=== PATIENT | female | born 1995 | race Caucasian/White ===

== ENCOUNTER 2024-02-28 18:16 | Inpatient (IN) | payer MEDICARE, MEDICAID, SELFPAY ==
--- NOTE | ~2024-02-28 | XR_ITS ---
EXAMINATION: XR SHOULDER, RIGHT CLINICAL INFORMATION: Shoulder pain fall COMPARISON: None available. TECHNIQUE: AP external rotation, Grashey, scapular Y, and axillary views of the right shoulder. FINDINGS: The bones and soft tissues are normal. No fracture. Glenohumeral and acromioclavicular alignment is anatomic with normal joint space. No abnormal soft tissue calcifications. XR/XR shoulder RT min 2V IMPRESSION: Normal right shoulder.
--- NOTE | ~2024-02-28 | XR_ITS ---
EXAMINATION: XR ELBOW, RIGHT CLINICAL INFORMATION: Right elbow humeral pain after fall. COMPARISON: Right shoulder radiographs of 02/29/2024. TECHNIQUE: Two views of the right elbow. Per technologist, only 2 views were obtained due to recently dislocated right shoulder. FINDINGS: Bone mineralization is normal. Alignment maintained. No gross displaced fracture appreciated on the two views provided. XR/XR elbow RT min 3V IMPRESSION: No gross displaced fracture appreciated on this limited 2 view study. Additional imaging should be considered for further evaluation if there is clinical concern for fracture. This study was presented today March 04, 2024 for interpretation. Stat results provided at this time as requested by referring provider.
--- OUTSIDE RECORDS SUMMARY | 2024-02-28 18:20 | XMS_ITS | Continuity of Care Document ---
Author Organization [facility] Address [address] [place] [id number]- Care Team Providers Care Brazing Machine Tender Name Role Phone EILEEN RODRIGUEZ CNP Primary Care Physician Encounter [facility] Date(s): 05/06/23 - 05/06/[address] [address]- Encounter Diagnosis Near syncope(Discharge Diagnosis) - 05/06/23 Discharge Disposition: Home/Self Care Attending Physician: YOUNG EL Admitting Physician: YOUNG EL Referring Physician: YOUNG EL Allergies, Adverse Reactions, Alerts Substance Reaction Severity Status lithium unknown Active Haldol unknowhn Active [place] C unknown Active Problem List Condition Confirmation Course Effective Dates Status Health St atus Informant Development delay Confirmed Active Vital Signs Most recent to oldest [Reference Range]: 1 2 Blood Pressure [90-140/60-90 mmHg] 92/59 mmHg (05/06/23 1:22 PM) 117/67mmHg (05/06/23 11:18 AM) Dosing BMI 28 (05/06/23 2:09 PM) 28 (05/06/23 11:18 AM) Dosing BSA-Mosteller 1.64 m2 (05/06/23 2:09 PM) 1.64 m2 (05/06/23 11:18 AM) Dosing Weight 64.5 kg (05/06/23 2:09 PM) 64.5 kg (05/06/23 11:18 AM) Heart Rate [60-100 bpm] 98 bpm (05/06/23 1:22 PM) 93 bpm (05/06/23 11:18 AM) Heart Rate 83 bpm (05/06/23 11:27 AM) Height 151 cm (05/06/23 2:09 PM) 151 cm (05/06/23 11:18 AM) Mean Arterial Pressure 84 mmHg (05/06/23 11:18 AM) Respiratory Rate [14-20 breaths/min] 16 breaths/min (05/06/23 1:22 PM) 18 breaths/min (05/06/23 11:18 AM) SpO2/Pulse Oximetry [85-100 %] 95 % (05/06/23 1:22 PM) 96 % (05/06/23 11:18 AM) Temperature Oral [35.8-37.3 degC] 36.9 d egC (05/06/23 11:18 AM) Social History Social History Type Response Smoking/Tobacco Use Smoking tobacco use: Current status unknown. Sex Hospital Discharge Instructions Follow Up Care 05/06/2023 11:02:07 With:EILEEN RODRIGUEZ Address: [address] [place] [address]- [phone] Business (1) When:1-2 days Comments:Be sure to drink lots of fluids and get lots of rest. Your EKG here was normal, your vital signs are stable. Your blood sugar was 160. Your symptoms are likely associated with a vagal syncope after your injection. Follow-up with your primary care doctor for repeat evaluation and further management as needed. Return to the emergency department with any worsening new symptoms or concerns. Patient Care team information Care Team Personnel Name: EILEEN RODRIGUEZ CNP Position: RO Provider External Member Role: Primary Care Physician Address: Address: [address] [place] [id number]- Name: RAMONE MARTIN MD Position: ED Physician R3 Member Role: ED Physician Address: Address: [address] [place] [id number]- Name: Fabiana Umaña Position: ED RN SPC R3 Member Role: ED Nurse Name: Taiwo Godoy Position: ED Registration/Bed Control CPOE Member Role: ED Registration/Bed Control Name: DAVI VASQUEZ Position: ED MLP PA R3 Member Role: Physician Financial Reporting Advisor Address: Address: [address] [place] [address]-
[2024-02-28 19:06] VITALS: BP 134/86; PULSE 106; RESP 20; TEMP 36.6; O2SAT 95
[2024-02-28 19:11] VITALS: BP 148/84; PULSE 120; RESP 18; O2SAT 97
[2024-02-28 19:16] VITALS: BP 129/86; PULSE 101; RESP 16; O2SAT 95
[2024-02-28 19:18] LABS: Glucose, Whole Blood 107 mg/dL (60-115)
[2024-02-28] MEDS: LORazepam 1 MG TABLET PO (19:25)
[2024-02-28] MEDS: lamoTRIgine 100 MG TABLET 200 MG PO (19:25)
--- NOTE | 2024-02-28 19:29 | PM.EVENT ---
Event Note Date of Service: 02/29/24 Event Note: 7:04 PM - SALES AND MARKETING ASSISTANT activated after patient was noted to have seizures activity. She also had one event of vomiting. VS stable. Upon entering room, patient was laying on her left side and c/o feeling weak and dizzy. Alert and able to answer question and able to say her name. No urinary or fecal incontinence. Patient takes Lamictal for seizures as well as Ativan. Tx: Zofran 4 mg SL Lamictal 200 mg PO now Ativan 1 mg PO Will obtain basicl labs stat Time Spent With Patient Time: Total time managing care of this patient today ____ minutes.
[2024-02-28] MEDS: Ondansetron ODT 4 MG TAB.RAPDIS TRANSLINGU (19:34)
[2024-02-28 19:56] LABS: Hematocrit 41.9 % (37.0-47.0); Hemoglobin 13.7 g/dl (12.0-16.0); Mean Corpuscular HGB Conc 32.7 g/dl (31.0-35.0); Mean Corpuscular Hemoglobin 27.5 pg (27.0-33.0); Mean Corpuscular Volume 84.1 fL (80.0-98.0); Mean Platelet Volume 10.1 fL (9.4-12.3); Platelet Count 416 X10*3/uL (160-400); Red Blood Count 4.98 X10*6/uL (4.20-5.50); Red Cell Distribution Width 13.2 % (11.0-16.0); White Blood Count 12.3 X10*3/uL (4.8-10.8)
[2024-02-28 20:00] VITALS: BP 128/86; PULSE 102; RESP 18; TEMP 36.8; O2SAT 96
[2024-02-28 20:16] LABS: Alanine Aminotransferase 13 U/L (0-31); Albumin Level 4.7 g/dL (3.5-5.0); Alkaline Phosphatase 145 U/L (39-117); Anion Gap 17 (12-20); Aspartate Amino Transferase 16 U/L (5-31); Bilirubin Total 0.3 mg/dL (0.0-1.0); Blood Urea Nitrogen 9 mg/dL (9-16); Calcium 9.6 mg/dL (8.4-10.2); Carbon Dioxide 26 mmol/L (22-29); Chloride 102 mmol/L (96-108); Estimated Glomerular Filt Rate > 60; Glucose Random 100 mg/dL (60-115); Magnesium 2.2 mg/dL (1.6-2.6); Potassium 4.2 mmol/L (3.3-5.1); Sodium 141 mmol/L (135-145); Total Protein 7.6 g/dL (6.5-8.0)
[2024-02-28 20:52] VITALS: BMI 32.5
--- NOTE | 2024-02-29 00:54 | PC.ADMIT ---
DALTON IS A 29 YEAR OLD, CAMBODIAN SPEAKING, FEMALE ADMITTED TO [facility] FROM [facility]. PT RESIDES IN A DDS INTERMEDIATE. SHE WAS ADMITTED FOR SUICIDAL IDEATIONS AND SELF HARMING BEHAVIORS. PT WAS SWALLOWING EVERYDAY OBJECTS SUCH KAUR RINGS IN AN ATTEMPT TO KILL HERSELF, RESULTING IN SURGICAL INTERVENTION ON 02/25/24. PT HAS A HISTORY OF SELF HARM SUCH BANGING HER HEAD TO THE POINT OF CONCUSSIONS. PT HAS ALCOHOL SYNDROME AND A SEIZURE DISORDER. SHE HAS HAD RECENT STRESSORS, FINDING OUT HER ADOPTED MOTHER HAS CANCER. PT HAS GOOD EXTERNAL SUPPORTS SUCH PROVIDERS, INTERMEDIATE STAFF, AND HER LEGAL GUARDIAN TISH. PT HAS BEEN MAKING FREQUENT SUICIDAL STATEMENTS AT THE INTERMEDIATE AND THEY ARE CONCERNED THAT THIS APPEARS MORE THAN HER USUAL HOSPITAL SEEKING BEHAVIOR . PT IS A 12B ON 5 MINUTE SAFETY CHECKS. SKIN ASSESSMENT WAS COMPLETED BY RNS, JK AND AF. PT REPORTS POOR SLEEP AND APPETITE. INDEPENDENT AMBULATION. NO ACUTE MEDICAL CONCERNS AT THIS TIME. VITAL SIGNS STABLE.
[2024-02-29 07:49] VITALS: BP 124/79; PULSE 91; RESP 18; TEMP 36.6; O2SAT 93
[2024-02-29] MEDS: Magnesium Hydrox/Alum Hydrox 30 ML ORAL.SUSP PO (08:41)
[2024-02-29] MEDS: Fluticasone Propionate 100 MCG BLST.W.DEV 1 PUFF INHALE ×2 (08:54→21:27)
[2024-02-29] MEDS: Acetaminophen 325 MG TABLET 650 MG PO ×2 (08:55→17:51)
--- NOTE | 2024-02-29 09:37 | P.HPPS_ITS ---
HPI Date of Service: 02/29/24 Chief Complaint: Unspecified Mood Disorder PTSD Sources of Information: patient interviewed, chart reviewed and crisis/core team assessment reviewed HPI Subjective Notes: Section 12B Narrative: 29 yo female, under guardianship, resident of a [facility] halfway ([facility]), in residential treatment most of her life, with diagnosis of mild intellectual disability, PTSD, unspecified mood disorder and history of non- suicidal self injury. Patient was transferred from [facility]. She presented there from her group eryn for ingesting safety pin, coin, a piece of a zipper, a jenkins ring and having SI. She had recently been discharged from [facility] inpatient psychiatric unit. Patient underwent an EGD where the objects were retrieved. The patient was evaluated by GOLF CLUB ASSEMBLER and recommendations were made for her to be admitted. She was also telling staff at the halfway that she had plans to fall backwards from the porch in the program by throwing herself backwards. Patient was seen today. She reports she is feeling safe while in the hospital and doesn't want to kill herself. She reported I didn't feel ready to go back to the halfway from [facility] inpatient unit but they still discharged me. She says she doesn't like it at the halfway. She reports she is sad and thinking about her father that triggers feelings of depression. She had a seizure-like event yesterday after admission to [facility]. She was seen by NATURAL GAS TREATING UNIT OPERATOR. It wasn't confirmed to be a seizure. She didn't appear to be post-ictal. Possibility of non-epileptic event. Patient also reports she has right shoulder pain. She says she felt her shoulder dislocate and then popped back in this morning when she was stretching getting out of bed. Says she has a hard time moving her shoulder. Denies AVH. Denies urges for self harm. Patient became angry and frustrated during the day due to her shoulder pain and was screaming and yelling and banging her head strongly against the wall. Patient had shoulder Xray and hospitalist consultation. Sling was ordered. Ibuprofen was given. Xray was negative for fracture or dislocation. Past Psychiatric History: Multiple psychiatric hospitalizations. Resides in halfway. Has been in residential care most of her life Mood disorder PTSD GOLF CLUB ASSEMBLER record notes alcohol syndrome. Medical Evaluation Reviewed: Yes [facility] Medical History (Updated 02/29/24 @ 20:04 by Kuldip Aldana MD) [place] Schizoaffective disorder Mild intellectual disability PTSD (post-traumatic stress disorder) GERD (gastroesophageal reflux disease) Seizure disorder Family History: Unknown Social History: Has a guardian. Has been at her current residential home since 2020. Substance History: none known Trauma History: Reported. Specifics not discussed. Diagnostics Vital Signs (24Hr): Vital Signs - 24 hr 02/28/24 19:06 02/28/24 19:11 02/28/24 19:16 Temperature 97.8 F Pulse Rate 106 H 120 H 101 H Respiratory Rate 20 18 16 Blood Pressure 134/86 148/84 H 129/86 Pulse Oximetry 95 97 95 Oxygen Delivery Method Room Air Room Air Room Air 02/28/24 20:00 02/29/24 07:49 Temperature 98.3 F 97.8 F Pulse Rate 102 H 91 Respiratory Rate 18 18 Blood Pressure 128/86 124/79 Pulse Oximetry 96 93 Oxygen Delivery Method Room Air Room Air BMI result Body Mass Index 32.5 Labs 02/28/24 19:47 02/29/24 08:39 Labs: Laboratory Results - last 48 hr 02/28/24 02/28/24 02/28/24 19:13 19:47 19:47 WBC 12.3 H RBC 4.98 Hgb 13.7 Hct 41.9 MCV 84.1 MCH 27.5 MCHC 32.7 RDW 13.2 Plt Count 416 H MPV 10.1 Absolute Nucleated RBC 0.000 Nucleated RBC % (auto) 0.0 Sodium 141 Potassium 4.2 Chloride 102 Carbon Dioxide 26 Anion Gap 17 BUN 9 Creatinine 0.75 Estim Creat Clear Calc TNP Estimated GFR > 60 POC Glucose 107 Random Glucose 100 Calcium 9.6 Magnesium 2.2 Total Bilirubin 0.3 AST 16 ALT 13 Alkaline Phosphatase 145 H Total Creatine Kinase 46 Cancelled Total Protein 7.6 Albumin 4.7 Meds/Allergies Meds Home Medications ?Medication ?Instructions ?Recorded ?Confirmed ?Type acetaminophen 325 mg tablet 650 mg PO Q6H PRN Pain 02/28/24 02/28/24 History acetaminophen-caffeine 500 mg-65 2 tab PO Q8H PRN Headache 02/28/24 02/28/24 History mg tablet albuterol sulfate 90 mcg/actuation 2 puff inhalation 6XD PRN Wheezing 02/28/24 02/28/24 History aerosol inhaler azelastine 137 mcg (0.1 %) nasal 1 spray intranasal BID 02/28/24 02/28/24 History spray bisacodyl 5 mg tablet,delayed 5 mg PO DAILY 02/28/24 02/28/24 History release cvvikavpqd-wtjpbsuntvhgf-iafulald 2 tab PO Q6H PRN Headache 02/28/24 02/28/24 History 50 mg-325 mg-40 mg tablet cariprazine 4.5 mg capsule 4.5 mg PO BEDTIME 02/28/24 02/28/24 History dextromethorphan-guaifenesin 30 2 tab PO Q12H PRN Cough 02/28/24 02/28/24 History mg-600 mg tablet extended [id number] hr fluticasone furoate 100 1 inh inhalation BEDTIME 02/28/24 02/28/24 History mcg/actuation blister powder for inhalation food supplemt, lactose-reduced 1 ea BID 02/28/24 02/28/24 History magnesium hydroxide 1,200 mg tablet 1,200 mg PO DAILY 02/28/24 02/28/24 History metoclopramide HCl 5 mg tablet 5 mg PO BID 02/28/24 02/28/24 History nystatin 100,000 unit/gram topical 1 appl topical BID PRN Rash 02/28/24 02/28/24 History powder ondansetron 4 mg disintegrating 4 mg PO Q8H PRN Vomiting 02/28/24 02/28/24 History tablet riboflavin (vitamin B2) 100 mg 200 mg PO BID 02/28/24 02/28/24 History capsule,extended release sucralfate 100 mg/mL oral PO QID 02/29/24 History suspension Allergies Allergies Allergy/AdvReac Type Severity Reaction Status Date / Time haloperidol [From Haldol] Allergy Unknown Verified 02/28/24 20:52 lithium Allergy Unknown Verified 02/28/24 20:52 morphine Allergy Unknown Verified 02/28/24 20:52 strawberry Allergy Unknown Verified 02/28/24 20:52 Assessment & Plan Assessment & Plan (1) Mood disorder: Status: Acute Code(s): F39 - Unspecified mood [affective] disorder (2) Post-traumatic stress disorder, unspecified: Status: Acute Code(s): F43.10 - Post-traumatic stress disorder, unspecified (3) Non-suicidal self-harm: Status: Acute Code(s): R45.88 - Nonsuicidal self-harm (4) Intellectual disability: Status: Acute Code(s): F79 - Unspecified intellectual disabilities Assessment and Plan: 29 yo female with history of intellectual disability, PTSD, NSSI, mood disorder, presents from an OSH after ingesting metal objects that were extracted via upper endoscopy. Plan: - Admit to inpatient psychiatry - CV - Collateral information from halfway, guardian and providers. - Milieu treatment and group therapy. - Medications: Continue home medications. - Social work evaluation. - Disposition planning. Patient educated on: medication risk/benefits, therapeutic strategies and medical condition Informed Consent: understands Reason for continued inpatient stay Substantial Risk for: harm to self, inability to function and rapid decompensation Statement Statement: I have reviewed the history and physical and performed a pertinent examination on my patient. No changes have occurred unless specified. If the History and Physical was not performed prior to admission, the Hospitalist's service will be consulted for completing the admission physical. Time Spent With Patient Time: Total time managing care of this patient today ____ minutes.
[2024-02-29] MEDS: lamoTRIgine 100 MG TABLET 200 MG PO ×2 (09:51→20:24)
[2024-02-29 10:30] LABS: Alanine Aminotransferase 15 U/L (0-31); Albumin Level 4.5 g/dL (3.5-5.0); Alkaline Phosphatase 151 U/L (39-117); Anion Gap 19 (12-20); Aspartate Amino Transferase 29 U/L (5-31); Bilirubin Total 0.3 mg/dL (0.0-1.0); Blood Urea Nitrogen 9 mg/dL (9-16); Calcium 9.2 mg/dL (8.4-10.2); Carbon Dioxide 18 mmol/L (22-29); Chloride 105 mmol/L (96-108); Cholesterol 248 mg/dL (<200); Creatinine Clr Calc Pharmacy 81.5; Estimated Glomerular Filt Rate > 60; Glucose Fasting 85 mg/dL (60-99); HDL Cholesterol 41 mg/dL (>40); LDL Cholesterol Calculated 173 mg/dL (<100); Potassium 4.7 mmol/L (3.3-5.1); Sodium 137 mmol/L (135-145); Total Protein 7.7 g/dL (6.5-8.0); Triglycerides 173 mg/dL (<150)
[2024-02-29] MEDS: Ibuprofen 400 MG TABLET PO ×2 (13:35→18:43)
[2024-02-29] MEDS: LORazepam 1 MG TABLET PO ×2 (13:44→20:24)
[2024-02-29] MEDS: OLANZapine ODT 10 MG TAB.RAPDIS TRANSLINGU ×2 (13:51→23:35)
--- NOTE | 2024-02-29 14:03 | PC.NURSE ---
At approximately 13:20 Jessica starting yelling profanities and head banging, stating that her shoulder hurts still, since tylenol earlier. Ibuprofen ordered and admin. Pt was also given scheduled ativan and PRN zyprexa. Pt states that zyprexa helps her better. Pt worked herself up to the point of vomiting & laying down on the floor. Jessica calmed down and accepted assistance to lay down in her bed. Will continue safety monitoring & re-assess pain. Jessica's right pupil is slightly larger than the left. Jessica states that she was seen at eye doctor before and this was noticed, she was subsequently sent for work-up. We are currently awaiting hospitalist consult, as well.
--- NOTE | 2024-02-29 14:58 | HO.PM.IMCN ---
History of Present Illness Data of Consult Service Date: 02/29/24 Primary Care Provider: Unknown Physician HPI Reason for consult: Admission H&P Pt is a 29-year-old female with a PMH significant for?unspecified seizure disorder, mild intellectual disability, GERD, PTSD, schizoaffective disorder, and hx of pica who is admitted to [facility] psychiatry unit for increasingly disorganized behavior with SI after intentional ingestion of keychain ring, coin, and piece of zipper. Patient comes from [facility]-staffed alf through [facility] and has been in residential care for most of her life. Has a hx of hospital-seeking behavior, banging her head to point of concussion, and superficial cutting. At [facility] pt underwent EGD and had all ingested materials removed with a Banerjee net. Medical consult for admission H&P. Patient initially seen last night as rapid response was called for seizure like behavior. Patient then was noted to have vomited, but was awake, alert, and oriented to self without a clear postictal state. Today patient denied any memory of last night's incident. Complains of right shoulder pain that she says occurred when she dislocated her shoulder during stretches this morning when she raised her hands and arms above her head. Reports she is unable to move her arm due to pain. Is requesting a sling for support. Otherwise patient denies any acute medical complaints. Labs reviewed, significant for mild leukocytosis of 12.3 (Likely reactionary), elevated triglycerides and cholesterol. Prolactin pending. Lamotrigine levels pending. Review of Systems Review of Systems: Right shoulder pain Patient otherwise denies any acute medical concerns at this time [facility] Medical History (Updated 02/29/24 @ 18:24 by WILLIAMS Kwan) Pica Schizoaffective disorder Mild intellectual disability PTSD (post-traumatic stress disorder) GERD (gastroesophageal reflux disease) Seizure disorder Social History Household Members: Caregiver and Other Housing: Other Housing Other:: [facility] Do you presently have visiting nurse or other home services: No Patient Tobacco Use Status: Never used Tobacco Use of substances other than those prescribed or required for medical reasons: No Currently Displaying Signs/Symptoms of Drug Intoxication Withdrawal: No Any prior treatment program specific to substance use: No Have you been hit, kicked, punched, or otherwise hurt by someone within the past year? If so, by whom?: No Do you feel safe in your current relationship?: No Current Relationship Is there a partner from a previous relationship who is making you feel unsafe now?: No Are you made to feel afraid or neglected: No Advance Directives: No Advance Directives Information Provided: No Advance Directives on File: No Do you have thoughts of harming others: None Do you have a plan to hurt others: No Plan Recently lost weight without trying: No Eating poorly because of decreased appetite: No Nutrition Risks: No Nutritional Risk Patient : No : No Poor oral hygiene: No Meds Allergies Allergy/AdvReac Type Severity Reaction Status Date / Time haloperidol [From Haldol] Allergy Unknown Verified 02/28/24 20:52 lithium Allergy Unknown Verified 02/28/24 20:52 morphine Allergy Unknown Verified 02/28/24 20:52 strawberry Allergy Unknown Verified 02/28/24 20:52 Active Medications: Current Medications Acetaminophen (Acetaminophen 325 Mg Tablet) 650 mg PO Q6H PRN PRN Reason: Headache/Pain Mild Scale (1-3) Last Admin: 02/29/24 08:55 Dose: 650 mg Acetaminophen/Butalbital/Caffeine (Butalb/Acetamin/Caff 50/325/40 Tablet) 2 tab PO Q6H PRN PRN Reason: Headache Al Hydroxide/Mg Hydroxide (Magnesium Hydrox/Alum Hydrox 30 Ml Oral.Susp) 30 ml PO Q6H PRN PRN Reason: Heartburn/Nausea Last Admin: 02/29/24 08:41 Dose: 30 ml Albuterol Sulfate (Albuterol Sulfate 90 Mcg 8 Gm Inhaler) 2 puff INHALE 6XD PRN PRN Reason: Wheezing Cariprazine (Cariprazine Hcl 1.5 Mg Capsule) 4.5 mg PO BEDTIME JUAN Last Admin: 02/29/24 00:32 Dose: Not Given Clonidine HCl (Clonidine Hcl 0.1 Mg Tablet) 0.1 mg PO DAILY JUAN; Protocol Clonidine HCl (Clonidine Hcl 0.2 Mg Tablet) 0.2 mg PO BEDTIME JUAN; Protocol Fluticasone Propionate (Fluticasone Propionate 100 Mcg Blst.W.Dev) 1 puff INHALE RBID JUAN Last Admin: 02/29/24 08:54 Dose: 1 puff Hydroxyzine HCl (Hydroxyzine Hcl 25 Mg Tablet) 25 mg PO Q6H PRN PRN Reason: Anxiety Ibuprofen (Ibuprofen 400 Mg Tablet) 400 mg PO Q6H PRN PRN Reason: moderate and severe pain Last Admin: 02/29/24 13:35 Dose: 400 mg Lamotrigine (Lamotrigine 100 Mg Tablet) 200 mg PO BID [facility] Last Admin: 02/29/24 09:51 Dose: 200 mg Lorazepam (Lorazepam 1 Mg Tablet) 1 mg PO TID [facility] Last Admin: 02/29/24 13:44 Dose: 1 mg Magnesium Hydroxide (Milk Of Magnesia 30 Ml Oral.Susp) 30 ml PO DAILY PRN PRN Reason: Constipation Melatonin (Melatonin 3 Mg Tablet) 6 mg PO BEDTIME [facility] Nystatin (Nystatin Powder 15 Gm Bottle) 1 appl TOPICAL BID PRN; Protocol PRN Reason: Rash Olanzapine (Olanzapine 10 Mg Tablet) 10 mg PO BEDTIME [facility] Olanzapine (Olanzapine Odt 10 Mg Tab.Rapdis) 10 mg TRANSLINGU BID PRN PRN Reason: severe agitation Last Admin: 02/29/24 13:51 Dose: 10 mg Ondansetron HCl (Ondansetron Odt 4 Mg Tab.Rapdis) 4 mg TRANSLINGU Q8H PRN PRN Reason: Vomiting Polyethylene Glycol (Polyethylene Glycol 3350 17 Gm Powd.Pack) 34 gm PO DAILY [facility] Sertraline HCl (Sertraline Hcl 100 Mg Tablet) 100 mg PO DAILY [facility] Sucralfate (Sucralfate 1 Gm Tablet) 1 gm PO QIDACHS [facility] Trazodone HCl (Trazodone Hcl 100 Mg Tablet) 100 mg PO BEDTIME [facility] Home Medications ?Medication ?Instructions ?Recorded ?Confirmed ?Last Taken ?Type acetaminophen 325 mg tablet 650 mg PO Q6H PRN Pain 02/28/24 02/28/24 Unknown History acetaminophen-caffeine 500 mg-65 2 tab PO Q8H PRN Headache 02/28/24 02/28/24 Unknown History mg tablet albuterol sulfate 90 mcg/actuation 2 puff inhalation 6XD PRN Wheezing 02/28/24 02/28/24 Unknown History aerosol inhaler azelastine 137 mcg (0.1 %) nasal 1 spray intranasal BID 02/28/24 02/28/24 Unknown History spray bisacodyl 5 mg tablet,delayed 5 mg PO DAILY 02/28/24 02/28/24 01/15/24 History release [id number] 2 tab PO Q6H PRN Headache 02/28/24 02/28/24 Unknown History 50 mg-325 mg-40 mg tablet cariprazine 4.5 mg capsule 4.5 mg PO BEDTIME 02/28/24 02/28/24 Unknown History dextromethorphan-guaifenesin 30 2 tab PO Q12H PRN Cough 02/28/24 02/28/24 Unknown History mg-600 mg tablet extended [id number] hr fluticasone furoate 100 1 inh inhalation BEDTIME 02/28/24 02/28/24 Unknown History mcg/actuation blister powder for inhalation food supplemt, lactose-reduced 1 ea BID 02/28/24 02/28/24 Unknown History magnesium hydroxide 1,200 mg tablet 1,200 mg PO DAILY 02/28/24 02/28/24 Unknown History metoclopramide HCl 5 mg tablet 5 mg PO BID 02/28/24 02/28/24 Unknown History nystatin 100,000 unit/gram topical 1 appl topical BID PRN Rash 02/28/24 02/28/24 Unknown History powder ondansetron 4 mg disintegrating 4 mg PO Q8H PRN Vomiting 02/28/24 02/28/24 Unknown History tablet riboflavin (vitamin B2) 100 mg 200 mg PO BID 02/28/24 02/28/24 Unknown History capsule,extended release sucralfate 100 mg/mL oral PO QID 02/29/24 Unknown History suspension Physical Exam Vital Signs and Narrative: Vital Signs: Last Vital Signs Temp 97.8 F 02/29/24 07:49 Pulse 91 02/29/24 07:49 Resp 18 02/29/24 07:49 BP 124/79 02/29/24 07:49 Pulse Ox 93 02/29/24 07:49 O2 Del Method Room Air 02/29/24 07:49 BMI result Body Mass Index 32.5 General: AOx3, no acute distress Resp: CTA bilaterally CVS: S1, S2, RRR GI: +BS, NT, no distention Skin: Warm, dry Neuro: Cranial nerves II-XII grossly intact bilaterally. Motor grossly intact bilaterally Extremities: No edema. Healed superficial cuts to left wrist and forearm. Right shoulder diffusely tender to palpation. Reduced ROM secondary to pain. Right shoulder joint in alignment visual inspection and with palpation. Psych: Calm, cooperative Results Labs 02/28/24 19:47 02/29/24 08:39 Labs: Laboratory Results - last 24 hr 02/28/24 02/28/24 02/28/24 19:13 19:47 19:47 MCV 84.1 MCH 27.5 MCHC 32.7 RDW 13.2 Plt Count 416 H MPV 10.1 Absolute Nucleated RBC 0.000 Nucleated RBC % (auto) 0.0 Anion Gap 17 Estim Creat Clear Calc TNP Estimated GFR > 60 POC Glucose 107 Random Glucose 100 Fasting Glucose Calcium 9.6 Magnesium 2.2 Total Bilirubin 0.3 AST 16 ALT 13 Alkaline Phosphatase 145 H Total Creatine Kinase 46 Cancelled Total Protein 7.6 Albumin 4.7 Triglycerides Cholesterol LDL Cholesterol, Calc HDL Cholesterol 02/29/24 08:39 MCV MCH MCHC RDW Plt Count MPV Absolute Nucleated RBC Nucleated RBC % (auto) Anion Gap 19 Estim Creat Clear Calc 81.5 Estimated GFR > 60 POC Glucose Random Glucose Fasting Glucose 85 Calcium 9.2 Magnesium Total Bilirubin 0.3 AST 29 ALT 15 Alkaline Phosphatase 151 H Total Creatine Kinase Total Protein 7.7 Albumin 4.5 Triglycerides 173 H Cholesterol 248 H LDL Cholesterol, Calc 173 H HDL Cholesterol 41 Assessment and Plan (1) Medical clearance for psychiatric admission: Status: Acute Plan Pt is a 29-year-old female with a PMH significant for?unspecified seizure disorder, mild intellectual disability, GERD, PTSD, schizoaffective disorder, and hx of pica who is admitted to [facility] psychiatry unit for increasingly disorganized behavior with SI after intentional ingestion of keychain ring, coin, and piece of zipper. Patient comes from [facility]-staffed alf through [facility] and has been in residential care for most of her life. Has a hx of hospital-seeking behavior, banging her head to point of concussion, and superficial cutting. At [facility] pt underwent EGD and had all ingested materials removed with a Banerjee net. Medical consult for admission H&P. Mood disorder Plan as per psychiatry Unspecified seizure disorder Rapid response was called last night for seizure-like activity Continue Lamictal, Ativan Question of right shoulder dislocation X-ray of shoulder negative, shoulder grossly in alignment upon visual and physical inspection No indication for additional workup at this time Symptomatic treatment GERD Continue medical provide Thank you for allowing us to participate in the care of this patient. Signing off at this time. Please re-consult if any acute complaints or issues arise.
[2024-02-29] MEDS: Sucralfate 1 GM TABLET PO ×2 (16:54→20:24)
[2024-02-29 20:00] VITALS: BP 133/79; PULSE 92; RESP 18; TEMP 36.5; O2SAT 96
[2024-02-29] MEDS: Melatonin 3 MG TABLET 6 MG PO (20:24)
[2024-02-29] MEDS: cloNIDine HCL 0.2 MG TABLET PO (20:24)
[2024-02-29] MEDS: Cariprazine HCl 1.5 MG CAPSULE 4.5 MG PO (20:24)
[2024-02-29] MEDS: traZODone HCL 100 MG TABLET PO (20:24)
[2024-02-29] MEDS: OLANZapine 10 MG TABLET PO (20:24)
[2024-02-29] MEDS: Milk of Magnesia 30 ML ORAL.SUSP PO (21:11)
[2024-03-01] MEDS: Ibuprofen 400 MG TABLET PO ×2 (07:49→20:14)
[2024-03-01] MEDS: Sucralfate 1 GM TABLET PO ×4 (07:55→20:16)
[2024-03-01] MEDS: lamoTRIgine 100 MG TABLET 200 MG PO ×2 (08:24→20:15)
[2024-03-01] MEDS: polyethylene glycoL 3350 17 GM POWD.PACK 34 GM PO (08:24)
[2024-03-01] MEDS: LORazepam 1 MG TABLET PO ×2 (08:25→20:16)
[2024-03-01] MEDS: Fluticasone Propionate 100 MCG BLST.W.DEV 1 PUFF INHALE ×2 (08:26→20:13)
[2024-03-01 08:54] VITALS: BP 117/56; PULSE 86; RESP 18; TEMP 36.5; O2SAT 96
[2024-03-01 08:54] LABS: Prolactin 17.1 ng/mL
[2024-03-01] MEDS: cloNIDine HCL 0.1 MG TABLET PO (08:58)
[2024-03-01] MEDS: Sertraline HCL 100 MG TABLET PO (08:59)
--- NOTE | 2024-03-01 09:05 | P.PNPSI_ITS ---
Subjective Subjective Date of Service: 03/01/24 Reason For Visit: Unspecified Mood Disorder PTSD Interim History: Patient seen and discussed. She feels better now that she has a sling and feels her shoulder is getting better. Has a 1:1 for safety. Says she still has SI if she were to return to the long term. No behavioral outbursts today. No self harm on the unit. Review of Systems Review of Systems Right shoulder pain Patient otherwise denies any acute medical concerns at this time Diagnostics Vital Signs (24Hr): Vital Signs - 24 hr 02/29/24 20:00 03/01/24 08:54 Temperature 97.7 F 97.7 F Pulse Rate 92 86 Respiratory Rate 18 18 Blood Pressure 133/79 117/56 L Pulse Oximetry 96 96 Oxygen Delivery Method Room Air Room Air BMI result Body Mass Index 32.5 Labs 02/28/24 19:47 02/29/24 08:39 Labs: Laboratory Results - last 48 hr 02/28/24 02/28/24 02/28/24 19:13 19:47 19:47 WBC 12.3 H RBC 4.98 Hgb 13.7 Hct 41.9 MCV 84.1 MCH 27.5 MCHC 32.7 RDW 13.2 Plt Count 416 H MPV 10.1 Absolute Nucleated RBC 0.000 Nucleated RBC % (auto) 0.0 Sodium 141 Potassium 4.2 Chloride 102 Carbon Dioxide 26 Anion Gap 17 BUN 9 Creatinine 0.75 Estim Creat Clear Calc TNP Estimated GFR > 60 POC Glucose 107 Random Glucose 100 Fasting Glucose Calcium 9.6 Magnesium 2.2 Total Bilirubin 0.3 AST 16 ALT 13 Alkaline Phosphatase 145 H Total Creatine Kinase 46 Cancelled Total Protein 7.6 Albumin 4.7 Triglycerides Cholesterol LDL Cholesterol, Calc HDL Cholesterol Prolactin 17.1 02/29/24 08:39 WBC RBC Hgb Hct MCV MCH MCHC RDW Plt Count MPV Absolute Nucleated RBC Nucleated RBC % (auto) Sodium 137 Potassium 4.7 Chloride 105 Carbon Dioxide 18 L Anion Gap 19 BUN 9 Creatinine 0.87 Estim Creat Clear Calc 81.5 Estimated GFR > 60 POC Glucose Random Glucose Fasting Glucose 85 Calcium 9.2 Magnesium Total Bilirubin 0.3 AST 29 ALT 15 Alkaline Phosphatase 151 H Total Creatine Kinase Total Protein 7.7 Albumin 4.5 Triglycerides 173 H Cholesterol 248 H LDL Cholesterol, Calc 173 H HDL Cholesterol 41 Prolactin Imaging Radiology Impressions: ITS Impressions Shoulder X-Ray 02/29/24 14:32 IMPRESSION: Normal right shoulder. Medications Medications Current Medications Acetaminophen (Acetaminophen 325 Mg Tablet) 650 mg PO Q6H PRN PRN Reason: Headache/Pain Mild Scale (1-3) Last Admin: 02/29/24 17:51 Dose: 650 mg Acetaminophen/Butalbital/Caffeine (Butalb/Acetamin/Caff 50/325/40 Tablet) 2 tab PO Q6H PRN PRN Reason: Headache Al Hydroxide/Mg Hydroxide (Magnesium Hydrox/Alum Hydrox 30 Ml Oral.Susp) 30 ml PO Q6H PRN PRN Reason: Heartburn/Nausea Last Admin: 02/29/24 08:41 Dose: 30 ml Albuterol Sulfate (Albuterol Sulfate 90 Mcg 8 Gm Inhaler) 2 puff INHALE 6XD PRN PRN Reason: Wheezing Cariprazine (Cariprazine Hcl 1.5 Mg Capsule) 4.5 mg PO BEDTIME JUAN Last Admin: 02/29/24 20:24 Dose: 4.5 mg Clonidine HCl (Clonidine Hcl 0.1 Mg Tablet) 0.1 mg PO DAILY JUAN; Protocol Last Admin: 03/01/24 08:58 Dose: 0.1 mg Clonidine HCl (Clonidine Hcl 0.2 Mg Tablet) 0.2 mg PO BEDTIME JUAN; Protocol Last Admin: 02/29/24 20:24 Dose: 0.2 mg Fluticasone Propionate (Fluticasone Propionate 100 Mcg Blst.W.Dev) 1 puff INHALE RBID [facility] Last Admin: 03/01/24 08:26 Dose: 1 puff Hydroxyzine HCl (Hydroxyzine Hcl 25 Mg Tablet) 25 mg PO Q6H PRN PRN Reason: Anxiety Ibuprofen (Ibuprofen 400 Mg Tablet) 400 mg PO Q6H PRN PRN Reason: moderate and severe pain Last Admin: 03/01/24 07:49 Dose: 400 mg Lamotrigine (Lamotrigine 100 Mg Tablet) 200 mg PO BID [facility] Last Admin: 03/01/24 08:24 Dose: 200 mg Lorazepam (Lorazepam 1 Mg Tablet) 1 mg PO TID [facility] Last Admin: 03/01/24 08:25 Dose: 1 mg Magnesium Hydroxide (Milk Of Magnesia 30 Ml Oral.Susp) 30 ml PO DAILY PRN PRN Reason: Constipation Last Admin: 02/29/24 21:11 Dose: 30 ml Melatonin (Melatonin 3 Mg Tablet) 6 mg PO BEDTIME [facility] Last Admin: 02/29/24 20:24 Dose: 6 mg Nystatin (Nystatin Powder 15 Gm Bottle) 1 appl TOPICAL BID PRN; Protocol PRN Reason: Rash Olanzapine (Olanzapine 10 Mg Tablet) 10 mg PO BEDTIME [facility] Last Admin: 02/29/24 20:24 Dose: 10 mg Olanzapine (Olanzapine Odt 10 Mg Tab.Rapdis) 10 mg TRANSLINGU BID PRN PRN Reason: severe agitation Last Admin: 02/29/24 23:35 Dose: 10 mg Ondansetron HCl (Ondansetron Odt 4 Mg Tab.Rapdis) 4 mg TRANSLINGU Q8H PRN PRN Reason: Vomiting Polyethylene Glycol (Polyethylene Glycol 3350 17 Gm Powd.Pack) 34 gm PO DAILY [facility] Last Admin: 03/01/24 08:24 Dose: 34 gm Sertraline HCl (Sertraline Hcl 100 Mg Tablet) 100 mg PO DAILY [facility] Last Admin: 03/01/24 08:59 Dose: 100 mg Sucralfate (Sucralfate 1 Gm Tablet) 1 gm PO QIDACHS [facility] Last Admin: 03/01/24 07:55 Dose: 1 gm Trazodone HCl (Trazodone Hcl 100 Mg Tablet) 100 mg PO BEDTIME [facility] Last Admin: 02/29/24 20:24 Dose: 100 mg Allergies Allergies Allergy/AdvReac Type Severity Reaction Status Date / Time haloperidol [From Haldol] Allergy Unknown Verified 02/28/24 20:52 lithium Allergy Unknown Verified 02/28/24 20:52 morphine Allergy Unknown Verified 02/28/24 20:52 strawberry Allergy Unknown Verified 02/28/24 20:52 Assessment & Plan Assessment & Plan (1) Mood disorder: Status: Acute Code(s): F39 - Unspecified mood [affective] disorder (2) Post-traumatic stress disorder, unspecified: Status: Acute Code(s): F43.10 - Post-traumatic stress disorder, unspecified (3) Non-suicidal self-harm: Status: Acute Code(s): R45.88 - Nonsuicidal self-harm (4) Intellectual disability: Status: Acute Code(s): F79 - Unspecified intellectual disabilities Assessment and Plan: 29 yo female with history of intellectual disability, PTSD, NSSI, mood disorder, presents from an OSH after ingesting metal objects that were extracted via upper endoscopy. Plan: - Admit to inpatient psychiatry - CV - Collateral information from long term, guardian and providers. - Milieu treatment and group therapy. - Medications: Continue home medications. - Social work evaluation. - Disposition planning. 03/01: continue current management and treatment plan. Reason for continued inpatient stay Substantial Risk for: harm to self, inability to function and rapid decompensation Time Spent With Patient Time: Total time managing care of this patient today ____ minutes.
--- NOTE | 2024-03-01 14:33 | PC.NURSE ---
Pt continues to refuse EKG
[2024-03-01 20:00] VITALS: BP 111/6; PULSE 87; RESP 18; TEMP 36.7; O2SAT 96
[2024-03-01] MEDS: Melatonin 3 MG TABLET 6 MG PO (20:15)
[2024-03-01] MEDS: OLANZapine 10 MG TABLET PO (20:15)
[2024-03-01] MEDS: Cariprazine HCl 1.5 MG CAPSULE 4.5 MG PO (20:15)
[2024-03-01 20:16] VITALS: BP 111/64
[2024-03-01] MEDS: traZODone HCL 100 MG TABLET PO (20:16)
[2024-03-01] MEDS: cloNIDine HCL 0.2 MG TABLET PO (20:16)
[2024-03-02 08:00] VITALS: BP 97/58; PULSE 75; RESP 16; TEMP 36.4; O2SAT 95
[2024-03-02] MEDS: Sucralfate 1 GM TABLET PO ×4 (08:43→20:44)
[2024-03-02] MEDS: LORazepam 1 MG TABLET PO ×3 (08:44→20:43)
[2024-03-02] MEDS: lamoTRIgine 100 MG TABLET 200 MG PO ×2 (08:44→20:43)
[2024-03-02] MEDS: Sertraline HCL 100 MG TABLET PO (08:44)
[2024-03-02] MEDS: Fluticasone Propionate 100 MCG BLST.W.DEV 1 PUFF INHALE ×2 (08:47→21:01)
--- NOTE | 2024-03-02 09:42 | HO.PSYCHPN ---
Subjective Subjective Date of Service: 03/02/24 Reason For Visit: Unspecified Mood Disorder PTSD Interim History: Met with patient; discussed with team; reviewed chart Patient resting quietly in her room, mostly spending time alone. She reports that she has been more depressed recently but can not point to any trigger. She said she has been depressed before but this current depression is more than usual and it has been going on for about 2 weeks. She can tell she is more depressed because [facility] much more than usual. Patient says she has been missing her dad. He 13 years ago and she has been thinking about him a lot. She says that Zoloft was started over a month ago and agrees to have it titrated. Solar Sales Manager discussed behavioral activation to help address depression to which she agreed Mental Status Exam Mental Status Exam Narrative: Pt is alert and oriented; behavior is cooperative, calm, quiet; patient is not in distress; right arm in sling; dressed in casual attire with dyed hair streak, a little unkempt but adequate hygiene; mood is described as depressed and affect congruent, downcast; eye contact avoidant; Speech is a little soft and a little slow; normal prosody and not pressured; psychomotor retardation present; thought process is organized and goal directed; Thought content is on her depression, missing her father; otherwise pertinent to relevant topics and without any delusional content, paranoid ideations or grandiosity; denies any SI/HI. There is no evidence of perceptual disturbance. Patients insight and judgment impaired Diagnostics Vital Signs (24Hr): Vital Signs - 24 hr 03/01/24 20:00 03/01/24 20:16 Temperature 98.0 F Pulse Rate 87 Respiratory Rate 18 Blood Pressure 111/6 L 111/64 Pulse Oximetry 96 Oxygen Delivery Method Room Air BMI result Body Mass Index 32.5 Labs 02/28/24 19:47 02/29/24 08:39 Labs: Laboratory Results - last 48 hr 02/28/24 02/29/24 19:47 08:39 Sodium 137 Potassium 4.7 Chloride 105 Carbon Dioxide 18 L Anion Gap 19 BUN 9 Creatinine 0.87 Estim Creat Clear Calc 81.5 Estimated GFR > 60 Fasting Glucose 85 Calcium 9.2 Total Bilirubin 0.3 AST 29 ALT 15 Alkaline Phosphatase 151 H Total Protein 7.7 Albumin 4.5 Triglycerides 173 H Cholesterol 248 H LDL Cholesterol, Calc 173 H HDL Cholesterol 41 Prolactin 17.1 Imaging Radiology Impressions: ITS Impressions Shoulder X-Ray 02/29/24 14:32 IMPRESSION: Normal right shoulder. Medications Medications Current Medications Acetaminophen (Acetaminophen 325 Mg Tablet) 650 mg PO Q6H PRN PRN Reason: Headache/Pain Mild Scale (1-3) Last Admin: 02/29/24 17:51 Dose: 650 mg Acetaminophen/Butalbital/Caffeine (Butalb/Acetamin/Caff 50/325/40 Tablet) 2 tab PO Q6H PRN PRN Reason: Headache Al Hydroxide/Mg Hydroxide (Magnesium Hydrox/Alum Hydrox 30 Ml Oral.Susp) 30 ml PO Q6H PRN PRN Reason: Heartburn/Nausea Last Admin: 02/29/24 08:41 Dose: 30 ml Albuterol Sulfate (Albuterol Sulfate 90 Mcg 8 Gm Inhaler) 2 puff INHALE 6XD PRN PRN Reason: Wheezing Cariprazine (Cariprazine Hcl 1.5 Mg Capsule) 4.5 mg PO BEDTIME [facility] Last Admin: 03/01/24 20:15 Dose: 4.5 mg Clonidine HCl (Clonidine Hcl 0.1 Mg Tablet) 0.1 mg PO DAILY [facility]; Protocol Last Admin: 03/02/24 08:45 Dose: Not Given Clonidine HCl (Clonidine Hcl 0.2 Mg Tablet) 0.2 mg PO BEDTIME [facility]; Protocol Last Admin: 03/01/24 20:16 Dose: 0.2 mg Fluticasone Propionate (Fluticasone Propionate 100 Mcg Blst.W.Dev) 1 puff INHALE RBID [facility] Last Admin: 03/02/24 08:47 Dose: 1 puff Hydroxyzine HCl (Hydroxyzine Hcl 25 Mg Tablet) 25 mg PO Q6H PRN PRN Reason: Anxiety Ibuprofen (Ibuprofen 400 Mg Tablet) 400 mg PO Q6H PRN PRN Reason: moderate and severe pain Last Admin: 03/01/24 20:14 Dose: 400 mg Lamotrigine (Lamotrigine 100 Mg Tablet) 200 mg PO BID [facility] Last Admin: 03/02/24 08:44 Dose: 200 mg Lorazepam (Lorazepam 1 Mg Tablet) 1 mg PO TID [facility] Last Admin: 03/02/24 08:44 Dose: 1 mg Magnesium Hydroxide (Milk Of Magnesia 30 Ml Oral.Susp) 30 ml PO DAILY PRN PRN Reason: Constipation Last Admin: 02/29/24 21:11 Dose: 30 ml Melatonin (Melatonin 3 Mg Tablet) 6 mg PO BEDTIME JUAN Last Admin: 03/01/24 20:15 Dose: 6 mg Nystatin (Nystatin Powder 15 Gm Bottle) 1 appl TOPICAL BID PRN; Protocol PRN Reason: Rash Olanzapine (Olanzapine 10 Mg Tablet) 10 mg PO BEDTIME JUAN Last Admin: 03/01/24 20:15 Dose: 10 mg Olanzapine (Olanzapine Odt 10 Mg Tab.Rapdis) 10 mg TRANSLINGU BID PRN PRN Reason: severe agitation Last Admin: 02/29/24 23:35 Dose: 10 mg Ondansetron HCl (Ondansetron Odt 4 Mg Tab.Rapdis) 4 mg TRANSLINGU Q8H PRN PRN Reason: Vomiting Polyethylene Glycol (Polyethylene Glycol 3350 17 Gm Powd.Pack) 34 gm PO DAILY [facility] Last Admin: 03/01/24 08:24 Dose: 34 gm Sertraline HCl (Sertraline Hcl 100 Mg Tablet) 100 mg PO DAILY [facility] Last Admin: 03/02/24 08:44 Dose: 100 mg Sucralfate (Sucralfate 1 Gm Tablet) 1 gm PO QIDACHS [facility] Last Admin: 03/02/24 08:43 Dose: 1 gm Trazodone HCl (Trazodone Hcl 100 Mg Tablet) 100 mg PO BEDTIME [facility] Last Admin: 03/01/24 20:16 Dose: 100 mg Allergies Allergies Allergy/AdvReac Type Severity Reaction Status Date / Time haloperidol [From Haldol] Allergy Unknown Verified 02/28/24 20:52 lithium Allergy Unknown Verified 02/28/24 20:52 morphine Allergy Unknown Verified 02/28/24 20:52 strawberry Allergy Unknown Verified 02/28/24 20:52 Assessment & Plan Assessment & Plan (1) Mood disorder: Status: Acute Code(s): F39 - Unspecified mood [affective] disorder (2) Post-traumatic stress disorder, unspecified: Status: Acute Code(s): F43.10 - Post-traumatic stress disorder, unspecified (3) Non-suicidal self-harm: Status: Acute Code(s): R45.88 - Nonsuicidal self-harm (4) Intellectual disability: Status: Acute Code(s): F79 - Unspecified intellectual disabilities Assessment and Plan: 29 yo female with history of intellectual disability, PTSD, NSSI, mood disorder, presents from an OSH after ingesting metal objects that were extracted via upper endoscopy. Hospital Course: On admission patient got dysregulated, yelling, banging her head 7/15 Patient resting quietly in her room, mostly spending time alone. She reports that she has been more depressed recently but can not point to any trigger. She said she has been depressed before but this current depression is more than usual and it has been going on for about 2 weeks. She can tell she is more depressed because she staying [facility] much more than usual. Patient says she has been missing her dad. He 13 years ago and she has been thinking about him a lot. She says that Zoloft was started over a month ago and agrees to have it titrated. Solar Sales Manager discussed behavioral activation to help address depression to which she agreed -right arm currently in a sling due to dislocated shoulder which is apparently intermittently chronic Plan: - Admit to inpatient psychiatry - Section 12b Increase Zoloft to 125mg Otherwise continue home medications - Collateral information from penitentiary, guardian and providers. - Milieu treatment and group therapy. - Medications: Continue home medications. - Social work evaluation. - Disposition planning. Patient educated on: diagnosis, medication risk/benefits and therapeutic strategies Informed Consent: understands Reason for continued inpatient stay Substantial Risk for: rapid decompensation Time Spent With Patient Time: Total time managing care of this patient today ____ minutes.
[2024-03-02] MEDS: Acetaminophen 325 MG TABLET 650 MG PO (11:58)
[2024-03-02] MEDS: polyethylene glycoL 3350 17 GM POWD.PACK 34 GM PO (13:00)
[2024-03-02] MEDS: Sertraline HCL 25 MG TABLET PO (15:33)
[2024-03-02] MEDS: Ibuprofen 400 MG TABLET PO (15:34)
[2024-03-02] MEDS: Ondansetron ODT 4 MG TAB.RAPDIS TRANSLINGU (16:10)
[2024-03-02 20:00] VITALS: BP 123/77; PULSE 77; RESP 14; TEMP 36.5; O2SAT 97
[2024-03-02 20:08] VITALS: BP 110/76; PULSE 76; RESP 16
[2024-03-02] MEDS: Cariprazine HCl 1.5 MG CAPSULE 4.5 MG PO (20:43)
[2024-03-02] MEDS: Ibuprofen 600 MG TABLET PO (20:43)
[2024-03-02] MEDS: traZODone HCL 100 MG TABLET PO (20:43)
[2024-03-02] MEDS: OLANZapine 10 MG TABLET PO (20:44)
[2024-03-02] MEDS: cloNIDine HCL 0.2 MG TABLET PO (20:44)
[2024-03-02] MEDS: Melatonin 3 MG TABLET 6 MG PO (20:44)
[2024-03-03 08:00] VITALS: BP 89/52; PULSE 63; RESP 20; TEMP 36.6; O2SAT 97
[2024-03-03] MEDS: Ibuprofen 600 MG TABLET PO ×3 (08:51→22:23)
[2024-03-03] MEDS: Sucralfate 1 GM TABLET PO ×4 (08:52→21:10)
[2024-03-03] MEDS: polyethylene glycoL 3350 17 GM POWD.PACK 34 GM PO (08:53)
[2024-03-03] MEDS: LORazepam 1 MG TABLET PO ×3 (08:53→21:12)
[2024-03-03] MEDS: lamoTRIgine 100 MG TABLET 200 MG PO ×2 (08:53→21:10)
[2024-03-03] MEDS: Sertraline HCL 25 MG TABLET 125 MG PO (08:53)
[2024-03-03] MEDS: Fluticasone Propionate 100 MCG BLST.W.DEV 1 PUFF INHALE ×2 (08:58→21:09)
[2024-03-03] MEDS: Acetaminophen 325 MG TABLET 650 MG PO ×2 (11:17→21:09)
[2024-03-03] MEDS: hydrOXYzine HCL 25 MG TABLET PO (17:55)
--- NOTE | 2024-03-03 19:16 | P.PNPSI_ITS ---
Subjective Subjective Date of Service: 03/03/24 Reason For Visit: Unspecified Mood Disorder PTSD Interim History: Met with patient; discussed with team Patient reports he is feeling little better but still depressed and agrees to continue titration of Zoloft. Asked if she can be restarted on Adderall. She says she took it all through school, in grade school and high school and that it helped. She said they stopped it when she left high school, saying she was not starting anymore. Patient however felt that it really helped her with focus, paying attention to conversations and other things. She called her guardian and reported or guarding said it was okay as well. Supervising Librarian agreed to start on low dose as this can significantly help with impulse control issues. Patient fell while sitting on her bed and hit her right elbow; examined and patient reports tenderness to palpation on olecranon/ distal humerus; will send for x-ray Mental Status Exam Mental Status Exam Narrative: Pt is alert and oriented; behavior is cooperative, calm, friendly; patient is not in distress; right arm in sling; dressed in casual attire with dyed hair streak, a little unkempt but adequate hygiene; mood is described as okay and affect congruent, a little brighter; eye contact appropriate; Speech is normal rate, volume, prosody; not pressured; some psychomotor retardation present, but less; thought process is organized and goal directed; Thought content is on her treatment, depression, missing her father; otherwise pertinent to relevant topics and without any delusional content, paranoid ideations or grandiosity; denies any SI/HI. There is no evidence of perceptual disturbance. Patients insight and judgment impaired but improving Diagnostics Vital Signs (24Hr): Vital Signs - 24 hr 03/02/24 20:00 03/02/24 20:08 03/03/24 08:00 Temperature 97.7 F 98 F Pulse Rate 77 76 63 Respiratory Rate 14 16 20 Blood Pressure 123/77 110/76 89/52 L Pulse Oximetry 97 97 Oxygen Delivery Method Room Air Room Air BMI result Body Mass Index 32.5 Labs 02/28/24 19:47 02/29/24 08:39 Imaging Radiology Impressions: ITS Impressions Shoulder X-Ray 02/29/24 14:32 IMPRESSION: Normal right shoulder. Medications Medications Current Medications Acetaminophen (Acetaminophen 325 Mg Tablet) 650 mg PO Q6H PRN PRN Reason: Headache/Pain Mild Scale (1-3) Last Admin: 03/03/24 11:17 Dose: 650 mg Acetaminophen/Butalbital/Caffeine (Butalb/Acetamin/Caff 50/325/40 Tablet) 2 tab PO Q6H PRN PRN Reason: Headache Al Hydroxide/Mg Hydroxide (Magnesium Hydrox/Alum Hydrox 30 Ml Oral.Susp) 30 ml PO Q6H PRN PRN Reason: Heartburn/Nausea Last Admin: 02/29/24 08:41 Dose: 30 ml Albuterol Sulfate (Albuterol Sulfate 90 Mcg 8 Gm Inhaler) 2 puff INHALE 6XD PRN PRN Reason: Wheezing Amphetamine/Dextroamphetamine (Dextroamphetamine/Amphetamine Xr 5 Mg Cap.Er.24h) 5 mg PO DAILY JUAN Cariprazine (Cariprazine Hcl 1.5 Mg Capsule) 4.5 mg PO BEDTIME JUAN Last Admin: 03/02/24 20:43 Dose: 4.5 mg Clonidine HCl (Clonidine Hcl 0.1 Mg Tablet) 0.1 mg PO DAILY [facility]; Protocol Last Admin: 03/03/24 08:56 Dose: Not Given Clonidine HCl (Clonidine Hcl 0.2 Mg Tablet) 0.2 mg PO BEDTIME [facility]; Protocol Last Admin: 03/02/24 20:44 Dose: 0.2 mg Fluticasone Propionate (Fluticasone Propionate 100 Mcg Blst.W.Dev) 1 puff INHALE RBID [facility] Last Admin: 03/03/24 08:58 Dose: 1 puff Hydroxyzine HCl (Hydroxyzine Hcl 25 Mg Tablet) 25 mg PO Q6H PRN PRN Reason: Anxiety Last Admin: 03/03/24 17:55 Dose: 25 mg Ibuprofen (Ibuprofen 600 Mg Tablet) 600 mg PO Q8H PRN PRN Reason: Pain, Mild (Pain Scale 1-3) Last Admin: 03/03/24 16:01 Dose: 600 mg Lamotrigine (Lamotrigine 100 Mg Tablet) 200 mg PO BID JUAN Last Admin: 03/03/24 08:53 Dose: 200 mg Lorazepam (Lorazepam 1 Mg Tablet) 1 mg PO TID JUAN Last Admin: 03/03/24 16:01 Dose: 1 mg Magnesium Hydroxide (Milk Of Magnesia 30 Ml Oral.Susp) 30 ml PO DAILY PRN PRN Reason: Constipation Last Admin: 02/29/24 21:11 Dose: 30 ml Melatonin (Melatonin 3 Mg Tablet) 6 mg PO BEDTIME JUAN Last Admin: 03/02/24 20:44 Dose: 6 mg Nystatin (Nystatin Powder 15 Gm Bottle) 1 appl TOPICAL BID PRN; Protocol PRN Reason: Rash Olanzapine (Olanzapine 10 Mg Tablet) 10 mg PO BEDTIME JUAN Last Admin: 03/02/24 20:44 Dose: 10 mg Olanzapine (Olanzapine Odt 10 Mg Tab.Rapdis) 10 mg TRANSLINGU BID PRN PRN Reason: severe agitation Last Admin: 02/29/24 23:35 Dose: 10 mg Ondansetron HCl (Ondansetron Odt 4 Mg Tab.Rapdis) 4 mg TRANSLINGU Q8H PRN PRN Reason: Vomiting Last Admin: 03/02/24 16:10 Dose: 4 mg Polyethylene Glycol (Polyethylene Glycol 3350 17 Gm Powd.Pack) 34 gm PO DAILY [facility] Last Admin: 03/03/24 08:53 Dose: 34 gm Sertraline HCl (Sertraline Hcl 25 Mg Tablet) 125 mg PO DAILY JUAN Stop: 03/04/24 09:00 Last Admin: 03/03/24 08:53 Dose: 125 mg Sertraline HCl (Sertraline Hcl 50 Mg Tablet) 150 mg PO DAILY [facility] Sucralfate (Sucralfate 1 Gm Tablet) 1 gm PO QIDACHS [facility] Last Admin: 03/03/24 17:02 Dose: 1 gm Trazodone HCl (Trazodone Hcl 100 Mg Tablet) 100 mg PO BEDTIME [facility] Last Admin: 03/02/24 20:43 Dose: 100 mg Allergies Allergies Allergy/AdvReac Type Severity Reaction Status Date / Time haloperidol [From Haldol] Allergy Unknown Verified 02/28/24 20:52 lithium Allergy Unknown Verified 02/28/24 20:52 morphine Allergy Unknown Verified 02/28/24 20:52 strawberry Allergy Unknown Verified 02/28/24 20:52 Assessment & Plan Assessment & Plan (1) Mood disorder: Status: Acute Code(s): F39 - Unspecified mood [affective] disorder (2) Post-traumatic stress disorder, unspecified: Status: Acute Code(s): F43.10 - Post-traumatic stress disorder, unspecified (3) Non-suicidal self-harm: Status: Acute Code(s): R45.88 - Nonsuicidal self-harm (4) Intellectual disability: Status: Acute Code(s): F79 - Unspecified intellectual disabilities Plan HPI: 29 yo female, under guardianship, resident of a [facility] custodial (running [facility]), in residential treatment most of her life, with diagnosis of mild intellectual disability, PTSD, unspecified mood disorder and history of non- suicidal self injury. Patient was transferred from [facility]. She presented there from her group eryn for ingesting safety pin, coin, a piece of a zipper, a jenkins ring and having SI. She had recently been discharged from [facility] inpatient psychiatric unit. Patient underwent an EGD where the objects were retrieved. The patient was evaluated by PASSPORT SUPPORT ASSOCIATE and recommendations were made for her to be admitted. She was also telling staff at the custodial that she had plans to fall backwards from the porch in the program by throwing herself backwards. Patient was seen today. She reports she is feeling safe while in the hospital and doesn't want to kill herself. She reported I didn't feel ready to go back to the custodial from [facility] inpatient unit but they still discharged me. She says she doesn't like it at the custodial. She reports she is sad and thinking about her father that triggers feelings of depression. She had a seizure-like event yesterday after admission to [facility]. She was seen by SENIOR MARKETING DATA ANALYST. It wasn't confirmed to be a seizure. She didn't appear to be post-ictal. Possibility of non-epileptic event. Patient also reports she has right shoulder pain. She says she felt her shoulder dislocate and then popped back in this morning when she was stretching getting out of bed. Says she has a hard time moving her shoulder. Denies AVH. Denies urges for self harm. Patient became angry and frustrated during the day due to her shoulder pain and was screaming and yelling and banging her head strongly against the wall. Patient had shoulder Xray and hospitalist consultation. Sling was ordered. Ibuprofen was given. Xray was negative for fracture or dislocation. Past Psychiatric History: Multiple psychiatric hospitalizations. Resides in custodial. Has been in residential care most of her life Mood disorder PTSD PASSPORT SUPPORT ASSOCIATE record notes alcohol syndrome. Hospital Course: On admission patient got dysregulated, yelling, banging her head 03/02 Patient resting quietly in her room, mostly spending time alone. She reports that she has been more depressed recently but can not point to any trigger. She said she has been depressed before but this current depression is more than usual and it has been going on for about 2 weeks. She can tell she is more depressed because she staying in her room at the custodial much more than usual. Patient says she has been missing her dad. He 13 years ago and she has been thinking about him a lot. She says that Zoloft was started over a month ago and agrees to have it titrated. Supervising Librarian discussed behavioral activation to help address depression to which she agreed -right arm currently in a sling due to dislocated shoulder which is apparently intermittently chronic 03/03 Patient reports he is feeling little better but still depressed and agrees to continue titration of Zoloft. Asked if she can be restarted on Adderall. She says she took it all through school, in grade school and high school and that it helped. She said they stopped it when she left high school, saying she was not starting anymore. Patient however felt that it really helped her with focus, paying attention to conversations and other things. She called her guardian and reported or guarding said it was okay as well; abstract writer will follow up. Supervising Librarian agreed to start on low dose as this can significantly help with impulse control issues. Patient fell while sitting on her bed and hit her right elbow; examined and patient reports tenderness to palpation on olecranon/ distal humerus; will send for x-ray -patient out and about more in the milieu -said wanted to sign in sinus CV Plan: - Admit to inpatient psychiatry - CV Adderall XL 5mg daily ordered elbow x-ray ordered Continue Zoloft to 125mg ; will titrate Otherwise continue home medications - Collateral information from custodial, guardian and providers. - Milieu treatment and group therapy. - Medications: Continue home medications. - Social work evaluation. - Disposition planning. Patient educated on: diagnosis, medication risk/benefits, therapeutic strategies and medical condition Informed Consent: understands Reason for continued inpatient stay Substantial Risk for: rapid decompensation Time Spent With Patient Time: Total time managing care of this patient today ____ minutes.
[2024-03-03] MEDS: Ondansetron ODT 4 MG TAB.RAPDIS TRANSLINGU (19:21)
[2024-03-03 20:00] VITALS: BP 106/57; PULSE 69; RESP 18; TEMP 36.9; O2SAT 95
[2024-03-03] MEDS: Magnesium Hydrox/Alum Hydrox 30 ML ORAL.SUSP PO (20:33)
[2024-03-03] MEDS: Melatonin 3 MG TABLET 6 MG PO (21:10)
[2024-03-03] MEDS: Cariprazine HCl 1.5 MG CAPSULE 4.5 MG PO (21:10)
[2024-03-03] MEDS: traZODone HCL 100 MG TABLET PO (21:10)
[2024-03-03 21:11] VITALS: BP 106/57
[2024-03-03] MEDS: cloNIDine HCL 0.2 MG TABLET PO (21:11)
[2024-03-03] MEDS: OLANZapine 10 MG TABLET PO (21:12)
[2024-03-04 08:00] VITALS: BP 89/54; PULSE 58; RESP 16; TEMP 36.9; O2SAT 93
[2024-03-04] MEDS: Fluticasone Propionate 100 MCG BLST.W.DEV 1 PUFF INHALE ×2 (08:35→20:25)
[2024-03-04] MEDS: polyethylene glycoL 3350 17 GM POWD.PACK 34 GM PO (08:35)
[2024-03-04] MEDS: lamoTRIgine 100 MG TABLET 200 MG PO ×2 (08:36→20:20)
[2024-03-04] MEDS: Sucralfate 1 GM TABLET PO ×4 (08:36→20:20)
[2024-03-04] MEDS: LORazepam 1 MG TABLET PO ×3 (08:36→20:19)
[2024-03-04] MEDS: Dextroamphetamine/Amphetamine XR 5 MG CAP.ER.24H PO (08:36)
[2024-03-04] MEDS: Sertraline HCL 25 MG TABLET 125 MG PO (08:39)
[2024-03-04] MEDS: Ibuprofen 600 MG TABLET PO (13:28)
--- NOTE | 2024-03-04 14:45 | P.PNPSI_ITS ---
Subjective Subjective Date of Service: 03/04/24 Reason For Visit: Unspecified Mood Disorder PTSD Interim History: Met with patient; discussed with team Patient reports that mood is little better but she still feeling quite depressed. Did not feel any help from Adderall automobile service writer agrees to increase. sleeping well enough. Reviewed medications and she is not sure why she is on both Vraylar and Zyprexa but says she has been for a while. Reviewed x-ray and no fracture; patient says elbow does not hurt that much but shoulder does. Mental Status Exam Mental Status Exam Narrative: Pt is alert and oriented; behavior is cooperative, calm, friendly; patient is not in distress; right arm in sling; dressed in casual attire with dyed hair streak, a little unkempt but adequate hygiene; mood is described as okay and affect congruent, a little brighter; eye contact appropriate; Speech is normal rate, volume, prosody; not pressured; some psychomotor retardation present, but less; thought process is organized and goal directed; Thought content is on her treatment, depression, missing her father; otherwise pertinent to relevant topics and without any delusional content, paranoid ideations or grandiosity; denies any SI/HI. There is no evidence of perceptual disturbance. Patients insight and judgment impaired but improving Diagnostics Vital Signs (24Hr): Vital Signs - 24 hr 03/03/24 20:00 03/03/24 21:11 03/04/24 08:00 Temperature 98.5 F 98.5 F Pulse Rate 69 58 Respiratory Rate 18 16 Blood Pressure 106/57 L 106/57 L 89/54 L Pulse Oximetry 95 93 Oxygen Delivery Method Room Air BMI result Body Mass Index 32.5 Labs 02/28/24 19:47 02/29/24 08:39 Imaging Radiology Impressions: ITS Impressions Shoulder X-Ray 02/29/24 14:32 IMPRESSION: Normal right shoulder. Elbow X-Ray 03/03/24 22:20 IMPRESSION: No gross displaced fracture appreciated on this limited 2 view study. Additional imaging should be considered for further evaluation if there is clinical concern for fracture. This study was presented today March 04, 2024 for interpretation. Stat results provided at this time as requested by referring provider. Medications Medications Current Medications Acetaminophen (Acetaminophen 325 Mg Tablet) 650 mg PO Q6H PRN PRN Reason: Headache/Pain Mild Scale (1-3) Last Admin: 03/03/24 21:09 Dose: 650 mg Acetaminophen/Butalbital/Caffeine (Butalb/Acetamin/Caff 50/325/40 Tablet) 2 tab PO Q6H PRN PRN Reason: Headache Al Hydroxide/Mg Hydroxide (Magnesium Hydrox/Alum Hydrox 30 Ml Oral.Susp) 30 ml PO Q6H PRN PRN Reason: Heartburn/Nausea Last Admin: 03/03/24 20:33 Dose: 30 ml Albuterol Sulfate (Albuterol Sulfate 90 Mcg 8 Gm Inhaler) 2 puff INHALE 6XD PRN PRN Reason: Wheezing Amphetamine/Dextroamphetamine (Dextroamphetamine/Amphetamine Xr 5 Mg Cap.Er.24h) 5 mg PO DAILY [facility] Last Admin: 03/04/24 08:36 Dose: 5 mg Cariprazine (Cariprazine Hcl 1.5 Mg Capsule) 4.5 mg PO BEDTIME [facility] Last Admin: 03/03/24 21:10 Dose: 4.5 mg Clonidine HCl (Clonidine Hcl 0.1 Mg Tablet) 0.1 mg PO DAILY [facility]; Protocol Last Admin: 03/04/24 08:48 Dose: Not Given Clonidine HCl (Clonidine Hcl 0.2 Mg Tablet) 0.2 mg PO BEDTIME [facility]; Protocol Last Admin: 03/03/24 21:11 Dose: 0.2 mg Fluticasone Propionate (Fluticasone Propionate 100 Mcg Blst.W.Dev) 1 puff INHALE RBID [facility] Last Admin: 03/04/24 08:35 Dose: 1 puff Hydroxyzine HCl (Hydroxyzine Hcl 25 Mg Tablet) 25 mg PO Q6H PRN PRN Reason: Anxiety Last Admin: 03/03/24 17:55 Dose: 25 mg Ibuprofen (Ibuprofen 600 Mg Tablet) 600 mg PO Q8H PRN PRN Reason: Pain, Mild (Pain Scale 1-3) Last Admin: 03/04/24 13:28 Dose: 600 mg Lamotrigine (Lamotrigine 100 Mg Tablet) 200 mg PO BID [facility] Last Admin: 03/04/24 08:36 Dose: 200 mg Lorazepam (Lorazepam 1 Mg Tablet) 1 mg PO TID [facility] Last Admin: 03/04/24 08:36 Dose: 1 mg Magnesium Hydroxide (Milk Of Magnesia 30 Ml Oral.Susp) 30 ml PO DAILY PRN PRN Reason: Constipation Last Admin: 02/29/24 21:11 Dose: 30 ml Melatonin (Melatonin 3 Mg Tablet) 6 mg PO BEDTIME JUAN Last Admin: 03/03/24 21:10 Dose: 6 mg Nystatin (Nystatin Powder 15 Gm Bottle) 1 appl TOPICAL BID PRN; Protocol PRN Reason: Rash Olanzapine (Olanzapine 10 Mg Tablet) 10 mg PO BEDTIME [facility] Last Admin: 03/03/24 21:12 Dose: 10 mg Olanzapine (Olanzapine Odt 10 Mg Tab.Rapdis) 10 mg TRANSLINGU BID PRN PRN Reason: severe agitation Last Admin: 02/29/24 23:35 Dose: 10 mg Ondansetron HCl (Ondansetron Odt 4 Mg Tab.Rapdis) 4 mg TRANSLINGU Q8H PRN PRN Reason: Vomiting Last Admin: 03/03/24 19:21 Dose: 4 mg Polyethylene Glycol (Polyethylene Glycol 3350 17 Gm Powd.Pack) 34 gm PO DAILY [facility] Last Admin: 03/04/24 08:35 Dose: 34 gm Sertraline HCl (Sertraline Hcl 50 Mg Tablet) 150 mg PO DAILY [facility] Sucralfate (Sucralfate 1 Gm Tablet) 1 gm PO QIDACHS [facility] Last Admin: 03/04/24 11:34 Dose: 1 gm Trazodone HCl (Trazodone Hcl 100 Mg Tablet) 100 mg PO BEDTIME [facility] Last Admin: 03/03/24 21:10 Dose: 100 mg Allergies Allergies Allergy/AdvReac Type Severity Reaction Status Date / Time haloperidol [From Haldol] Allergy Unknown Verified 02/28/24 20:52 lithium Allergy Unknown Verified 02/28/24 20:52 morphine Allergy Unknown Verified 02/28/24 20:52 strawberry Allergy Unknown Verified 02/28/24 20:52 Assessment & Plan Assessment & Plan (1) Mood disorder: Status: Acute Code(s): F39 - Unspecified mood [affective] disorder (2) Post-traumatic stress disorder, unspecified: Status: Acute Code(s): F43.10 - Post-traumatic stress disorder, unspecified (3) Non-suicidal self-harm: Status: Acute Code(s): R45.88 - Nonsuicidal self-harm (4) Intellectual disability: Status: Acute Code(s): F79 - Unspecified intellectual disabilities Plan HPI: 29 yo female, under guardianship, resident of a [facility] fdc (running agency [facility]), in residential treatment most of her life, with diagnosis of mild intellectual disability, PTSD, unspecified mood disorder and history of non- suicidal self injury. Patient was transferred from [facility]. She presented there from her group eryn for ingesting safety pin, coin, a piece of a zipper, a jenkins ring and having SI. She had recently been discharged from [facility] inpatient psychiatric unit. Patient underwent an EGD where the objects were retrieved. The patient was evaluated by FINANCIAL SERVICES COUNSELOR and recommendations were made for her to be admitted. She was also telling staff at the fdc that she had plans to fall backwards from the porch in the program by throwing herself backwards. Patient was seen today. She reports she is feeling safe while in the hospital and doesn't want to kill herself. She reported I didn't feel ready to go back to the fdc from [facility] unit but they still discharged me. She says she doesn't like it at the fdc. She reports she is sad and thinking about her father that triggers feelings of depression. She had a seizure-like event yesterday after [place] [facility] She was seen by TRADING ASSISTANT. It wasn't confirmed to be a seizure. She didn't appear to be post-ictal. Possibility of non-epileptic event. Patient also reports she has right shoulder pain. She says she felt her shoulder dislocate and then popped back in this morning when she was stretching getting out of bed. Says she has a hard time moving her shoulder. Denies AVH. Denies urges for self harm. Patient became angry and frustrated during the day due to her shoulder pain and was screaming and yelling and banging her head strongly against the wall. Patient had shoulder Xray and hospitalist consultation. Sling was ordered. Ibuprofen was given. Xray was negative for fracture or dislocation. Past Psychiatric History: Multiple psychiatric hospitalizations. Resides in fdc. Has been in residential care most of her life Mood disorder PTSD FINANCIAL SERVICES COUNSELOR record notes alcohol syndrome. Hospital Course: On admission patient got dysregulated, yelling, banging her head 03/02 Patient resting quietly in her room, mostly spending time alone. She reports that she has been more depressed recently but can not point to any trigger. She said she has been depressed before but this current depression is more than usual and it has been going on for about 2 weeks. She can tell she is more depressed because she staying in her room at the fdc much more than usual. Patient says she has been missing her dad. He 13 years ago and she has been thinking about him a lot. She says that Zoloft was started over a month ago and agrees to have it titrated. Supervisor Nurse discussed behavioral activation to help address depression to which she agreed -right arm currently in a sling due to dislocated shoulder which is apparently intermittently chronic 03/03 Patient reports he is feeling little better but still depressed and agrees to continue titration of Zoloft. Asked if she can be restarted on Adderall. She says she took it all through school, in grade school and high school and that it helped. She said they stopped it when she left high school, saying she was not starting anymore. Patient however felt that it really helped her with focus, paying attention to conversations and other things. She called her guardian and reported or guarding said it was okay as well; automobile service writer will follow up. Supervisor Nurse agreed to start on low dose as this can significantly help with impulse control issues. Patient fell while sitting on her bed and hit her right elbow; examined and patient reports tenderness to palpation on olecranon/ distal humerus; will send for x-ray -patient out and about more in the milieu -said wanted to sign in sinus CV 03/04 Patient reports that mood is little better but she still feeling quite depressed. Did not feel any help from Adderall automobile service writer agrees to increase. sleeping well enough. Reviewed medications and she is not sure why she is on both Vraylar and Zyprexa but says she has been for a while. Reviewed x-ray and no fracture; patient says elbow does not hurt that much but shoulder does. -collateral/got him reported no history of epilepsy and nonepileptic seizures only Plan: - Admit to inpatient psychiatry - CV Adderall XL 10mg daily Increase to Zoloft to 150mg ; will titrate Otherwise continue home medications - Collateral information from fdc, guardian and providers. - Milieu treatment and group therapy. - Medications: Continue home medications. - Social work evaluation. - Disposition planning. XR/XR elbow RT min 3V IMPRESSION: No gross displaced fracture appreciated on this limited 2 view study. Additional imaging should be considered for further evaluation if there is clinical concern for fracture. Patient educated on: diagnosis and medication risk/benefits Informed Consent: understands Reason for continued inpatient stay Substantial Risk for: rapid decompensation Time Spent With Patient Time: Total time managing care of this patient today ____ minutes.
[2024-03-04] MEDS: Butalb/Acetamin/Caff 50/325/40 TABLET 2 TAB PO (15:00)
[2024-03-04] MEDS: NaPROXEN 250 MG TABLET PO (17:03)
[2024-03-04] MEDS: Ondansetron ODT 4 MG TAB.RAPDIS TRANSLINGU (19:22)
[2024-03-04 20:00] VITALS: BP 103/55; PULSE 107; RESP 18; TEMP 36.8; O2SAT 96
[2024-03-04] MEDS: Melatonin 3 MG TABLET 6 MG PO (20:18)
[2024-03-04] MEDS: Acetaminophen 325 MG TABLET 650 MG PO (20:19)
[2024-03-04] MEDS: cloNIDine HCL 0.2 MG TABLET PO (20:19)
[2024-03-04] MEDS: traZODone HCL 100 MG TABLET PO (20:20)
[2024-03-04] MEDS: OLANZapine 10 MG TABLET PO (20:20)
[2024-03-04] MEDS: Cariprazine HCl 1.5 MG CAPSULE 4.5 MG PO (20:20)
[2024-03-05] MEDS: Sucralfate 1 GM TABLET PO ×4 (08:05→20:49)
[2024-03-05] MEDS: polyethylene glycoL 3350 17 GM POWD.PACK 34 GM PO (08:07)
[2024-03-05] MEDS: LORazepam 1 MG TABLET PO ×3 (08:09→20:48)
[2024-03-05] MEDS: Sertraline HCL 50 MG TABLET 150 MG PO (08:09)
[2024-03-05] MEDS: Dextroamphetamine/Amphetamine XR 5 MG CAP.ER.24H 10 MG PO (08:09)
[2024-03-05] MEDS: lamoTRIgine 100 MG TABLET 200 MG PO ×2 (08:09→20:49)
[2024-03-05] MEDS: NaPROXEN 250 MG TABLET PO ×2 (08:10→20:49)
[2024-03-05] MEDS: Fluticasone Propionate 100 MCG BLST.W.DEV 1 PUFF INHALE ×2 (08:11→20:48)
[2024-03-05 08:17] VITALS: BP 90/44; PULSE 61; RESP 20; TEMP 36.5; O2SAT 93
[2024-03-05] MEDS: Acetaminophen 325 MG TABLET 650 MG PO ×2 (11:32→18:12)
--- NOTE | 2024-03-05 13:25 | P.PNPSI_ITS ---
Subjective Subjective Date of Service: 03/05/24 Reason For Visit: Unspecified Mood Disorder PTSD Interim History: Met with patient; discussed with team Patient reports she is still feeling down and depressed though a little better. Still feels like Adderall not that helpful and like to go higher to which engineering technical writer agrees. Mental Status Exam Mental Status Exam Narrative: Pt is alert and oriented; behavior is cooperative, calm, friendly; patient is not in distress; right arm in sling; dressed in casual attire with dyed hair streak, a little unkempt but adequate hygiene; mood is described as okay and affect congruent, a little brighter; eye contact appropriate; Speech is normal rate, volume, prosody; not pressured; some psychomotor retardation present, but less; thought process is organized and goal directed; Thought content is on her treatment, depression, missing her father; otherwise pertinent to relevant topics and without any delusional content, paranoid ideations or grandiosity; denies any SI/HI. There is no evidence of perceptual disturbance. Patients insight and judgment impaired but improving Diagnostics Vital Signs (24Hr): Vital Signs - 24 hr 03/04/24 20:00 03/05/24 08:17 Temperature 98.2 F 97.7 F Pulse Rate 107 H 61 Respiratory Rate 18 20 Blood Pressure 103/55 L 90/44 L Pulse Oximetry 96 93 Oxygen Delivery Method Room Air Room Air BMI result Body Mass Index 32.5 Labs 02/28/24 19:47 02/29/24 08:39 Labs: Laboratory Results - last 48 hr 02/29/24 08:39 Lamotrigine 7.0 Imaging Radiology Impressions: ITS Impressions Shoulder X-Ray 02/29/24 14:32 IMPRESSION: Normal right shoulder. Elbow X-Ray 03/03/24 22:20 IMPRESSION: No gross displaced fracture appreciated on this limited 2 view study. Additional imaging should be considered for further evaluation if there is clinical concern for fracture. This study was presented today March 04, 2024 for interpretation. Stat results provided at this time as requested by referring provider. Medications Medications Current Medications Acetaminophen (Acetaminophen 325 Mg Tablet) 650 mg PO Q6H PRN PRN Reason: Headache/Pain Mild Scale (1-3) Last Admin: 03/05/24 11:32 Dose: 650 mg Acetaminophen/Butalbital/Caffeine (Butalb/Acetamin/Caff 50/325/40 Tablet) 2 tab PO Q6H PRN PRN Reason: Headache Last Admin: 03/04/24 15:00 Dose: 2 tab Al Hydroxide/Mg Hydroxide (Magnesium Hydrox/Alum Hydrox 30 Ml Oral.Susp) 30 ml PO Q6H PRN PRN Reason: Heartburn/Nausea Last Admin: 03/03/24 20:33 Dose: 30 ml Albuterol Sulfate (Albuterol Sulfate 90 Mcg 8 Gm Inhaler) 2 puff INHALE 6XD PRN PRN Reason: Wheezing Amphetamine/Dextroamphetamine (Dextroamphetamine/Amphetamine Xr 5 Mg Cap.Er.24h) 10 mg PO DAILY [facility] Last Admin: 03/05/24 08:09 Dose: 10 mg Cariprazine (Cariprazine Hcl 1.5 Mg Capsule) 4.5 mg PO BEDTIME [facility] Last Admin: 03/04/24 20:20 Dose: 4.5 mg Clonidine HCl (Clonidine Hcl 0.1 Mg Tablet) 0.1 mg PO DAILY [facility]; Protocol Last Admin: 03/05/24 08:13 Dose: Not Given Clonidine HCl (Clonidine Hcl 0.2 Mg Tablet) 0.2 mg PO BEDTIME [facility]; Protocol Last Admin: 03/04/24 20:19 Dose: 0.2 mg Fluticasone Propionate (Fluticasone Propionate 100 Mcg Blst.W.Dev) 1 puff INHALE RBID [facility] Last Admin: 03/05/24 08:11 Dose: 1 puff Hydroxyzine HCl (Hydroxyzine Hcl 25 Mg Tablet) 25 mg PO Q6H PRN PRN Reason: Anxiety Last Admin: 03/03/24 17:55 Dose: 25 mg Lamotrigine (Lamotrigine 100 Mg Tablet) 200 mg PO BID [facility] Last Admin: 03/05/24 08:09 Dose: 200 mg Lorazepam (Lorazepam 1 Mg Tablet) 1 mg PO TID [facility] Last Admin: 03/05/24 08:09 Dose: 1 mg Magnesium Hydroxide (Milk Of Magnesia 30 Ml Oral.Susp) 30 ml PO DAILY PRN PRN Reason: Constipation Last Admin: 02/29/24 21:11 Dose: 30 ml Melatonin (Melatonin 3 Mg Tablet) 6 mg PO BEDTIME [facility] Last Admin: 03/04/24 20:18 Dose: 6 mg Naproxen (Naproxen 250 Mg Tablet) 250 mg PO BIDWM [facility] Last Admin: 03/05/24 08:10 Dose: 250 mg Nystatin (Nystatin Powder 15 Gm Bottle) 1 appl TOPICAL BID PRN; Protocol PRN Reason: Rash Olanzapine (Olanzapine 10 Mg Tablet) 10 mg PO BEDTIME [facility] Last Admin: 03/04/24 20:20 Dose: 10 mg Olanzapine (Olanzapine Odt 10 Mg Tab.Rapdis) 10 mg TRANSLINGU BID PRN PRN Reason: severe agitation Last Admin: 02/29/24 23:35 Dose: 10 mg Ondansetron HCl (Ondansetron Odt 4 Mg Tab.Rapdis) 4 mg TRANSLINGU Q8H PRN PRN Reason: Vomiting Last Admin: 03/04/24 19:22 Dose: 4 mg Polyethylene Glycol (Polyethylene Glycol 3350 17 Gm Powd.Pack) 34 gm PO DAILY [facility] Last Admin: 03/05/24 08:07 Dose: 34 gm Sertraline HCl (Sertraline Hcl 50 Mg Tablet) 150 mg PO DAILY [facility] Last Admin: 03/05/24 08:09 Dose: 150 mg Sucralfate (Sucralfate 1 Gm Tablet) 1 gm PO QIDACHS [facility] Last Admin: 03/05/24 11:32 Dose: 1 gm Trazodone HCl (Trazodone Hcl 100 Mg Tablet) 100 mg PO BEDTIME [facility] Last Admin: 03/04/24 20:20 Dose: 100 mg Allergies Allergies Allergy/AdvReac Type Severity Reaction Status Date / Time haloperidol [From Haldol] Allergy Unknown Verified 02/28/24 20:52 lithium Allergy Unknown Verified 02/28/24 20:52 morphine Allergy Unknown Verified 02/28/24 20:52 strawberry Allergy Unknown Verified 02/28/24 20:52 Assessment & Plan Assessment & Plan (1) Mood disorder: Status: Acute Code(s): F39 - Unspecified mood [affective] disorder (2) Post-traumatic stress disorder, unspecified: Status: Acute Code(s): F43.10 - Post-traumatic stress disorder, unspecified (3) Non-suicidal self-harm: Status: Acute Code(s): R45.88 - Nonsuicidal self-harm (4) Intellectual disability: Status: Acute Code(s): F79 - Unspecified intellectual disabilities Plan HPI: 29 yo female, under guardianship, resident of a [facility] shelter ([facility]), in residential treatment most of her life, with diagnosis of mild intellectual disability, PTSD, unspecified mood disorder and history of non- suicidal self injury. Patient was transferred from [facility]. She presented there from her group eryn for ingesting safety pin, coin, a piece of a zipper, a jenkins ring and having SI. She had recently been discharged from [facility] inpatient psychiatric unit. Patient underwent an EGD where the objects were retrieved. The patient was evaluated by PARISH VISITOR and recommendations were made for her to be admitted. She was also telling staff at the shelter that she had plans to fall backwards from the porch in the program by throwing herself backwards. Patient was seen today. She reports she is feeling safe while in the hospital and doesn't want to kill herself. She reported I didn't feel ready to go back to the shelter from [facility] inpatient unit but they still discharged me. She says she doesn't like it at the shelter. She reports she is sad and thinking about her father that triggers feelings of depression. She had a seizure-like event yesterday after admission to [facility]. She was seen by COAL CAGER. It wasn't confirmed to be a seizure. She didn't appear to be post-ictal. Possibility of non-epileptic event. Patient also reports she has right shoulder pain. She says she felt her shoulder dislocate and then popped back in this morning when she was stretching getting out of bed. Says she has a hard time moving her shoulder. Denies AVH. Denies urges for self harm. Patient became angry and frustrated during the day due to her shoulder pain and was screaming and yelling and banging her head strongly against the wall. Patient had shoulder Xray and hospitalist consultation. Sling was ordered. Ibuprofen was given. Xray was negative for fracture or dislocation. Past Psychiatric History: Multiple psychiatric hospitalizations. Resides in shelter. Has been in residential care most of her life Mood disorder PTSD PARISH VISITOR record notes alcohol syndrome. Hospital Course: On admission patient got dysregulated, yelling, banging her head 03/02 Patient resting quietly in her room, mostly spending time alone. She reports that she has been more depressed recently but can not point to any trigger. She said she has been depressed before but this current depression is more than usual and it has been going on for about 2 weeks. She can tell she is more depressed because she staying in her room at the shelter much more than usual. Patient says she has been missing her dad. He 13 years ago and she has been thinking about him a lot. She says that Zoloft was started over a month ago and agrees to have it titrated. Bar Welder discussed behavioral activation to help address depression to which she agreed -right arm currently in a sling due to dislocated shoulder which is apparently intermittently chronic 03/03 Patient reports he is feeling little better but still depressed and agrees to continue titration of Zoloft. Asked if she can be restarted on Adderall. She says she took it all through school, in grade school and high school and that it helped. She said they stopped it when she left high school, saying she was not starting anymore. Patient however felt that it really helped her with focus, paying attention to conversations and other things. She called her guardian and reported or guarding said it was okay as well; engineering technical writer will follow up. Bar Welder agreed to start on low dose as this can significantly help with impulse control issues. Patient fell while sitting on her bed and hit her right elbow; examined and patient reports tenderness to palpation on olecranon/ distal humerus; will send for x-ray -patient out and about more in the milieu -said wanted to sign in sinus CV 03/04 Patient reports that mood is little better but she still feeling quite depressed. Did not feel any help from Adderall engineering technical writer agrees to increase. sleeping well enough. Reviewed medications and she is not sure why she is on both Vraylar and Zyprexa but says she has been for a while. Reviewed x-ray and no fracture; patient says elbow does not hurt that much but shoulder does. -collateral/got him reported no history of epilepsy and nonepileptic seizures only 03/05 increasing Adderall -collateral/guardian reports reported no history of epilepsy and nonepileptic seizures only Plan: - Admit to inpatient psychiatry - CV Adderall XL 20mg daily Increased to Zoloft to 150mg ; Otherwise continue home medications - Collateral information from shelter, guardian and providers. - Milieu treatment and group therapy. - Medications: Continue home medications. - Social work evaluation. - Disposition planning. XR/XR elbow RT min 3V IMPRESSION: No gross displaced fracture appreciated on this limited 2 view study. Additional imaging should be considered for further evaluation if there is clinical concern for fracture. Patient educated on: diagnosis and medication risk/benefits Informed Consent: understands Reason for continued inpatient stay Substantial Risk for: rapid decompensation Time Spent With Patient Time: Total time managing care of this patient today ____ minutes.
[2024-03-05 20:00] VITALS: BP 105/61; PULSE 86; RESP 18; TEMP 36.8; O2SAT 97
[2024-03-05] MEDS: traZODone HCL 100 MG TABLET PO (20:48)
[2024-03-05] MEDS: OLANZapine 10 MG TABLET PO (20:48)
[2024-03-05] MEDS: Cariprazine HCl 1.5 MG CAPSULE 4.5 MG PO (20:49)
[2024-03-05] MEDS: Melatonin 3 MG TABLET 6 MG PO (20:49)
[2024-03-05] MEDS: Famotidine 20 MG TABLET PO (20:49)
[2024-03-05 20:50] VITALS: BP 105/61
[2024-03-05] MEDS: cloNIDine HCL 0.2 MG TABLET PO (20:50)
[2024-03-06 08:00] VITALS: BP 107/58; PULSE 59; TEMP 36.6; O2SAT 96
[2024-03-06] MEDS: Sertraline HCL 50 MG TABLET 150 MG PO (08:49)
[2024-03-06] MEDS: NaPROXEN 250 MG TABLET PO ×2 (08:50→20:57)
[2024-03-06] MEDS: Sucralfate 1 GM TABLET PO ×4 (08:50→20:57)
[2024-03-06] MEDS: Dextroamphetamine/Amphetamine XR 5 MG CAP.ER.24H 30 MG PO (08:50)
[2024-03-06] MEDS: lamoTRIgine 100 MG TABLET 200 MG PO ×2 (08:51→20:58)
[2024-03-06] MEDS: cloNIDine HCL 0.1 MG TABLET PO (08:51)
[2024-03-06] MEDS: LORazepam 1 MG TABLET PO ×3 (08:51→20:57)
[2024-03-06] MEDS: Famotidine 20 MG TABLET PO ×2 (08:51→20:58)
[2024-03-06] MEDS: polyethylene glycoL 3350 17 GM POWD.PACK 34 GM PO (09:13)
[2024-03-06] MEDS: OLANZapine ODT 10 MG TAB.RAPDIS TRANSLINGU (09:50)
[2024-03-06] MEDS: Ondansetron ODT 4 MG TAB.RAPDIS TRANSLINGU (09:50)
--- NOTE | 2024-03-06 09:53 | P.PNPSI_ITS ---
Subjective Subjective Date of Service: 03/06/24 Reason For Visit: Unspecified Mood Disorder PTSD Interim History: Met with patient; discussed with team Patient reports that she had a tough day got into an argument with her roommate. Ulmer that her roommate was very rude to her which was triggering she felt angry enough to lash out; however patient instead took herself to staff and got help dealing with the situation. Patient asked for p.r.n. and hydroxyzine increased to 50 which she said was helpful. Mental Status Exam Mental Status Exam Narrative: Pt is alert and oriented; behavior is cooperative, calm, friendly; patient is not in distress; right arm in sling; dressed in casual attire with dyed hair streak, a little unkempt but adequate hygiene; mood is described as okay and affect congruent, a little brighter; eye contact appropriate; Speech is normal rate, volume, prosody; not pressured; some psychomotor retardation present, but less; thought process is organized and goal directed; Thought content is on her treatment, depression, missing her father; otherwise pertinent to relevant topics and without any delusional content, paranoid ideations or grandiosity; denies any SI/HI. There is no evidence of perceptual disturbance. Patients insight and judgment impaired but improving Diagnostics Vital Signs (24Hr): Vital Signs - 24 hr 03/05/24 20:00 03/05/24 20:50 03/06/24 08:00 Temperature 98.2 F 97.8 F Pulse Rate 86 59 Respiratory Rate 18 Blood Pressure 105/61 105/61 107/58 L Pulse Oximetry 97 96 Oxygen Delivery Method Room Air Room Air BMI result Body Mass Index 32.5 Labs 02/28/24 19:47 02/29/24 08:39 Labs: Laboratory Results - last 48 hr 02/29/24 08:39 Lamotrigine 7.0 Imaging Radiology Impressions: ITS Impressions Shoulder X-Ray 02/29/24 14:32 IMPRESSION: Normal right shoulder. Elbow X-Ray 03/03/24 22:20 IMPRESSION: No gross displaced fracture appreciated on this limited 2 view study. Additional imaging should be considered for further evaluation if there is clinical concern for fracture. This study was presented today March 04, 2024 for interpretation. Stat results provided at this time as requested by referring provider. Medications Medications Current Medications Acetaminophen (Acetaminophen 325 Mg Tablet) 650 mg PO Q6H PRN PRN Reason: Headache/Pain Mild Scale (1-3) Last Admin: 03/05/24 18:12 Dose: 650 mg Acetaminophen/Butalbital/Caffeine (Butalb/Acetamin/Caff 50/325/40 Tablet) 2 tab PO Q6H PRN PRN Reason: Headache Last Admin: 03/04/24 15:00 Dose: 2 tab Al Hydroxide/Mg Hydroxide (Magnesium Hydrox/Alum Hydrox 30 Ml Oral.Susp) 30 ml PO Q6H PRN PRN Reason: Heartburn/Nausea Last Admin: 03/03/24 20:33 Dose: 30 ml Albuterol Sulfate (Albuterol Sulfate 90 Mcg 8 Gm Inhaler) 2 puff INHALE 6XD PRN PRN Reason: Wheezing Amphetamine/Dextroamphetamine (Dextroamphetamine/Amphetamine Xr 5 Mg Cap.Er.24h) 30 mg PO DAILY [facility] Last Admin: 03/06/24 08:50 Dose: 30 mg Cariprazine (Cariprazine Hcl 1.5 Mg Capsule) 4.5 mg PO BEDTIME [facility] Last Admin: 03/05/24 20:49 Dose: 4.5 mg Clonidine HCl (Clonidine Hcl 0.1 Mg Tablet) 0.1 mg PO DAILY [facility]; Protocol Last Admin: 03/06/24 08:51 Dose: 0.1 mg Clonidine HCl (Clonidine Hcl 0.2 Mg Tablet) 0.2 mg PO BEDTIME [facility]; Protocol Last Admin: 03/05/24 20:50 Dose: 0.2 mg Famotidine (Famotidine 20 Mg Tablet) 20 mg PO BID [facility] Last Admin: 03/06/24 08:51 Dose: 20 mg Fluticasone Propionate (Fluticasone Propionate 100 Mcg Blst.W.Dev) 1 puff INHALE RBID [facility] Last Admin: 03/05/24 20:48 Dose: 1 puff Hydroxyzine HCl (Hydroxyzine Hcl 25 Mg Tablet) 25 mg PO Q6H PRN PRN Reason: Anxiety Last Admin: 03/03/24 17:55 Dose: 25 mg Lamotrigine (Lamotrigine 100 Mg Tablet) 200 mg PO BID [facility] Last Admin: 03/06/24 08:51 Dose: 200 mg Lorazepam (Lorazepam 1 Mg Tablet) 1 mg PO TID [facility] Last Admin: 03/06/24 08:51 Dose: 1 mg Magnesium Hydroxide (Milk Of Magnesia 30 Ml Oral.Susp) 30 ml PO DAILY PRN PRN Reason: Constipation Last Admin: 02/29/24 21:11 Dose: 30 ml Melatonin (Melatonin 3 Mg Tablet) 6 mg PO BEDTIME [facility] Last Admin: 03/05/24 20:49 Dose: 6 mg Naproxen (Naproxen 250 Mg Tablet) 250 mg PO BID [facility] Last Admin: 03/06/24 08:50 Dose: 250 mg Nystatin (Nystatin Powder 15 Gm Bottle) 1 appl TOPICAL BID PRN; Protocol PRN Reason: Rash Olanzapine (Olanzapine 10 Mg Tablet) 10 mg PO BEDTIME [facility] Last Admin: 03/05/24 20:48 Dose: 10 mg Olanzapine (Olanzapine Odt 10 Mg Tab.Rapdis) 10 mg TRANSLINGU BID PRN PRN Reason: severe agitation Last Admin: 03/06/24 09:50 Dose: 10 mg Ondansetron HCl (Ondansetron Odt 4 Mg Tab.Rapdis) 4 mg TRANSLINGU Q8H PRN PRN Reason: Vomiting Last Admin: 03/06/24 09:50 Dose: 4 mg Polyethylene Glycol (Polyethylene Glycol 3350 17 Gm Powd.Pack) 34 gm PO DAILY [facility] Last Admin: 03/06/24 09:13 Dose: 34 gm Sertraline HCl (Sertraline Hcl 50 Mg Tablet) 150 mg PO DAILY [facility] Last Admin: 03/06/24 08:49 Dose: 150 mg Sucralfate (Sucralfate 1 Gm Tablet) 1 gm PO QIDACHS [facility] Last Admin: 03/06/24 08:50 Dose: 1 gm Trazodone HCl (Trazodone Hcl 100 Mg Tablet) 100 mg PO BEDTIME [facility] Last Admin: 03/05/24 20:48 Dose: 100 mg Allergies Allergies Allergy/AdvReac Type Severity Reaction Status Date / Time haloperidol [From Haldol] Allergy Unknown Verified 02/28/24 20:52 lithium Allergy Unknown Verified 02/28/24 20:52 morphine Allergy Unknown Verified 02/28/24 20:52 strawberry Allergy Unknown Verified 02/28/24 20:52 Assessment & Plan Assessment & Plan (1) Mood disorder: Status: Acute Code(s): F39 - Unspecified mood [affective] disorder (2) Post-traumatic stress disorder, unspecified: Status: Acute Code(s): F43.10 - Post-traumatic stress disorder, unspecified (3) Non-suicidal self-harm: Status: Acute Code(s): R45.88 - Nonsuicidal self-harm (4) Intellectual disability: Status: Acute Code(s): F79 - Unspecified intellectual disabilities Plan HPI: 29 yo female, under guardianship, resident of a [facility]DS custodial ([facility]), in residential treatment most of her life, with diagnosis of mild intellectual disability, PTSD, unspecified mood disorder and history of non- suicidal self injury. Patient was transferred from [facility]. She presented there from her group eryn for ingesting safety pin, coin, a piece of a zipper, a jenkins ring and having SI. She had recently been discharged from [facility] inpatient psychiatric unit. Patient underwent an EGD where the objects were retrieved. The patient was evaluated by HARPOONER and recommendations were made for her to be admitted. She was also telling staff at the custodial that she had plans to fall backwards from the porch in the program by throwing herself backwards. Patient was seen today. She reports she is feeling safe while in the hospital and doesn't want to kill herself. She reported I didn't feel ready to go back to the custodial from [facility] but they still discharged me. She says she doesn't like it at the custodial. She reports she is sad and thinking about her father that triggers feelings of depression. She had a seizure-like event yesterday after admission to [facility]. She was seen by JAVA FRONT END WEB DEVELOPER. It wasn't confirmed to be a seizure. She didn't appear to be post-ictal. Possibility of non-epileptic event. Patient also reports she has right shoulder pain. She says she felt her shoulder dislocate and then popped back in this morning when she was stretching getting out of bed. Says she has a hard time moving her shoulder. Denies AVH. Denies urges for self harm. Patient became angry and frustrated during the day due to her shoulder pain and was screaming and yelling and banging her head strongly against the wall. Patient had shoulder Xray and hospitalist consultation. Sling was ordered. Ibuprofen was given. Xray was negative for fracture or dislocation. Past Psychiatric History: Multiple psychiatric hospitalizations. Resides in custodial. Has been in residential care most of her life Mood disorder PTSD HARPOONER record notes alcohol syndrome. Hospital Course: On admission patient got dysregulated, yelling, banging her head 03/02 Patient resting quietly in her room, mostly spending time alone. She reports that she has been more depressed recently but can not point to any trigger. She said she has been depressed before but this current depression is more than usual and it has been going on for about 2 weeks. She can tell she is more depressed because she staying in her room at the custodial much more than usual. Patient says she has been missing her dad. He 13 years ago and she has been thinking about him a lot. She says that Zoloft was started over a month ago and agrees to have it titrated. Video Coordinator discussed behavioral activation to help address depression to which she agreed -right arm currently in a sling due to dislocated shoulder which is apparently intermittently chronic 03/03 Patient reports he is feeling little better but still depressed and agrees to continue titration of Zoloft. Asked if she can be restarted on Adderall. She says she took it all through school, in grade school and high school and that it helped. She said they stopped it when she left high school, saying she was not starting anymore. Patient however felt that it really helped her with focus, paying attention to conversations and other things. She called her guardian and reported or guarding said it was okay as well; casualty underwriter will follow up. Video Coordinator agreed to start on low dose as this can significantly help with impulse control issues. Patient fell while sitting on her bed and hit her right elbow; examined and patient reports tenderness to palpation on olecranon/ distal humerus; will send for x-ray -patient out and about more in the milieu -said wanted to sign in sinus CV 03/04 Patient reports that mood is little better but she still feeling quite depressed. Did not feel any help from Adderall casualty underwriter agrees to increase. sleeping well enough. Reviewed medications and she is not sure why she is on both Vraylar and Zyprexa but says she has been for a while. Reviewed x-ray and no fracture; patient says elbow does not hurt that much but shoulder does. -collateral/got him reported no history of epilepsy and nonepileptic seizures only 03/05 increasing Adderall -collateral/guardian reports reported no history of epilepsy and nonepileptic seizures only Plan: - Admit to inpatient psychiatry - CV Adderall XL 20mg daily Increase to Zoloft to 150mg ; Otherwise continue home medications - Collateral information from custodial, guardian and providers. - Milieu treatment and group therapy. - Medications: Continue home medications. - Social work evaluation. - Disposition planning. XR/XR elbow RT min 3V IMPRESSION: No gross displaced fracture appreciated on this limited 2 view study. Additional imaging should be considered for further evaluation if there is clinical concern for fracture. Patient educated on: diagnosis, medication risk/benefits and therapeutic strategies Informed Consent: understands Reason for continued inpatient stay Substantial Risk for: rapid decompensation Time Spent With Patient Time: Total time managing care of this patient today ____ minutes.
[2024-03-06] MEDS: Fluticasone Propionate 100 MCG BLST.W.DEV 1 PUFF INHALE ×2 (09:58→20:56)
[2024-03-06] MEDS: Acetaminophen 325 MG TABLET 650 MG PO ×2 (12:57→21:01)
[2024-03-06] MEDS: hydrOXYzine HCL 25 MG TABLET PO (14:47)
[2024-03-06] MEDS: hydrOXYzine HCL 50 MG TABLET PO ×2 (15:38→19:15)
[2024-03-06 20:00] VITALS: BP 115/68; PULSE 85; RESP 16; TEMP 36.4; O2SAT 97
[2024-03-06] MEDS: cloNIDine HCL 0.2 MG TABLET PO (20:57)
[2024-03-06] MEDS: Melatonin 3 MG TABLET 6 MG PO (20:57)
[2024-03-06] MEDS: Cariprazine HCl 1.5 MG CAPSULE 4.5 MG PO (20:57)
[2024-03-06] MEDS: traZODone HCL 100 MG TABLET PO (20:58)
[2024-03-06] MEDS: OLANZapine 10 MG TABLET PO (20:58)
[2024-03-07 08:26] VITALS: BP 123/92; PULSE 84; RESP 18; TEMP 36.3; O2SAT 94
[2024-03-07] MEDS: lamoTRIgine 100 MG TABLET 200 MG PO ×2 (08:26→21:09)
[2024-03-07] MEDS: NaPROXEN 250 MG TABLET PO ×2 (08:26→21:09)
[2024-03-07] MEDS: cloNIDine HCL 0.1 MG TABLET PO (08:26)
[2024-03-07] MEDS: Sucralfate 1 GM TABLET PO ×4 (08:26→21:10)
[2024-03-07] MEDS: Sertraline HCL 50 MG TABLET 150 MG PO (08:26)
[2024-03-07] MEDS: LORazepam 1 MG TABLET PO ×3 (08:26→21:09)
[2024-03-07] MEDS: Famotidine 20 MG TABLET PO ×2 (08:26→21:10)
[2024-03-07] MEDS: Fluticasone Propionate 100 MCG BLST.W.DEV 1 PUFF INHALE ×2 (08:27→21:10)
[2024-03-07] MEDS: polyethylene glycoL 3350 17 GM POWD.PACK 34 GM PO (08:27)
[2024-03-07] MEDS: Dextroamphetamine/Amphetamine XR 5 MG CAP.ER.24H 30 MG PO (08:28)
--- NOTE | 2024-03-07 08:53 | HO.PSYCHPN ---
Subjective Subjective Date of Service: 03/07/24 Reason For Visit: Unspecified Mood Disorder PTSD Interim History: Irritable, anxious, agitated. Demanding of prn for anxiety, refusing several alternatives. Gabapentin 300 mg bid prn trial. ?SE of Adderall start Medication Compliance: Yes Side effects from medications: Yes (??) Attending Groups: Intermittent Review of Systems Acute medical concerns: No Medical Review of Systems: unchanged Review of Systems Review of Systems anxiety Mental Status Exam Mental Status Exam Patient Appearance: Appropriate Patient Orientation: Person, Place, Time and Situation Level of Consciousness: Alert Patient Behavior: Talkative, Anxious, Resistive to Care and Good Eye Contact Mood Description: Anxious Affect Description: Anxious Patient Cognition Impaired: No Ability to Follow Directions: Good Speech Pattern: Spontaneous Speech Memory Description: Intact Hallucinations: None Delusions: Not Present Thought Process: Rumination Thought Content: positive for Perseveration Depressive Symptoms: Increased Anxiety Judgement: Fair Diagnostics Vital Signs (24Hr): Vital Signs - 24 hr 03/06/24 20:00 03/07/24 08:26 03/07/24 08:26 Temperature 97.5 F 97.4 F Pulse Rate 85 84 Respiratory Rate 16 18 Blood Pressure 115/68 123/92 H 123/92 H Pulse Oximetry 97 94 Oxygen Delivery Method Room Air Room Air BMI result Body Mass Index 32.5 Labs 02/28/24 19:47 02/29/24 08:39 Imaging Radiology Impressions: ITS Impressions Shoulder X-Ray 02/29/24 14:32 IMPRESSION: Normal right shoulder. Elbow X-Ray 03/03/24 22:20 IMPRESSION: No gross displaced fracture appreciated on this limited 2 view study. Additional imaging should be considered for further evaluation if there is clinical concern for fracture. This study was presented today March 04, 2024 for interpretation. Stat results provided at this time as requested by referring provider. Medications Medications Current Medications Acetaminophen (Acetaminophen 325 Mg Tablet) 650 mg PO Q6H PRN PRN Reason: Headache/Pain Mild Scale (1-3) Last Admin: 03/06/24 21:01 Dose: 650 mg Acetaminophen/Butalbital/Caffeine (Butalb/Acetamin/Caff 50/325/40 Tablet) 2 tab PO Q6H PRN PRN Reason: Headache Last Admin: 03/04/24 15:00 Dose: 2 tab Al Hydroxide/Mg Hydroxide (Magnesium Hydrox/Alum Hydrox 30 Ml Oral.Susp) 30 ml PO Q6H PRN PRN Reason: Heartburn/Nausea Last Admin: 03/03/24 20:33 Dose: 30 ml Albuterol Sulfate (Albuterol Sulfate 90 Mcg 8 Gm Inhaler) 2 puff INHALE 6XD PRN PRN Reason: Wheezing Amphetamine/Dextroamphetamine (Dextroamphetamine/Amphetamine Xr 5 Mg Cap.Er.24h) 30 mg PO DAILY [facility] Last Admin: 03/07/24 08:28 Dose: 30 mg Cariprazine (Cariprazine Hcl 1.5 Mg Capsule) 4.5 mg PO BEDTIME [facility] Last Admin: 03/06/24 20:57 Dose: 4.5 mg Clonidine HCl (Clonidine Hcl 0.1 Mg Tablet) 0.1 mg PO DAILY [facility]; Protocol Last Admin: 03/07/24 08:26 Dose: 0.1 mg Clonidine HCl (Clonidine Hcl 0.2 Mg Tablet) 0.2 mg PO BEDTIME [facility]; Protocol Last Admin: 03/06/24 20:57 Dose: 0.2 mg Famotidine (Famotidine 20 Mg Tablet) 20 mg PO BID [facility] Last Admin: 03/07/24 08:26 Dose: 20 mg Fluticasone Propionate (Fluticasone Propionate 100 Mcg Blst.W.Dev) 1 puff INHALE RBID [facility] Last Admin: 03/07/24 08:27 Dose: 1 puff Hydroxyzine HCl (Hydroxyzine Hcl 50 Mg Tablet) 50 mg PO Q6H PRN PRN Reason: Anxiety Last Admin: 03/06/24 19:15 Dose: 50 mg Lamotrigine (Lamotrigine 100 Mg Tablet) 200 mg PO BID [facility] Last Admin: 03/07/24 08:26 Dose: 200 mg Lorazepam (Lorazepam 1 Mg Tablet) 1 mg PO TID [facility] Last Admin: 03/07/24 08:26 Dose: 1 mg Magnesium Hydroxide (Milk Of Magnesia 30 Ml Oral.Susp) 30 ml PO DAILY PRN PRN Reason: Constipation Last Admin: 02/29/24 21:11 Dose: 30 ml Melatonin (Melatonin 3 Mg Tablet) 6 mg PO BEDTIME [facility] Last Admin: 03/06/24 20:57 Dose: 6 mg Naproxen (Naproxen 250 Mg Tablet) 250 mg PO BID [facility] Last Admin: 03/07/24 08:26 Dose: 250 mg Nystatin (Nystatin Powder 15 Gm Bottle) 1 appl TOPICAL BID PRN; Protocol PRN Reason: Rash Olanzapine (Olanzapine 10 Mg Tablet) 10 mg PO BEDTIME [facility] Last Admin: 03/06/24 20:58 Dose: 10 mg Olanzapine (Olanzapine Odt 10 Mg Tab.Rapdis) 10 mg TRANSLINGU BID PRN PRN Reason: severe agitation Last Admin: 03/06/24 09:50 Dose: 10 mg Ondansetron HCl (Ondansetron Odt 4 Mg Tab.Rapdis) 4 mg TRANSLINGU Q8H PRN PRN Reason: Vomiting Last Admin: 03/06/24 09:50 Dose: 4 mg Polyethylene Glycol (Polyethylene Glycol 3350 17 Gm Powd.Pack) 34 gm PO DAILY [facility] Last Admin: 03/07/24 08:27 Dose: 34 gm Sertraline HCl (Sertraline Hcl 50 Mg Tablet) 150 mg PO DAILY [facility] Last Admin: 03/07/24 08:26 Dose: 150 mg Sucralfate (Sucralfate 1 Gm Tablet) 1 gm PO QIDACHS [facility] Last Admin: 03/07/24 08:26 Dose: 1 gm Trazodone HCl (Trazodone Hcl 100 Mg Tablet) 100 mg PO BEDTIME [facility] Last Admin: 03/06/24 20:58 Dose: 100 mg Allergies Allergies Allergy/AdvReac Type Severity Reaction Status Date / Time haloperidol [From Haldol] Allergy Unknown Verified 02/28/24 20:52 lithium Allergy Unknown Verified 02/28/24 20:52 morphine Allergy Unknown Verified 02/28/24 20:52 strawberry Allergy Unknown Verified 02/28/24 20:52 Assessment & Plan Assessment & Plan (1) Mood disorder: Status: Acute Code(s): F39 - Unspecified mood [affective] disorder (2) Post-traumatic stress disorder, unspecified: Status: Acute Code(s): F43.10 - Post-traumatic stress disorder, unspecified (3) Non-suicidal self-harm: Status: Acute Code(s): R45.88 - Nonsuicidal self-harm (4) Intellectual disability: Status: Acute Code(s): F79 - Unspecified intellectual disabilities Plan HPI: 29 yo female, under guardianship, resident of a DDS detention ([facility]), in residential treatment most of her life, with diagnosis of mild intellectual disability, PTSD, unspecified mood disorder and history of non-suicidal self injury. Patient was transferred from [facility]. She presented there from her group eryn for ingesting safety pin, coin, a piece of a zipper, a jenkins ring and having SI. She had recently been discharged from [facility] inpatient psychiatric unit. Patient underwent an EGD where the objects were retrieved. The patient was evaluated by FUR FARMER and recommendations were made for her to be admitted. She was also telling staff at the detention that she had plans to fall backwards from the porch in the program by throwing herself backwards. Patient was seen today. She reports she is feeling safe while in the hospital and doesn't want to kill herself. She reported I didn't feel ready to go back to the detention from [facility] inpatient unit but they still discharged me. She says she doesn't like it at the detention. She reports she is sad and thinking about her father that triggers feelings of depression. She had a seizure-like event yesterday after admission to [facility]. She was seen by COLD WORKING INSPECTOR. It wasn't confirmed to be a seizure. She didn't appear to be post-ictal. Possibility of non-epileptic event. Patient also reports she has right shoulder pain. She says she felt her shoulder dislocate and then popped back in this morning when she was stretching getting out of bed. Says she has a hard time moving her shoulder. Denies AVH. Denies urges for self harm. Patient became angry and frustrated during the day due to her shoulder pain and was screaming and yelling and banging her head strongly against the wall. Patient had shoulder Xray and hospitalist consultation. Sling was ordered. Ibuprofen was given. Xray was negative for fracture or dislocation. Past Psychiatric History: Multiple psychiatric hospitalizations. Resides in detention. Has been in residential care most of her life Mood disorder PTSD FUR FARMER record notes alcohol syndrome. Hospital Course: On admission patient got dysregulated, yelling, banging her head 7/15 Patient resting quietly in her room, mostly spending time alone. She reports that she has been more depressed recently but can not point to any trigger. She said she has been depressed before but this current depression is more than usual and it has been going on for about 2 weeks. She can tell she is more depressed because she staying in her room at the detention much more than usual. Patient says she has been missing her dad. He 13 years ago and she has been thinking about him a lot. She says that Zoloft was started over a month ago and agrees to have it titrated. Proof Technician Helper discussed behavioral activation to help address depression to which she agreed -right arm currently in a sling due to dislocated shoulder which is apparently intermittently chronic 03/03 Patient reports he is feeling little better but still depressed and agrees to continue titration of Zoloft. Asked if she can be restarted on Adderall. She says she took it all through school, in grade school and high school and that it helped. She said they stopped it when she left high school, saying she was not starting anymore. Patient however felt that it really helped her with focus, paying attention to conversations and other things. She called her guardian and reported or guarding said it was okay as well; race and sports book writer will follow up. Proof Technician Helper agreed to start on low dose as this can significantly help with impulse control issues. Patient fell while sitting on her bed and hit her right elbow; examined and patient reports tenderness to palpation on olecranon/ distal humerus; will send for x-ray -patient out and about more in the milieu -said wanted to sign in sinus CV 03/04 Patient reports that mood is little better but she still feeling quite depressed. Did not feel any help from Adderall race and sports book writer agrees to increase. sleeping well enough. Reviewed medications and she is not sure why she is on both Vraylar and Zyprexa but says she has been for a while. Reviewed x-ray and no fracture; patient says elbow does not hurt that much but shoulder does. -collateral/got him reported no history of epilepsy and nonepileptic seizures only collateral/guardian reports reported no history of epilepsy and nonepileptic seizures ?only 03/08-Gabapentin 300 mg bid prn anxiety trial. Plan: - Admit to inpatient psychiatry - CV Adderall XL 10mg daily Increase to Zoloft to 150mg ; Otherwise continue home medications - Collateral information from detention, guardian and providers. - Milieu treatment and group therapy. - Medications: Continue home medications. - Social work evaluation. - Disposition planning. XR/XR elbow RT min 3V IMPRESSION: No gross displaced fracture appreciated on this limited 2 view study. Additional imaging should be considered for further evaluation if there is clinical concern for fracture. Reason for continued inpatient stay Substantial Risk for: rapid decompensation Time Spent With Patient Time: Total time managing care of this patient today ____ minutes.
[2024-03-07] MEDS: Butalb/Acetamin/Caff 50/325/40 TABLET 2 TAB PO (08:59)
[2024-03-07] MEDS: hydrOXYzine HCL 50 MG TABLET PO (10:18)
[2024-03-07] MEDS: Gabapentin 300 MG CAPSULE PO ×2 (12:08→17:09)
[2024-03-07] MEDS: Acetaminophen 325 MG TABLET 650 MG PO (17:27)
[2024-03-07 20:00] VITALS: BP 110/74; PULSE 82; RESP 16; TEMP 36; O2SAT 98
[2024-03-07] MEDS: traZODone HCL 100 MG TABLET PO (21:10)
[2024-03-07] MEDS: OLANZapine 10 MG TABLET PO (21:10)
[2024-03-07] MEDS: Melatonin 3 MG TABLET 6 MG PO (21:10)
[2024-03-07] MEDS: Cariprazine HCl 1.5 MG CAPSULE 4.5 MG PO (21:10)
[2024-03-07] MEDS: cloNIDine HCL 0.2 MG TABLET PO (21:10)
[2024-03-08] MEDS: Fluticasone Propionate 100 MCG BLST.W.DEV 1 PUFF INHALE (07:53)
[2024-03-08] MEDS: lamoTRIgine 100 MG TABLET 200 MG PO ×2 (07:54→21:09)
[2024-03-08] MEDS: Famotidine 20 MG TABLET PO ×2 (07:54→21:10)
[2024-03-08] MEDS: Sertraline HCL 50 MG TABLET 150 MG PO (07:54)
[2024-03-08] MEDS: Dextroamphetamine/Amphetamine XR 5 MG CAP.ER.24H 30 MG PO (07:54)
[2024-03-08] MEDS: Gabapentin 300 MG CAPSULE PO ×2 (07:54→16:00)
[2024-03-08] MEDS: LORazepam 1 MG TABLET PO ×3 (07:55→21:10)
[2024-03-08] MEDS: Sucralfate 1 GM TABLET PO ×4 (07:55→21:10)
[2024-03-08] MEDS: NaPROXEN 250 MG TABLET PO ×2 (07:55→21:09)
[2024-03-08 07:58] VITALS: BP 104/63
[2024-03-08] MEDS: cloNIDine HCL 0.1 MG TABLET PO (07:58)
[2024-03-08 08:00] VITALS: BP 104/63; PULSE 99; RESP 18; TEMP 36.9; O2SAT 96
[2024-03-08] MEDS: polyethylene glycoL 3350 17 GM POWD.PACK 34 GM PO (08:00)
[2024-03-08] MEDS: Acetaminophen 325 MG TABLET 650 MG PO ×2 (11:50→21:09)
[2024-03-08] MEDS: hydrOXYzine HCL 50 MG TABLET PO ×2 (12:29→18:48)
--- NOTE | 2024-03-08 12:36 | HO.PSYCHPN ---
Subjective Subjective Date of Service: 03/08/24 Reason For Visit: Unspecified Mood Disorder PTSD Interim History: Pt reports Gabapentin to be effective as a prn yet reporting some sedation. Discussed decreasing mg dosage to offer relief without sedation. She declines, reporting his relief is helpful and sh believes she can work through the sedative effect. Medication Compliance: Yes Side effects from medications: No Attending Groups: Intermittent Review of Systems Acute medical concerns: No Medical Review of Systems: unchanged Review of Systems Review of Systems Yes all other systems are reviewed and are negative Mental Status Exam Mental Status Exam Patient Appearance: Appropriate Patient Orientation: Person, Place, Time and Situation Level of Consciousness: Alert Patient Behavior: Talkative and Good Eye Contact Mood Description: Calm Affect Description: Flat Patient Cognition Impaired: No Ability to Follow Directions: Good Speech Pattern: Spontaneous Speech Memory Description: Intact Hallucinations: None Delusions: Not Present Thought Content: positive for Circumstantial Judgement: Fair Diagnostics Vital Signs (24Hr): Vital Signs - 24 hr 03/07/24 20:00 03/08/24 07:58 03/08/24 08:00 Temperature 96.8 F 98.4 F Pulse Rate 82 99 Respiratory Rate 16 18 Blood Pressure 110/74 104/63 104/63 Pulse Oximetry 98 96 Oxygen Delivery Method Room Air Room Air BMI result Body Mass Index 32.5 Labs 02/28/24 19:47 02/29/24 08:39 Imaging Radiology Impressions: ITS Impressions Shoulder X-Ray 02/29/24 14:32 IMPRESSION: Normal right shoulder. Elbow X-Ray 03/03/24 22:20 IMPRESSION: No gross displaced fracture appreciated on this limited 2 view study. Additional imaging should be considered for further evaluation if there is clinical concern for fracture. This study was presented today March 04, 2024 for interpretation. Stat results provided at this time as requested by referring provider. Medications Medications Current Medications Acetaminophen (Acetaminophen 325 Mg Tablet) 650 mg PO Q6H PRN PRN Reason: Headache/Pain Mild Scale (1-3) Last Admin: 03/08/24 11:50 Dose: 650 mg Acetaminophen/Butalbital/Caffeine (Butalb/Acetamin/Caff 50/325/40 Tablet) 2 tab PO Q6H PRN PRN Reason: Headache Last Admin: 03/07/24 08:59 Dose: 2 tab Al Hydroxide/Mg Hydroxide (Magnesium Hydrox/Alum Hydrox 30 Ml Oral.Susp) 30 ml PO Q6H PRN PRN Reason: Heartburn/Nausea Last Admin: 03/03/24 20:33 Dose: 30 ml Albuterol Sulfate (Albuterol Sulfate 90 Mcg 8 Gm Inhaler) 2 puff INHALE 6XD PRN PRN Reason: Wheezing Amphetamine/Dextroamphetamine (Dextroamphetamine/Amphetamine Xr 5 Mg Cap.Er.24h) 30 mg PO DAILY JUAN Last Admin: 03/08/24 07:54 Dose: 30 mg Cariprazine (Cariprazine Hcl 1.5 Mg Capsule) 4.5 mg PO BEDTIME JUAN Last Admin: 03/07/24 21:10 Dose: 4.5 mg Clonidine HCl (Clonidine Hcl 0.1 Mg Tablet) 0.1 mg PO DAILY JUAN; Protocol Last Admin: 03/08/24 07:58 Dose: 0.1 mg Clonidine HCl (Clonidine Hcl 0.2 Mg Tablet) 0.2 mg PO BEDTIME JUAN; Protocol Last Admin: 03/07/24 21:10 Dose: 0.2 mg Famotidine (Famotidine 20 Mg Tablet) 20 mg PO BID JUAN Last Admin: 03/08/24 07:54 Dose: 20 mg Fluticasone Propionate (Fluticasone Propionate 100 Mcg Blst.W.Dev) 1 puff INHALE RBID JUAN Last Admin: 03/08/24 07:53 Dose: 1 puff Gabapentin (Gabapentin 300 Mg Capsule) 300 mg PO BID PRN PRN Reason: anxiety Last Admin: 03/08/24 07:54 Dose: 300 mg Hydroxyzine HCl (Hydroxyzine Hcl 50 Mg Tablet) 50 mg PO Q6H PRN PRN Reason: Anxiety Last Admin: 03/08/24 12:29 Dose: 50 mg Lamotrigine (Lamotrigine 100 Mg Tablet) 200 mg PO BID JUAN Last Admin: 03/08/24 07:54 Dose: 200 mg Lorazepam (Lorazepam 1 Mg Tablet) 1 mg PO TID JUAN Last Admin: 03/08/24 07:55 Dose: 1 mg Magnesium Hydroxide (Milk Of Magnesia 30 Ml Oral.Susp) 30 ml PO DAILY PRN PRN Reason: Constipation Last Admin: 02/29/24 21:11 Dose: 30 ml Melatonin (Melatonin 3 Mg Tablet) 6 mg PO BEDTIME JUAN Last Admin: 03/07/24 21:10 Dose: 6 mg Naproxen (Naproxen 250 Mg Tablet) 250 mg PO BID [facility] Last Admin: 03/08/24 07:55 Dose: 250 mg Nystatin (Nystatin Powder 15 Gm Bottle) 1 appl TOPICAL BID PRN; Protocol PRN Reason: Rash Olanzapine (Olanzapine 10 Mg Tablet) 10 mg PO BEDTIME [facility] Last Admin: 03/07/24 21:10 Dose: 10 mg Olanzapine (Olanzapine Odt 10 Mg Tab.Rapdis) 10 mg TRANSLINGU BID PRN PRN Reason: severe agitation Last Admin: 03/06/24 09:50 Dose: 10 mg Ondansetron HCl (Ondansetron Odt 4 Mg Tab.Rapdis) 4 mg TRANSLINGU Q8H PRN PRN Reason: Vomiting Last Admin: 03/06/24 09:50 Dose: 4 mg Polyethylene Glycol (Polyethylene Glycol 3350 17 Gm Powd.Pack) 34 gm PO DAILY [facility] Last Admin: 03/08/24 08:00 Dose: 34 gm Sertraline HCl (Sertraline Hcl 50 Mg Tablet) 150 mg PO DAILY [facility] Last Admin: 03/08/24 07:54 Dose: 150 mg Sucralfate (Sucralfate 1 Gm Tablet) 1 gm PO QIDACHS [facility] Last Admin: 03/08/24 11:50 Dose: 1 gm Trazodone HCl (Trazodone Hcl 100 Mg Tablet) 100 mg PO BEDTIME [facility] Last Admin: 03/07/24 21:10 Dose: 100 mg Allergies Allergies Allergy/AdvReac Type Severity Reaction Status Date / Time haloperidol [From Haldol] Allergy Unknown Verified 02/28/24 20:52 lithium Allergy Unknown Verified 02/28/24 20:52 morphine Allergy Unknown Verified 02/28/24 20:52 strawberry Allergy Unknown Verified 02/28/24 20:52 Assessment & Plan Assessment & Plan (1) Mood disorder: Status: Acute Code(s): F39 - Unspecified mood [affective] disorder (2) Post-traumatic stress disorder, unspecified: Status: Acute Code(s): F43.10 - Post-traumatic stress disorder, unspecified (3) Non-suicidal self-harm: Status: Acute Code(s): R45.88 - Nonsuicidal self-harm (4) Intellectual disability: Status: Acute Code(s): F79 - Unspecified intellectual disabilities Plan HPI: 29 yo female, under guardianship, resident of a DDS long term (running agency [facility]), in residential treatment most of her life, with diagnosis of mild intellectual disability, PTSD, unspecified mood disorder and history of non-suicidal self injury. Patient was transferred from [facility]. She presented there from her group eryn for ingesting safety pin, coin, a piece of a zipper, a jenkins ring and having SI. She had recently been discharged from [facility] inpatient psychiatric unit. Patient underwent an EGD where the objects were retrieved. The patient was evaluated by SOLDERER ELECTRONIC and recommendations were made for her to be admitted. She was also telling staff at the long term that she had plans to fall backwards from the porch in the program by throwing herself backwards. Patient was seen today. She reports she is feeling safe while in the hospital and doesn't want to kill herself. She reported I didn't feel ready to go back to the long term from [facility] inpatient unit but they still discharged me. She says she doesn't like it at the long term. She reports she is sad and thinking about her father that triggers feelings of depression. She had a seizure-like event yesterday after admission to [facility]. She was seen by WATERWORKS EMPLOYEE. It wasn't confirmed to be a seizure. She didn't appear to be post-ictal. Possibility of non-epileptic event. Patient also reports she has right shoulder pain. She says she felt her shoulder dislocate and then popped back in this morning when she was stretching getting out of bed. Says she has a hard time moving her shoulder. Denies AVH. Denies urges for self harm. Patient became angry and frustrated during the day due to her shoulder pain and was screaming and yelling and banging her head strongly against the wall. Patient had shoulder Xray and hospitalist consultation. Sling was ordered. Ibuprofen was given. Xray was negative for fracture or dislocation. Past Psychiatric History: Multiple psychiatric hospitalizations. Resides in long term. Has been in residential care most of her life Mood disorder PTSD SOL[employer]ER E[employer]RON[employer] record notes alcohol syndrome. Hospital Course: On admission patient got dysregulated, yelling, banging her head 7 Patient resting quietly in her room, mostly spending time alone. She reports that she has been more depressed recently but can not point to any trigger. She said she has been depressed before but this current depression is more than usual and it has been going on for about 2 weeks. She can tell she is more depressed because she staying in her room at the long term much more than usual. Patient says she has been missing her dad. He 13 years ago and she has been thinking about him a lot. She says that Zoloft was started over a month ago and agrees to have it titrated. Fee Clerk discussed behavioral activation to help address depression to which she agreed -right arm currently in a sling due to dislocated shoulder which is apparently intermittently chronic 03/03 Patient reports he is feeling little better but still depressed and agrees to continue titration of Zoloft. Asked if she can be restarted on Adderall. She says she took it all through school, in grade school and high school and that it helped. She said they stopped it when she left high school, saying she was not starting anymore. Patient however felt that it really helped her with focus, paying attention to conversations and other things. She called her guardian and reported or guarding said it was okay as well; quality analyst/technical writer will follow up. Fee Clerk agreed to start on low dose as this can significantly help with impulse control issues. Patient fell while sitting on her bed and hit her right elbow; examined and patient reports tenderness to palpation on olecranon/ distal humerus; will send for x-ray -patient out and about more in the milieu -said wanted to sign in sinus CV 03/04 Patient reports that mood is little better but she still feeling quite depressed. Did not feel any help from Adderall quality analyst/technical writer agrees to increase. sleeping well enough. Reviewed medications and she is not sure why she is on both Vraylar and Zyprexa but says she has been for a while. Reviewed x-ray and no fracture; patient says elbow does not hurt that much but shoulder does. -collateral/got him reported no history of epilepsy and nonepileptic seizures only collateral/guardian reports reported no history of epilepsy and nonepileptic seizures ?only 03/08: Pt reports Gabapentin to be helpful. Continue trial. Plan: - Admit to inpatient psychiatry - CV Adderall XL 10mg daily Increase to Zoloft to 150mg ; Otherwise continue home medications - Collateral information from long term, guardian and providers. - Milieu treatment and group therapy. - Medications: Continue home medications. - Social work evaluation. - Disposition planning. XR/XR elbow RT min 3V IMPRESSION: No gross displaced fracture appreciated on this limited 2 view study. Additional imaging should be considered for further evaluation if there is clinical concern for fracture. Reason for continued inpatient stay Substantial Risk for: rapid decompensation Time Spent With Patient Time: Total time managing care of this patient today ____ minutes.
[2024-03-08] MEDS: OLANZapine ODT 10 MG TAB.RAPDIS TRANSLINGU (17:51)
[2024-03-08] MEDS: Butalb/Acetamin/Caff 50/325/40 TABLET 2 TAB PO (18:23)
[2024-03-08 20:00] VITALS: BP 124/73; PULSE 79; RESP 16; TEMP 36.3; O2SAT 96
[2024-03-08] MEDS: Cariprazine HCl 1.5 MG CAPSULE 4.5 MG PO (21:08)
[2024-03-08] MEDS: traZODone HCL 100 MG TABLET PO (21:09)
[2024-03-08] MEDS: Melatonin 3 MG TABLET 6 MG PO (21:09)
[2024-03-08] MEDS: cloNIDine HCL 0.2 MG TABLET PO (21:10)
[2024-03-08] MEDS: OLANZapine 10 MG TABLET PO (21:10)
[2024-03-09 09:00] VITALS: BP 125/66; PULSE 84; RESP 18; TEMP 36.4; O2SAT 98
[2024-03-09] MEDS: Fluticasone Propionate 100 MCG BLST.W.DEV 1 PUFF INHALE ×2 (09:05→20:30)
[2024-03-09 09:06] VITALS: BP 125/66
[2024-03-09] MEDS: lamoTRIgine 100 MG TABLET 200 MG PO ×2 (09:06→20:25)
[2024-03-09] MEDS: Sertraline HCL 50 MG TABLET 150 MG PO (09:06)
[2024-03-09] MEDS: Famotidine 20 MG TABLET PO ×2 (09:06→20:25)
[2024-03-09] MEDS: cloNIDine HCL 0.1 MG TABLET PO ×2 (09:06→13:25)
[2024-03-09] MEDS: Dextroamphetamine/Amphetamine XR 5 MG CAP.ER.24H 30 MG PO (09:10)
[2024-03-09] MEDS: LORazepam 1 MG TABLET PO ×3 (09:10→20:26)
[2024-03-09] MEDS: Sucralfate 1 GM TABLET PO ×4 (09:10→20:26)
[2024-03-09] MEDS: Gabapentin 300 MG CAPSULE PO ×2 (09:14→18:14)
[2024-03-09] MEDS: NaPROXEN 250 MG TABLET PO ×2 (09:17→20:26)
[2024-03-09] MEDS: polyethylene glycoL 3350 17 GM POWD.PACK 34 GM PO (09:43)
[2024-03-09] MEDS: Ondansetron ODT 4 MG TAB.RAPDIS TRANSLINGU (09:43)
--- NOTE | 2024-03-09 09:50 | HO.PSYCHPN ---
Subjective Subjective Date of Service: 03/09/24 Reason For Visit: Unspecified Mood Disorder PTSD Interim History: Met with patient; discussed with team Patient said still anxious and depressed but overall feeling better. Said she needed extra anxiety medication was started on gabapentin which she found helpful as a p.r.n.; agreed to add extra afternoon dose of clonidine. Says she has been thinking about her father and missing him. Still not feeling significant effects from Adderall and ghost writer agreed to increase. Discussed going home and patient said she thinks she will be ready this week Mental Status Exam Mental Status Exam Narrative: Pt is alert and oriented; behavior is cooperative, calm, friendly; patient is not in distress; right arm in sling; dressed in casual attire with dyed hair streak, a little unkempt but adequate hygiene; mood is described as okay and affect congruent, a little brighter; eye contact appropriate; Speech is normal rate, volume, prosody; not pressured; no psychomotor retardation present, but less; thought process is organized and goal directed; Thought content is on her treatment, depression, missing her father; otherwise pertinent to relevant topics and without any delusional content, paranoid ideations or grandiosity; denies any SI/HI. There is no evidence of perceptual disturbance. Patients insight and judgment improved, fair. Diagnostics Vital Signs (24Hr): Vital Signs - 24 hr 03/08/24 20:00 03/09/24 09:06 Temperature 97.3 F Pulse Rate 79 Respiratory Rate 16 Blood Pressure 124/73 125/66 Pulse Oximetry 96 Oxygen Delivery Method Room Air BMI result Body Mass Index 32.5 Labs 02/28/24 19:47 02/29/24 08:39 Imaging Radiology Impressions: ITS Impressions Shoulder X-Ray 02/29/24 14:32 IMPRESSION: Normal right shoulder. Elbow X-Ray 03/03/24 22:20 IMPRESSION: No gross displaced fracture appreciated on this limited 2 view study. Additional imaging should be considered for further evaluation if there is clinical concern for fracture. This study was presented today March 04, 2024 for interpretation. Stat results provided at this time as requested by referring provider. Medications Medications Current Medications Acetaminophen (Acetaminophen 325 Mg Tablet) 650 mg PO Q6H PRN PRN Reason: Headache/Pain Mild Scale (1-3) Last Admin: 03/08/24 21:09 Dose: 650 mg Acetaminophen/Butalbital/Caffeine (Butalb/Acetamin/Caff 50/325/40 Tablet) 2 tab PO Q6H PRN PRN Reason: Headache Last Admin: 03/08/24 18:23 Dose: 2 tab Al Hydroxide/Mg Hydroxide (Magnesium Hydrox/Alum Hydrox 30 Ml Oral.Susp) 30 ml PO Q6H PRN PRN Reason: Heartburn/Nausea Last Admin: 03/03/24 20:33 Dose: 30 ml Albuterol Sulfate (Albuterol Sulfate 90 Mcg 8 Gm Inhaler) 2 puff INHALE 6XD PRN PRN Reason: Wheezing Amphetamine/Dextroamphetamine (Dextroamphetamine/Amphetamine Xr 5 Mg Cap.Er.24h) 30 mg PO DAILY JUAN Last Admin: 03/09/24 09:10 Dose: 30 mg Cariprazine (Cariprazine Hcl 1.5 Mg Capsule) 4.5 mg PO BEDTIME JUAN Last Admin: 03/08/24 21:08 Dose: 4.5 mg Clonidine HCl (Clonidine Hcl 0.1 Mg Tablet) 0.1 mg PO DAILY [facility]; Protocol Last Admin: 03/09/24 09:06 Dose: 0.1 mg Clonidine HCl (Clonidine Hcl 0.2 Mg Tablet) 0.2 mg PO BEDTIME JUAN; Protocol Last Admin: 03/08/24 21:10 Dose: 0.2 mg Famotidine (Famotidine 20 Mg Tablet) 20 mg PO BID [facility] Last Admin: 03/09/24 09:06 Dose: 20 mg Fluticasone Propionate (Fluticasone Propionate 100 Mcg Blst.W.Dev) 1 puff INHALE RBID [facility] Last Admin: 03/09/24 09:05 Dose: 1 puff Gabapentin (Gabapentin 300 Mg Capsule) 300 mg PO BID PRN PRN Reason: anxiety Last Admin: 03/09/24 09:14 Dose: 300 mg Hydroxyzine HCl (Hydroxyzine Hcl 50 Mg Tablet) 50 mg PO Q6H PRN PRN Reason: Anxiety Last Admin: 03/08/24 18:48 Dose: 50 mg Lamotrigine (Lamotrigine 100 Mg Tablet) 200 mg PO BID JUAN Last Admin: 03/09/24 09:06 Dose: 200 mg Lorazepam (Lorazepam 1 Mg Tablet) 1 mg PO TID JUAN Last Admin: 03/09/24 09:10 Dose: 1 mg Magnesium Hydroxide (Milk Of Magnesia 30 Ml Oral.Susp) 30 ml PO DAILY PRN PRN Reason: Constipation Last Admin: 02/29/24 21:11 Dose: 30 ml Melatonin (Melatonin 3 Mg Tablet) 6 mg PO BEDTIME [facility] Last Admin: 03/08/24 21:09 Dose: 6 mg Naproxen (Naproxen 250 Mg Tablet) 250 mg PO BID [facility] Last Admin: 03/09/24 09:17 Dose: 250 mg Nystatin (Nystatin Powder 15 Gm Bottle) 1 appl TOPICAL BID PRN; Protocol PRN Reason: Rash Olanzapine (Olanzapine 10 Mg Tablet) 10 mg PO BEDTIME [facility] Last Admin: 03/08/24 21:10 Dose: 10 mg Olanzapine (Olanzapine Odt 10 Mg Tab.Rapdis) 10 mg TRANSLINGU BID PRN PRN Reason: severe agitation Last Admin: 03/08/24 17:51 Dose: 10 mg Ondansetron HCl (Ondansetron Odt 4 Mg Tab.Rapdis) 4 mg TRANSLINGU Q8H PRN PRN Reason: Vomiting Last Admin: 03/09/24 09:43 Dose: 4 mg Polyethylene Glycol (Polyethylene Glycol 3350 17 Gm Powd.Pack) 34 gm PO DAILY [facility] Last Admin: 03/09/24 09:43 Dose: 34 gm Sertraline HCl (Sertraline Hcl 50 Mg Tablet) 150 mg PO DAILY [facility] Last Admin: 03/09/24 09:06 Dose: 150 mg Sucralfate (Sucralfate 1 Gm Tablet) 1 gm PO QIDACHS [facility] Last Admin: 03/09/24 09:10 Dose: 1 gm Trazodone HCl (Trazodone Hcl 100 Mg Tablet) 100 mg PO BEDTIME [facility] Last Admin: 03/08/24 21:09 Dose: 100 mg Allergies Allergies Allergy/AdvReac Type Severity Reaction Status Date / Time haloperidol [From Haldol] Allergy Unknown Verified 02/28/24 20:52 lithium Allergy Unknown Verified 02/28/24 20:52 morphine Allergy Unknown Verified 02/28/24 20:52 strawberry Allergy Unknown Verified 02/28/24 20:52 Assessment & Plan Assessment & Plan (1) Mood disorder: Status: Acute Code(s): F39 - Unspecified mood [affective] disorder (2) Post-traumatic stress disorder, unspecified: Status: Acute Code(s): F43.10 - Post-traumatic stress disorder, unspecified (3) Non-suicidal self-harm: Status: Acute Code(s): R45.88 - Nonsuicidal self-harm (4) Intellectual disability: Status: Acute Code(s): F79 - Unspecified intellectual disabilities Plan HPI: 29 yo female, under guardianship, resident of a DDS long term (running [facility]), in residential treatment most of her life, with diagnosis of mild intellectual disability, PTSD, unspecified mood disorder and history of non-suicidal self injury. Patient was transferred from [facility]. She presented there from her group eryn for ingesting safety pin, coin, a piece of a zipper, a jenkins ring and having SI. She had recently been discharged from [facility] inpatient psychiatric unit. Patient underwent an EGD where the objects were retrieved. The patient was evaluated by SUPPLY CHAIN DIRECTOR and recommendations were made for her to be admitted. She was also telling staff at the long term that she had plans to fall backwards from the porch in the program by throwing herself backwards. Patient was seen today. She reports she is feeling safe while in the hospital and doesn't want to kill herself. She reported I didn't feel ready to go back to the long term from [facility] but they still discharged me. She says she doesn't like it at the long term. She reports she is sad and thinking about her father that triggers feelings of depression. She had a seizure-like event yesterday after [place] [facility] She was seen by RESIDENT PHYSICIAN IN RADIOLOGY. It wasn't confirmed to be a seizure. She didn't appear to be post-ictal. Possibility of non-epileptic event. Patient also reports she has right shoulder pain. She says she felt her shoulder dislocate and then popped back in this morning when she was stretching getting out of bed. Says she has a hard time moving her shoulder. Denies AVH. Denies urges for self harm. Patient became angry and frustrated during the day due to her shoulder pain and was screaming and yelling and banging her head strongly against the wall. Patient had shoulder Xray and hospitalist consultation. Sling was ordered. Ibuprofen was given. Xray was negative for fracture or dislocation. Past Psychiatric History: Multiple psychiatric hospitalizations. Resides in long term. Has been in residential care most of her life Mood disorder PTSD SUPPLY CHAIN DIRECTOR record notes alcohol syndrome. Hospital Course: On admission patient got dysregulated, yelling, banging her head 03/02 Patient resting quietly in her room, mostly spending time alone. She reports that she has been more depressed recently but can not point to any trigger. She said she has been depressed before but this current depression is more than usual and it has been going on for about 2 weeks. She can tell she is more depressed because she staying in her room at the long term much more than usual. Patient says she has been missing her dad. He 13 years ago and she has been thinking about him a lot. She says that Zoloft was started over a month ago and agrees to have it titrated. Linen Room Worker discussed behavioral activation to help address depression to which she agreed -right arm currently in a sling due to dislocated shoulder which is apparently intermittently chronic 03/03 Patient reports he is feeling little better but still depressed and agrees to continue titration of Zoloft. Asked if she can be restarted on Adderall. She says she took it all through school, in grade school and high school and that it helped. She said they stopped it when she left high school, saying she was not starting anymore. Patient however felt that it really helped her with focus, paying attention to conversations and other things. She called her guardian and reported or guarding said it was okay as well; ghost writer will follow up. Linen Room Worker agreed to start on low dose as this can significantly help with impulse control issues. Patient fell while sitting on her bed and hit her right elbow; examined and patient reports tenderness to palpation on olecranon/ distal humerus; will send for x-ray -patient out and about more in the milieu -said wanted to sign in sinus CV 03/04 Patient reports that mood is little better but she still feeling quite depressed. Did not feel any help from Adderall ghost writer agrees to increase. sleeping well enough. Reviewed medications and she is not sure why she is on both Vraylar and Zyprexa but says she has been for a while. Reviewed x-ray and no fracture; patient says elbow does not hurt that much but shoulder does. 03/05 increasing Adderall -collateral/guardian reports reported no history of epilepsy and nonepileptic seizures only 03/08: Pt reports Gabapentin to be helpful. Continue trial. 03/09 overall better though still with depression and anxiety however improvement is noted. Will increase Adderall Plan: - Admit to inpatient psychiatry - CV Adderall XL 40mg daily Increase to Zoloft to 150mg ; Otherwise continue home medications - Collateral information from long term, guardian and providers. - Milieu treatment and group therapy. - Medications: Continue home medications. - Social work evaluation. - Disposition planning. XR/XR elbow RT min 3V IMPRESSION: No gross displaced fracture appreciated on this limited 2 view study. Additional imaging should be considered for further evaluation if there is clinical concern for fracture. Patient educated on: diagnosis and medication risk/benefits Informed Consent: understands Reason for continued inpatient stay Substantial Risk for: stable for discharge Time Spent With Patient Time: Total time managing care of this patient today ____ minutes.
[2024-03-09] MEDS: Dextroamphetamine/Amphetamine XR 10 MG CAP.ER.24H PO (10:41)
[2024-03-09 13:25] VITALS: BP 114/61
[2024-03-09] MEDS: Acetaminophen 325 MG TABLET 650 MG PO (14:34)
[2024-03-09 20:00] VITALS: BP 109/67; PULSE 103; RESP 18; TEMP 36.5; O2SAT 97
[2024-03-09] MEDS: Melatonin 3 MG TABLET 6 MG PO (20:24)
[2024-03-09] MEDS: Cariprazine HCl 1.5 MG CAPSULE 4.5 MG PO (20:25)
[2024-03-09] MEDS: traZODone HCL 100 MG TABLET PO (20:25)
[2024-03-09] MEDS: cloNIDine HCL 0.2 MG TABLET PO (20:25)
[2024-03-09] MEDS: OLANZapine 10 MG TABLET PO (20:25)
[2024-03-10 08:00] VITALS: BP 95/51; PULSE 70; RESP 16; TEMP 36.4; O2SAT 99
[2024-03-10 08:55] VITALS: BP 110/55; PULSE 95
[2024-03-10] MEDS: polyethylene glycoL 3350 17 GM POWD.PACK 34 GM PO (09:07)
[2024-03-10] MEDS: Fluticasone Propionate 100 MCG BLST.W.DEV 1 PUFF INHALE ×2 (09:07→20:25)
[2024-03-10] MEDS: Dextroamphetamine/Amphetamine XR 10 MG CAP.ER.24H 40 MG PO (09:09)
[2024-03-10] MEDS: Famotidine 20 MG TABLET PO ×2 (09:09→20:22)
[2024-03-10] MEDS: Sertraline HCL 50 MG TABLET 150 MG PO (09:09)
[2024-03-10] MEDS: lamoTRIgine 100 MG TABLET 200 MG PO ×2 (09:09→20:22)
[2024-03-10] MEDS: Sucralfate 1 GM TABLET PO ×4 (09:09→20:22)
[2024-03-10] MEDS: NaPROXEN 250 MG TABLET PO ×2 (09:10→20:22)
[2024-03-10] MEDS: LORazepam 1 MG TABLET PO ×3 (09:10→20:22)
[2024-03-10] MEDS: Acetaminophen 325 MG TABLET 650 MG PO ×2 (10:14→17:56)
[2024-03-10] MEDS: Gabapentin 300 MG CAPSULE PO ×2 (11:00→20:22)
[2024-03-10 13:20] VITALS: BP 103/58; PULSE 72
[2024-03-10 14:57] VITALS: BP 113/66; PULSE 105; O2SAT 97
[2024-03-10 15:01] VITALS: BP 113/66
[2024-03-10] MEDS: cloNIDine HCL 0.1 MG TABLET PO (15:01)
[2024-03-10] MEDS: hydrOXYzine HCL 50 MG TABLET PO (15:47)
--- NOTE | 2024-03-10 17:23 | HO.PSYCHPN ---
Subjective Subjective Date of Service: 03/10/24 Reason For Visit: Unspecified Mood Disorder PTSD Interim History: Met with patient; discussed with team; discussed with outpatient team Patient initially said she was ready to discharge tomorrow and go home. Today she came to software writer, somewhat upset saying she had wanted to stay until Saturday; she reports she told this to software writer. Clutch Rebuilder tried to engage with patient and ask what was going on, will which she feeling and patient would only say she just not ready. Clutch Rebuilder said she could stay till Saturday and she brightened up. Clutch Rebuilder tried to engage again, later on to see what was going on and what she was feeling however she said she was fine and did not want to talk. Patient friendly and interactive in the milieu, appropriate with peers and enjoying their company. Mental Status Exam Mental Status Exam Narrative: Pt is alert and oriented; behavior is cooperative, calm, friendly; patient is not in distress; right arm in sling; dressed in casual attire with dyed hair streak, a little unkempt but adequate hygiene; mood is described as upset and affect congruent, though overall brighter, calm; eye contact appropriate; Speech is normal rate, volume, prosody; not pressured; no psychomotor retardation present, but less; thought process is organized and goal directed; Thought content is on her treatment, depression, missing her father; otherwise pertinent to relevant topics and without any delusional content, paranoid ideations or grandiosity; denies any SI/HI. There is no evidence of perceptual disturbance. Patients insight and judgment improved, fair. Diagnostics Vital Signs (24Hr): Vital Signs - 24 hr 03/09/24 20:00 03/10/24 08:00 03/10/24 08:55 Temperature 97.7 F 97.5 F Pulse Rate 103 H 70 95 Respiratory Rate 18 16 Blood Pressure 109/67 95/51 L 110/55 L Pulse Oximetry 97 99 Oxygen Delivery Method Room Air Room Air 03/10/24 13:20 03/10/24 14:57 03/10/24 15:01 Temperature Pulse Rate 72 105 H Respiratory Rate Blood Pressure 103/58 L 113/66 113/66 Pulse Oximetry 97 Oxygen Delivery Method Room Air BMI result Body Mass Index 32.5 Labs 02/28/24 19:47 02/29/24 08:39 Imaging Radiology Impressions: ITS Impressions Shoulder X-Ray 02/29/24 14:32 IMPRESSION: Normal right shoulder. Elbow X-Ray 03/03/24 22:20 IMPRESSION: No gross displaced fracture appreciated on this limited 2 view study. Additional imaging should be considered for further evaluation if there is clinical concern for fracture. This study was presented today March 04, 2024 for interpretation. Stat results provided at this time as requested by referring provider. Medications Medications Current Medications Acetaminophen (Acetaminophen 325 Mg Tablet) 650 mg PO Q6H PRN PRN Reason: Headache/Pain Mild Scale (1-3) Last Admin: 03/10/24 10:14 Dose: 650 mg Acetaminophen/Butalbital/Caffeine (Butalb/Acetamin/Caff 50/325/40 Tablet) 2 tab PO Q6H PRN PRN Reason: Headache Last Admin: 03/08/24 18:23 Dose: 2 tab Al Hydroxide/Mg Hydroxide (Magnesium Hydrox/Alum Hydrox 30 Ml Oral.Susp) 30 ml PO Q6H PRN PRN Reason: Heartburn/Nausea Last Admin: 03/03/24 20:33 Dose: 30 ml Albuterol Sulfate (Albuterol Sulfate 90 Mcg 8 Gm Inhaler) 2 puff INHALE 6XD PRN PRN Reason: Wheezing Amphetamine/Dextroamphetamine (Dextroamphetamine/Amphetamine Xr 10 Mg Cap.Er.24h) 40 mg PO DAILY [facility] Last Admin: 03/10/24 09:09 Dose: 40 mg Cariprazine (Cariprazine Hcl 1.5 Mg Capsule) 4.5 mg PO BEDTIME JUAN Last Admin: 03/09/24 20:25 Dose: 4.5 mg Clonidine HCl (Clonidine Hcl 0.2 Mg Tablet) 0.2 mg PO BEDTIME [facility]; Protocol Last Admin: 03/09/24 20:25 Dose: 0.2 mg Clonidine HCl (Clonidine Hcl 0.1 Mg Tablet) 0.1 mg PO BID@0900,1300 [facility]; Protocol Last Admin: 03/10/24 15:01 Dose: 0.1 mg Famotidine (Famotidine 20 Mg Tablet) 20 mg PO BID [facility] Last Admin: 03/10/24 09:09 Dose: 20 mg Fluticasone Propionate (Fluticasone Propionate 100 Mcg Blst.W.Dev) 1 puff INHALE RBID [facility] Last Admin: 03/10/24 09:07 Dose: 1 puff Gabapentin (Gabapentin 300 Mg Capsule) 300 mg PO BID PRN PRN Reason: anxiety Last Admin: 03/10/24 11:00 Dose: 300 mg Hydroxyzine HCl (Hydroxyzine Hcl 50 Mg Tablet) 50 mg PO Q6H PRN PRN Reason: Anxiety Last Admin: 03/10/24 15:47 Dose: 50 mg Lamotrigine (Lamotrigine 100 Mg Tablet) 200 mg PO BID JUAN Last Admin: 03/10/24 09:09 Dose: 200 mg Lorazepam (Lorazepam 1 Mg Tablet) 1 mg PO TID JUAN Last Admin: 03/10/24 15:02 Dose: 1 mg Magnesium Hydroxide (Milk Of Magnesia 30 Ml Oral.Susp) 30 ml PO DAILY PRN PRN Reason: Constipation Last Admin: 02/29/24 21:11 Dose: 30 ml Melatonin (Melatonin 3 Mg Tablet) 6 mg PO BEDTIME JUAN Last Admin: 03/09/24 20:24 Dose: 6 mg Naproxen (Naproxen 250 Mg Tablet) 250 mg PO BID [facility] Last Admin: 03/10/24 09:10 Dose: 250 mg Nystatin (Nystatin Powder 15 Gm Bottle) 1 appl TOPICAL BID PRN; Protocol PRN Reason: Rash Olanzapine (Olanzapine 10 Mg Tablet) 10 mg PO BEDTIME [facility] Last Admin: 03/09/24 20:25 Dose: 10 mg Olanzapine (Olanzapine Odt 10 Mg Tab.Rapdis) 10 mg TRANSLINGU BID PRN PRN Reason: severe agitation Last Admin: 03/08/24 17:51 Dose: 10 mg Ondansetron HCl (Ondansetron Odt 4 Mg Tab.Rapdis) 4 mg TRANSLINGU Q8H PRN PRN Reason: Vomiting Last Admin: 03/09/24 09:43 Dose: 4 mg Polyethylene Glycol (Polyethylene Glycol 3350 17 Gm Powd.Pack) 34 gm PO DAILY [facility] Last Admin: 03/10/24 09:07 Dose: 34 gm Sertraline HCl (Sertraline Hcl 50 Mg Tablet) 150 mg PO DAILY [facility] Last Admin: 03/10/24 09:09 Dose: 150 mg Sucralfate (Sucralfate 1 Gm Tablet) 1 gm PO QIDACHS [facility] Last Admin: 03/10/24 16:41 Dose: 1 gm Trazodone HCl (Trazodone Hcl 100 Mg Tablet) 100 mg PO BEDTIME [facility] Last Admin: 03/09/24 20:25 Dose: 100 mg Allergies Allergies Allergy/AdvReac Type Severity Reaction Status Date / Time haloperidol [From Haldol] Allergy Unknown Verified 02/28/24 20:52 lithium Allergy Unknown Verified 02/28/24 20:52 morphine Allergy Unknown Verified 02/28/24 20:52 strawberry Allergy Unknown Verified 02/28/24 20:52 Assessment & Plan Assessment & Plan (1) Mood disorder: Status: Acute Code(s): F39 - Unspecified mood [affective] disorder (2) Post-traumatic stress disorder, unspecified: Status: Acute Code(s): F43.10 - Post-traumatic stress disorder, unspecified (3) Non-suicidal self-harm: Status: Acute Code(s): R45.88 - Nonsuicidal self-harm (4) Intellectual disability: Status: Acute Code(s): F79 - Unspecified intellectual disabilities Plan HPI: 29 yo female, under guardianship, resident of a [facility] (running [facility]), in residential treatment most of her life, with diagnosis of mild intellectual disability, PTSD, unspecified mood disorder and history of non-suicidal self injury. Patient was transferred from [facility]. She presented there from her group eryn for ingesting safety pin, coin, a piece of a zipper, a jenkins ring and having SI. She had recently been discharged from [facility] inpatient psychiatric unit. Patient underwent an EGD where the objects were retrieved. The patient was evaluated by DATA PROCESSING AUDITOR and recommendations were made for her to be admitted. She was also telling staff at the fdc that she had plans to fall backwards from the porch in the program by throwing herself backwards. Patient was seen today. She reports she is feeling safe while in the hospital and doesn't want to kill herself. She reported I didn't feel ready to go back to the fdc from [facility] inpatient unit but they still discharged me. She says she doesn't like it at the fdc. She reports she is sad and thinking about her father that triggers feelings of depression. She had a seizure-like event yesterday after admission to [facility]. She was seen by CARD CLEANER. It wasn't confirmed to be a seizure. She didn't appear to be post-ictal. Possibility of non-epileptic event. Patient also reports she has right shoulder pain. She says she felt her shoulder dislocate and then popped back in this morning when she was stretching getting out of bed. Says she has a hard time moving her shoulder. Denies AVH. Denies urges for self harm. Patient became angry and frustrated during the day due to her shoulder pain and was screaming and yelling and banging her head strongly against the wall. Patient had shoulder Xray and hospitalist consultation. Sling was ordered. Ibuprofen was given. Xray was negative for fracture or dislocation. Past Psychiatric History: Multiple psychiatric hospitalizations. Resides in fdc. Has been in residential care most of her life Mood disorder PTSD DATA PROCESSING AUDITOR record notes alcohol syndrome. Hospital Course: On admission patient got dysregulated, yelling, banging her head 03/02 Patient resting quietly in her room, mostly spending time alone. She reports that she has been more depressed recently but can not point to any trigger. She said she has been depressed before but this current depression is more than usual and it has been going on for about 2 weeks. She can tell she is more depressed because she staying in her room at the fdc much more than usual. Patient says she has been missing her dad. He 13 years ago and she has been thinking about him a lot. She says that Zoloft was started over a month ago and agrees to have it titrated. Clutch Rebuilder discussed behavioral activation to help address depression to which she agreed -right arm currently in a sling due to dislocated shoulder which is apparently intermittently chronic 03/03 Patient reports he is feeling little better but still depressed and agrees to continue titration of Zoloft. Asked if she can be restarted on Adderall. She says she took it all through school, in grade school and high school and that it helped. She said they stopped it when she left high school, saying she was not starting anymore. Patient however felt that it really helped her with focus, paying attention to conversations and other things. She called her guardian and reported or guarding said it was okay as well; software writer will follow up. Clutch Rebuilder agreed to start on low dose as this can significantly help with impulse control issues. Patient fell while sitting on her bed and hit her right elbow; examined and patient reports tenderness to palpation on olecranon/ distal humerus; will send for x-ray -patient out and about more in the milieu -said wanted to sign in sinus CV 03/04 Patient reports that mood is little better but she still feeling quite depressed. Did not feel any help from Adderall software writer agrees to increase. sleeping well enough. Reviewed medications and she is not sure why she is on both Vraylar and Zyprexa but says she has been for a while. Reviewed x-ray and no fracture; patient says elbow does not hurt that much but shoulder does. 03/05 increasing Adderall -collateral/guardian reports reported no history of epilepsy and nonepileptic seizures only 03/08: Pt reports Gabapentin to be helpful. Continue trial. 03/09 overall better though still with depression and anxiety however improvement is noted. Will increase Adderall 03/10 Patient initially said she was ready to discharge tomorrow and go home. Today she came to software writer, somewhat upset saying she had wanted to stay until Saturday; she reports she told this to software writer. Clutch Rebuilder tried to engage with patient and ask what was going on, will which she feeling and patient would only say she just not ready. Clutch Rebuilder said she could stay till Saturday and she brightened up. Clutch Rebuilder tried to engage again, later on to see what was going on and what she was feeling however she said she was fine and did not want to talk. Patient friendly and interactive in the milieu, appropriate with peers and enjoying their company. -discussed case with outpatient team who agrees with plan, including letting her stay until Saturday. They agree patient sounds to be at baseline. Plan: - Admit to inpatient psychiatry - CV Adderall XL 40mg daily Increased to Zoloft to 150mg ; Otherwise continue home medications - Collateral information from fdc, guardian and providers. - Milieu treatment and group therapy. - Medications: Continue home medications. - Social work evaluation. - Disposition planning. XR/XR elbow RT min 3V IMPRESSION: No gross displaced fracture appreciated on this limited 2 view study. Additional imaging should be considered for further evaluation if there is clinical concern for fracture. Patient educated on: diagnosis, medication risk/benefits and therapeutic strategies Informed Consent: understands and further education needed Reason for continued inpatient stay Substantial Risk for: stable for discharge Time Spent With Patient Time: Total time managing care of this patient today ____ minutes.
[2024-03-10 19:44] VITALS: BP 131/65; PULSE 69; RESP 16; TEMP 36.6; O2SAT 96
[2024-03-10] MEDS: Cariprazine HCl 1.5 MG CAPSULE 4.5 MG PO (20:22)
[2024-03-10] MEDS: OLANZapine 10 MG TABLET PO (20:22)
[2024-03-10] MEDS: Melatonin 3 MG TABLET 6 MG PO (20:22)
[2024-03-10] MEDS: cloNIDine HCL 0.2 MG TABLET PO (20:22)
[2024-03-10] MEDS: traZODone HCL 100 MG TABLET PO (20:22)
[2024-03-11 08:00] VITALS: BP 104/68; PULSE 75; RESP 15; TEMP 37; O2SAT 97
[2024-03-11 08:51] VITALS: BP 104/68
[2024-03-11] MEDS: cloNIDine HCL 0.1 MG TABLET PO ×2 (08:51→12:16)
[2024-03-11] MEDS: LORazepam 1 MG TABLET PO ×3 (08:55→20:34)
[2024-03-11] MEDS: Sucralfate 1 GM TABLET PO ×4 (08:55→20:33)
[2024-03-11] MEDS: lamoTRIgine 100 MG TABLET 200 MG PO ×2 (08:55→20:34)
[2024-03-11] MEDS: polyethylene glycoL 3350 17 GM POWD.PACK 34 GM PO (08:55)
[2024-03-11] MEDS: NaPROXEN 250 MG TABLET PO ×2 (08:55→20:33)
[2024-03-11] MEDS: Famotidine 20 MG TABLET PO ×2 (08:55→20:34)
[2024-03-11] MEDS: Sertraline HCL 50 MG TABLET 150 MG PO (08:55)
[2024-03-11] MEDS: Fluticasone Propionate 100 MCG BLST.W.DEV 1 PUFF INHALE ×2 (08:58→20:37)
[2024-03-11] MEDS: Dextroamphetamine/Amphetamine XR 10 MG CAP.ER.24H 40 MG PO (10:39)
[2024-03-11 12:16] VITALS: BP 108/68
--- NOTE | 2024-03-11 19:07 | P.PNPSI_ITS ---
Subjective Subjective Date of Service: 03/11/24 Reason For Visit: Unspecified Mood Disorder PTSD Interim History: Jessica reports feeling improved. Reports pain is managed. Resting when seen this afternoon. No current medication questions, concerns, SE Denies SI/HI/AH/VH Medication Compliance: Yes Side effects from medications: No Attending Groups: Intermittent Review of Systems Acute medical concerns: No Medical Review of Systems: unchanged Review of Systems Review of Systems Yes all other systems are reviewed and are negative Mental Status Exam Mental Status Exam Patient Appearance: Fatigued Patient Orientation: Person, Place, Time and Situation Level of Consciousness: Alert Patient Behavior: Talkative and Good Eye Contact Mood Description: Flat Affect Description: Flat Patient Cognition Impaired: No Ability to Follow Directions: Good Speech Pattern: Spontaneous Speech Memory Description: Intact Hallucinations: None Delusions: Not Present Thought Process: Distracted Thought Content: positive for Circumstantial, positive for Suicidal Ideation (denies) and positive for Homicidal Ideation (denies) Judgement: Fair Diagnostics Vital Signs (24Hr): Vital Signs - 24 hr 03/10/24 19:44 03/11/24 08:00 03/11/24 08:51 Temperature 97.8 F 98.6 F Pulse Rate 69 75 Respiratory Rate 16 15 Blood Pressure 131/65 104/68 104/68 Pulse Oximetry 96 97 Oxygen Delivery Method Room Air Room Air 03/11/24 12:16 Temperature Pulse Rate Respiratory Rate Blood Pressure 108/68 Pulse Oximetry Oxygen Delivery Method BMI result Body Mass Index 32.5 Labs 02/28/24 19:47 02/29/24 08:39 Imaging Radiology Impressions: ITS Impressions Shoulder X-Ray 02/29/24 14:32 IMPRESSION: Normal right shoulder. Elbow X-Ray 03/03/24 22:20 IMPRESSION: No gross displaced fracture appreciated on this limited 2 view study. Additional imaging should be considered for further evaluation if there is clinical concern for fracture. This study was presented today March 04, 2024 for interpretation. Stat results provided at this time as requested by referring provider. Medications Medications Current Medications Acetaminophen (Acetaminophen 325 Mg Tablet) 650 mg PO Q6H PRN PRN Reason: Headache/Pain Mild Scale (1-3) Last Admin: 03/10/24 17:56 Dose: 650 mg Acetaminophen/Butalbital/Caffeine (Butalb/Acetamin/Caff 50/325/40 Tablet) 2 tab PO Q6H PRN PRN Reason: Headache Last Admin: 03/08/24 18:23 Dose: 2 tab Al Hydroxide/Mg Hydroxide (Magnesium Hydrox/Alum Hydrox 30 Ml Oral.Susp) 30 ml PO Q6H PRN PRN Reason: Heartburn/Nausea Last Admin: 03/03/24 20:33 Dose: 30 ml Albuterol Sulfate (Albuterol Sulfate 90 Mcg 8 Gm Inhaler) 2 puff INHALE 6XD PRN PRN Reason: Wheezing Amphetamine/Dextroamphetamine (Dextroamphetamine/Amphetamine Xr 10 Mg Cap.Er.24h) 40 mg PO DAILY [facility] Last Admin: 03/11/24 10:39 Dose: 40 mg Cariprazine (Cariprazine Hcl 1.5 Mg Capsule) 4.5 mg PO BEDTIME [facility] Last Admin: 03/10/24 20:22 Dose: 4.5 mg Clonidine HCl (Clonidine Hcl 0.2 Mg Tablet) 0.2 mg PO BEDTIME [facility]; Protocol Last Admin: 03/10/24 20:22 Dose: 0.2 mg Clonidine HCl (Clonidine Hcl 0.1 Mg Tablet) 0.1 mg PO BID@0900,1300 [facility]; Protocol Last Admin: 03/11/24 12:16 Dose: 0.1 mg Famotidine (Famotidine 20 Mg Tablet) 20 mg PO BID [facility] Last Admin: 03/11/24 08:55 Dose: 20 mg Fluticasone Propionate (Fluticasone Propionate 100 Mcg Blst.W.Dev) 1 puff INHALE RBID [facility] Last Admin: 03/11/24 08:58 Dose: 1 puff Gabapentin (Gabapentin 300 Mg Capsule) 300 mg PO BID PRN PRN Reason: anxiety Last Admin: 03/10/24 20:22 Dose: 300 mg Hydroxyzine HCl (Hydroxyzine Hcl 50 Mg Tablet) 50 mg PO Q6H PRN PRN Reason: Anxiety Last Admin: 03/10/24 15:47 Dose: 50 mg Lamotrigine (Lamotrigine 100 Mg Tablet) 200 mg PO BID [facility] Last Admin: 03/11/24 08:55 Dose: 200 mg Lorazepam (Lorazepam 1 Mg Tablet) 1 mg PO TID [facility] Last Admin: 03/11/24 15:40 Dose: 1 mg Magnesium Hydroxide (Milk Of Magnesia 30 Ml Oral.Susp) 30 ml PO DAILY PRN PRN Reason: Constipation Last Admin: 02/29/24 21:11 Dose: 30 ml Melatonin (Melatonin 3 Mg Tablet) 6 mg PO BEDTIME [facility] Last Admin: 03/10/24 20:22 Dose: 6 mg Naproxen (Naproxen 250 Mg Tablet) 250 mg PO BID [facility] Last Admin: 03/11/24 08:55 Dose: 250 mg Nystatin (Nystatin Powder 15 Gm Bottle) 1 appl TOPICAL BID PRN; Protocol PRN Reason: Rash Olanzapine (Olanzapine 10 Mg Tablet) 10 mg PO BEDTIME [facility] Last Admin: 03/10/24 20:22 Dose: 10 mg Olanzapine (Olanzapine Odt 10 Mg Tab.Rapdis) 10 mg TRANSLINGU BID PRN PRN Reason: severe agitation Last Admin: 03/08/24 17:51 Dose: 10 mg Ondansetron HCl (Ondansetron Odt 4 Mg Tab.Rapdis) 4 mg TRANSLINGU Q8H PRN PRN Reason: Vomiting Last Admin: 03/09/24 09:43 Dose: 4 mg Polyethylene Glycol (Polyethylene Glycol 3350 17 Gm Powd.Pack) 34 gm PO DAILY [facility] Last Admin: 03/11/24 08:55 Dose: 34 gm Sertraline HCl (Sertraline Hcl 50 Mg Tablet) 150 mg PO DAILY [facility] Last Admin: 03/11/24 08:55 Dose: 150 mg Sucralfate (Sucralfate 1 Gm Tablet) 1 gm PO QIDACHS [facility] Last Admin: 03/11/24 17:01 Dose: 1 gm Trazodone HCl (Trazodone Hcl 100 Mg Tablet) 100 mg PO BEDTIME [facility] Last Admin: 03/10/24 20:22 Dose: 100 mg Allergies Allergies Allergy/AdvReac Type Severity Reaction Status Date / Time haloperidol [From Haldol] Allergy Unknown Verified 02/28/24 20:52 lithium Allergy Unknown Verified 02/28/24 20:52 morphine Allergy Unknown Verified 02/28/24 20:52 strawberry Allergy Unknown Verified 02/28/24 20:52 Assessment & Plan Assessment & Plan (1) Mood disorder: Status: Acute Code(s): F39 - Unspecified mood [affective] disorder (2) Post-traumatic stress disorder, unspecified: Status: Acute Code(s): F43.10 - Post-traumatic stress disorder, unspecified (3) Non-suicidal self-harm: Status: Acute Code(s): R45.88 - Nonsuicidal self-harm (4) Intellectual disability: Status: Acute Code(s): F79 - Unspecified intellectual disabilities Plan HPI: 29 yo female, under guardianship, resident of a [facility] long-term ([facility]), in residential treatment most of her life, with diagnosis of mild intellectual disability, PTSD, unspecified mood disorder and history of non- suicidal self injury. Patient was transferred from [facility]. She presented there from her group eryn for ingesting safety pin, coin, a piece of a zipper, a jenkins ring and having SI. She had recently been discharged from [facility] inpatient psychiatric unit. Patient underwent an EGD where the objects were retrieved. The patient was evaluated by TOOLS DEVELOPER and recommendations were made for her to be admitted. She was also telling staff at the long-term that she had plans to fall backwards from the porch in the program by throwing herself backwards. Patient was seen today. She reports she is feeling safe while in the hospital and doesn't want to kill herself. She reported I didn't feel ready to go back to the long-term from [facility] inpatient [facility] but they still discharged me. She says she doesn't like it at the long-term. She reports she is sad and thinking about her father that triggers feelings of depression. She had a seizure-like event yesterday after admission to [facility]. She was seen by HOSPICE FELLOW. It wasn't confirmed to be a seizure. She didn't appear to be post-ictal. Possibility of non-epileptic event. Patient also reports she has right shoulder pain. She says she felt her shoulder dislocate and then popped back in this morning when she was stretching getting out of bed. Says she has a hard time moving her shoulder. Denies AVH. Denies urges for self harm. Patient became angry and frustrated during the day due to her shoulder pain and was screaming and yelling and banging her head strongly against the wall. Patient had shoulder Xray and hospitalist consultation. Sling was ordered. Ibuprofen was given. Xray was negative for fracture or dislocation. Past Psychiatric History: Multiple psychiatric hospitalizations. Resides in long-term. Has been in residential care most of her life Mood disorder PTSD TOOLS DEVELOPER record notes alcohol syndrome. Hospital Course: On admission patient got dysregulated, yelling, banging her head 03/02 Patient resting quietly in her room, mostly spending time alone. She reports that she has been more depressed recently but can not point to any trigger. She said she has been depressed before but this current depression is more than usual and it has been going on for about 2 weeks. She can tell she is more depressed because she staying in her room at the long-term much more than usual. Patient says she has been missing her dad. He 13 years ago and she has been thinking about him a lot. She says that Zoloft was started over a month ago and agrees to have it titrated. Mixer Operator [employer] discussed behavioral activation to help address depression to which she agreed -right arm currently in a sling due to dislocated shoulder which is apparently intermittently chronic 03/03 Patient reports he is feeling little better but still depressed and agrees to continue titration of Zoloft. Asked if she can be restarted on Adderall. She says she took it all through school, in grade school and high school and that it helped. She said they stopped it when she left high school, saying she was not starting anymore. Patient however felt that it really helped her with focus, paying attention to conversations and other things. She called her guardian and reported or guarding said it was okay as well; filing writer will follow up. Mixer Operator Vac[employer] Pan Salt agreed to start on low dose as this can significantly help with impulse control issues. Patient fell while sitting on her bed and hit her right elbow; examined and patient reports tenderness to palpation on olecranon/ distal humerus; will send for x-ray -patient out and about more in the milieu -said wanted to sign in sinus CV 03/04 Patient reports that mood is little better but she still feeling quite depressed. Did not feel any help from Adderall filing writer agrees to increase. sleeping well enough. Reviewed medications and she is not sure why she is on both Vraylar and Zyprexa but says she has been for a while. Reviewed x-ray and no fracture; patient says elbow does not hurt that much but shoulder does. 03/05 increasing Adderall -collateral/guardian reports reported no history of epilepsy and nonepileptic seizures only 03/08: Pt reports Gabapentin to be helpful. Continue trial. 03/09 overall better though still with depression and anxiety however improvement is noted. Will increase Adderall 03/10 Patient initially said she was ready to discharge tomorrow and go home. Today she came to filing writer, somewhat upset saying she had wanted to stay until Saturday; she reports she told this to filing writer. Mixer Operator Vacuum Pan Salt tried to engage with patient and ask what was going on, will which she feeling and patient would only say she just not ready. Mixer Operator Vacuum Pan Salt said she could stay till Saturday and she brightened up. Mixer Operator Vacuum Pan Salt tried to engage again, later on to see what was going on and what she was feeling however she said she was fine and did not want to talk. Patient friendly and interactive in the milieu, appropriate with peers and enjoying their company. -discussed case with outpatient team who agrees with plan, including letting her stay until Saturday. They agree patient sounds to be at baseline. 03/11 Continue tx Plan: - Admit to inpatient psychiatry - CV Adderall XL 40mg daily Increased to Zoloft to 150mg ; Otherwise continue home medications - Collateral information from long-term, guardian and providers. - Milieu treatment and group therapy. - Medications: Continue home medications. - Social work evaluation. - Disposition planning. XR/XR elbow RT min 3V IMPRESSION: No gross displaced fracture appreciated on this limited 2 view study. Additional imaging should be considered for further evaluation if there is clinical concern for fracture. Reason for continued inpatient stay Substantial Risk for: rapid decompensation Time Spent With Patient Time: Total time managing care of this patient today ____ minutes.
[2024-03-11 20:00] VITALS: BP 129/69; PULSE 83; RESP 16; TEMP 36.6; O2SAT 94
[2024-03-11] MEDS: traZODone HCL 100 MG TABLET PO (20:33)
[2024-03-11] MEDS: OLANZapine 10 MG TABLET PO (20:33)
[2024-03-11] MEDS: Melatonin 3 MG TABLET 6 MG PO (20:33)
[2024-03-11] MEDS: Gabapentin 300 MG CAPSULE PO (20:34)
[2024-03-11] MEDS: Cariprazine HCl 1.5 MG CAPSULE 4.5 MG PO (20:34)
[2024-03-11] MEDS: cloNIDine HCL 0.2 MG TABLET PO (20:34)
[2024-03-11] MEDS: Butalb/Acetamin/Caff 50/325/40 TABLET 2 TAB PO (20:44)
[2024-03-12 08:25] VITALS: BP 107/60; PULSE 90; RESP 18; TEMP 36.5; O2SAT 96
[2024-03-12] MEDS: Dextroamphetamine/Amphetamine XR 10 MG CAP.ER.24H 40 MG PO (08:43)
[2024-03-12] MEDS: Sertraline HCL 50 MG TABLET 150 MG PO (08:43)
[2024-03-12] MEDS: LORazepam 1 MG TABLET PO ×3 (08:43→20:14)
[2024-03-12] MEDS: Sucralfate 1 GM TABLET PO ×4 (08:45→20:15)
[2024-03-12] MEDS: lamoTRIgine 100 MG TABLET 200 MG PO ×2 (08:45→20:14)
[2024-03-12] MEDS: NaPROXEN 250 MG TABLET PO ×2 (08:45→20:15)
[2024-03-12] MEDS: Famotidine 20 MG TABLET PO ×2 (08:46→20:16)
[2024-03-12 08:50] VITALS: BP 107/60
[2024-03-12] MEDS: cloNIDine HCL 0.1 MG TABLET PO ×2 (08:50→13:30)
[2024-03-12] MEDS: Fluticasone Propionate 100 MCG BLST.W.DEV 1 PUFF INHALE ×2 (09:00→20:18)
[2024-03-12] MEDS: Gabapentin 300 MG CAPSULE PO ×2 (09:22→20:15)
--- NOTE | 2024-03-12 09:43 | P.PNPSI_ITS ---
Subjective Subjective Date of Service: 03/12/24 Reason For Visit: Unspecified Mood Disorder PTSD Interim History: met with pt; discussed with team pt reports feeling so-so' about going to [facility]; says missing unit manager [employer] stores there but worries if after going home, whether she'll again get distressed and have to come back to hospital. She says she's feeling good enough to try and see how she does at home, given helpful med changes. To that end she shares that she thinks the adderall is helping and wants to continue; also thinks added gabapentin as a prn is helpful. discussed coping with feelings and pt acknowledged she does not like when people pry about her feelings or thoughts and will talk about them when she's ready. Mental Status Exam Mental Status Exam Narrative: Pt is alert and oriented; behavior is cooperative, calm, friendly; patient is not in distress; right arm in sling; dressed in casual attire with partially dyed hair, good hygiene/grooming; mood is described as so-so and affect congruent, pensive, though overall brighter and more calm; eye contact appropriate; Speech is normal rate, volume, prosody; not pressured; no psychomotor retardation present, but less; thought process is organized and goal directed; Thought content is on her treatment, going home, handling anxiety; otherwise pertinent to relevant topics and without any delusional content, paranoid ideations or grandiosity; denies any SI/HI. There is no evidence of perceptual disturbance. Patients insight and judgment improved, fair. Diagnostics Vital Signs (24Hr): Vital Signs - 24 hr 03/11/24 12:16 03/11/24 20:00 03/12/24 08:25 Temperature 97.9 F 97.7 F Pulse Rate 83 90 Respiratory Rate 16 18 Blood Pressure 108/68 129/69 107/60 Pulse Oximetry 94 96 Oxygen Delivery Method Room Air 03/12/24 08:50 Temperature Pulse Rate Respiratory Rate Blood Pressure 107/60 Pulse Oximetry Oxygen Delivery Method BMI result Body Mass Index 32.5 Labs 02/28/24 19:47 02/29/24 08:39 Imaging Radiology Impressions: ITS Impressions Shoulder X-Ray 02/29/24 14:32 IMPRESSION: Normal right shoulder. Elbow X-Ray 03/03/24 22:20 IMPRESSION: No gross displaced fracture appreciated on this limited 2 view study. Additional imaging should be considered for further evaluation if there is clinical concern for fracture. This study was presented today March 04, 2024 for interpretation. Stat results provided at this time as requested by referring provider. Medications Medications Current Medications Acetaminophen (Acetaminophen 325 Mg Tablet) 650 mg PO Q6H PRN PRN Reason: Headache/Pain Mild Scale (1-3) Last Admin: 03/10/24 17:56 Dose: 650 mg Acetaminophen/Butalbital/Caffeine (Butalb/Acetamin/Caff 50/325/40 Tablet) 2 tab PO Q6H PRN PRN Reason: Headache Last Admin: 03/11/24 20:44 Dose: 2 tab Al Hydroxide/Mg Hydroxide (Magnesium Hydrox/Alum Hydrox 30 Ml Oral.Susp) 30 ml PO Q6H PRN PRN Reason: Heartburn/Nausea Last Admin: 03/03/24 20:33 Dose: 30 ml Albuterol Sulfate (Albuterol Sulfate 90 Mcg 8 Gm Inhaler) 2 puff INHALE 6XD PRN PRN Reason: Wheezing Amphetamine/Dextroamphetamine (Dextroamphetamine/Amphetamine Xr 10 Mg Cap.Er.24h) 40 mg PO DAILY JUAN Last Admin: 03/12/24 08:43 Dose: 40 mg Cariprazine (Cariprazine Hcl 1.5 Mg Capsule) 4.5 mg PO BEDTIME JUAN Last Admin: 03/11/24 20:34 Dose: 4.5 mg Clonidine HCl (Clonidine Hcl 0.2 Mg Tablet) 0.2 mg PO BEDTIME JUAN; Protocol Last Admin: 03/11/24 20:34 Dose: 0.2 mg Clonidine HCl (Clonidine Hcl 0.1 Mg Tablet) 0.1 mg PO BID@0900,1300 JUAN; Protocol Last Admin: 03/12/24 08:50 Dose: 0.1 mg Famotidine (Famotidine 20 Mg Tablet) 20 mg PO BID JUAN Last Admin: 03/12/24 08:46 Dose: 20 mg Fluticasone Propionate (Fluticasone Propionate 100 Mcg Blst.W.Dev) 1 puff INHALE RBID JUAN Last Admin: 03/12/24 09:00 Dose: 1 puff Gabapentin (Gabapentin 300 Mg Capsule) 300 mg PO BID PRN PRN Reason: anxiety Last Admin: 03/12/24 09:22 Dose: 300 mg Hydroxyzine HCl (Hydroxyzine Hcl 50 Mg Tablet) 50 mg PO Q6H PRN PRN Reason: Anxiety Last Admin: 03/10/24 15:47 Dose: 50 mg Lamotrigine (Lamotrigine 100 Mg Tablet) 200 mg PO BID [facility] Last Admin: 03/12/24 08:45 Dose: 200 mg Lorazepam (Lorazepam 1 Mg Tablet) 1 mg PO TID [facility] Last Admin: 03/12/24 08:43 Dose: 1 mg Magnesium Hydroxide (Milk Of Magnesia 30 Ml Oral.Susp) 30 ml PO DAILY PRN PRN Reason: Constipation Last Admin: 02/29/24 21:11 Dose: 30 ml Melatonin (Melatonin 3 Mg Tablet) 6 mg PO BEDTIME [facility] Last Admin: 03/11/24 20:33 Dose: 6 mg Naproxen (Naproxen 250 Mg Tablet) 250 mg PO BID [facility] Last Admin: 03/12/24 08:45 Dose: 250 mg Nystatin (Nystatin Powder 15 Gm Bottle) 1 appl TOPICAL BID PRN; Protocol PRN Reason: Rash Olanzapine (Olanzapine 10 Mg Tablet) 10 mg PO BEDTIME [facility] Last Admin: 03/11/24 20:33 Dose: 10 mg Olanzapine (Olanzapine Odt 10 Mg Tab.Rapdis) 10 mg TRANSLINGU BID PRN PRN Reason: severe agitation Last Admin: 03/08/24 17:51 Dose: 10 mg Ondansetron HCl (Ondansetron Odt 4 Mg Tab.Rapdis) 4 mg TRANSLINGU Q8H PRN PRN Reason: Vomiting Last Admin: 03/09/24 09:43 Dose: 4 mg Polyethylene Glycol (Polyethylene Glycol 3350 17 Gm Powd.Pack) 34 gm PO DAILY [facility] Last Admin: 03/11/24 08:55 Dose: 34 gm Sertraline HCl (Sertraline Hcl 50 Mg Tablet) 150 mg PO DAILY [facility] Last Admin: 03/12/24 08:43 Dose: 150 mg Sucralfate (Sucralfate 1 Gm Tablet) 1 gm PO QIDACHS [facility] Last Admin: 03/12/24 08:45 Dose: 1 gm Trazodone HCl (Trazodone Hcl 100 Mg Tablet) 100 mg PO BEDTIME [facility] Last Admin: 03/11/24 20:33 Dose: 100 mg Allergies Allergies Allergy/AdvReac Type Severity Reaction Status Date / Time haloperidol [From Haldol] Allergy Unknown Verified 02/28/24 20:52 lithium Allergy Unknown Verified 02/28/24 20:52 morphine Allergy Unknown Verified 02/28/24 20:52 strawberry Allergy Unknown Verified 02/28/24 20:52 Assessment & Plan Assessment & Plan (1) Mood disorder: Status: Acute Code(s): F39 - Unspecified mood [affective] disorder (2) Post-traumatic stress disorder, unspecified: Status: Acute Code(s): F43.10 - Post-traumatic stress disorder, unspecified (3) Non-suicidal self-harm: Status: Acute Code(s): R45.88 - Nonsuicidal self-harm (4) Intellectual disability: Status: Acute Code(s): F79 - Unspecified intellectual disabilities Plan HPI: 29 yo female, under guardianship, resident of a [facility] ([facility]), in residential treatment most of her life, with diagnosis of mild intellectual disability, PTSD, unspecified mood disorder and history of non- suicidal self injury. Patient was transferred from [facility]. She presented there from her group eryn for ingesting safety pin, coin, a piece of a zipper, a jenkins ring and having SI. She had recently been discharged from [facility] inpatient psychiatric unit. Patient underwent an EGD where the objects were retrieved. The patient was evaluated by TERRAZZO POLISHER and recommendations were made for her to be admitted. She was also telling staff at the [facility]p that she had plans to fall backwards from the porch in the program by throwing herself backwards. Patient was seen today. She reports she is feeling safe while in the hospital and doesn't want to kill herself. She reported I didn't feel ready to go back to the [facility]p from [facility] inpatient unit but they still discharged me. She says she doesn't like it at the usp. She reports she is sad and thinking about her father that triggers feelings of depression. She had a seizure-like event yesterday after admission to [facility]. She was seen by [employer]. It wasn't confirmed to be a seizure. She didn't appear to be post-ictal. Possibility of non-epileptic event. Patient also reports she has right shoulder pain. She says she felt her shoulder dislocate and then popped back in this morning when she was stretching getting out of bed. Says she has a hard time moving her shoulder. Denies AVH. Denies urges for self harm. Patient became angry and frustrated during the day due to her shoulder pain and was screaming and yelling and banging her head strongly against the wall. Patient had shoulder Xray and hospitalist consultation. Sling was ordered. Ibuprofen was given. Xray was negative for fracture or dislocation. Past Psychiatric History: Multiple psychiatric hospitalizations. Resides in [facility]. Has been in residential care most of her life Mood disorder PTSD TERRAZZO POLISHER record notes alcohol syndrome. Hospital Course: On admission patient got dysregulated, yelling, banging her head 03/02 Patient resting quietly in her room, mostly spending time alone. She reports that she has been more depressed recently but can not point to any trigger. She said she has been depressed before but this current depression is more than usual and it has been going on for about 2 weeks. She can tell she is more depressed because she staying in her room at the [facility]p much more than usual. Patient says she has been missing her dad. He 13 years ago and she has been thinking about him a lot. She says that Zoloft was started over a month ago and agrees to have it titrated. English And Reading Instructor discussed behavioral activation to help address depression to which she agreed -right arm currently in a sling due to dislocated shoulder which is apparently intermittently chronic 03/03 Patient reports he is feeling little better but still depressed and agrees to continue titration of Zoloft. Asked if she can be restarted on Adderall. She says she took it all through school, in grade school and high school and that it helped. She said they stopped it when she left high school, saying she was not starting anymore. Patient however felt that it really helped her with focus, paying attention to conversations and other things. She called her guardian and reported or guarding said it was okay as well; teletypewriter installer will follow up. English And Reading Instructor agreed to start on low dose as this can significantly help with impulse control issues. Patient fell while sitting on her bed and hit her right elbow; examined and patient reports tenderness to palpation on olecranon/ distal humerus; will send for x-ray -patient out and about more in the milieu -said wanted to sign in sinus CV 03/04 Patient reports that mood is little better but she still feeling quite depressed. Did not feel any help from Adderall teletypewriter installer agrees to increase. sleeping well enough. Reviewed medications and she is not sure why she is on both Vraylar and Zyprexa but says she has been for a while. Reviewed x-ray and no fracture; patient says elbow does not hurt that much but shoulder does. 03/05 increasing Adderall -collateral/guardian reports reported no history of epilepsy and nonepileptic seizures only 03/08: Pt reports Gabapentin to be helpful. Continue trial. 03/09 overall better though still with depression and anxiety however improvement is noted. Will increase Adderall 03/10 Patient initially said she was ready to discharge tomorrow and go home. Today she came to teletypewriter installer, somewhat upset saying she had wanted to stay until Saturday; she reports she told this to teletypewriter installer. English And Reading Instructor tried to engage with patient and ask what was going on, will which she feeling and patient would only say she just not ready. English And Reading Instructor said she could stay till Saturday and she brightened up. English And Reading Instructor tried to engage again, later on to see what was going on and what she was feeling however she said she was fine and did not want to talk. Patient friendly and interactive in the milieu, appropriate with peers and enjoying their company. -discussed case with outpatient team who agrees with plan, including letting her stay until Saturday. They agree patient sounds to be at baseline. 03/11 Continue tx 03/12 pt at baseline; some ambivalence about returning to [facility] but feels ready to try; no self-harm/SI. Feels medications are helpful. At baseline pt struggles emotional reactivity; she's done well throughout admission, however, this is a chronic issue which will very likely continue to get triggered at times and it is likely that pt will at some point decompensate again. This however will not resolve with longer stay on inpt unit. Her medications have been adjusted including starting her on Adderall which may significantly reduce impulsively and associated stress and hopefully help mitigate such symptoms. At this point, no further medication changes needed and patient is appropriate to return to the community and her [facility]. She is not in imminent risk for harm to self or others. Plan: - Admit to inpatient psychiatry - CV Adderall XL 40mg daily Increased to Zoloft to 150mg ; Otherwise continue home medications - Collateral information from usp, guardian and providers. - Milieu treatment and group therapy. - Medications: Continue home medications. - Social work evaluation. - Disposition planning. XR/XR elbow RT min 3V IMPRESSION: No gross displaced fracture appreciated on this limited 2 view study. Additional imaging should be considered for further evaluation if there is clinical concern for fracture. Patient educated on: diagnosis, medication risk/benefits, therapeutic strategies and medical condition Informed Consent: understands Reason for continued inpatient stay Substantial Risk for: stable for discharge Time Spent With Patient Time: Total time managing care of this patient today ____ minutes.
[2024-03-12] MEDS: polyethylene glycoL 3350 17 GM POWD.PACK 34 GM PO (11:39)
[2024-03-12] MEDS: Acetaminophen 325 MG TABLET 650 MG PO (13:29)
[2024-03-12 13:30] VITALS: BP 152/66
[2024-03-12 20:00] VITALS: BP 117/74; PULSE 86; RESP 18; TEMP 36.8; O2SAT 94
[2024-03-12] MEDS: Cariprazine HCl 1.5 MG CAPSULE 4.5 MG PO (20:14)
[2024-03-12] MEDS: Melatonin 3 MG TABLET 6 MG PO (20:14)
[2024-03-12 20:15] VITALS: BP 117/74
[2024-03-12] MEDS: cloNIDine HCL 0.2 MG TABLET PO (20:15)
[2024-03-12] MEDS: OLANZapine 10 MG TABLET PO (20:16)
[2024-03-12] MEDS: traZODone HCL 100 MG TABLET PO (20:16)
[2024-03-13 08:29] VITALS: BP 89/51; PULSE 80; RESP 18; TEMP 36.4; O2SAT 96
[2024-03-13] MEDS: LORazepam 1 MG TABLET PO (08:41)
[2024-03-13] MEDS: Sertraline HCL 50 MG TABLET 150 MG PO (08:41)
[2024-03-13] MEDS: lamoTRIgine 100 MG TABLET 200 MG PO (08:41)
[2024-03-13] MEDS: Famotidine 20 MG TABLET PO (08:42)
[2024-03-13] MEDS: Dextroamphetamine/Amphetamine XR 10 MG CAP.ER.24H 40 MG PO (08:42)
[2024-03-13] MEDS: NaPROXEN 250 MG TABLET PO (08:42)
[2024-03-13] MEDS: Sucralfate 1 GM TABLET PO (08:42)
[2024-03-13] MEDS: polyethylene glycoL 3350 17 GM POWD.PACK 34 GM PO (08:44)
[2024-03-13] MEDS: Fluticasone Propionate 100 MCG BLST.W.DEV 1 PUFF INHALE (08:46)
--- NOTE | 2024-03-13 09:06 | PM.PSYDC ---
DS: Providers Provider Date of Service: 03/13/24 Date of admission: 02/28/24 18:16 Date of discharge: 03/13/24 Primary care physician: Unknown Physician Consults: 02/29/24 12:31 Consult to Hospitalist Routine Comment: Consulting Provider: Hospitalist Reason For Exam: admission HP, reports dislocated shoulder DS: Diagnosis Discharge Diagnosis (1) Mood disorder: Status: Acute (2) Post-traumatic stress disorder, unspecified: Status: Acute (3) Non-suicidal self-harm: Status: Acute (4) Intellectual disability: Status: Acute DS: Medications Discharge Medications Home Medications: Home Medications ?Medication ?Instructions ?Recorded ?Confirmed acetaminophen 325 mg tablet 650 mg PO Q6H PRN Pain 02/28/24 02/28/24 acetaminophen-caffeine 500 mg-65 2 tab PO Q8H PRN Headache 02/28/24 02/28/24 mg tablet albuterol sulfate 90 mcg/actuation 2 puff inhalation 6XD PRN Wheezing 02/28/24 02/28/24 aerosol inhaler azelastine 137 mcg (0.1 %) nasal 1 spray intranasal BID 02/28/24 02/28/24 spray bisacodyl 5 mg tablet,delayed 5 mg PO DAILY 02/28/24 02/28/24 release bcaudzddeg-[id number]-ydqhljcz 2 tab PO Q6H PRN Headache 02/28/24 02/28/24 50 mg-325 mg-40 mg tablet dextromethorphan-guaifenesin 30 2 tab PO Q12H PRN Cough 02/28/24 02/28/24 mg-600 mg tablet extended [id number] hr fluticasone furoate 100 1 inh inhalation BEDTIME 02/28/24 02/28/24 mcg/actuation blister powder for inhalation food supplemt, lactose-reduced 1 ea BID 02/28/24 02/28/24 magnesium hydroxide 1,200 mg tablet 1,200 mg PO DAILY 02/28/24 02/28/24 metoclopramide HCl 5 mg tablet 5 mg PO BID 02/28/24 02/28/24 nystatin 100,000 unit/gram topical 1 appl topical BID PRN Rash 02/28/24 02/28/24 powder ondansetron 4 mg disintegrating 4 mg PO Q8H PRN Vomiting 02/28/24 02/28/24 tablet riboflavin (vitamin B2) 100 mg 200 mg PO BID 02/28/24 02/28/24 capsule,extended release sucralfate 100 mg/mL oral PO QID 02/29/24 suspension Previous Rx's ?Medication ?Instructions ?Recorded cariprazine 4.5 mg capsule 4.5 mg PO BEDTIME 30 days #30 caps 03/13/24 clonidine HCl 0.1 mg tablet 0.1 mg PO DAILY 30 days #30 tabs 03/13/24 clonidine HCl 0.2 mg tablet 0.2 mg PO BEDTIME 30 days #30 tabs 03/13/24 dextroamphetamine-amphetamine ER 40 mg (2 x 20 mg) PO DAILY 30 days 03/13/24 20 mg 24hr capsule,extend release #60 caps famotidine 20 mg tablet 20 mg PO BID 30 days #60 tabs 03/13/24 gabapentin 300 mg capsule 300 mg PO BID PRN anxiety 30 days 03/13/24 #60 caps hydroxyzine HCl 50 mg tablet 50 mg PO Q6H PRN Anxiety 30 days 03/13/24 #90 tabs lamotrigine 200 mg tablet 200 mg PO BID 30 days #60 tabs 03/13/24 melatonin 3 mg tablet 6 mg (2 x 3 mg) PO BEDTIME 30 days 03/13/24 #60 tabs naproxen 250 mg tablet 250 mg PO BID 7 days #14 tabs 03/13/24 olanzapine 10 mg tablet 10 mg PO BEDTIME 30 days #30 tabs 03/13/24 sertraline 100 mg tablet 150 mg (1.5 x 100 mg) PO DAILY 30 03/13/24 days #45 tabs trazodone 100 mg tablet 100 mg PO BEDTIME 30 days #30 tabs 03/13/24 Mental Status Exam Mental Status Exam Narrative: Pt is alert and oriented; behavior is cooperative, calm, friendly; patient is not in distress; right arm in sling; dressed in casual attire with partially dyed hair, good hygiene/grooming; mood is described as ok and affect congruent, overall brighter and more calm; eye contact appropriate; Speech is normal rate, volume, prosody; not pressured; no psychomotor retardation present, but less; thought process is organized and goal directed; Thought content is on her treatment, going home, handling anxiety; otherwise pertinent to relevant topics and without any delusional content, paranoid ideations or grandiosity; denies any SI/HI. There is no evidence of perceptual disturbance. Patients insight and judgment improved, fair. Data Imaging Diagnostic Imaging Impressions Shoulder X-Ray 02/29/24 14:32 IMPRESSION: Normal right shoulder. Elbow X-Ray 03/03/24 22:20 IMPRESSION: No gross displaced fracture appreciated on this limited 2 view study. Additional imaging should be considered for further evaluation if there is clinical concern for fracture. This study was presented today March 04, 2024 for interpretation. Stat results provided at this time as requested by referring provider. DS: Summary Hospital Course Hospital Course: HPI: 29 yo female, under guardianship, resident of a S correction (running [facility]), in residential treatment most of her life, with diagnosis of mild intellectual disability, PTSD, unspecified mood disorder and history of non-suicidal self injury. Patient was transferred from [facility]. She presented there from her group eryn for ingesting safety pin, coin, a piece of a zipper, a jenkins ring and having SI. She had recently been discharged from [facility] inpatient psychiatric unit. Patient underwent an EGD where the objects were retrieved. The patient was evaluated by [facility] and recommendations were made for her to be admitted. She was also telling staff at the correction that she had plans to fall backwards from the porch in the program by throwing herself backwards. Patient was seen today. She reports she is feeling safe while in the hospital and doesn't want to kill herself. She reported I didn't feel ready to go back to the correction from [facility] inpatient unit but they still discharged me. She says she doesn't like it at the correction. She reports she is sad and thinking about her father that triggers feelings of depression. She had a seizure-like event yesterday after admission to [facility]. She was seen by MANAGER PSYCHIATRY. It wasn't confirmed to be a seizure. She didn't appear to be post-ictal. Possibility of non-epileptic event. Patient also reports she has right shoulder pain. She says she felt her shoulder dislocate and then popped back in this morning when she was stretching getting out of bed. Says she has a hard time moving her shoulder. Denies AVH. Denies urges for self harm. Patient became angry and frustrated during the day due to her shoulder pain and was screaming and yelling and banging her head strongly against the wall. Patient had shoulder Xray and hospitalist consultation. Sling was ordered. Ibuprofen was given. Xray was negative for fracture or dislocation. Past Psychiatric History: Multiple psychiatric hospitalizations. Resides in correction. Has been in residential care most of her life Mood disorder PTSD [facility]OLOG[facility] record notes alcohol syndrome. Hospital Course: On admission patient got dysregulated, yelling, banging her head 03/02 Patient resting quietly in her room, mostly spending time alone. She reports that she has been more depressed recently but can not point to any trigger. She said she has been depressed before but this current depression is more than usual and it has been going on for about 2 weeks. She can tell she is more depressed because she staying in her room at the correction much more than usual. Patient says she has been missing her dad. He 13 years ago and she has been thinking about him a lot. She says that Zoloft was started over a month ago and agrees to have it titrated. Rn Pain Management discussed behavioral activation to help address depression to which she agreed -right arm currently in a sling due to dislocated shoulder which is apparently intermittently chronic 03/03 Patient reports he is feeling little better but still depressed and agrees to continue titration of Zoloft. Asked if she can be restarted on Adderall. She says she took it all through school, in grade school and high school and that it helped. She said they stopped it when she left high school, saying she was not starting anymore. Patient however felt that it really helped her with focus, paying attention to conversations and other things. She called her guardian and reported or guarding said it was okay as well; typewriter operator automatic will follow up. Rn Pain Management agreed to start on low dose as this can significantly help with impulse control issues. Patient fell while sitting on her bed and hit her right elbow; examined and patient reports tenderness to palpation on olecranon/ distal humerus; will send for x-ray 03/04 Patient reports that mood is little better but she still feeling quite depressed. Did not feel any help from Adderall typewriter operator automatic agrees to increase. sleeping well enough. Reviewed medications and she is not sure why she is on both Vraylar and Zyprexa but says she has been for a while. Reviewed x-ray and no fracture; patient says elbow does not hurt that much but shoulder does. 03/05 increasing Adderall -collateral/guardian reports reported no history of epilepsy and nonepileptic seizures only 03/08: Pt reports Gabapentin to be helpful. Continue trial. 03/09 overall better though still with depression and anxiety however improvement is noted. Will increase Adderall 03/10 Patient initially said she was ready to discharge tomorrow and go home. Today she came to typewriter operator automatic, somewhat upset saying she had wanted to stay until Saturday; she reports she told this to typewriter operator automatic. Rn Pain Management tried to engage with patient and ask what was going on, will which she feeling and patient would only say she just not ready. Rn Pain Management said she could stay till Saturday and she brightened up. Rn Pain Management tried to engage again, later on to see what was going on and what she was feeling however she said she was fine and did not want to talk. Patient friendly and interactive in the milieu, appropriate with peers and enjoying their company. -discussed case with outpatient team who agrees with plan, including letting her stay until Saturday. They agree patient sounds to be at baseline. 03/11 Continue tx 03/12 pt at baseline; some ambivalence about returning to correction but feels ready to try; no self-harm/SI. Feels medications are helpful. At baseline pt struggles emotional reactivity; she's done well throughout admission, however, this is a chronic issue which will very likely continue to get triggered at times and it is likely that pt will at some point decompensate again. This however will not resolve with longer stay on inpt unit. Her medications have been adjusted including starting her on Adderall which may significantly reduce impulsively and associated stress and hopefully help mitigate such symptoms. At this point, no further medication changes needed and patient is appropriate to return to the community and her correction. She is not in imminent risk for harm to self or others. Medications: Increased Zoloft to 150mg Started gabapentin 300mg BID prn for anxiety Started Hydroxyzine 50mg prn for anxiety Started Famotadine 20mg BID for GERD DC's pantoprazole Time spent discussing smoking cessation with patient: 3 to 10 minutes Status at Discharge Functional status at discharge: independent ambulation Overall status at discharge: patient is back to baseline Time Spent with Patient Time attestation: Total time managing care of this patient today ____ minutes. Time spent: Greater than 30 minutes Discharge Plan Discharge Anticipated Discharge Date/Time: 03/13/24 11:30 Patient Disposition: Home, Self-Care Discharge Diagnosis: MDD, recurrent, severe without psychosis, in partial remission Referrals: Deidre Jett: Psychiatric provider [Other] - 03/19/24 12:00 pm (Hospital Discharge appointment with psychiatric medication provider Appointment in person at correction ) NANDO RODRIGUEZ [Other] - 03/20/24 11:20 am (IN OFFICE) Discharge Medications: New dextroamphetamine-amphetamine 20 mg capsule,extended release 24hr 40 mg PO DAILY 30 Days Qty: 60 0RF Rx Instructions: Partial Fill upon patient request. gabapentin 300 mg Capsule 300 mg PO BID PRN (Reason: anxiety) 30 Days Qty: 60 0RF hydroxyzine HCl 50 mg Tablet 50 mg PO Q6H PRN (Reason: Anxiety) 30 Days Qty: 90 0RF famotidine 20 mg Tablet 20 mg PO BID 30 Days Qty: 60 0RF trazodone 100 mg Tablet 100 mg PO BEDTIME 30 Days Qty: 30 0RF sertraline 100 mg tablet 150 mg PO DAILY 30 Days Qty: 45 0RF olanzapine 10 mg Tablet 10 mg PO BEDTIME 30 Days Qty: 30 0RF naproxen 250 mg Tablet 250 mg PO BID 7 Days Qty: 14 0RF lamotrigine 200 mg tablet 200 mg PO BID 30 Days Qty: 60 0RF clonidine HCl 0.1 mg Tablet 0.1 mg PO DAILY 30 Days Qty: 30 0RF Protocol: Hold for SBP< HOLD for SBP < : 90 clonidine HCl 0.2 mg Tablet 0.2 mg PO BEDTIME 30 Days Qty: 30 0RF Protocol: Hold for SBP< HOLD for SBP < : 90 melatonin 3 mg Tablet 6 mg PO BEDTIME 30 Days Qty: 60 0RF metoclopramide HCl 5 mg/5 mL solution See Rx Instructions .ROUTE .COMPLEX Qty: 473 0RF Rx Instructions: take 10mg in morning and 10mg at bedtime; take 5mg at lunch and 5mg at dinner Continued acetaminophen 325 mg Tablet 650 mg PO Q6H PRN (Reason: Pain) acetaminophen-caffeine 500-65 mg Tablet 2 tab PO Q8H PRN (Reason: Headache) qedvoibnll-leewspbedqavv-retp 50-325-40 mg Tablet 2 tab PO Q6H PRN (Reason: Headache) Rx Instructions: do not exceed 6 tabs per 24 hrs bisacodyl 5 mg Tablet,Delayed Release (Dr/Ec) 5 mg PO DAILY nystatin 100,000 unit/gram Powder 1 appl TOPICAL BID PRN (Reason: Rash) azelastine 137 mcg (0.1 %) [place],Non-Aerosol 1 spray INTRANASAL BID Rx Instructions: administer into each nostril dextromethorphan-guaifenesin 30-600 mg Tablet Extended Release 12 Hr 2 tab PO Q12H PRN (Reason: Cough) albuterol sulfate 90 mcg/actuation Hfa Aerosol Inhaler 2 puff INHALATION 6XD PRN (Reason: Wheezing) ondansetron 4 mg Tablet,Disintegrating 4 mg PO Q8H PRN (Reason: Vomiting) riboflavin (vitamin B2) 100 mg Capsule, Extended Release 200 mg PO BID food supplemt, lactose-reduced Liquid 1 ea BID fluticasone furoate 100 mcg/actuation Blister With Device 1 inh INHALATION BEDTIME sucralfate 100 mg/mL suspension PO QID cariprazine 4.5 mg Capsule 4.5 mg PO BEDTIME 30 Days Qty: 30 0RF Discontinued metoclopramide HCl 5 mg Tablet 5 mg PO BID magnesium hydroxide 1,200 mg Tablet 1,200 mg PO DAILY Discharge Orders: Discharge Order (Routine); Ordered 03/13/24 Ordered By: Robe Schumacher Diet: Regular diet Activity on Discharge: As tolerated Stand Alone Forms: Patient Portal Discharge page, Community Support Print Language: Slovenian Care Plan Goals: Maintain mood and safe behaviors Take medications as prescribed Practice coping skills Continue with outpatient providers and reach out to them as needed Health Concerns: Mood stability and behaviors GERD Constipation Migraine headaches Right shoulder dislocation Plan of Treatment: Follow up with your PCP, psychiatric provider and other outpatient providers regarding above concerns Take medications as prescribed Assessment: Risk assessment at time of discharge:? Patient was interviewed prior to discharge and found to be fully oriented and without any SI or HI. Patient has improved insight and judgment and wants to continue treatment. Patient is not in imminent risk of harm to self or others and has a safety plan that includes presenting to the closest ER or calling 911 if feeling unsafe.? Patient has been observed closely by nursing and unit staff throughout admission; patient has not engaged in any behaviors that suggest dangerousness to self or others and has demonstrated appropriate behaviors and impulse control
[2024-03-13 09:08] VITALS: BP 112/68
[2024-03-13] MEDS: cloNIDine HCL 0.1 MG TABLET PO (09:08)
[2024-03-13 09:09] VITALS: BP 112/68; PULSE 106
== END 2024-03-13 11:27 | disposition home or self-care (01) | DRG 885 ==
PROVIDERS: Psychiatry & Neurology Psychiatry; Student in an Organized Health Care Education/Training Program; Admitting Provider Psychiatry & Neurology Psychiatry; Visit Provider Psychiatry & Neurology Psychiatry
DX: F33.2 Major depressive disorder, recurrent severe without psychotic features (principal); R45.851 Suicidal ideations; F43.10 Post-traumatic stress disorder, unspecified; R45.88 Nonsuicidal self-harm; K21.9 Gastro-esophageal reflux disease without esophagitis; G40.909 Epilepsy, unspecified, not intractable, without status epilepticus; F79 Unspecified intellectual disabilities; Z79.51 Long term (current) use of inhaled steroids; Z79.899 Other long term (current) drug therapy
CPT/HCPCS: 36415; 73030; 73080; 80053; 80061; 80175; 82550; 82947; 83735; 84146; 85027

== ENCOUNTER → 2024-02-28 18:16 | Outpatient (BNV) | payer MEDICARE, MEDICAID, SELFPAY | PROVIDERS: Admitting Provider Psychiatry & Neurology Psychiatry; Visit Provider Psychiatry & Neurology Psychiatry | DX: F39 Unspecified mood [affective] disorder (principal); R45.88 Nonsuicidal self-harm; F43.11 Post-traumatic stress disorder, acute; F79 Unspecified intellectual disabilities | CPT/HCPCS: 90792; 99231; 99232; 99238 ==

== ENCOUNTER → 2024-02-28 18:16 | Outpatient (BNV) | payer MEDICARE, MEDICAID, SELFPAY | PROVIDERS: Admitting Provider Psychiatry & Neurology Psychiatry; Visit Provider Internal Medicine | DX: Z02.2 Encounter for examination for admission to residential institution (principal) | CPT/HCPCS: 99429; 99499 ==

== ENCOUNTER 2024-03-16 21:50 | Inpatient (IN) | payer MEDICARE, MEDICAID, SELFPAY ==
--- NOTE | ~2024-03-16 | XR_ITS ---
EXAMINATION: XR ABDOMEN COMPLETE CLINICAL INDICATION: Ingested 14 mm screw. COMPARISON: Prior radiographs, most recently 03/19/2024. TECHNIQUE: 2 AP views of the abdomen and pelvis are submitted. FINDINGS: The bowel gas pattern is normal with no evidence of ileus or obstruction. There is a mild to moderate stool burden. An ingested screw is seen in the vicinity of the distal descending colon. No free intraperitoneal air is seen. No unusual soft tissue calcifications are noted. The bones are unremarkable. XR/XR abdomen min 2V IMPRESSION: An ingested screw is seen in the vicinity of the distal descending colon.
--- NOTE | ~2024-03-16 | XR_ITS ---
EXAMINATION: XR ABDOMEN COMPLETE CLINICAL INDICATION: Ingested screw. COMPARISON: KUB dated 03/17/2024. TECHNIQUE: 2 AP views of the abdomen and pelvis are submitted. FINDINGS: The bowel gas pattern is normal with no evidence of ileus or obstruction. No free intraperitoneal air is seen. No unusual soft tissue calcifications are noted. An ingested screw is seen in the vicinity of the lower descending colon. The bones are unremarkable. XR/XR abdomen min 2V IMPRESSION: An ingested screw is seen in the vicinity of the lower descending colon.
--- NOTE | ~2024-03-16 | XR_ITS ---
EXAMINATION: XR ABDOMEN COMPLETE CLINICAL INDICATION: Foreign body ingestion COMPARISON: Previous day's exam TECHNIQUE: 3 views of the abdomen. FINDINGS: Metallic foreign body most consistent with a screw measuring approximately as 11 mm projects over the left abdomen similar to recent imaging. No bowel wall thickening or free air. The bowel gas pattern is normal with no evidence of ileus or obstruction. . The bones are unremarkable. XR/XR abdomen min 2V IMPRESSION: Metallic foreign body most consistent with a screw projects over the left abdomen similar to recent imaging.
--- NOTE | ~2024-03-16 | XR_ITS ---
EXAMINATION: XR HAND/WRIST, RIGHT CLINICAL INFORMATION: Pain, swelling COMPARISON: None TECHNIQUE: PA, lateral, and oblique views of the right hand and wrist. FINDINGS: Osseous alignment is anatomic. No acute fracture is seen. No significant focal soft tissue abnormality identified. XR/XR hand wrist RT IMPRESSION: No acute findings identified in the right hand or wrist.
--- NOTE | ~2024-03-16 | XR_ITS ---
EXAMINATION: XR ABDOMEN COMPLETE CLINICAL INDICATION: Follow-up ingested 14 mm screw. COMPARISON: None available. TECHNIQUE: 2 AP views of the abdomen and pelvis are submitted. FINDINGS: The bowel gas pattern is normal, with no evidence of ileus or obstruction. There is a moderate stool burden. No unusual soft tissue calcifications are noted. The previously noted ingested screw is not redemonstrated. There is no acute osseous abnormality. There is a slight thoracolumbar dextroscoliosis. XR/XR abdomen min 2V IMPRESSION: Unremarkable examination. The previously noted ingested screw is not redemonstrated and appears to have passed.
--- NOTE | ~2024-03-16 | XR_ITS ---
EXAMINATION: XR ABDOMEN COMPLETE CLINICAL INDICATION: Ingested screw. COMPARISON: None available. TECHNIQUE: 3 AP views of the abdomen and pelvis are submitted. FINDINGS: The bowel gas pattern is normal with no evidence of ileus or obstruction. No free intraperitoneal air is seen. No unusual soft tissue calcifications are noted. There is an ingested screw is seen in the vicinity of the cecum. The bones are unremarkable. XR/XR abdomen min 2V IMPRESSION: An ingested screw is seen in the vicinity of the cecum
--- NOTE | ~2024-03-16 | XR_ITS ---
EXAMINATION: XR ABDOMEN COMPLETE CLINICAL INDICATION: Ingested screw. COMPARISON: KUB dated 03/18/2024 and 03/17/2024. TECHNIQUE: 3 AP views of the abdomen and pelvis are submitted. FINDINGS: The bowel gas pattern is normal with no evidence of ileus or obstruction. An ingested screw is seen in the vicinity of the proximal sigmoid colon. No unusual soft tissue calcifications are noted. The bones are unremarkable. XR/XR abdomen min 2V IMPRESSION: An ingested screw is seen in the vicinity of the proximal sigmoid colon.
--- NOTE | ~2024-03-16 | XR_ITS ---
EXAMINATION: XR ABDOMEN KUB CLINICAL INDICATION: Patient swallowed a screw. COMPARISON: 03/22/2024, 03/21/2024. TECHNIQUE: 2 AP views of the abdomen. FINDINGS: Mild leftward curvature of the lumbar spine. Nonobstructive bowel gas pattern. Large amount of stool in the colon. Previously identified radiopaque screw is not visualized on the current exam. XR/XR abdomen 1V IMPRESSION: Previously identified radiopaque screw is not visualized on the current exam. This study was presented today March 25, 2024 for interpretation. Stat results provided at this time as requested by referring provider.
[2024-03-16 21:45] VITALS: BP 127/82; PULSE 125; RESP 18; TEMP 36.6; O2SAT 94
[2024-03-16] MEDS: Acetaminophen 325 MG TABLET 650 MG PO (23:28)
[2024-03-16] MEDS: traZODone HCL 50 MG TABLET PO (23:29)
[2024-03-16] MEDS: hydrOXYzine HCL 25 MG TABLET PO (23:34)
[2024-03-17] MEDS: lamoTRIgine 100 MG TABLET 200 MG PO ×3 (00:30→20:39)
[2024-03-17] MEDS: Melatonin 3 MG TABLET 6 MG PO ×2 (00:30→20:40)
[2024-03-17] MEDS: LORazepam 1 MG TABLET PO ×4 (00:31→20:40)
[2024-03-17] MEDS: Famotidine 20 MG TABLET PO ×3 (00:31→20:38)
[2024-03-17] MEDS: cloNIDine HCL 0.2 MG TABLET PO ×2 (00:31→20:39)
[2024-03-17] MEDS: OLANZapine ODT 10 MG TAB.RAPDIS 20 MG TRANSLINGU (00:31)
--- NOTE | 2024-03-17 06:17 | MHC.EVENTN ---
@ approx 2320 pt came out of room stating that her roommate had told her to 'shut-up' and that 'I can't go in there with her' Pt roommate also exited room at this time. Pt became elevated about roommates comments, pt stating That's not true, she's trying to lie and say she didn't do anything. Pt physically and verbally escalating, making fists and attempting to get past nearby staff to get to pt roommate, shouting you old cunt , threatening to 'punch' and 'beat' roommate. Pt took space in room after roommate removed themselves. Pt accepted PO hydroxyzine at this time.
--- NOTE | 2024-03-17 06:30 | PC.ADMIT ---
Pt is a 29 yo F who arrives from [facility] ED, recent d/c from on 03/13 to snf. Hx of PTSD, developmental disability, mood disorder, seizure disorder, and GERD. Per crisis report, upon return to snf (same day of 03/13) pt 'broke a door, punched holes in the wall, and swallowed a screw from a heating vent after cutting her arms. Pt corroborates report. Pt denies SI/HI/AVH at time of arrival, elevated and anxious, visibly tremulous, rapid speech, refuses to step on scale for weight, refuses to remove/change undergarments, allows RN to manipulate elastics of undergarments for safety check. Skin check remarkable for multiple parallel superficial abrasions to bilateral forearms. No s/s of infection noted. Pt ingestion of screw being monitored daily by X-ray. Per GI, pt is not to receive any laxatives and must be allowed to pass screw normally with bulk to avoid intestinal injury or perforation, pt is not understanding of this and requires continued education, reports last BM 1 week ago.
[2024-03-17 08:03] VITALS: BP 121/66; PULSE 72; TEMP 36; O2SAT 98
[2024-03-17] MEDS: Loratadine 10 MG TABLET PO (08:53)
[2024-03-17] MEDS: Dextroamphetamine/Amphetamine XR 10 MG CAP.ER.24H 40 MG PO (08:53)
[2024-03-17] MEDS: Sertraline HCL 50 MG TABLET 150 MG PO (08:53)
[2024-03-17] MEDS: Sucralfate 1 GM TABLET PO ×4 (08:53→20:39)
[2024-03-17] MEDS: cloNIDine HCL 0.1 MG TABLET PO (08:53)
[2024-03-17] MEDS: Azelastine HCl Nasal 137 MCG/Spray 30 ML 1 SPRAY NOSTRIL-B ×2 (08:56→20:37)
[2024-03-17] MEDS: Fluticasone Propionate 100 MCG BLST.W.DEV 1 PUFF INHALE ×2 (08:56→20:38)
--- NOTE | 2024-03-17 09:59 | HO.PSYADMNOT ---
HPI Date of Service: 03/17/24 Chief Complaint: PTSD, Mood D/O, Intellectual Disability Sources of Information: patient interviewed, chart reviewed and crisis/core team assessment reviewed HPI Subjective Notes: [place] Warning and Conditional Voluntary Narrative: 29 yo female, under guardianship, resident of a [facility] with history of intellectual disability, PTSD, nonepileptic seizures, GERD, chronic constipation, ADHD intermittent explosive disorder, and history of superficial self-harm including swallowing objects, recently discharged from (03/13/24) after patient swallowed several items requiring EGD, who returns the ED and now for admission the same day patient was discharged, citing emotional dysregulation during which time she swallowed a screw in a reported suicide attempt. Patient says that when she left she was overall feeling good enough. On the ride home, the hydraulic lift driver spelled of cannabis which she said triggered her asthma and made her very uncomfortable. When she got back to the penitentiary, she found several of her personal items removed (having been deemed swallowing risks) which made her feel emotional and angry. Patient said her frustration mounted and she felt like being so found a screw which she swallowed and superficially scratched her arm; after that her anger flared and she kicked the door of a peer and punched holes in the leon. Patient was sent to the emergency room. Patient said at the moment she wanted to but says those feelings are fully resolved and denies any SI or desires to self-harm. Patient says she is not sure what needs to change in order for her to stay safe. She said however that there is a special outing to the [place] scheduled for April 04 and she wants to remain in good behavioral control so she does not miss it Regarding ingestion of screw, per GI, daily x-rays to monitor progress; allowed to have MiraLax (discussed with hospitalist WILLIAMS who reviewed with GI). pt first seen 11am Past Psychiatric History: Multiple psychiatric hospitalizations. Resides in penitentiary. Has been in residential care most of her life Mood disorder PTSD [employer] record notes alcohol syndrome. Medical Evaluation Reviewed: Hospitalist Verna Pending [facility] Medical History (Updated 03/18/24 @ 09:23 by Robe Schumacher MD) Psychogenic nonepileptic seizure ADHD (attention deficit hyperactivity disorder) Intermittent explosive disorder Pica Schizoaffective disorder Mild intellectual disability PTSD (post-traumatic stress disorder) GERD (gastroesophageal reflux disease) Family History: Unknown Social History: Has a guardian. Has been at her current residential home since 2020. Substance History: none Trauma History: Reported. Specifics not discussed. Diagnostics Vital Signs (24Hr): Vital Signs - 24 hr 03/16/24 21:45 03/17/24 08:03 Temperature 97.8 F 96.8 F Pulse Rate 125 H 72 Respiratory Rate 18 Blood Pressure 127/82 121/66 Pulse Oximetry 94 98 Oxygen Delivery Method Room Air Room Air Meds/Allergies Meds Home Medications ?Medication ?Instructions ?Recorded ?Confirmed ?Type acetaminophen 325 mg tablet 650 mg PO Q6H PRN Pain 02/28/24 03/16/24 History acetaminophen-caffeine 500 mg-65 2 tab PO Q8H PRN Headache 02/28/24 02/28/24 History mg tablet albuterol sulfate 90 mcg/actuation 2 puff inhalation 6XD PRN Wheezing 02/28/24 03/16/24 History aerosol inhaler azelastine 137 mcg (0.1 %) nasal 1 spray intranasal BID 02/28/24 03/16/24 History spray bisacodyl 5 mg tablet,delayed 5 mg PO DAILY 02/28/24 03/16/24 History release cahbzqbvtr-ecqkiktpanaia-ciwztejl 2 tab PO Q6H PRN Headache 02/28/24 03/16/24 History 50 mg-325 mg-40 mg tablet dextromethorphan-guaifenesin 30 2 tab PO Q12H PRN Cough 02/28/24 03/16/24 History mg-600 mg tablet extended [id number] hr fluticasone furoate 100 1 inh inhalation BEDTIME 02/28/24 03/16/24 History mcg/actuation blister powder for inhalation food supplemt, lactose-reduced 1 ea BID 02/28/24 02/28/24 History nystatin 100,000 unit/gram topical 1 appl topical BID PRN Rash 02/28/24 03/16/24 History powder ondansetron 4 mg disintegrating 4 mg PO Q8H PRN Vomiting 02/28/24 03/16/24 History tablet riboflavin (vitamin B2) 100 mg 200 mg PO BID 02/28/24 02/28/24 History capsule,extended release sucralfate 100 mg/mL oral PO QID 02/29/24 History suspension fexofenadine 180 mg tablet 180 mg PO DAILY 03/16/24 03/16/24 History lorazepam 1 mg tablet 1 mg PO TID 03/16/24 03/16/24 History lorazepam 1 mg tablet 1 mg PO TID 03/16/24 03/16/24 History plecanatide 3 mg tablet (Trulance) mg 03/16/24 History Allergies Allergies Allergy/AdvReac Type Severity Reaction Status Date / Time haloperidol [From Haldol] Allergy Unknown Verified 02/28/24 20:52 lithium Allergy Unknown Verified 02/28/24 20:52 morphine Allergy Unknown Verified 02/28/24 20:52 strawberry Allergy Unknown Verified 02/28/24 20:52 Mental Status Exam Mental Status Exam Narrative: Pt is alert and oriented; behavior is cooperative, calm, friendly; patient is not in distress; right arm in sling; dressed in casual attire with partially dyed hair, good hygiene/grooming; mood is described as ok and affect congruent; eye contact appropriate; Speech is normal rate, volume, prosody; not pressured; no psychomotor retardation present, but less; thought process is organized and goal directed; Thought content is on her treatment, going home, handling anxiety; otherwise pertinent to relevant topics and without any delusional content, paranoid ideations or grandiosity; denies any SI/HI. There is no evidence of perceptual disturbance. Patients insight and judgment impaired but improving. Assessment & Plan Assessment & Plan (1) Intermittent explosive disorder: Status: Acute Code(s): F63.81 - Intermittent explosive disorder (2) Post-traumatic stress disorder, unspecified: Status: Acute Code(s): F43.10 - Post-traumatic stress disorder, unspecified (3) Mood disorder: Status: Acute Code(s): F39 - Unspecified mood [affective] disorder (4) Intellectual disability: Status: Acute Code(s): F79 - Unspecified intellectual disabilities (5) ADHD (attention deficit hyperactivity disorder): Status: Acute Code(s): F90.9 - Attention-deficit hyperactivity disorder, unspecified type (6) Psychogenic nonepileptic seizure: Status: Acute Code(s): F44.5 - Conversion disorder with seizures or convulsions Plan 29 yo female, under guardianship, resident of a [facility] with history of intellectual disability, PTSD, nonepileptic seizures, GERD, chronic constipation, ADHD intermittent explosive disorder, and history of superficial self-harm including swallowing objects, recently discharged from (03/13/24) after patient swallowed several items requiring EGD, who returns the ED and now for admission the same day patient was discharged, citing emotional dysregulation during which time she swallowed a screw in a reported suicide attempt. Patient says that when she left she was overall feeling good enough. On the ride home, the hydraulic lift driver spelled of cannabis which she said triggered her asthma and made her very uncomfortable. When she got back to the penitentiary, she found several of her personal items removed (having been deemed swallowing risks) which made her feel emotional and angry. Patient said her frustration mounted and she felt like being so found a screw which she swallowed and superficially scratched her arm; after that her anger flared and she kicked the door of a peer and punched holes in the [place]. Patient was sent to the emergency room. Patient said at the moment she wanted to but says those feelings are fully resolved and denies any SI or desires to self-harm. Patient says she is not sure what needs to change in order for her to stay safe. She said however that [place] and she wants to remain in good behavioral control so she does not miss it Regarding ingestion of screw, per GI, daily x-rays to monitor progress; allowed to have MiraLax (discussed with hospitalist WILLIAMS who reviewed with GI). Formulation/clinical reasoning: What ever was triggering, seems to have resolved at this time. Patient has long history of high expressed emotion, low tolerance for stress and poor coping skills; patient has a significant history of swallowing items when upset; some speculate behavior is done to get out of penitentiary at times. Will consider some medication management but but it is also a consideration that further medication management will not resolve this chronic issue; rather consistent therapy and an expanded behavioral plan might be more effective. Plan: CV Q 15 minute checks Daily x-rays to follow progression of swallow to screw MiraLax daily; GI okayed Otherwise continue home medication including increased Zoloft and newly started Adderall Will discuss with outpatient team Patient educated on: diagnosis, medication risk/benefits and therapeutic strategies Informed Consent: understands, does not understand and further education needed Reason for continued inpatient stay Substantial Risk for: rapid decompensation Statement Statement: I have reviewed the history and physical and performed a pertinent examination on my patient. No changes have occurred unless specified. If the History and Physical was not performed prior to admission, the Hospitalist's service will be consulted for completing the admission physical. Time Spent With Patient Time: Total time managing care of this patient today ____ minutes.
--- NOTE | 2024-03-17 11:05 | P.CONHOSP_ITS ---
History of Present Illness Data of Consult Service Date: 03/17/24 Requesting physician: Mary Castellano Primary Care Provider: Unknown Physician HPI Reason for consult: medical H&P 29-year-old female with a PMH significant for?unspecified seizure disorder, mild intellectual disability, GERD, PTSD, schizoaffective disorder, and hx of pica who is admitted to psychiatry unit for increasingly disorganized behavior with SI after intentional ingestion of keychain ring, coin, and piece of zipper. Patient comes from [facility] and has been in residential care for most of her life. Has a hx of hospital-seeking behavior, banging her head to point of concussion, and superficial cutting. She was discharged from [facility] psychiatry 03/13 and upon returning back to the [facility] intentionally swallowed a screw to self harm and cut her wrists bilaterally. She denies any abd pain, nausea, or vomiting. Otherwise feeling well. Reviewed records from [facility]. XR abd showed a slightly rotated 14mm screw overlying the right pelvis/RLQ. No obstruction. She has had three normal nonbloody bm's since but does not know if she passed the screw. Labs revealed a very mildly elevated WBC of 12.4 hematology studies otherwise unremarkable. Renal function and lytes wnl. Glucose wnl. EKG showed NSR, rate 75, no st/t wave abn indicative of ischemia. She is also still wearing a sling of the RUE. Reports dislocating her R shoulder during last admission. However, XR was unremarkable. She has full ROM and denies pain at this time. Review of Systems Review of Systems: Yes all other systems are reviewed and are negative [facility] Medical History Pica Schizoaffective disorder Mild intellectual disability PTSD (post-traumatic stress disorder) GERD (gastroesophageal reflux disease) Seizure disorder Social History Household Members: Other Household Members Other:: [facility] Housing: Other Housing Other:: [facility] Do you presently have visiting nurse or other home services: Yes Patient Tobacco Use Status: Never used Tobacco Use of substances other than those prescribed or required for medical reasons: Yes Currently Displaying Signs/Symptoms of Drug Intoxication Withdrawal: No Advance Directives: No Advance Directives Information Provided: No Do you have thoughts of harming others: None Do you have a plan to hurt others: No Plan Recently lost weight without trying: No Nutrition Risks: No Nutritional Risk Patient : No : No Poor oral hygiene: Yes service: No Sexual orientation: Straight/Heterosexual Meds Allergies Allergy/AdvReac Type Severity Reaction Status Date / Time haloperidol [From Haldol] Allergy Unknown Verified 02/28/24 20:52 lithium Allergy Unknown Verified 02/28/24 20:52 morphine Allergy Unknown Verified 02/28/24 20:52 strawberry Allergy Unknown Verified 02/28/24 20:52 Active Medications: Current Medications Acetaminophen (Acetaminophen 325 Mg Tablet) 650 mg PO Q6H PRN PRN Reason: Headache/Pain Mild Scale (1-3) Last Admin: 03/16/24 23:28 Dose: 650 mg Acetaminophen/Butalbital/Caffeine (Butalb/Acetamin/Caff 50/325/40 Tablet) 2 tab PO Q8H PRN PRN Reason: headache Al Hydroxide/Mg Hydroxide (Magnesium Hydrox/Alum Hydrox 30 Ml Oral.Susp) 30 ml PO Q6H PRN PRN Reason: Heartburn/Nausea Albuterol Sulfate (Albuterol Sulfate 90 Mcg 8 Gm Inhaler) 2 puff INHALE Q4H PRN PRN Reason: wheezing Amphetamine/Dextroamphetamine (Dextroamphetamine/Amphetamine Xr 10 Mg Cap.Er.24h) 40 mg PO DAILY [facility] Last Admin: 03/17/24 08:53 Dose: 40 mg Azelastine HCl (Azelastine Hcl Nasal 137 Mcg/[place] 30 Ml) 1 spray NOSTRIL-B BID [facility] Last Admin: 03/17/24 08:56 Dose: 1 spray Cariprazine (Cariprazine Hcl 1.5 Mg Capsule) 4.5 mg PO BEDTIME [facility] Last Admin: 03/17/24 05:14 Dose: Not Given Clonidine HCl (Clonidine Hcl 0.1 Mg Tablet) 0.1 mg PO DAILY [facility]; Protocol Last Admin: 03/17/24 08:53 Dose: 0.1 mg Clonidine HCl (Clonidine Hcl 0.2 Mg Tablet) 0.2 mg PO BEDTIME [facility]; Protocol Last Admin: 03/17/24 00:31 Dose: 0.2 mg Famotidine (Famotidine 20 Mg Tablet) 20 mg PO BID [facility] Last Admin: 03/17/24 08:54 Dose: 20 mg Fluticasone Propionate (Fluticasone Propionate 100 Mcg Blst.W.Dev) 1 puff INHALE BID [facility] Last Admin: 03/17/24 08:56 Dose: 1 puff Gabapentin (Gabapentin 300 Mg Capsule) 300 mg PO BID PRN PRN Reason: anxiety Guaifenesin/Dextromethorphan (Guaifenesin Dm 600/30 1 Tab Tab.Er.12h) 2 tab PO Q12H PRN PRN Reason: cough Hydroxyzine HCl (Hydroxyzine Hcl 50 Mg Tablet) 50 mg PO Q6H PRN PRN Reason: Anxiety Lamotrigine (Lamotrigine 100 Mg Tablet) 200 mg PO BID [facility] Last Admin: 03/17/24 08:54 Dose: 200 mg Loratadine (Loratadine 10 Mg Tablet) 10 mg PO DAILY [facility] Last Admin: 03/17/24 08:53 Dose: 10 mg Lorazepam (Lorazepam 1 Mg Tablet) 1 mg PO TID [facility] Last Admin: 03/17/24 08:53 Dose: 1 mg Melatonin (Melatonin 3 Mg Tablet) 6 mg PO BEDTIME [facility] Last Admin: 03/17/24 00:30 Dose: 6 mg Nicotine Polacrilex (Nicotine Polacrilex 2 Mg Gum) 4 mg BUCCAL Q2H PRN PRN Reason: Nicotine Cravings Nystatin (Nystatin Cream 15 Gm Tube) 1 appl TOPICAL BID PRN; Protocol PRN Reason: rash Olanzapine (Olanzapine 10 Mg Tablet) 10 mg PO BEDTIME [facility] Ondansetron HCl (Ondansetron Odt 4 Mg Tab.Rapdis) 4 mg TRANSLINGU Q8H PRN PRN Reason: vomiting Sertraline HCl (Sertraline Hcl 50 Mg Tablet) 150 mg PO DAILY [facility] Last Admin: 03/17/24 08:53 Dose: 150 mg Sucralfate (Sucralfate 1 Gm Tablet) 1 gm PO QIDACHS [facility] Last Admin: 03/17/24 08:53 Dose: 1 gm Trazodone HCl (Trazodone Hcl 100 Mg Tablet) 100 mg PO BEDTIME [facility] Last Admin: 03/17/24 05:14 Dose: Not Given Home Medications ?Medication ?Instructions ?Recorded ?Confirmed ?Last Taken ?Type acetaminophen 325 mg tablet 650 mg PO Q6H PRN Pain 02/28/24 03/16/24 Unknown History acetaminophen-caffeine 500 mg-65 2 tab PO Q8H PRN Headache 02/28/24 02/28/24 Unknown History mg tablet albuterol sulfate 90 mcg/actuation 2 puff inhalation 6XD PRN Wheezing 02/28/24 03/16/24 Unknown History aerosol inhaler azelastine 137 mcg (0.1 %) nasal 1 spray intranasal BID 02/28/24 03/16/24 Unknown History spray bisacodyl 5 mg tablet,delayed 5 mg PO DAILY 02/28/24 03/16/24 01/15/24 History release evftprcyok-ebhsnxwlbzipf-zimvewii 2 tab PO Q6H PRN Headache 02/28/24 03/16/24 Unknown History 50 mg-325 mg-40 mg tablet dextromethorphan-guaifenesin 30 2 tab PO Q12H PRN Cough 02/28/24 03/16/24 Unknown History mg-600 mg tablet extended hr fluticasone furoate 100 1 inh inhalation BEDTIME 02/28/24 03/16/24 Unknown History mcg/actuation blister powder for inhalation food supplemt, lactose-reduced 1 ea BID 02/28/24 02/28/24 Unknown History nystatin 100,000 unit/gram topical 1 appl topical BID PRN Rash 02/28/24 03/16/24 Unknown History powder ondansetron 4 mg disintegrating 4 mg PO Q8H PRN Vomiting 02/28/24 03/16/24 Unknown History tablet riboflavin (vitamin B2) 100 mg 200 mg PO BID 02/28/24 02/28/24 Unknown History capsule,extended release sucralfate 100 mg/mL oral PO QID 02/29/24 Unknown History suspension fexofenadine 180 mg tablet 180 mg PO DAILY 03/16/24 03/16/24 Unknown History lorazepam 1 mg tablet 1 mg PO TID 03/16/24 03/16/24 Unknown History lorazepam 1 mg tablet 1 mg PO TID 03/16/24 03/16/24 Unknown History plecanatide 3 mg tablet (Trulance) mg 03/16/24 Unknown History Physical Exam Vital Signs and Narrative: Vital Signs: Last Vital Signs Temp 96.8 F 03/17/24 08:03 Pulse 72 03/17/24 08:03 Resp 18 03/16/24 21:45 BP 121/66 03/17/24 08:03 Pulse Ox 98 03/17/24 08:03 O2 Del Method Room Air 03/17/24 08:03 Constitutional - Awake and Alert, No apparent distress Eyes - PERRLA, EOMI Cardiovascular - S1S2, RRR, No edema Respiratory - Normal lung expansion, Normal respiratory effort, No respiratory distress, CTA bilaterally Gastrointestinal - NT / ND; +BS; No rebound or guarding - No CVA tenderness Extremities - no calf tenderness bilaterally, no swelling Musculoskeletal - Normal inspection, normal ROM. R shoulder NTTP Skin - Warm/Dry. Multiple superficial lacerations to the volar aspect of the bilateral forearms without any active bleeding, purulent drainage, surrounding erythema Neurological - Alert & oriented x3, CN II-XII in tact, 5/5 strength BUE and BLE Psychological - Appropriate affect Assessment and Plan (1) Routine medical exam: Status: Acute Plan 29-year-old female with a PMH significant for?unspecified seizure disorder, mild intellectual disability, GERD, PTSD, schizoaffective disorder, and hx of pica who is admitted to [facility] psychiatry unit with consult placed to hospitalist service for medical H&P. #Schizoaffective disorder/self harm -plan per psychiatry #Intentional ingestion of screw -XR at [facility] showed a 14mm slightly rotated screw int eh right pelvis/RLQ. No abd pain, n/v, having normal BMs -serial XR until passed. Ordered -Discussed with GI, OK to give gentle laxatives. Miralax ordered #Right shoulder pain -felt she dislocated during last admission, XR negative -remove sling, can use for brief periods if discomfort. continue naproxen #Unspecified seizure disorder -continue lamictal, gabapentin, benzos #GERD -pepcid, carafate prn #Migraines -fioricet prn Will continue following for results. Please do not hesitate to reach out with any questions, concerns, or acute issues.
[2024-03-17] MEDS: Gabapentin 300 MG CAPSULE PO (11:07)
[2024-03-17] MEDS: Acetaminophen 325 MG TABLET 650 MG PO ×2 (12:34→17:56)
[2024-03-17] MEDS: polyethylene glycoL 3350 17 GM POWD.PACK PO (13:10)
[2024-03-17] MEDS: hydrOXYzine HCL 50 MG TABLET PO (16:11)
[2024-03-17] MEDS: Magnesium Hydrox/Alum Hydrox 30 ML ORAL.SUSP PO (17:55)
[2024-03-17 20:00] VITALS: BP 129/75; PULSE 104; RESP 18; TEMP 36.6; O2SAT 97
[2024-03-17] MEDS: NaPROXEN 250 MG TABLET PO (20:38)
[2024-03-17] MEDS: traZODone HCL 100 MG TABLET PO (20:38)
[2024-03-17] MEDS: OLANZapine 10 MG TABLET PO (20:39)
[2024-03-17] MEDS: Cariprazine HCl 1.5 MG CAPSULE 4.5 MG PO (20:40)
[2024-03-18 08:12] VITALS: BP 111/71; PULSE 95; RESP 16; TEMP 36.4; O2SAT 98
[2024-03-18] MEDS: Sertraline HCL 50 MG TABLET 150 MG PO (08:17)
[2024-03-18] MEDS: LORazepam 1 MG TABLET PO ×3 (08:17→20:57)
[2024-03-18] MEDS: NaPROXEN 250 MG TABLET PO ×2 (08:17→20:58)
[2024-03-18] MEDS: Famotidine 20 MG TABLET PO ×2 (08:17→20:58)
[2024-03-18] MEDS: Dextroamphetamine/Amphetamine XR 10 MG CAP.ER.24H 40 MG PO (08:17)
[2024-03-18] MEDS: Sucralfate 1 GM TABLET PO ×4 (08:18→20:59)
[2024-03-18] MEDS: lamoTRIgine 100 MG TABLET 200 MG PO ×2 (08:18→20:58)
[2024-03-18] MEDS: cloNIDine HCL 0.1 MG TABLET PO (08:18)
[2024-03-18] MEDS: polyethylene glycoL 3350 17 GM POWD.PACK PO (08:18)
[2024-03-18] MEDS: Loratadine 10 MG TABLET PO (08:18)
[2024-03-18] MEDS: Azelastine HCl Nasal 137 MCG/Spray 30 ML 1 SPRAY NOSTRIL-B (08:56)
[2024-03-18] MEDS: Fluticasone Propionate 100 MCG BLST.W.DEV 1 PUFF INHALE (08:56)
--- NOTE | 2024-03-18 09:28 | P.PNPSI_ITS ---
Subjective Subjective Date of Service: 03/18/24 Reason For Visit: PTSD, Mood D/O, Intellectual Disability Interim History: met with pt; discussed with team Patient says she is ok but not much willing to engage much. Said anniversary of her father's is coming up in a month. Patient asks for lidocaine cream on her shoulder Continues to have BM; screw still visible in GI tract Mental Status Exam Mental Status Exam Narrative: Pt is alert and oriented; behavior is cooperative, calm, sometimes friendly sometimes irritable; patient is not in distress; right arm in sling; dressed in casual attire with partially dyed hair, adequate hygiene/grooming; mood is described as ok and affect constricted; eye contact appropriate; Speech is normal rate, volume, prosody; not pressured; no psychomotor retardation present; thought process is organized and goal directed; Thought content is on her father; treatment, going home, handling anxiety; otherwise pertinent to relevant topics and without any delusional content, paranoid ideations or grandiosity; denies any SI/HI. There is no evidence of perceptual disturbance. Patients insight and judgment impaired but improving. Diagnostics Vital Signs (24Hr): Vital Signs - 24 hr 03/17/24 20:00 03/18/24 08:12 Temperature 97.9 F 97.5 F Pulse Rate 104 H 95 Respiratory Rate 18 16 Blood Pressure 129/75 111/71 Pulse Oximetry 97 98 Oxygen Delivery Method Room Air Room Air Medications Medications Current Medications Acetaminophen (Acetaminophen 325 Mg Tablet) 650 mg PO Q6H PRN PRN Reason: Headache/Pain Mild Scale (1-3) Last Admin: 03/17/24 17:56 Dose: 650 mg Acetaminophen/Butalbital/Caffeine (Butalb/Acetamin/Caff 50/325/40 Tablet) 2 tab PO Q8H PRN PRN Reason: headache Al Hydroxide/Mg Hydroxide (Magnesium Hydrox/Alum Hydrox 30 Ml Oral.Susp) 30 ml PO Q6H PRN PRN Reason: Heartburn/Nausea Last Admin: 03/17/24 17:55 Dose: 30 ml Albuterol Sulfate (Albuterol Sulfate 90 Mcg 8 Gm Inhaler) 2 puff INHALE Q4H PRN PRN Reason: wheezing Amphetamine/Dextroamphetamine (Dextroamphetamine/Amphetamine Xr 10 Mg Cap.Er.24h) 40 mg PO DAILY [facility] Last Admin: 03/18/24 08:17 Dose: 40 mg Azelastine HCl (Azelastine Hcl Nasal 137 Mcg/[place] 30 Ml) 1 spray NOSTRIL-B BID [facility] Last Admin: 03/18/24 08:56 Dose: 1 spray Cariprazine (Cariprazine Hcl 1.5 Mg Capsule) 4.5 mg PO BEDTIME [facility] Last Admin: 03/17/24 20:40 Dose: 4.5 mg Clonidine HCl (Clonidine Hcl 0.1 Mg Tablet) 0.1 mg PO DAILY [facility]; Protocol Last Admin: 03/18/24 08:18 Dose: 0.1 mg Clonidine HCl (Clonidine Hcl 0.2 Mg Tablet) 0.2 mg PO BEDTIME [facility]; Protocol Last Admin: 03/17/24 20:39 Dose: 0.2 mg Famotidine (Famotidine 20 Mg Tablet) 20 mg PO BID [facility] Last Admin: 03/18/24 08:17 Dose: 20 mg Fluticasone Propionate (Fluticasone Propionate 100 Mcg Blst.W.Dev) 1 puff INHALE BID [facility] Last Admin: 03/18/24 08:56 Dose: 1 puff Gabapentin (Gabapentin 300 Mg Capsule) 300 mg PO BID PRN PRN Reason: anxiety Last Admin: 03/17/24 11:07 Dose: 300 mg Guaifenesin/Dextromethorphan (Guaifenesin Dm 600/30 1 Tab Tab.Er.12h) 2 tab PO Q12H PRN PRN Reason: cough Hydroxyzine HCl (Hydroxyzine Hcl 50 Mg Tablet) 50 mg PO Q6H PRN PRN Reason: Anxiety Last Admin: 03/17/24 16:11 Dose: 50 mg Lamotrigine (Lamotrigine 100 Mg Tablet) 200 mg PO BID [facility] Last Admin: 03/18/24 08:18 Dose: 200 mg Loratadine (Loratadine 10 Mg Tablet) 10 mg PO DAILY [facility] Last Admin: 03/18/24 08:18 Dose: 10 mg Lorazepam (Lorazepam 1 Mg Tablet) 1 mg PO TID [facility] Last Admin: 03/18/24 08:17 Dose: 1 mg Melatonin (Melatonin 3 Mg Tablet) 6 mg PO BEDTIME [facility] Last Admin: 03/17/24 20:40 Dose: 6 mg Naproxen (Naproxen 250 Mg Tablet) 250 mg PO BID [facility] Last Admin: 03/18/24 08:17 Dose: 250 mg Nicotine Polacrilex (Nicotine Polacrilex 2 Mg Gum) 4 mg BUCCAL Q2H PRN PRN Reason: Nicotine Cravings Nystatin (Nystatin Cream 15 Gm Tube) 1 appl TOPICAL BID PRN; Protocol PRN Reason: rash Olanzapine (Olanzapine 10 Mg Tablet) 10 mg PO BEDTIME [facility] Last Admin: 03/17/24 20:39 Dose: 10 mg Ondansetron HCl (Ondansetron Odt 4 Mg Tab.Rapdis) 4 mg TRANSLINGU Q8H PRN PRN Reason: vomiting Polyethylene Glycol (Polyethylene Glycol 3350 17 Gm Powd.Pack) 17 gm PO DAILY [facility] Last Admin: 03/18/24 08:18 Dose: 17 gm Sertraline HCl (Sertraline Hcl 50 Mg Tablet) 150 mg PO DAILY [facility] Last Admin: 03/18/24 08:17 Dose: 150 mg Sucralfate (Sucralfate 1 Gm Tablet) 1 gm PO QIDACHS [facility] Last Admin: 03/18/24 08:18 Dose: 1 gm Trazodone HCl (Trazodone Hcl 100 Mg Tablet) 100 mg PO BEDTIME [facility] Last Admin: 03/17/24 20:38 Dose: 100 mg Allergies Allergies Allergy/AdvReac Type Severity Reaction Status Date / Time haloperidol [From Haldol] Allergy Unknown Verified 02/28/24 20:52 lithium Allergy Unknown Verified 02/28/24 20:52 morphine Allergy Unknown Verified 02/28/24 20:52 strawberry Allergy Unknown Verified 02/28/24 20:52 Assessment & Plan Assessment & Plan (1) Intermittent explosive disorder: Status: Acute Code(s): F63.81 - Intermittent explosive disorder (2) Post-traumatic stress disorder, unspecified: Status: Acute Code(s): F43.10 - Post-traumatic stress disorder, unspecified (3) Mood disorder: Status: Acute Code(s): F39 - Unspecified mood [affective] disorder (4) Intellectual disability: Status: Acute Code(s): F79 - Unspecified intellectual disabilities (5) ADHD (attention deficit hyperactivity disorder): Status: Acute Code(s): F90.9 - Attention-deficit hyperactivity disorder, unspecified type (6) Psychogenic nonepileptic seizure: Status: Acute Code(s): F44.5 - Conversion disorder with seizures or convulsions Plan 29 yo female, under guardianship, [facility] with history of intellectual disability, PTSD, nonepileptic seizures, GERD, chronic constipation, ADHD intermittent explosive disorder, and history of superficial self-harm including swallowing objects, recently discharged from (03/13/24) after patient swallowed several items requiring EGD, who returns the ED and now for admission the same day patient was discharged, citing emotional dysregulation during which time she swallowed a screw in a reported suicide attempt. Patient says that when she left she was overall feeling good enough. On the ride home, the emergency vehicle driver spelled of cannabis which she said triggered her asthma and made her very uncomfortable. When she got back to the prison, she found several of her personal items removed (having been deemed swallowing risks) which made her feel emotional and angry. Patient said her frustration mounted and she felt like being so found a screw which she swallowed and superficially scratched her arm; after that her anger flared and she kicked the door of a peer and punched holes in the leon. Patient was sent to the emergency room. Patient said at the moment she wanted to but says those feelings are fully resolved and denies any SI or desires to self-harm. Patient says she is not sure what needs to change in order for her to stay safe. She said however that there is a special outing to the beach scheduled for April 04 and she wants to remain in good behavioral control so she does not miss it Regarding ingestion of screw, per GI, daily x-rays to monitor progress; allowed to have MiraLax (discussed with hospitalist WILLIAMS who reviewed with GI). Formulation/clinical reasoning: What ever was triggering, seems to have resolved at this time. Patient has long history of high expressed emotion, low tolerance for stress and poor coping skills; patient has a significant history of swallowing items when upset; some speculate behavior is done to get out of prison at times. Will consider some medication management but but it is also a consideration that further medication management will not resolve this chronic issue; rather consistent therapy and an expanded behavioral plan might be more effective. Hospital course: 03/18 patient says her mood is okay; not willing to engage much other than superf icially Had a BM; screen still visible in GI tract Plan: CV Q 15 minute checks Daily x-rays to follow progression of swallow to screw MiraLax daily; GI okayed Otherwise continue home medication including increased Zoloft and newly started Adderall Will discuss with outpatient team Patient educated on: diagnosis, medication risk/benefits and therapeutic strat egies Informed Consent: understands and further education needed Reason for continued inpatient stay Substantial Risk for: rapid decompensation Time Spent With Patient Time: Total time managing care of this patient today ____ minutes.
--- NOTE | 2024-03-18 09:29 | PM.EVENT ---
Event Note Date of Service: 03/18/24 Event Note: Ingested screw now appears to have moved to the descending colon. Suspect will be expelled in next BM. Continue miralax. Repeat abd xr tomorrow Time Spent With Patient Time: Total time managing care of this patient today ____ minutes.
[2024-03-18] MEDS: Gabapentin 300 MG CAPSULE PO ×2 (14:47→20:03)
[2024-03-18] MEDS: Lidocaine 4 % Cream KIT 1 APPL TOPICAL (15:18)
[2024-03-18 20:00] VITALS: BP 116/75; PULSE 87; RESP 20; TEMP 36.4; O2SAT 96
[2024-03-18] MEDS: hydrOXYzine HCL 50 MG TABLET PO (20:07)
[2024-03-18] MEDS: Cariprazine HCl 1.5 MG CAPSULE 4.5 MG PO (20:58)
[2024-03-18] MEDS: traZODone HCL 100 MG TABLET PO (20:58)
[2024-03-18] MEDS: Melatonin 3 MG TABLET 6 MG PO (20:58)
[2024-03-18] MEDS: OLANZapine 10 MG TABLET PO (20:58)
[2024-03-18] MEDS: cloNIDine HCL 0.2 MG TABLET PO (20:59)
[2024-03-19] MEDS: Sucralfate 1 GM TABLET PO ×4 (09:01→20:57)
[2024-03-19] MEDS: polyethylene glycoL 3350 17 GM POWD.PACK PO (09:02)
[2024-03-19 09:03] VITALS: BP 104/61; PULSE 97; RESP 18; TEMP 36.1; O2SAT 98
[2024-03-19] MEDS: cloNIDine HCL 0.1 MG TABLET PO (09:03)
[2024-03-19] MEDS: Famotidine 20 MG TABLET PO ×2 (09:03→20:55)
[2024-03-19] MEDS: Dextroamphetamine/Amphetamine XR 10 MG CAP.ER.24H 40 MG PO (09:03)
[2024-03-19] MEDS: Sertraline HCL 50 MG TABLET 150 MG PO (09:03)
[2024-03-19] MEDS: LORazepam 1 MG TABLET PO ×3 (09:03→20:57)
[2024-03-19] MEDS: NaPROXEN 250 MG TABLET PO ×2 (09:04→20:56)
[2024-03-19] MEDS: Loratadine 10 MG TABLET PO (09:04)
[2024-03-19] MEDS: lamoTRIgine 100 MG TABLET 200 MG PO ×2 (09:04→20:57)
[2024-03-19] MEDS: Fluticasone Propionate 100 MCG BLST.W.DEV 1 PUFF INHALE ×2 (09:10→20:59)
[2024-03-19] MEDS: Azelastine HCl Nasal 137 MCG/Spray 30 ML 1 SPRAY NOSTRIL-B ×2 (09:10→20:59)
[2024-03-19] MEDS: Gabapentin 300 MG CAPSULE PO ×2 (09:30→19:35)
[2024-03-19] MEDS: Lidocaine 4 % Cream KIT 1 APPL TOPICAL (12:06)
--- NOTE | 2024-03-19 15:00 | PM.EVENT ---
Event Note Date of Service: 03/19/24 Event Note: Follow-up for patient [facility] for ingested screw. Latest abdominal x-ray indicates screw is now positioned within the sigmoid colon. Continue MiraLax and repeat abd x-ray tomorrow. Time Spent With Patient Time: Total time managing care of this patient today ____ minutes.
[2024-03-19 20:00] VITALS: BP 113/76; PULSE 101; RESP 18; TEMP 36.6; O2SAT 98
[2024-03-19] MEDS: Cariprazine HCl 1.5 MG CAPSULE 4.5 MG PO (20:54)
[2024-03-19] MEDS: Melatonin 3 MG TABLET 6 MG PO (20:55)
[2024-03-19] MEDS: Lidocaine 4 % Patch ADH..PATCH 1 PATCH TRANSDERMA (20:55)
[2024-03-19] MEDS: OLANZapine 10 MG TABLET PO (20:55)
[2024-03-19 20:57] VITALS: BP 128/67
[2024-03-19] MEDS: traZODone HCL 100 MG TABLET PO (20:57)
[2024-03-19] MEDS: cloNIDine HCL 0.2 MG TABLET PO (20:57)
[2024-03-20 08:00] VITALS: BP 118/68; PULSE 98; RESP 16; TEMP 36.7; O2SAT 97
[2024-03-20 08:06] VITALS: BP 113/74
[2024-03-20] MEDS: Sucralfate 1 GM TABLET PO ×4 (08:06→21:11)
[2024-03-20] MEDS: NaPROXEN 250 MG TABLET PO ×2 (08:06→21:10)
[2024-03-20] MEDS: Loratadine 10 MG TABLET PO (08:06)
[2024-03-20] MEDS: LORazepam 1 MG TABLET PO ×3 (08:06→20:00)
[2024-03-20] MEDS: Famotidine 20 MG TABLET PO ×2 (08:06→21:11)
[2024-03-20] MEDS: cloNIDine HCL 0.1 MG TABLET PO (08:06)
[2024-03-20] MEDS: Sertraline HCL 50 MG TABLET 150 MG PO (08:06)
[2024-03-20] MEDS: lamoTRIgine 100 MG TABLET 200 MG PO ×2 (08:06→21:12)
[2024-03-20] MEDS: Dextroamphetamine/Amphetamine XR 10 MG CAP.ER.24H 40 MG PO (08:09)
[2024-03-20] MEDS: Azelastine HCl Nasal 137 MCG/Spray 30 ML 1 SPRAY NOSTRIL-B (08:29)
[2024-03-20] MEDS: polyethylene glycoL 3350 17 GM POWD.PACK PO (08:29)
[2024-03-20] MEDS: Fluticasone Propionate 100 MCG BLST.W.DEV 1 PUFF INHALE (08:29)
[2024-03-20] MEDS: Lidocaine 4 % Patch ADH..PATCH 1 PATCH TRANSDERMA (09:16)
--- NOTE | 2024-03-20 12:10 | P.PNPSI_ITS ---
Subjective Subjective Date of Service: 03/19/24 Reason For Visit: PTSD, Mood D/O, Intellectual Disability Interim History: late entry note for patient seen on 03/19; discussed with team Patient asked about medications and wanted to discuss. Said she thinks Zyprexa was added few months ago only to help with sleep. Patient said she wants medication change because she keeps Flipping out. On inquiry she said she could be having a good mood and flip out or have a bad mood and flip out. Circuit Designer tried to discuss her awareness of triggers but she says she is unaware of them; unaware of what helps her calmed down and does not seem to have much knowledge of potential coping skills. She reports that her mom told her that Depakote caused side effects and she had to be taken off of it right away. Mental Status Exam Mental Status Exam Narrative: Pt is alert and oriented; behavior is cooperative, calm, sometimes friendly sometimes irritable; patient is not in distress; right arm in sling; dressed in casual attire with partially dyed hair, adequate hygiene/grooming; mood is described as ok and affect constricted; eye contact appropriate; Speech is normal rate, volume, prosody; not pressured; no psychomotor retardation present; thought process is organized and goal directed; Thought content is on her father; treatment, going home, handling anxiety; otherwise pertinent to relevant topics and without any delusional content, paranoid ideations or grandiosity; denies any SI/HI. There is no evidence of perceptual disturbance. Patients insight and judgment improving. Diagnostics Vital Signs (24Hr): Vital Signs - 24 hr 03/19/24 20:00 03/19/24 20:57 03/20/24 08:00 Temperature 97.9 F 98.1 F Pulse Rate 101 H 98 Respiratory Rate 18 16 Blood Pressure 113/76 128/67 118/68 Pulse Oximetry 98 97 Oxygen Delivery Method Room Air Room Air 03/20/24 08:06 Temperature Pulse Rate Respiratory Rate Blood Pressure 113/74 Pulse Oximetry Oxygen Delivery Method Imaging Radiology Impressions: ITS Impressions Abdomen X-Ray 03/17/24 12:34 IMPRESSION: An ingested screw is seen in the vicinity of the cecum Abdomen X-Ray 03/18/24 08:31 IMPRESSION: An ingested screw is seen in the vicinity of the lower descending colon. Abdomen X-Ray 03/19/24 10:22 IMPRESSION: An ingested screw is seen in the vicinity of the proximal sigmoid colon. Medications Medications Current Medications Acetaminophen (Acetaminophen 325 Mg Tablet) 650 mg PO Q6H PRN PRN Reason: Headache/Pain Mild Scale (1-3) Last Admin: 03/17/24 17:56 Dose: 650 mg Acetaminophen/Butalbital/Caffeine (Butalb/Acetamin/Caff 50/325/40 Tablet) 2 tab PO Q8H PRN PRN Reason: headache Al Hydroxide/Mg Hydroxide (Magnesium Hydrox/Alum Hydrox 30 Ml Oral.Susp) 30 ml PO Q6H PRN PRN Reason: Heartburn/Nausea Last Admin: 03/17/24 17:55 Dose: 30 ml Albuterol Sulfate (Albuterol Sulfate 90 Mcg 8 Gm Inhaler) 2 puff INHALE Q4H PRN PRN Reason: wheezing Amphetamine/Dextroamphetamine (Dextroamphetamine/Amphetamine Xr 10 Mg Cap.Er.24h) 40 mg PO DAILY [facility] Last Admin: 03/20/24 08:09 Dose: 40 mg Azelastine HCl (Azelastine Hcl Nasal 137 Mcg/[place] 30 Ml) 1 spray NOSTRIL-B BID [facility] Last Admin: 03/20/24 08:29 Dose: 1 spray Cariprazine (Cariprazine Hcl 1.5 Mg Capsule) 4.5 mg PO BEDTIME [facility] Last Admin: 03/19/24 20:54 Dose: 4.5 mg Clonidine HCl (Clonidine Hcl 0.1 Mg Tablet) 0.1 mg PO DAILY [facility]; Protocol Last Admin: 03/20/24 08:06 Dose: 0.1 mg Clonidine HCl (Clonidine Hcl 0.2 Mg Tablet) 0.2 mg PO BEDTIME [facility]; Protocol Last Admin: 03/19/24 20:57 Dose: 0.2 mg Famotidine (Famotidine 20 Mg Tablet) 20 mg PO BID [facility] Last Admin: 03/20/24 08:06 Dose: 20 mg Fluticasone Propionate (Fluticasone Propionate 100 Mcg Blst.W.Dev) 1 puff INHALE BID [facility] Last Admin: 03/20/24 08:29 Dose: 1 puff Gabapentin (Gabapentin 300 Mg Capsule) 300 mg PO BID PRN PRN Reason: anxiety Last Admin: 03/19/24 19:35 Dose: 300 mg Guaifenesin/Dextromethorphan (Guaifenesin Dm 600/30 1 Tab Tab.Er.12h) 2 tab PO Q12H PRN PRN Reason: cough Hydroxyzine HCl (Hydroxyzine Hcl 50 Mg Tablet) 50 mg PO Q6H PRN PRN Reason: Anxiety Last Admin: 03/18/24 20:07 Dose: 50 mg Lamotrigine (Lamotrigine 100 Mg Tablet) 200 mg PO BID [facility] Last Admin: 03/20/24 08:06 Dose: 200 mg Lidocaine (Lidocaine 4 % Patch Adh..Patch) 1 patch TRANSDERMA DAILY PRN; Protocol PRN Reason: right shoulder pain Last Admin: 03/20/24 09:16 Dose: 1 patch Loratadine (Loratadine 10 Mg Tablet) 10 mg PO DAILY [facility] Last Admin: 03/20/24 08:06 Dose: 10 mg Lorazepam (Lorazepam 1 Mg Tablet) 1 mg PO TID [facility] Last Admin: 03/20/24 08:06 Dose: 1 mg Melatonin (Melatonin 3 Mg Tablet) 6 mg PO BEDTIME [facility] Last Admin: 03/19/24 20:55 Dose: 6 mg Naproxen (Naproxen 250 Mg Tablet) 250 mg PO BID [facility] Last Admin: 03/20/24 08:06 Dose: 250 mg Nicotine Polacrilex (Nicotine Polacrilex 2 Mg Gum) 4 mg BUCCAL Q2H PRN PRN Reason: Nicotine Cravings Nystatin (Nystatin Cream 15 Gm Tube) 1 appl TOPICAL BID PRN; Protocol PRN Reason: rash Olanzapine (Olanzapine 10 Mg Tablet) 10 mg PO BEDTIME [facility] Last Admin: 03/19/24 20:55 Dose: 10 mg Ondansetron HCl (Ondansetron Odt 4 Mg Tab.Rapdis) 4 mg TRANSLINGU Q8H PRN PRN Reason: vomiting Polyethylene Glycol (Polyethylene Glycol 3350 17 Gm Powd.Pack) 17 gm PO DAILY [facility] Last Admin: 03/20/24 08:29 Dose: 17 gm Sertraline HCl (Sertraline Hcl 50 Mg Tablet) 150 mg PO DAILY [facility] Last Admin: 03/20/24 08:06 Dose: 150 mg Sucralfate (Sucralfate 1 Gm Tablet) 1 gm PO QIDACHS [facility] Last Admin: 03/20/24 08:06 Dose: 1 gm Trazodone HCl (Trazodone Hcl 100 Mg Tablet) 100 mg PO BEDTIME [facility] Last Admin: 03/19/24 20:57 Dose: 100 mg Allergies Allergies Allergy/AdvReac Type Severity Reaction Status Date / Time haloperidol [From Haldol] Allergy Unknown Verified 02/28/24 20:52 lithium Allergy Unknown Verified 02/28/24 20:52 morphine Allergy Unknown Verified 02/28/24 20:52 strawberry Allergy Unknown Verified 02/28/24 20:52 Assessment & Plan Assessment & Plan (1) Intermittent explosive disorder: Status: Acute Code(s): F63.81 - Intermittent explosive disorder (2) Post-traumatic stress disorder, unspecified: Status: Acute Code(s): F43.10 - Post-traumatic stress disorder, unspecified (3) Mood disorder: Status: Acute Code(s): F39 - Unspecified mood [affective] disorder (4) Intellectual disability: Status: Acute Code(s): F79 - Unspecified intellectual disabilities (5) ADHD (attention deficit hyperactivity disorder): Status: Acute Code(s): F90.9 - Attention-deficit hyperactivity disorder, unspecified type (6) Psychogenic nonepileptic seizure: Status: Acute Code(s): F44.5 - Conversion disorder with seizures or convulsions Plan 29 yo female, under guardianship, resident of a [facility] with history of intellectual disability, PTSD, nonepileptic seizures, GERD, chronic constipation, ADHD intermittent explosive disorder, and history of superficial self-harm including swallowing objects, recently discharged from (03/13/24) after patient swallowed several items requiring EGD, who returns the ED and now for admission the same day patient was discharged, citing emotional dysregulation during which time she swallowed a screw in a reported suicide attempt. Patient says that when she left she was overall feeling good enough. On the ride home, the pick up driver spelled of cannabis which she said triggered her asthma and made her very uncomfortable. When she got [facility] to the [facility], she found several of her personal items removed (having been deemed swallowing risks) which made her feel emotional and angry. Patient said her frustration mounted and she felt like being so found a screw which she swallowed and superficially scratched her arm; after that her anger flared and she kicked the door of a peer and punched holes in the leon. Patient was sent to the emergency room. Patient said at the moment she wanted to but says those feelings are fully resolved and denies any SI or desires to self-harm. Patient says she is not sure what needs to change in order for her to stay safe. She said however that there is a special outing to the beach scheduled for April 04 and she wants to remain in good behavioral control so she does not miss it Regarding ingestion of screw, per GI, daily x-rays to monitor progress; allowed to have MiraLax (discussed with hospitalist WILLIAMS who reviewed with GI). Formulation/clinical reasoning: What ever was triggering, seems to have resolved at this time. Patient has long history of high expressed emotion, low tolerance for stress and poor coping skills; patient has a significant history of swallowing items when upset; some speculate behavior is done to get out of [facility] at times. Will consider some medication management but but it is also a consideration that further medication management will not resolve this chronic issue; rather consistent therapy and an expanded behavioral plan might be more effective. Hospital course: 03/18 patient says her mood is okay; not willing to engage much other than superficially Had a BM; screen still visible in GI tract 03/19 patient seems somewhat sad, intermittently irritable with peers or staff but overall remaining in behavioral and impulse control. Wants to discuss medication changes to help her stop flipping out. Asked automobile service writer to talk to outpatient provider -screw remains visible and GI tract, descending colon Plan: CV Q 15 minute checks Daily x-rays to follow progression of swallow to screw MiraLax daily; GI okayed Otherwise continue home medication including increased Zoloft and newly started Adderall Will discuss with outpatient team Patient educated on: diagnosis, medication risk/benefits and medical condition Informed Consent: understands and further education needed Reason for continued inpatient stay Substantial Risk for: rapid decompensation Time Spent With Patient Time: Total time managing care of this patient today ____ minutes.
[2024-03-20] MEDS: OLANZapine 5 MG TABLET PO ×2 (12:16→19:59)
--- NOTE | 2024-03-20 14:39 | HO.PSYCHPN ---
Subjective Subjective Date of Service: 03/20/24 Reason For Visit: PTSD, Mood D/O, Intellectual Disability Interim History: Met with patient; discussed with team Patient tearful today, saying she misses her father and just wants to . She says I just want to be with him. Patient somewhat resistant to help coping with feelings but was willing to walk the bautista with technical writer and talk about it a little bit. Mostly that she misses him and anniversary of his is coming up. She reflects on the fact that despite she wanting to be so she can be with him, that he would not want her to hurt herself. Patient asked if she could have a p.r.n. and was able to wait calmly, the 15 minutes it took for this to be brought from the pharmacy. Mental Status Exam Mental Status Exam Narrative: Pt is alert and oriented; behavior is cooperative, calm, sometimes friendly sometimes irritable; patient is not in distress; right arm in sling; dressed in casual attire with partially dyed hair, adequate hygiene/grooming; mood is described as sad and affect tearful, constricted; eye contact appropriate; Speech is normal rate, volume, prosody; not pressured; no psychomotor retardation present; thought process is organized and goal directed; Thought content is on her father; treatment, going home, handling anxiety; otherwise pertinent to relevant topics and without any delusional content, paranoid ideations or grandiosity; brief SI saying she wants to ; resolved; no HI. There is no evidence of perceptual disturbance. Patients insight and judgment impaired but overall seems to be improving. Diagnostics Vital Signs (24Hr): Vital Signs - 24 hr 03/19/24 20:00 03/19/24 20:57 03/20/24 08:00 Temperature 97.9 F 98.1 F Pulse Rate 101 H 98 Respiratory Rate 18 16 Blood Pressure 113/76 128/67 118/68 Pulse Oximetry 98 97 Oxygen Delivery Method Room Air Room Air 03/20/24 08:06 Temperature Pulse Rate Respiratory Rate Blood Pressure 113/74 Pulse Oximetry Oxygen Delivery Method Imaging Radiology Impressions: ITS Impressions Abdomen X-Ray 03/17/24 12:34 IMPRESSION: An ingested screw is seen in the vicinity of the cecum Abdomen X-Ray 03/18/24 08:31 IMPRESSION: An ingested screw is seen in the vicinity of the lower descending colon. Abdomen X-Ray 03/19/24 10:22 IMPRESSION: An ingested screw is seen in the vicinity of the proximal sigmoid colon. Medications Medications Current Medications Acetaminophen (Acetaminophen 325 Mg Tablet) 650 mg PO Q6H PRN PRN Reason: Headache/Pain Mild Scale (1-3) Last Admin: 03/17/24 17:56 Dose: 650 mg Acetaminophen/Butalbital/Caffeine (Butalb/Acetamin/Caff 50/325/40 Tablet) 2 tab PO Q8H PRN PRN Reason: headache Al Hydroxide/Mg Hydroxide (Magnesium Hydrox/Alum Hydrox 30 Ml Oral.Susp) 30 ml PO Q6H PRN PRN Reason: Heartburn/Nausea Last Admin: 03/17/24 17:55 Dose: 30 ml Albuterol Sulfate (Albuterol Sulfate 90 Mcg 8 Gm Inhaler) 2 puff INHALE Q4H PRN PRN Reason: wheezing Amphetamine/Dextroamphetamine (Dextroamphetamine/Amphetamine Xr 10 Mg Cap.Er.24h) 40 mg PO DAILY [facility] Last Admin: 03/20/24 08:09 Dose: 40 mg Azelastine HCl (Azelastine Hcl Nasal 137 Mcg/[place] 30 Ml) 1 spray NOSTRIL-B BID [facility] Last Admin: 03/20/24 08:29 Dose: 1 spray Cariprazine (Cariprazine Hcl 1.5 Mg Capsule) 4.5 mg PO BEDTIME [facility] Last Admin: 03/19/24 20:54 Dose: 4.5 mg Clonidine HCl (Clonidine Hcl 0.1 Mg Tablet) 0.1 mg PO DAILY [facility]; Protocol Last Admin: 03/20/24 08:06 Dose: 0.1 mg Clonidine HCl (Clonidine Hcl 0.2 Mg Tablet) 0.2 mg PO BEDTIME [facility]; Protocol Last Admin: 03/19/24 20:57 Dose: 0.2 mg Famotidine (Famotidine 20 Mg Tablet) 20 mg PO BID [facility] Last Admin: 03/20/24 08:06 Dose: 20 mg Fluticasone Propionate (Fluticasone Propionate 100 Mcg Blst.W.Dev) 1 puff INHALE BID [facility] Last Admin: 03/20/24 08:29 Dose: 1 puff Gabapentin (Gabapentin 300 Mg Capsule) 300 mg PO BID PRN PRN Reason: anxiety Last Admin: 03/19/24 19:35 Dose: 300 mg Guaifenesin/Dextromethorphan (Guaifenesin Dm 600/30 1 Tab Tab.Er.12h) 2 tab PO Q12H PRN PRN Reason: cough Hydroxyzine HCl (Hydroxyzine Hcl 50 Mg Tablet) 50 mg PO Q6H PRN PRN Reason: Anxiety Last Admin: 03/18/24 20:07 Dose: 50 mg Lamotrigine (Lamotrigine 100 Mg Tablet) 200 mg PO BID [facility] Last Admin: 03/20/24 08:06 Dose: 200 mg Lidocaine (Lidocaine 4 % Patch Adh..Patch) 1 patch TRANSDERMA DAILY PRN; Protocol PRN Reason: right shoulder pain Last Admin: 03/20/24 09:16 Dose: 1 patch Loratadine (Loratadine 10 Mg Tablet) 10 mg PO DAILY [facility] Last Admin: 03/20/24 08:06 Dose: 10 mg Lorazepam (Lorazepam 1 Mg Tablet) 1 mg PO TID [facility] Last Admin: 03/20/24 12:17 Dose: Not Given Melatonin (Melatonin 3 Mg Tablet) 6 mg PO BEDTIME [facility] Last Admin: 03/19/24 20:55 Dose: 6 mg Naproxen (Naproxen 250 Mg Tablet) 250 mg PO BID [facility] Last Admin: 03/20/24 08:06 Dose: 250 mg Nicotine Polacrilex (Nicotine Polacrilex 2 Mg Gum) 4 mg BUCCAL Q2H PRN PRN Reason: Nicotine Cravings Nystatin (Nystatin Cream 15 Gm Tube) 1 appl TOPICAL BID PRN; Protocol PRN Reason: rash Olanzapine (Olanzapine 10 Mg Tablet) 10 mg PO BEDTIME [facility] Last Admin: 03/19/24 20:55 Dose: 10 mg Olanzapine (Olanzapine 5 Mg Tablet) 5 mg PO TID PRN PRN Reason: agitation Last Admin: 03/20/24 12:16 Dose: 5 mg Ondansetron HCl (Ondansetron Odt 4 Mg Tab.Rapdis) 4 mg TRANSLINGU Q8H PRN PRN Reason: vomiting Polyethylene Glycol (Polyethylene Glycol 3350 17 Gm Powd.Pack) 17 gm PO DAILY [facility] Last Admin: 03/20/24 08:29 Dose: 17 gm Sertraline HCl (Sertraline Hcl 50 Mg Tablet) 150 mg PO DAILY [facility] Last Admin: 03/20/24 08:06 Dose: 150 mg Sucralfate (Sucralfate 1 Gm Tablet) 1 gm PO QIDACHS [facility] Last Admin: 03/20/24 12:12 Dose: 1 gm Trazodone HCl (Trazodone Hcl 100 Mg Tablet) 100 mg PO BEDTIME [facility] Last Admin: 03/19/24 20:57 Dose: 100 mg Allergies Allergies Allergy/AdvReac Type Severity Reaction Status Date / Time haloperidol [From Haldol] Allergy Unknown Verified 02/28/24 20:52 lithium Allergy Unknown Verified 02/28/24 20:52 morphine Allergy Unknown Verified 02/28/24 20:52 strawberry Allergy Unknown Verified 02/28/24 20:52 divalproex sodium AdvReac Unknown other Verified 03/20/24 14:37 [From Depakote] Assessment & Plan Assessment & Plan (1) Intermittent explosive disorder: Status: Acute Code(s): F63.81 - Intermittent explosive disorder (2) Post-traumatic stress disorder, unspecified: Status: Acute Code(s): F43.10 - Post-traumatic stress disorder, unspecified (3) Mood disorder: Status: Acute Code(s): F39 - Unspecified mood [affective] disorder (4) Intellectual disability: Status: Acute Code(s): F79 - Unspecified intellectual disabilities (5) ADHD (attention deficit hyperactivity disorder): Status: Acute Code(s): F90.9 - Attention-deficit hyperactivity disorder, unspecified type (6) Psychogenic nonepileptic seizure: Status: Acute Code(s): F44.5 - Conversion disorder with seizures or convulsions Plan 29 yo female, under guardianship, resident [facility] a [facility] with history of intellectual disability, PTSD, nonepileptic seizures, GERD, chronic constipation, ADHD intermittent explosive disorder, and history of superficial self-harm including swallowing objects, recently discharged from (03/13/24) after patient swallowed several items requiring EGD, who returns the ED and now for admission the same day patient was discharged, citing emotional dysregulation during which time she swallowed a screw in a reported suicide attempt. Patient says that when she left she was overall feeling good enough. On the ride home, the truck driver instructor spelled of cannabis which she said triggered her asthma and made her very uncomfortable. When she got back to the [facility], she found several of her personal items removed (having been deemed swallowing risks) which made her feel emotional and angry. Patient said her frustration mounted and she felt like being so found a screw which she swallowed and superficially scratched her arm; after that her anger flared and she kicked the door of a peer and punched holes in the leon. Patient was sent to the emergency room. Patient said at the moment she wanted to but says those feelings are fully resolved and denies any SI or desires to self-harm. Patient says she is not sure what needs to change in order for her to stay safe. She said however that there is [place] outing to the beach scheduled [place] 04 and she wants to remain in good behavioral control so she does not miss it Regarding ingestion of screw, per GI, daily x-rays to monitor progress; allowed to have MiraLax (discussed with hospitalist WILLIAMS who reviewed with GI). Formulation/clinical reasoning: What ever was triggering, seems to have resolved at this time. Patient has long history of high expressed emotion, low tolerance for stress and poor coping skills; patient has a significant history of swallowing items when upset; some speculate behavior is done to get out of [facility] at times. Will consider some medication management but but it is also a consideration that further medication management will not resolve this chronic issue; rather consistent therapy and an expanded behavioral plan might be more effective. Hospital course: 03/18 patient says her mood is okay; not willing to engage much other than superficially Had a BM; screen still visible in GI tract 03/19 patient seems somewhat sad, intermittently irritable with peers or staff but overall remaining in behavioral and impulse control. Wants to discuss medication changes to help her stop flipping out. Asked technical writer to talk to outpatient provider -screw remains visible and GI tract 03/20 Patient tearful today, saying she misses her father and just wants to . She says I just want to be with him. Patient somewhat resistant to help coping with feelings but was willing to walk the bautista with technical writer and talk about it a little bit. Mostly that she misses him and anniversary of his is coming up. She reflects on the fact that despite she wanting to be so she can be with him, that he would not want her to hurt herself. Patient asked if she could have a p.r.n. and was able to wait calmly, the 15 minutes it took for this to be brought from the pharmacy. Cfo reaching out to patient's outpatient provider -screw remains sigmoid colon Plan: CV Q 15 minute checks Daily x-rays to follow progression of swallow to screw MiraLax daily; GI okayed Otherwise continue home medication including increased Zoloft and newly started Adderall Will discuss with outpatient team Patient educated on: diagnosis, medication risk/benefits, therapeutic strategies and medical condition Informed Consent: understands Reason for continued inpatient stay Substantial Risk for: rapid decompensation Time Spent With Patient Time: Total time managing care of this patient today ____ minutes.
[2024-03-20] MEDS: hydrOXYzine HCL 50 MG TABLET PO ×2 (16:50→19:59)
[2024-03-20] MEDS: cloNIDine HCL 0.2 MG TABLET PO (19:59)
[2024-03-20 20:00] VITALS: BP 120/68; PULSE 109; RESP 20; TEMP 36.9; O2SAT 98
[2024-03-20] MEDS: Acetaminophen 325 MG TABLET 650 MG PO (20:14)
[2024-03-20] MEDS: Gabapentin 300 MG CAPSULE PO (20:43)
[2024-03-20] MEDS: OLANZapine 10 MG TABLET PO (21:10)
[2024-03-20] MEDS: traZODone HCL 100 MG TABLET PO (21:11)
[2024-03-20] MEDS: Melatonin 3 MG TABLET 6 MG PO (21:11)
[2024-03-20] MEDS: Cariprazine HCl 1.5 MG CAPSULE 4.5 MG PO (21:11)
[2024-03-21 07:54] VITALS: BP 111/60; PULSE 88; RESP 18; TEMP 36.4; O2SAT 96
[2024-03-21] MEDS: LORazepam 1 MG TABLET PO ×3 (08:41→21:39)
[2024-03-21] MEDS: Famotidine 20 MG TABLET PO ×2 (08:41→21:39)
[2024-03-21] MEDS: lamoTRIgine 100 MG TABLET 200 MG PO ×2 (08:41→21:39)
[2024-03-21] MEDS: cloNIDine HCL 0.1 MG TABLET PO (08:41)
[2024-03-21] MEDS: Sucralfate 1 GM TABLET PO ×4 (08:41→21:40)
[2024-03-21] MEDS: Loratadine 10 MG TABLET PO (08:41)
[2024-03-21] MEDS: Dextroamphetamine/Amphetamine XR 10 MG CAP.ER.24H 40 MG PO (08:41)
[2024-03-21] MEDS: Fluticasone Propionate 100 MCG BLST.W.DEV 1 PUFF INHALE ×2 (08:42→22:13)
[2024-03-21] MEDS: NaPROXEN 250 MG TABLET PO ×2 (08:42→21:40)
[2024-03-21] MEDS: Sertraline HCL 50 MG TABLET 150 MG PO (08:42)
[2024-03-21] MEDS: Azelastine HCl Nasal 137 MCG/Spray 30 ML 1 SPRAY NOSTRIL-B ×2 (08:48→22:12)
[2024-03-21] MEDS: polyethylene glycoL 3350 17 GM POWD.PACK PO (08:49)
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
[2024-03-21] MEDS: Butalb/Acetamin/Caff 50/325/40 TABLET 2 TAB PO (12:34)
[2024-03-21] MEDS: OLANZapine 5 MG TABLET PO (18:38)
[2024-03-21 20:00] VITALS: BP 122/68; PULSE 110; RESP 18; TEMP 36.2; O2SAT 98
[2024-03-21] MEDS: Melatonin 3 MG TABLET 6 MG PO (21:39)
[2024-03-21] MEDS: traZODone HCL 100 MG TABLET PO (21:40)
[2024-03-21] MEDS: cloNIDine HCL 0.2 MG TABLET PO (21:41)
[2024-03-21] MEDS: OLANZapine 10 MG TABLET PO (21:41)
[2024-03-21] MEDS: Cariprazine HCl 1.5 MG CAPSULE 4.5 MG PO (21:41)
[2024-03-21] MEDS: LORazepam 2 MG/ML VIAL IM (22:50)
--- NOTE | 2024-03-21 23:08 | PM.EVENT ---
Event Note Date of Service: 03/21/24 Event Note: Informed by nursing: Pt head banging. Violent to staff when attempting to keep pt safe. Declining PO meds and other deescalation techniques. Escalated in intensity of self harm and violence towards staff. Intervention: IM Ativan 2mg given at 2200 with physical hold. Restraint chair initiated for ongoing/imminent safety concerns to patient and staff at 2300. Time Spent With Patient Time: Total time managing care of this patient today ____ minutes.
[2024-03-22] MEDS: Acetaminophen 325 MG TABLET 650 MG PO ×2 (00:08→15:56)
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
--- NOTE | 2024-03-22 08:42 | HO.PSYCHPN ---
Subjective Subjective Date of Service: 03/22/24 Reason For Visit: PTSD, Mood D/O, Intellectual Disability Interim History: Patient had restraint episode last night in the context of hurting self and also being aggressive towards staff. Right wrist has some swelling today in the context of restraint. X-ray unremarkable. Patient feeling more calm today. Intermittent thoughts of self-harm and suicide. Feeling supported on the unit today. No psychosis. Overall we discussed patient will work with primary team around new medication as they do not want Trileptal. Team had considered phenytoin. Otherwise will order wrist splint and lidocaine patch. Medication Compliance: Yes Side effects from medications: No Attending Groups: Intermittent Review of Systems Acute medical concerns: No Review of Systems Review of Systems Right wrist discomfort and swelling. Mental Status Exam Mental Status Exam Narrative: Pt is alert and oriented; behavior is cooperative, calm, dressed in casual attire with partially dyed hair, adequate hygiene/grooming; mood is described as down and affect down, constricted; eye contact appropriate; Speech is normal rate, volume, prosody; not pressured; no psychomotor retardation present; thought process organized and goal directed; Thought content is on medications, without any delusional content, paranoid ideations or grandiosity; intermittent SI and thoughts of self-harm, no plans or intent. No HI. There is no evidence of perceptual disturbance. Patients insight and judgment impaired but overall seems to be improving. Diagnostics Vital Signs (24Hr): Vital Signs - 24 hr 03/21/24 20:00 Temperature 97.1 F Pulse Rate 110 H Respiratory Rate 18 Blood Pressure 122/68 Pulse Oximetry 98 Oxygen Delivery Method Room Air Labs 03/22/24 09:14 03/22/24 09:14 Imaging Radiology Impressions: ITS Impressions Abdomen X-Ray 03/17/24 12:34 IMPRESSION: An ingested screw is seen in the vicinity of the cecum Abdomen X-Ray 03/18/24 08:31 IMPRESSION: An ingested screw is seen in the vicinity of the lower descending colon. Abdomen X-Ray 03/19/24 10:22 IMPRESSION: An ingested screw is seen in the vicinity of the proximal sigmoid colon. Abdomen X-Ray 03/20/24 08:17 IMPRESSION: An ingested screw is seen in the vicinity of the distal descending colon. Abdomen X-Ray 03/21/24 08:40 IMPRESSION: Metallic foreign body most consistent with a screw projects over the left abdomen similar to recent imaging. Hand/Wrist X-Ray 03/22/24 00:58 IMPRESSION: No acute findings identified in the right hand or wrist. Medications Medications Current Medications Acetaminophen (Acetaminophen 325 Mg Tablet) 650 mg PO Q6H PRN PRN Reason: Headache/Pain Mild Scale (1-3) Last Admin: 03/22/24 00:08 Dose: 650 mg Acetaminophen/Butalbital/Caffeine (Butalb/Acetamin/Caff 50/325/40 Tablet) 2 tab PO Q8H PRN PRN Reason: headache Last Admin: 03/21/24 12:34 Dose: 2 tab Al Hydroxide/Mg Hydroxide (Magnesium Hydrox/Alum Hydrox 30 Ml Oral.Susp) 30 ml PO Q6H PRN PRN Reason: Heartburn/Nausea Last Admin: 03/17/24 17:55 Dose: 30 ml Albuterol Sulfate (Albuterol Sulfate 90 Mcg 8 Gm Inhaler) 2 puff INHALE Q4H PRN PRN Reason: wheezing Amphetamine/Dextroamphetamine (Dextroamphetamine/Amphetamine Xr 10 Mg Cap.Er.24h) 40 mg PO DAILY [facility] Last Admin: 03/21/24 08:41 Dose: 40 mg Azelastine HCl (Azelastine Hcl Nasal 137 Mcg/Dozier 30 Ml) 1 spray NOSTRIL-B BID [facility] Last Admin: 03/21/24 22:12 Dose: 1 spray Cariprazine (Cariprazine Hcl 1.5 Mg Capsule) 4.5 mg PO BEDTIME [facility] Last Admin: 03/21/24 21:41 Dose: 4.5 mg Clonidine HCl (Clonidine Hcl 0.1 Mg Tablet) 0.1 mg PO DAILY [facility]; Protocol Last Admin: 03/21/24 08:41 Dose: 0.1 mg Clonidine HCl (Clonidine Hcl 0.2 Mg Tablet) 0.2 mg PO BEDTIME [facility]; Protocol Last Admin: 03/21/24 21:41 Dose: 0.2 mg Famotidine (Famotidine 20 Mg Tablet) 20 mg PO BID [facility] Last Admin: 03/21/24 21:39 Dose: 20 mg Fluticasone Propionate (Fluticasone Propionate 100 Mcg Blst.W.Dev) 1 puff INHALE BID [facility] Last Admin: 03/21/24 22:13 Dose: 1 puff Gabapentin (Gabapentin 300 Mg Capsule) 300 mg PO BID PRN PRN Reason: anxiety Last Admin: 03/20/24 20:43 Dose: 300 mg Guaifenesin/Dextromethorphan (Guaifenesin Dm 600/30 1 Tab Tab.Er.12h) 2 tab PO Q12H PRN PRN Reason: cough Hydroxyzine HCl (Hydroxyzine Hcl 50 Mg Tablet) 50 mg PO Q6H PRN PRN Reason: Anxiety Last Admin: 03/20/24 19:59 Dose: 50 mg Lamotrigine (Lamotrigine 100 Mg Tablet) 200 mg PO BID [facility] Last Admin: 03/21/24 21:39 Dose: 200 mg Lidocaine (Lidocaine 4 % Patch Adh..Patch) 1 patch TRANSDERMA DAILY PRN; Protocol PRN Reason: right shoulder pain Last Admin: 03/20/24 09:16 Dose: 1 patch Loratadine (Loratadine 10 Mg Tablet) 10 mg PO DAILY [facility] Last Admin: 03/21/24 08:41 Dose: 10 mg Lorazepam (Lorazepam 1 Mg Tablet) 1 mg PO TID [facility] Last Admin: 03/21/24 21:39 Dose: 1 mg Melatonin (Melatonin 3 Mg Tablet) 6 mg PO BEDTIME [facility] Last Admin: 03/21/24 21:39 Dose: 6 mg Naproxen (Naproxen 250 Mg Tablet) 250 mg PO BID [facility] Last Admin: 03/21/24 21:40 Dose: 250 mg Nicotine Polacrilex (Nicotine Polacrilex 2 Mg Gum) 4 mg BUCCAL Q2H PRN PRN Reason: Nicotine Cravings Nystatin (Nystatin Cream 15 Gm Tube) 1 appl TOPICAL BID PRN; Protocol PRN Reason: rash Olanzapine (Olanzapine 10 Mg Tablet) 10 mg PO BEDTIME [facility] Last Admin: 03/21/24 21:41 Dose: 10 mg Olanzapine (Olanzapine 5 Mg Tablet) 5 mg PO TID PRN PRN Reason: agitation Last Admin: 03/21/24 18:38 Dose: 5 mg Ondansetron HCl (Ondansetron Odt 4 Mg Tab.Rapdis) 4 mg TRANSLINGU Q8H PRN PRN Reason: vomiting Oxcarbazepine (Oxcarbazepine 150 Mg Tablet) 150 mg PO DAILY [facility] Last Admin: 03/21/24 08:46 Dose: Not Given Polyethylene Glycol (Polyethylene Glycol 3350 17 Gm Powd.Pack) 17 gm PO DAILY [facility] Last Admin: 03/21/24 08:49 Dose: 17 gm Sertraline HCl (Sertraline Hcl 50 Mg Tablet) 150 mg PO DAILY [facility] Last Admin: 03/21/24 08:42 Dose: 150 mg Sucralfate (Sucralfate 1 Gm Tablet) 1 gm PO QIDACHS [facility] Last Admin: 03/21/24 21:40 Dose: 1 gm Trazodone HCl (Trazodone Hcl 100 Mg Tablet) 100 mg PO BEDTIME [facility] Last Admin: 03/21/24 21:40 Dose: 100 mg Allergies Allergies Allergy/AdvReac Type Severity Reaction Status Date / Time haloperidol [From Haldol] Allergy Unknown Verified 02/28/24 20:52 lithium Allergy Unknown Verified 02/28/24 20:52 morphine Allergy Unknown Verified 02/28/24 20:52 strawberry Allergy Unknown Verified 02/28/24 20:52 divalproex sodium AdvReac Unknown other Verified 03/20/24 14:37 [From Depakote] Assessment & Plan Assessment & Plan (1) Intermittent explosive disorder: Status: Acute Code(s): F63.81 - Intermittent explosive disorder (2) Post-traumatic stress disorder, unspecified: Status: Acute Code(s): F43.10 - Post-traumatic stress disorder, unspecified (3) Mood disorder: Status: Acute Code(s): F39 - Unspecified mood [affective] disorder (4) Intellectual disability: Status: Acute Code(s): F79 - Unspecified intellectual disabilities (5) ADHD (attention deficit hyperactivity disorder): Status: Acute Code(s): F90.9 - Attention-deficit hyperactivity disorder, unspecified type (6) Psychogenic nonepileptic seizure: Status: Acute Code(s): F44.5 - Conversion disorder with seizures or convulsions Plan 29 yo female, under guardianship, resident of a [place] with history of intellectual disability, PTSD, nonepileptic seizures, GERD, chronic constipation, ADHD intermittent explosive disorder, and history of superficial self-harm including swallowing objects, recently discharged from (03/13/24) after patient swallowed several items requiring EGD, who returns the ED and now for admission the same day patient was discharged, citing emotional dysregulation during which time she swallowed a screw in a reported suicide attempt. Patient says that when she left [facility] she was overall feeling good enough. On the ride home, the form setter/driver spelled of cannabis which she said triggered her asthma and made her very uncomfortable. When she got back to the correction, she found several of her personal items removed (having been deemed swallowing risks) which made her feel emotional and angry. Patient said her frustration mounted and she felt like being so found a screw which she swallowed and superficially scratched her arm; after that her anger flared and she kicked the door of a peer and punched holes in the leon. Patient was sent to the emergency room. Patient said at the moment she wanted to but says those feelings are fully resolved and denies any SI or desires to self-harm. Patient says she is not sure what needs to change in order for her to stay safe. She said however that there is a special outing to the beach scheduled for [place] 04 and she wants to remain in good behavioral control so she does not miss it Regarding ingestion of screw, per GI, daily x-rays to monitor progress; allowed to have MiraLax (discussed with hospitalist WILLIAMS who reviewed with GI). Formulation/clinical reasoning: What ever was triggering, seems to have resolved at this time. Patient has long history of high expressed emotion, low tolerance for stress and poor coping skills; patient has a significant history of swallowing items when upset; some speculate behavior is done to get out of correction at times. Will consider some medication management but but it is also a consideration that further medication management will not resolve this chronic issue; rather consistent therapy and an expanded behavioral plan might be more effective. Hospital course: 03/18 patient says her mood is okay; not willing to engage much other than superficially Had a BM; screen still visible in GI tract 03/19 patient seems somewhat sad, intermittently irritable with peers or staff but overall remaining in behavioral and impulse control. Wants to discuss medication changes to help her stop flipping out. Asked leader writer to talk to outpatient provider -screw remains visible and GI tract 03/20 Patient tearful today, saying she misses her father and just wants to . She says I just want to be with him. Patient somewhat resistant to help coping with feelings but was willing to walk the bautista with leader writer and talk about it a little bit. Mostly that she misses him and anniversary of his is coming up. She reflects on the fact that despite she wanting to be so she can be with him, that he would not want her to hurt herself. Patient asked if she could have a p.r.n. and was able to wait calmly, the 15 minutes it took for this to be brought from the pharmacy. Loin Trimmer reaching out to patient's outpatient provider -screw remains sigmoid colon 03/21/24: continue daily xrays until screw passes. Reports does not want to take Trileptal has had a bad reaction when they were younger. Unable to specify details. Reports they might consider taking anther medication, but unsure if this was the medication discussed with their primary provider during the week. 03/22/24: Right wrist splints and lidocaine patch. Ice as needed. Overall we discussed patient will work with primary team around new medication as they do not want Trileptal. Team had considered phenytoin. Otherwise will order wrist splint and lidocaine patch. As per progress note 03/20/24: STARTING TRILEPTAL Loin Trimmer has been debating whether or not to allow patient to get to a therapeutic duration of Zoloft verse starting her on another medication used for intermittent explosive disorder. Review of up-to-date recommends next treatment option phenytoin. Only downside is that phenytoin frequently lowers the availability of Lamictal, Vraylar and Zyprexa Because of the medication interactions a phenytoin, leader writer thus considering Trileptal which is also a possible treatment, not with his much evidence as phenytoin but still statistically effective and without drug/drug interactions. Given the seriousness/severity of explosive episodes, resulting in swallowing items, risking increased danger to patient, will start Trileptal now rather than wait to achieve therapeutic duration of Zoloft (patient had adverse reaction to Depakote which was discontinued when she was a child; will monitor lab work and rash for patient) Plan: CV Q 15 minute checks Daily x-rays to follow progression of swallow to screw MiraLax daily; GI okayed Otherwise continue home medication including increased Zoloft and newly started Adderall Will discuss with outpatient team Reason for continued inpatient stay Substantial Risk for: harm to self Time Spent With Patient Time: Total time managing care of this patient today ____ minutes.
[2024-03-22] MEDS: Famotidine 20 MG TABLET PO ×2 (09:10→20:23)
[2024-03-22] MEDS: Sertraline HCL 50 MG TABLET 150 MG PO (09:10)
[2024-03-22] MEDS: LORazepam 1 MG TABLET PO ×3 (09:10→20:26)
[2024-03-22] MEDS: lamoTRIgine 100 MG TABLET 200 MG PO ×2 (09:10→20:23)
[2024-03-22] MEDS: Gabapentin 300 MG CAPSULE PO (09:10)
[2024-03-22] MEDS: Dextroamphetamine/Amphetamine XR 10 MG CAP.ER.24H 40 MG PO (09:11)
[2024-03-22] MEDS: Loratadine 10 MG TABLET PO (09:11)
[2024-03-22] MEDS: NaPROXEN 250 MG TABLET PO ×2 (09:11→20:23)
[2024-03-22] MEDS: Fluticasone Propionate 100 MCG BLST.W.DEV 1 PUFF INHALE ×2 (09:15→20:29)
[2024-03-22] MEDS: polyethylene glycoL 3350 17 GM POWD.PACK PO (09:15)
[2024-03-22] MEDS: Azelastine HCl Nasal 137 MCG/Spray 30 ML 1 SPRAY NOSTRIL-B ×2 (09:15→20:29)
[2024-03-22] MEDS: Sucralfate 1 GM TABLET PO ×4 (09:15→20:23)
[2024-03-22 09:18] LABS: MANUAL DIFF FLAG NO
[2024-03-22 09:23] LABS: Basophils Absolute Auto 0.1 X10*3/uL (0.0-0.2); Eosinophils Absolute Auto 0.3 X10*3/uL (0.0-0.4); Eosinophils Percent Auto 4.2 % (0-4); Hematocrit 35.7 % (37.0-47.0); Hemoglobin 11.9 g/dl (12.0-16.0); Imm Gran Abs Auto 0.03 X10*3/uL (0.00-0.03); Imm Gran Pct Auto 0.4 % (0.0-0.4); Lymphocytes Absolute Auto 2.1 X10*3/uL (1.2-4.9); Lymphocytes Percent Auto 26.1 % (20-40); Mean Corpuscular HGB Conc 33.3 g/dl (31.0-35.0); Mean Corpuscular Hemoglobin 27.6 pg (27.0-33.0); Mean Corpuscular Volume 82.8 fL (80.0-98.0); Mean Platelet Volume 9.8 fL (9.4-12.3); Monocytes Absolute Auto 0.7 X10*3/uL (0.1-1.2); Monocytes Percent Auto 8.6 % (2-11); Neutrophils Absolute Auto 4.9 x10*3/uL (2.0-8.3); Neutrophils Percent Auto 59.7 % (45-73); Platelet Count 341 X10*3/uL (160-400); Red Blood Count 4.31 X10*6/uL (4.20-5.50); Red Cell Distribution Width 13.1 % (11.0-16.0); White Blood Count 8.2 X10*3/uL (4.8-10.8)
[2024-03-22 09:24] VITALS: BP 109/70; PULSE 78; RESP 17; TEMP 36.7; O2SAT 97
[2024-03-22] MEDS: cloNIDine HCL 0.1 MG TABLET PO (09:24)
[2024-03-22 09:37] LABS: Alanine Aminotransferase 16 U/L (0-31); Albumin Level 4.1 g/dL (3.5-5.0); Alkaline Phosphatase 143 U/L (39-117); Anion Gap 11 (12-20); Aspartate Amino Transferase 17 U/L (5-31); Bilirubin Total 0.1 mg/dL (0.0-1.0); Blood Urea Nitrogen 11 mg/dL (9-16); Calcium 8.8 mg/dL (8.4-10.2); Carbon Dioxide 23 mmol/L (22-29); Chloride 109 mmol/L (96-108); Estimated Glomerular Filt Rate > 60; Glucose Random 110 mg/dL (60-115); Sodium 139 mmol/L (135-145); Total Protein 6.5 g/dL (6.5-8.0)
--- NOTE | 2024-03-22 10:19 | PM.EVENT ---
Event Note Date of Service: 03/22/24 Event Note: Ingested screw no longer seen on imaging. Patient has passed the screw. NO abd pain, n/v. Will dc further imaging Thank you for allowing me to participate in this consult. Signing off at this time. Please do not hesitate to call for further questions or for any acute medical issues Time Spent With Patient Time: Total time managing care of this patient today ____ minutes.
[2024-03-22] MEDS: Lidocaine 4 % Patch ADH..PATCH 2 PATCH TRANSDERMA (10:20)
[2024-03-22] MEDS: hydrOXYzine HCL 50 MG TABLET PO (18:07)
[2024-03-22 19:46] VITALS: BP 118/63; PULSE 94; TEMP 36.5; O2SAT 96
[2024-03-22] MEDS: Melatonin 3 MG TABLET 6 MG PO (20:23)
[2024-03-22] MEDS: traZODone HCL 100 MG TABLET PO (20:23)
[2024-03-22] MEDS: Cariprazine HCl 1.5 MG CAPSULE 4.5 MG PO (20:23)
[2024-03-22] MEDS: cloNIDine HCL 0.2 MG TABLET PO (20:24)
[2024-03-22] MEDS: OLANZapine 10 MG TABLET PO (20:24)
[2024-03-23 07:30] VITALS: BP 106/59; PULSE 75; RESP 15; TEMP 36.4; O2SAT 97
[2024-03-23] MEDS: polyethylene glycoL 3350 17 GM POWD.PACK PO (08:45)
[2024-03-23] MEDS: Azelastine HCl Nasal 137 MCG/Spray 30 ML 1 SPRAY NOSTRIL-B ×2 (08:46→20:34)
[2024-03-23] MEDS: Fluticasone Propionate 100 MCG BLST.W.DEV 1 PUFF INHALE ×2 (08:46→20:34)
[2024-03-23] MEDS: Sertraline HCL 50 MG TABLET 150 MG PO (08:48)
[2024-03-23] MEDS: lamoTRIgine 100 MG TABLET 200 MG PO ×2 (08:48→20:38)
[2024-03-23] MEDS: Dextroamphetamine/Amphetamine XR 10 MG CAP.ER.24H 40 MG PO (08:48)
[2024-03-23] MEDS: Lidocaine 4 % Patch ADH..PATCH 1 PATCH TRANSDERMA ×3 (08:48→20:57)
[2024-03-23] MEDS: Sucralfate 1 GM TABLET PO ×4 (08:48→20:39)
[2024-03-23] MEDS: Famotidine 20 MG TABLET PO ×2 (08:48→20:58)
[2024-03-23 08:49] VITALS: BP 106/59
[2024-03-23] MEDS: NaPROXEN 250 MG TABLET PO ×2 (08:49→20:38)
[2024-03-23] MEDS: Loratadine 10 MG TABLET PO (08:49)
[2024-03-23] MEDS: OXcarbazepine 150 MG TABLET PO (08:49)
[2024-03-23] MEDS: cloNIDine HCL 0.1 MG TABLET PO (08:49)
[2024-03-23] MEDS: LORazepam 1 MG TABLET PO ×3 (08:50→20:39)
[2024-03-23] MEDS: Butalb/Acetamin/Caff 50/325/40 TABLET 2 TAB PO (13:23)
[2024-03-23] MEDS: Ondansetron ODT 4 MG TAB.RAPDIS TRANSLINGU (13:43)
--- NOTE | 2024-03-23 16:25 | HO.PSYCHPN ---
Subjective Subjective Date of Service: 03/23/24 Reason For Visit: PTSD, Mood D/O, Intellectual Disability Subjective Notes: Conditional Voluntary Healthcare Proxy: No Guardianship: No Medical Problems Affecting Mental Status: No Interim History: Reports a difficult weekend, I got restrained I don't remember why. Talked of her refusal of Trileptal. No recall as to what kind of reaction she had, and will not re-trial. Please find another medicine to help me. Medication Compliance: Yes Side effects from medications: No Attending Groups: Intermittent Review of Systems Acute medical concerns: No Medical Review of Systems: unchanged Review of Systems Review of Systems Yes all other systems are reviewed and are negative Mental Status Exam Mental Status Exam Patient Appearance: Appropriate Patient Orientation: Person, Place, Time and Situation Level of Consciousness: Alert Patient Behavior: Anxious and Good Eye Contact Mood Description: Apprehensive Affect Description: Apprehensive Patient Cognition Impaired: Yes Ability to Follow Directions: Fair Speech Pattern: Spontaneous Speech Memory Description: Episodic Impaired Thought Process: Rumination Thought Content: positive for Perseveration Depressive Symptoms: Increased Anxiety Judgement: Fair Diagnostics Vital Signs (24Hr): Vital Signs - 24 hr 03/22/24 19:46 03/23/24 07:30 03/23/24 08:49 Temperature 97.7 F 97.6 F Pulse Rate 94 75 Respiratory Rate 15 Blood Pressure 118/63 106/59 L 106/59 L Pulse Oximetry 96 97 Oxygen Delivery Method Room Air Room Air Labs 03/22/24 09:14 03/22/24 09:14 Labs: Laboratory Results - last 48 hr 03/22/24 09:14 WBC 8.2 RBC 4.31 Hgb 11.9 L Hct 35.7 L MCV 82.8 MCH 27.6 MCHC 33.3 RDW 13.1 Plt Count 341 MPV 9.8 Immature Gran % (Auto) 0.4 Neut % (Auto) 59.7 Lymph % (Auto) 26.1 Clare % (Auto) 8.6 Eos % (Auto) 4.2 H Baso % (Auto) 1.0 Lymph # (Auto) 2.1 Clare # (Auto) 0.7 Eos # (Auto) 0.3 Baso # (Auto) 0.1 Abs Immat Gran (auto) 0.03 Absolute Neuts (auto) 4.9 Absolute Nucleated RBC 0.000 Nucleated RBC % (auto) 0.0 Sodium 139 Potassium 4.0 Chloride 109 H Carbon Dioxide 23 Anion Gap 11 L BUN 11 Creatinine 0.70 Estim Creat Clear Calc TNP Estimated GFR > 60 Random Glucose 110 Calcium 8.8 Total Bilirubin 0.1 AST 17 ALT 16 Alkaline Phosphatase 143 H Total Protein 6.5 Albumin 4.1 Imaging Radiology Impressions: ITS Impressions Abdomen X-Ray 03/17/24 12:34 IMPRESSION: An ingested screw is seen in the vicinity of the cecum Abdomen X-Ray 03/18/24 08:31 IMPRESSION: An ingested screw is seen in the vicinity of the lower descending colon. Abdomen X-Ray 03/19/24 10:22 IMPRESSION: An ingested screw is seen in the vicinity of the proximal sigmoid colon. Abdomen X-Ray 03/20/24 08:17 IMPRESSION: An ingested screw is seen in the vicinity of the distal descending colon. Abdomen X-Ray 03/21/24 08:40 IMPRESSION: Metallic foreign body most consistent with a screw projects over the left abdomen similar to recent imaging. Hand/Wrist X-Ray 03/22/24 00:58 IMPRESSION: No acute findings identified in the right hand or wrist. Medications Medications Current Medications Acetaminophen (Acetaminophen 325 Mg Tablet) 650 mg PO Q6H PRN PRN Reason: Headache/Pain Mild Scale (1-3) Last Admin: 03/22/24 15:56 Dose: 650 mg Acetaminophen/Butalbital/Caffeine (Butalb/Acetamin/Caff 50/325/40 Tablet) 2 tab PO Q8H PRN PRN Reason: headache Last Admin: 03/23/24 13:23 Dose: 2 tab Al Hydroxide/Mg Hydroxide (Magnesium Hydrox/Alum Hydrox 30 Ml Oral.Susp) 30 ml PO Q6H PRN PRN Reason: Heartburn/Nausea Last Admin: 03/17/24 17:55 Dose: 30 ml Albuterol Sulfate (Albuterol Sulfate 90 Mcg 8 Gm Inhaler) 2 puff INHALE Q4H PRN PRN Reason: wheezing Amphetamine/Dextroamphetamine (Dextroamphetamine/Amphetamine Xr 10 Mg Cap.Er.24h) 40 mg PO DAILY [facility] Last Admin: 03/23/24 08:48 Dose: 40 mg Azelastine HCl (Azelastine Hcl Nasal 137 Mcg/[place] 30 Ml) 1 spray NOSTRIL-B BID [facility] Last Admin: 03/23/24 08:46 Dose: 1 spray Cariprazine (Cariprazine Hcl 1.5 Mg Capsule) 4.5 mg PO BEDTIME [facility] Last Admin: 03/22/24 20:23 Dose: 4.5 mg Clonidine HCl (Clonidine Hcl 0.1 Mg Tablet) 0.1 mg PO DAILY [facility]; Protocol Last Admin: 03/23/24 08:49 Dose: 0.1 mg Clonidine HCl (Clonidine Hcl 0.2 Mg Tablet) 0.2 mg PO BEDTIME [facility]; Protocol Last Admin: 03/22/24 20:24 Dose: 0.2 mg Famotidine (Famotidine 20 Mg Tablet) 20 mg PO BID [facility] Last Admin: 03/23/24 08:48 Dose: 20 mg Fluticasone Propionate (Fluticasone Propionate 100 Mcg Blst.W.Dev) 1 puff INHALE BID [facility] Last Admin: 03/23/24 08:46 Dose: 1 puff Gabapentin (Gabapentin 300 Mg Capsule) 300 mg PO BID PRN PRN Reason: anxiety Last Admin: 03/22/24 09:10 Dose: 300 mg Guaifenesin/Dextromethorphan (Guaifenesin Dm 600/30 1 Tab Tab.Er.12h) 2 tab PO Q12H PRN PRN Reason: cough Hydroxyzine HCl (Hydroxyzine Hcl 50 Mg Tablet) 50 mg PO Q6H PRN PRN Reason: Anxiety Last Admin: 03/22/24 18:07 Dose: 50 mg Lamotrigine (Lamotrigine 100 Mg Tablet) 200 mg PO BID [facility] Last Admin: 03/23/24 08:48 Dose: 200 mg Lidocaine (Lidocaine 4 % Patch Adh..Patch) 1 patch TRANSDERMA DAILY PRN; Protocol PRN Reason: right shoulder and right wrist Last Admin: 03/23/24 09:40 Dose: 1 patch Lidocaine (Lidocaine 4 % Patch Adh..Patch) 2 patch TRANSDERMA DAILY [facility]; Protocol Loratadine (Loratadine 10 Mg Tablet) 10 mg PO DAILY [facility] Last Admin: 03/23/24 08:49 Dose: 10 mg Lorazepam (Lorazepam 1 Mg Tablet) 1 mg PO TID [facility] Last Admin: 03/23/24 15:06 Dose: 1 mg Melatonin (Melatonin 3 Mg Tablet) 6 mg PO BEDTIME [facility] Last Admin: 03/22/24 20:23 Dose: 6 mg Naproxen (Naproxen 250 Mg Tablet) 250 mg PO BID [facility] Last Admin: 03/23/24 08:49 Dose: 250 mg Nicotine Polacrilex (Nicotine Polacrilex 2 Mg Gum) 4 mg BUCCAL Q2H PRN PRN Reason: Nicotine Cravings Nystatin (Nystatin Cream 15 Gm Tube) 1 appl TOPICAL BID PRN; Protocol PRN Reason: rash Olanzapine (Olanzapine 10 Mg Tablet) 10 mg PO BEDTIME [facility] Last Admin: 03/22/24 20:24 Dose: 10 mg Olanzapine (Olanzapine 5 Mg Tablet) 5 mg PO TID PRN PRN Reason: agitation Last Admin: 03/21/24 18:38 Dose: 5 mg Ondansetron HCl (Ondansetron Odt 4 Mg Tab.Rapdis) 4 mg TRANSLINGU Q8H PRN PRN Reason: vomiting Last Admin: 03/23/24 13:43 Dose: 4 mg Oxcarbazepine (Oxcarbazepine 150 Mg Tablet) 150 mg PO DAILY [facility] Last Admin: 03/23/24 08:49 Dose: 150 mg Polyethylene Glycol (Polyethylene Glycol 3350 17 Gm Powd.Pack) 17 gm PO DAILY [facility] Last Admin: 03/23/24 08:45 Dose: 17 gm Sertraline HCl (Sertraline Hcl 50 Mg Tablet) 150 mg PO DAILY [facility] Last Admin: 03/23/24 08:48 Dose: 150 mg Sucralfate (Sucralfate 1 Gm Tablet) 1 gm PO QIDACHS [facility] Last Admin: 03/23/24 10:56 Dose: 1 gm Trazodone HCl (Trazodone Hcl 100 Mg Tablet) 100 mg PO BEDTIME [facility] Last Admin: 03/22/24 20:23 Dose: 100 mg Allergies Allergies Allergy/AdvReac Type Severity Reaction Status Date / Time haloperidol [From Haldol] Allergy Unknown Verified 02/28/24 20:52 lithium Allergy Unknown Verified 02/28/24 20:52 morphine Allergy Unknown Verified 02/28/24 20:52 strawberry Allergy Unknown Verified 02/28/24 20:52 divalproex sodium AdvReac Unknown other Verified 03/20/24 14:37 [From Depakote] Assessment & Plan Assessment & Plan (1) Intermittent explosive disorder: Status: Acute Code(s): F63.81 - Intermittent explosive disorder (2) Post-traumatic stress disorder, unspecified: Status: Acute Code(s): F43.10 - Post-traumatic stress disorder, unspecified (3) Mood disorder: Status: Acute Code(s): F39 - Unspecified mood [affective] disorder (4) Intellectual disability: Status: Acute Code(s): F79 - Unspecified intellectual disabilities (5) ADHD (attention deficit hyperactivity disorder): Status: Acute Code(s): F90.9 - Attention-deficit hyperactivity disorder, unspecified type (6) Psychogenic nonepileptic seizure: Status: Acute Code(s): F44.5 - Conversion disorder with seizures or convulsions Plan 29 yo female, under guardianship, resident [facility] a [facility] with history of intellectual disability, PTSD, nonepileptic seizures, GERD, chronic constipation, ADHD intermittent explosive disorder, and history of superficial self-harm including swallowing objects, recently discharged from (03/13/24) after patient swallowed several items requiring EGD, who returns the ED and now for admission the same day patient was discharged, citing emotional dysregulation during which time she swallowed a screw in a reported suicide attempt. Patient says that when she left she was overall feeling good enough. On the ride home, the refrigerated national truck driver spelled of cannabis which she said triggered her asthma and made her very uncomfortable. When she got back to the jail, she found several of her personal items removed (having been deemed swallowing risks) which made her feel emotional and angry. Patient said her frustration mounted and she felt like being so found a screw which she swallowed and superficially scratched her arm; after that her anger flared and she kicked the door of a peer and punched holes in the leon. Patient was sent to the emergency room. Patient said at the moment she wanted to but says those feelings are fully resolved and denies any SI or desires to self-harm. Patient says she is not sure what needs to change in order for her to stay safe. She said however that there is a special outing to the beach scheduled for [place] 04 and she wants to remain in good behavioral control so she does not miss it Regarding ingestion of screw, per GI, daily x-rays to monitor progress; allowed to have MiraLax (discussed with hospitalist WILLIAMS who reviewed with GI). Formulation/clinical reasoning: What ever was triggering, seems to have resolved at this time. Patient has long history of high expressed emotion, low tolerance for stress and poor coping skills; patient has a significant history of swallowing items when upset; some speculate behavior is done to get out of jail at times. Will consider some medication management but but it is also a consideration that further medication management will not resolve this chronic issue; rather consistent therapy and an expanded behavioral plan might be more effective. Hospital course: 03/18 patient says her mood is okay; not willing to engage much other than superficially Had a BM; screen still visible in GI tract 03/19 patient seems somewhat sad, intermittently irritable with peers or staff but overall remaining in behavioral and impulse control. Wants to discuss medication changes to help her stop flipping out. Asked personal lines underwriter to talk to outpatient provider -screw remains visible and GI tract 03/20 Patient tearful today, saying she misses her father and just wants to . She says I just want to be with him. Patient somewhat resistant to help coping with feelings but was willing to walk the bautista with personal lines underwriter and talk about it a little bit. Mostly that she misses him and anniversary of his is coming up. She reflects on the fact that despite she wanting to be so she can be with him, that he would not want her to hurt herself. Patient asked if she could have a p.r.n. and was able to wait calmly, the 15 minutes it took for this to be brought from the pharmacy. Agricultural Service Worker reaching out to patient's outpatient provider -screw remains sigmoid colon 03/21/24: continue daily xrays until screw passes. Reports does not want to take Trileptal has had a bad reaction when they were younger. Unable to specify details. Reports they might consider taking anther medication, but unsure if this was the medication discussed with their primary provider during the week. 03/22/24: Right wrist splints and lidocaine patch. Ice as needed. Overall we discussed patient will work with primary team around new medication as they do not want Trileptal. Team had considered phenytoin. Otherwise will order wrist splint and lidocaine patch. As per progress note 03/20/24: STARTING TRILEPTAL Agricultural Service Worker has been debating whether or not to allow patient to get to a therapeutic duration of Zoloft verse starting her on another medication used for intermittent explosive disorder. Review of up-to-date recommends next treatment option phenytoin. Only downside is that phenytoin frequently lowers the availability of Lamictal, Vraylar and Zyprexa Because of the medication interactions a phenytoin, personal lines underwriter thus considering Trileptal which is also a possible treatment, not with his much evidence as phenytoin but still statistically effective and without drug/drug interactions. Given the seriousness/severity of explosive episodes, resulting in swallowing items, risking increased danger to patient, will start Trileptal now rather than wait to achieve therapeutic duration of Zoloft (patient had adverse reaction to Depakote which was discontinued when she was a child; will monitor lab work and rash for patient) 03/23: Discussed Trileptal refusal with pt today. Will present other options for her consideration. Plan: CV Q 15 minute checks Daily x-rays to follow progression of swallow to screw MiraLax daily; GI okayed Otherwise continue home medication including increased Zoloft and newly started Adderall Will discuss with outpatient team Reason for continued inpatient stay Substantial Risk for: rapid decompensation Time Spent With Patient Time: Total time managing care of this patient today ____ minutes.
[2024-03-23 20:00] VITALS: BP 124/88; PULSE 93; TEMP 36.7; O2SAT 98
[2024-03-23] MEDS: Cariprazine HCl 1.5 MG CAPSULE 4.5 MG PO (20:34)
[2024-03-23] MEDS: Melatonin 3 MG TABLET 6 MG PO (20:38)
[2024-03-23] MEDS: cloNIDine HCL 0.2 MG TABLET PO (20:39)
[2024-03-23] MEDS: OLANZapine 10 MG TABLET PO (20:39)
[2024-03-23] MEDS: traZODone HCL 100 MG TABLET PO (20:39)
--- NOTE | 2024-03-23 22:13 | PC.NURSE ---
PRN Lidocaine patch requested by patient for R shoulder pain. Patch had been applied this morning then removed when patient took shower. Will monitor for effect.
[2024-03-24 08:00] VITALS: BP 93/54; PULSE 80; RESP 17; TEMP 36.1; O2SAT 98
[2024-03-24] MEDS: Azelastine HCl Nasal 137 MCG/Spray 30 ML 1 SPRAY NOSTRIL-B ×2 (08:58→20:05)
[2024-03-24] MEDS: Fluticasone Propionate 100 MCG BLST.W.DEV 1 PUFF INHALE ×2 (08:58→20:05)
[2024-03-24] MEDS: Sertraline HCL 50 MG TABLET 150 MG PO (08:59)
[2024-03-24] MEDS: Famotidine 20 MG TABLET PO ×2 (08:59→20:03)
[2024-03-24] MEDS: NaPROXEN 250 MG TABLET PO ×2 (08:59→20:03)
[2024-03-24] MEDS: LORazepam 1 MG TABLET PO ×3 (09:00→20:03)
[2024-03-24] MEDS: Sucralfate 1 GM TABLET PO ×4 (09:00→20:03)
[2024-03-24] MEDS: Loratadine 10 MG TABLET PO (09:00)
[2024-03-24] MEDS: cloNIDine HCL 0.1 MG TABLET PO (09:01)
[2024-03-24] MEDS: Lidocaine 4 % Patch ADH..PATCH 2 PATCH TRANSDERMA (09:01)
[2024-03-24] MEDS: lamoTRIgine 100 MG TABLET 200 MG PO ×2 (09:02→20:03)
[2024-03-24] MEDS: polyethylene glycoL 3350 17 GM POWD.PACK PO (09:04)
[2024-03-24] MEDS: Dextroamphetamine/Amphetamine XR 10 MG CAP.ER.24H 40 MG PO (09:10)
--- NOTE | 2024-03-24 11:51 | HO.PSYCHPN ---
Subjective Subjective Date of Service: 03/24/24 Reason For Visit: PTSD, Mood D/O, Intellectual Disability Subjective Notes: Conditional Voluntary Healthcare Proxy: No Guardianship: No Medical Problems Affecting Mental Status: No Interim History: Reviewed with pt potential treatment interventions/medications for intermittent explosive disorder. Discussed SSRI's, Dilantin, [place], Trileptal, Tegretol. Pt refusing of all for valid rationales of adverse effects by history. Discussed possible increase of Olanzapine which she agrees with. Will begin with 10 mg increase in the a.m. keeping h.s. dose consistent. Discussed potential for sedation and dose consolidation at hs. Pt would like to begin with bid dosing which we will initiate for 03/25. Medication Compliance: Yes Side effects from medications: No Attending Groups: Yes Review of Systems Acute medical concerns: No Medical Review of Systems: unchanged Review of Systems Review of Systems Yes all other systems are reviewed and are negative Mental Status Exam Mental Status Exam Patient Appearance: Appropriate Patient Orientation: Person, Place, Time and Situation Level of Consciousness: Alert Patient Behavior: Anxious and Good Eye Contact Mood Description: Apprehensive Affect Description: Apprehensive Patient Cognition Impaired: Yes Ability to Follow Directions: Fair Speech Pattern: Spontaneous Speech Memory Description: Episodic Impaired Thought Process: Rumination Thought Content: positive for Perseveration Depressive Symptoms: Increased Anxiety Judgement: Fair Diagnostics Vital Signs (24Hr): Vital Signs - 24 hr 03/23/24 20:00 03/24/24 08:00 Temperature 98.0 F 96.9 F Pulse Rate 93 80 Respiratory Rate 17 Blood Pressure 124/88 93/54 L Pulse Oximetry 98 98 Oxygen Delivery Method Room Air Room Air Labs 03/22/24 09:14 03/22/24 09:14 Imaging Radiology Impressions: ITS Impressions Abdomen X-Ray 03/17/24 12:34 IMPRESSION: An ingested screw is seen in the vicinity of the cecum Abdomen X-Ray 03/18/24 08:31 IMPRESSION: An ingested screw is seen in the vicinity of the lower descending colon. Abdomen X-Ray 03/19/24 10:22 IMPRESSION: An ingested screw is seen in the vicinity of the proximal sigmoid colon. Abdomen X-Ray 03/20/24 08:17 IMPRESSION: An ingested screw is seen in the vicinity of the distal descending colon. Abdomen X-Ray 03/21/24 08:40 IMPRESSION: Metallic foreign body most consistent with a screw projects over the left abdomen similar to recent imaging. Abdomen X-Ray 03/22/24 00:58 IMPRESSION: Unremarkable examination. The previously noted ingested screw is not redemonstrated and appears to have passed. Hand/Wrist X-Ray 03/22/24 00:58 IMPRESSION: No acute findings identified in the right hand or wrist. Medications Medications Current Medications Acetaminophen (Acetaminophen 325 Mg Tablet) 650 mg PO Q6H PRN PRN Reason: Headache/Pain Mild Scale (1-3) Last Admin: 03/22/24 15:56 Dose: 650 mg Acetaminophen/Butalbital/Caffeine (Butalb/Acetamin/Caff 50/325/40 Tablet) 2 tab PO Q8H PRN PRN Reason: headache Last Admin: 03/23/24 13:23 Dose: 2 tab Al Hydroxide/Mg Hydroxide (Magnesium Hydrox/Alum Hydrox 30 Ml Oral.Susp) 30 ml PO Q6H PRN PRN Reason: Heartburn/Nausea Last Admin: 03/17/24 17:55 Dose: 30 ml Albuterol Sulfate (Albuterol Sulfate 90 Mcg 8 Gm Inhaler) 2 puff INHALE Q4H PRN PRN Reason: wheezing Amphetamine/Dextroamphetamine (Dextroamphetamine/Amphetamine Xr 10 Mg Cap.Er.24h) 40 mg PO DAILY [facility] Last Admin: 03/24/24 09:10 Dose: 40 mg Azelastine HCl (Azelastine Hcl Nasal 137 Mcg/[place] 30 Ml) 1 spray NOSTRIL-B BID [facility] Last Admin: 03/24/24 08:58 Dose: 1 spray Cariprazine (Cariprazine Hcl 1.5 Mg Capsule) 4.5 mg PO BEDTIME JUAN Last Admin: 03/23/24 20:34 Dose: 4.5 mg Clonidine HCl (Clonidine Hcl 0.1 Mg Tablet) 0.1 mg PO DAILY [facility]; Protocol Last Admin: 03/24/24 09:01 Dose: 0.1 mg Clonidine HCl (Clonidine Hcl 0.2 Mg Tablet) 0.2 mg PO BEDTIME JUAN; Protocol Last Admin: 03/23/24 20:39 Dose: 0.2 mg Famotidine (Famotidine 20 Mg Tablet) 20 mg PO BID [facility] Last Admin: 03/24/24 08:59 Dose: 20 mg Fluticasone Propionate (Fluticasone Propionate 100 Mcg Blst.W.Dev) 1 puff INHALE BID [facility] Last Admin: 03/24/24 08:58 Dose: 1 puff Gabapentin (Gabapentin 300 Mg Capsule) 300 mg PO BID PRN PRN Reason: anxiety Last Admin: 03/22/24 09:10 Dose: 300 mg Guaifenesin/Dextromethorphan (Guaifenesin Dm 600/30 1 Tab Tab.Er.12h) 2 tab PO Q12H PRN PRN Reason: cough Hydroxyzine HCl (Hydroxyzine Hcl 50 Mg Tablet) 50 mg PO Q6H PRN PRN Reason: Anxiety Last Admin: 03/22/24 18:07 Dose: 50 mg Lamotrigine (Lamotrigine 100 Mg Tablet) 200 mg PO BID [facility] Last Admin: 03/24/24 09:02 Dose: 200 mg Lidocaine (Lidocaine 4 % Patch Adh..Patch) 1 patch TRANSDERMA DAILY PRN; Protocol PRN Reason: right shoulder and right wrist Last Admin: 03/23/24 20:57 Dose: 1 patch Lidocaine (Lidocaine 4 % Patch Adh..Patch) 2 patch TRANSDERMA DAILY [facility]; Protocol Last Admin: 03/24/24 09:01 Dose: 1 patch Loratadine (Loratadine 10 Mg Tablet) 10 mg PO DAILY [facility] Last Admin: 03/24/24 09:00 Dose: 10 mg Lorazepam (Lorazepam 1 Mg Tablet) 1 mg PO TID [facility] Last Admin: 03/24/24 09:00 Dose: 1 mg Melatonin (Melatonin 3 Mg Tablet) 6 mg PO BEDTIME [facility] Last Admin: 03/23/24 20:38 Dose: 6 mg Naproxen (Naproxen 250 Mg Tablet) 250 mg PO BID [facility] Last Admin: 03/24/24 08:59 Dose: 250 mg Nicotine Polacrilex (Nicotine Polacrilex 2 Mg Gum) 4 mg BUCCAL Q2H PRN PRN Reason: Nicotine Cravings Nystatin (Nystatin Cream 15 Gm Tube) 1 appl TOPICAL BID PRN; Protocol PRN Reason: rash Olanzapine (Olanzapine 10 Mg Tablet) 10 mg PO BEDTIME [facility] Last Admin: 03/23/24 20:39 Dose: 10 mg Olanzapine (Olanzapine 5 Mg Tablet) 5 mg PO TID PRN PRN Reason: agitation Last Admin: 03/21/24 18:38 Dose: 5 mg Ondansetron HCl (Ondansetron Odt 4 Mg Tab.Rapdis) 4 mg TRANSLINGU Q8H PRN PRN Reason: vomiting Last Admin: 03/23/24 13:43 Dose: 4 mg Oxcarbazepine (Oxcarbazepine 150 Mg Tablet) 150 mg PO DAILY [facility] Last Admin: 03/24/24 09:04 Dose: Not Given Polyethylene Glycol (Polyethylene Glycol 3350 17 Gm Powd.Pack) 17 gm PO DAILY [facility] Last Admin: 03/24/24 09:04 Dose: 17 gm Sertraline HCl (Sertraline Hcl 50 Mg Tablet) 150 mg PO DAILY [facility] Last Admin: 03/24/24 08:59 Dose: 150 mg Sucralfate (Sucralfate 1 Gm Tablet) 1 gm PO QIDACHS [facility] Last Admin: 03/24/24 09:00 Dose: 1 gm Trazodone HCl (Trazodone Hcl 100 Mg Tablet) 100 mg PO BEDTIME [facility] Last Admin: 03/23/24 20:39 Dose: 100 mg Allergies Allergies Allergy/AdvReac Type Severity Reaction Status Date / Time haloperidol [From Haldol] Allergy Unknown Verified 02/28/24 20:52 lithium Allergy Unknown Verified 02/28/24 20:52 morphine Allergy Unknown Verified 02/28/24 20:52 strawberry Allergy Unknown Verified 02/28/24 20:52 divalproex sodium AdvReac Unknown other Verified 03/20/24 14:37 [From Depakote] Assessment & Plan Assessment & Plan (1) Intermittent explosive disorder: Status: Acute Code(s): F63.81 - Intermittent explosive disorder (2) Post-traumatic stress disorder, unspecified: Status: Acute Code(s): F43.10 - Post-traumatic stress disorder, unspecified (3) Mood disorder: Status: Acute Code(s): F39 - Unspecified mood [affective] disorder (4) Intellectual disability: Status: Acute Code(s): F79 - Unspecified intellectual disabilities (5) ADHD (attention deficit hyperactivity disorder): Status: Acute Code(s): F90.9 - Attention-deficit hyperactivity disorder, unspecified type (6) Psychogenic nonepileptic seizure: Status: Acute Code(s): F44.5 - Conversion disorder with seizures or convulsions Plan 29 yo female, under guardianship, resident of a [facility] with history of intellectual disability, PTSD, nonepileptic seizures, GERD, chronic constipation, ADHD intermittent explosive disorder, and history of superficial self-harm including swallowing objects, recently discharged from (03/13/24) after patient swallowed several items requiring EGD, who returns the ED and now for admission the same day patient was discharged, citing emotional dysregulation during which time she swallowed a screw in a reported suicide attempt. Patient says that when she left she was overall feeling good enough. On the ride home, the boat driver spelled of cannabis which she said triggered her asthma and made her very uncomfortable. When she got back to the [facility], she found several of her personal items removed (having been deemed swallowing risks) which made her feel emotional and angry. Patient said her frustration mounted and she felt like being so found a screw which she swallowed and superficially scratched her arm; after that her anger flared and she kicked the door of a peer and punched holes in the leon. Patient was sent to the emergency room. Patient said at the moment she wanted to but says those feelings are fully resolved and denies any SI or desires to self-harm. Patient says she is not sure what needs to change in order for her to stay safe. She said however that there is a special outing to the beach scheduled for [place] 04 and she wants to remain in good behavioral control so she does not miss it Regarding ingestion of screw, per GI, daily x-rays to monitor progress; allowed to have MiraLax (discussed with hospitalist WILLIAMS who reviewed with GI). Formulation/clinical reasoning: What ever was triggering, seems to have resolved at this time. Patient has long history of high expressed emotion, low tolerance for stress and poor coping skills; patient has a significant history of swallowing items when upset; some speculate behavior is done to get out of [facility] at times. Will consider some medication management but but it is also a consideration that further medication management will not resolve this chronic issue; rather consistent therapy and an expanded behavioral plan might be more effective. Hospital course: 03/18 patient says her mood is okay; not willing to engage much other than superficially Had a BM; screen still visible in GI tract 03/19 patient seems somewhat sad, intermittently irritable with peers or staff but overall remaining in behavioral and impulse control. Wants to discuss medication changes to help her stop flipping out. Asked play writer to talk to outpatient provider -screw remains visible and GI tract 03/20 Patient tearful today, saying she misses her father and just wants to . She says I just want to be with him. Patient somewhat resistant to help coping with feelings but was willing to walk the bautista with play writer and talk about it a little bit. Mostly that she misses him and anniversary of his is coming up. She reflects on the fact that despite she wanting to be so she can be with him, that he would not want her to hurt herself. Patient asked if she could have a p.r.n. and was able to wait calmly, the 15 minutes it took for this to be brought from the pharmacy. Sales Service Representative reaching out to patient's outpatient provider -screw remains sigmoid colon 03/21/24: continue daily xrays until screw passes. Reports does not want to take Trileptal has had a bad reaction when they were younger. Unable to specify details. Reports they might consider taking anther medication, but unsure if this was the medication discussed with their primary provider during the week. 03/22/24: Right wrist splints and lidocaine patch. Ice as needed. Overall we discussed patient will work with primary team around new medication as they do not want Trileptal. Team had considered phenytoin. Otherwise will order wrist splint and lidocaine patch. As per progress note 03/20/24: STARTING TRILEPTAL Sales Service Representative has been debating whether or not to allow patient to get to a therapeutic duration of Zoloft verse starting her on another medication used for intermittent explosive disorder. Review of up-to-date recommends next treatment option phenytoin. Only downside is that phenytoin frequently lowers the availability of Lamictal, Vraylar and Zyprexa Because of the medication interactions a phenytoin, play writer thus considering Trileptal which is also a possible treatment, not with his much evidence as phenytoin but still statistically effective and without drug/drug interactions. Given the seriousness/severity of explosive episodes, resulting in swallowing items, risking increased danger to patient, will start Trileptal now rather than wait to achieve therapeutic duration of Zoloft (patient had adverse reaction to Depakote which was discontinued when she was a child; will monitor lab work and rash for patient) 03/23: Discussed Trileptal refusal with pt today. Will present other options for her consideration. 03/24: Increase Olanzapine to 10 mg bid. Meeting with team 03/25 to plan discharge. Plan: CV Q 15 minute checks Daily x-rays to follow progression of swallow to screw MiraLax daily; GI okayed Otherwise continue home medication including increased Zoloft and newly started Adderall Will discuss with outpatient team Reason for continued inpatient stay Substantial Risk for: rapid decompensation Time Spent With Patient Time: Total time managing care of this patient today ____ minutes.
[2024-03-24] MEDS: Gabapentin 300 MG CAPSULE PO ×2 (12:38→18:05)
[2024-03-24] MEDS: Lidocaine 4 % Patch ADH..PATCH 1 PATCH TRANSDERMA (14:12)
[2024-03-24] MEDS: hydrOXYzine HCL 50 MG TABLET PO (17:53)
[2024-03-24] MEDS: OLANZapine 5 MG TABLET PO (18:05)
--- NOTE | 2024-03-24 18:25 | PC.NURSE ---
Pt had an episode of getting triggered when she saw security up on the unit (for another person). She began to clench her fists and state They hurt me, they are triggering me! Pt referenced to 2 nights ago when she required physical and medication restraint with security/staff. Pt was able to accept redirection and medication for agitation. TW spoke to her and reminded her she is in control of her emotions and she can walk away from situations that are triggering to her. Once security left the unit, pt came out to kitchen to socialize with some peers.
[2024-03-24 20:00] VITALS: BP 129/80; PULSE 87; RESP 16; TEMP 36.3; O2SAT 95
[2024-03-24] MEDS: Melatonin 3 MG TABLET 6 MG PO (20:02)
[2024-03-24] MEDS: cloNIDine HCL 0.2 MG TABLET PO (20:03)
[2024-03-24] MEDS: traZODone HCL 100 MG TABLET PO (20:03)
[2024-03-24] MEDS: OLANZapine 10 MG TABLET PO (20:03)
[2024-03-24] MEDS: Cariprazine HCl 1.5 MG CAPSULE 4.5 MG PO (20:03)
[2024-03-25] MEDS: Sucralfate 1 GM TABLET PO ×4 (08:30→22:15)
[2024-03-25] MEDS: Lidocaine 4 % Patch ADH..PATCH 2 PATCH TRANSDERMA (08:53)
[2024-03-25] MEDS: polyethylene glycoL 3350 17 GM POWD.PACK PO (08:54)
[2024-03-25] MEDS: NaPROXEN 250 MG TABLET PO ×2 (08:54→22:16)
[2024-03-25] MEDS: LORazepam 1 MG TABLET PO ×3 (08:55→22:13)
[2024-03-25] MEDS: OLANZapine 10 MG TABLET PO (08:55)
[2024-03-25] MEDS: Loratadine 10 MG TABLET PO (08:55)
[2024-03-25] MEDS: Famotidine 20 MG TABLET PO ×2 (08:55→22:13)
[2024-03-25 08:56] VITALS: BP 108/53; PULSE 81; RESP 16; TEMP 36.4; O2SAT 94
[2024-03-25] MEDS: lamoTRIgine 100 MG TABLET 200 MG PO ×2 (08:56→22:15)
[2024-03-25] MEDS: cloNIDine HCL 0.1 MG TABLET PO (08:56)
[2024-03-25] MEDS: Sertraline HCL 50 MG TABLET 150 MG PO (08:56)
[2024-03-25] MEDS: OXcarbazepine 150 MG TABLET PO (08:56)
[2024-03-25] MEDS: Fluticasone Propionate 100 MCG BLST.W.DEV 1 PUFF INHALE ×2 (09:03→22:11)
[2024-03-25] MEDS: Azelastine HCl Nasal 137 MCG/Spray 30 ML 1 SPRAY NOSTRIL-B ×2 (09:03→22:11)
[2024-03-25] MEDS: Dextroamphetamine/Amphetamine XR 10 MG CAP.ER.24H 40 MG PO (10:01)
[2024-03-25] MEDS: OLANZapine 5 MG TABLET PO ×2 (13:14→17:57)
--- NOTE | 2024-03-25 14:42 | HO.PSYCHPN ---
Subjective Subjective Date of Service: 03/25/24 Reason For Visit: PTSD, Mood D/O, Intellectual Disability Subjective Notes: Conditional Voluntary Healthcare Proxy: No Guardianship: No Medical Problems Affecting Mental Status: No Interim History: Pt reports Olanzapine in a.m. with sedation. Will plan to consolidate dose to HS at 15 mg, beginning 03/26. Team met with residential team via zoom. Discharge planned for 03/26. Pt accepting of this plan, then asked to meet with tw later in the day. Reports she is not ready, tearful, angry, behavioral sx present. Asked her to consider, talk with her residential team and guardian and we can approach this issue again in the a.m. Discussed that olanzapine has been tolerated by history and dosage adjustment is safe in an out pt setting as we have been doing. Irritable this afternoon and states she is not ready to leave. Asked pt what goals she would have for remaining in pt longer. She was not able to identify at this time. Medication Compliance: Yes Side effects from medications: No Attending Groups: Intermittent Review of Systems Acute medical concerns: No Medical Review of Systems: unchanged Review of Systems Review of Systems tired after a.m. dosing of olanzapine Mental Status Exam Mental Status Exam Patient Appearance: Appropriate Patient Orientation: Person, Place, Time and Situation Level of Consciousness: Alert Patient Behavior: Anxious, Good Eye Contact and Crying Mood Description: Apprehensive Affect Description: Apprehensive Patient Cognition Impaired: Yes Ability to Follow Directions: Fair Speech Pattern: Spontaneous Speech Memory Description: Episodic Impaired Thought Process: Rumination Thought Content: positive for Circumstantial and positive for Perseveration Depressive Symptoms: Increased Anxiety and Increased Irritability Judgement: Fair Diagnostics Vital Signs (24Hr): Vital Signs - 24 hr 03/24/24 20:00 03/25/24 08:56 03/25/24 08:56 Temperature 97.3 F 97.5 F Pulse Rate 87 81 Respiratory Rate 16 16 Blood Pressure 129/80 108/53 L Pulse Oximetry 95 94 Oxygen Delivery Method Room Air Room Air Labs 03/22/24 09:14 03/22/24 09:14 Imaging Radiology Impressions: ITS Impressions Abdomen X-Ray 03/17/24 12:34 IMPRESSION: An ingested screw is seen in the vicinity of the cecum Abdomen X-Ray 03/18/24 08:31 IMPRESSION: An ingested screw is seen in the vicinity of the lower descending colon. Abdomen X-Ray 03/19/24 10:22 IMPRESSION: An ingested screw is seen in the vicinity of the proximal sigmoid colon. Abdomen X-Ray 03/20/24 08:17 IMPRESSION: An ingested screw is seen in the vicinity of the distal descending colon. Abdomen X-Ray 03/21/24 08:40 IMPRESSION: Metallic foreign body most consistent with a screw projects over the left abdomen similar to recent imaging. Abdomen X-Ray 03/22/24 00:58 IMPRESSION: Unremarkable examination. The previously noted ingested screw is not redemonstrated and appears to have passed. Hand/Wrist X-Ray 03/22/24 00:58 IMPRESSION: No acute findings identified in the right hand or wrist. Abdomen X-Ray 03/24/24 09:24 IMPRESSION: Previously identified radiopaque screw is not visualized on the current exam. This study was presented today March 25, 2024 for interpretation. Stat results provided at this time as requested by referring provider. Medications Medications Current Medications Acetaminophen (Acetaminophen 325 Mg Tablet) 650 mg PO Q6H PRN PRN Reason: Headache/Pain Mild Scale (1-3) Last Admin: 03/22/24 15:56 Dose: 650 mg Acetaminophen/Butalbital/Caffeine (Butalb/Acetamin/Caff 50/325/40 Tablet) 2 tab PO Q8H PRN PRN Reason: headache Last Admin: 03/23/24 13:23 Dose: 2 tab Al Hydroxide/Mg Hydroxide (Magnesium Hydrox/Alum Hydrox 30 Ml Oral.Susp) 30 ml PO Q6H PRN PRN Reason: Heartburn/Nausea Last Admin: 03/17/24 17:55 Dose: 30 ml Albuterol Sulfate (Albuterol Sulfate 90 Mcg 8 Gm Inhaler) 2 puff INHALE Q4H PRN PRN Reason: wheezing Amphetamine/Dextroamphetamine (Dextroamphetamine/Amphetamine Xr 10 Mg Cap.Er.24h) 40 mg PO DAILY [facility] Last Admin: 03/25/24 10:01 Dose: 40 mg Azelastine HCl (Azelastine Hcl Nasal 137 Mcg/[place] 30 Ml) 1 spray NOSTRIL-B BID [facility] Last Admin: 03/25/24 09:03 Dose: 1 spray Cariprazine (Cariprazine Hcl 1.5 Mg Capsule) 4.5 mg PO BEDTIME [facility] Last Admin: 03/24/24 20:03 Dose: 4.5 mg Clonidine HCl (Clonidine Hcl 0.1 Mg Tablet) 0.1 mg PO DAILY [facility]; Protocol Last Admin: 03/25/24 08:56 Dose: 0.1 mg Clonidine HCl (Clonidine Hcl 0.2 Mg Tablet) 0.2 mg PO BEDTIME [facility]UAN; Protocol Last Admin: 03/24/24 20:03 Dose: 0.2 mg Famotidine (Famotidine 20 Mg Tablet) 20 mg PO BID [facility] Last Admin: 03/25/24 08:55 Dose: 20 mg Fluticasone Propionate (Fluticasone Propionate 100 Mcg Blst.W.Dev) 1 puff INHALE BID [facility] Last Admin: 03/25/24 09:03 Dose: 1 puff Gabapentin (Gabapentin 300 Mg Capsule) 300 mg PO BID PRN PRN Reason: anxiety Last Admin: 03/24/24 18:05 Dose: 300 mg Guaifenesin/Dextromethorphan (Guaifenesin Dm 600/30 1 Tab Tab.Er.12h) 2 tab PO Q12H PRN PRN Reason: cough Hydroxyzine HCl (Hydroxyzine Hcl 50 Mg Tablet) 50 mg PO Q6H PRN PRN Reason: Anxiety Last Admin: 03/24/24 17:53 Dose: 50 mg Lamotrigine (Lamotrigine 100 Mg Tablet) 200 mg PO BID [facility] Last Admin: 03/25/24 08:56 Dose: 200 mg Lidocaine (Lidocaine 4 % Patch Adh..Patch) 1 patch TRANSDERMA DAILY PRN; Protocol PRN Reason: right shoulder and right wrist Last Admin: 03/24/24 14:12 Dose: 1 patch Lidocaine (Lidocaine 4 % Patch Adh..Patch) 2 patch TRANSDERMA DAILY JUAN; Protocol Last Admin: 03/25/24 08:53 Dose: 2 patch Loratadine (Loratadine 10 Mg Tablet) 10 mg PO DAILY [facility] Last Admin: 03/25/24 08:55 Dose: 10 mg Lorazepam (Lorazepam 1 Mg Tablet) 1 mg PO TID [facility] Last Admin: 03/25/24 08:55 Dose: 1 mg Melatonin (Melatonin 3 Mg Tablet) 6 mg PO BEDTIME [facility] Last Admin: 03/24/24 20:02 Dose: 6 mg Naproxen (Naproxen 250 Mg Tablet) 250 mg PO BID [facility] Last Admin: 03/25/24 08:54 Dose: 250 mg Nicotine Polacrilex (Nicotine Polacrilex 2 Mg Gum) 4 mg BUCCAL Q2H PRN PRN Reason: Nicotine Cravings Nystatin (Nystatin Cream 15 Gm Tube) 1 appl TOPICAL BID PRN; Protocol PRN Reason: rash Olanzapine (Olanzapine 5 Mg Tablet) 5 mg PO TID PRN PRN Reason: agitation Last Admin: 03/25/24 13:14 Dose: 5 mg Olanzapine (Olanzapine 10 Mg Tablet) 10 mg PO BID [facility] Last Admin: 03/25/24 08:55 Dose: 10 mg Ondansetron HCl (Ondansetron Odt 4 Mg Tab.Rapdis) 4 mg TRANSLINGU Q8H PRN PRN Reason: vomiting Last Admin: 03/23/24 13:43 Dose: 4 mg Oxcarbazepine (Oxcarbazepine 150 Mg Tablet) 150 mg PO DAILY [facility] Last Admin: 03/25/24 08:56 Dose: 150 mg Polyethylene Glycol (Polyethylene Glycol 3350 17 Gm Powd.Pack) 17 gm PO DAILY [facility] Last Admin: 03/25/24 08:54 Dose: 17 gm Sertraline HCl (Sertraline Hcl 50 Mg Tablet) 150 mg PO DAILY [facility] Last Admin: 03/25/24 08:56 Dose: 150 mg Sucralfate (Sucralfate 1 Gm Tablet) 1 gm PO QIDACHS [facility] Last Admin: 03/25/24 12:47 Dose: 1 gm Trazodone HCl (Trazodone Hcl 100 Mg Tablet) 100 mg PO BEDTIME [facility] Last Admin: 03/24/24 20:03 Dose: 100 mg Allergies Allergies Allergy/AdvReac Type Severity Reaction Status Date / Time haloperidol [From Haldol] Allergy Unknown Verified 02/28/24 20:52 lithium Allergy Unknown Verified 02/28/24 20:52 morphine Allergy Unknown Verified 02/28/24 20:52 strawberry Allergy Unknown Verified 02/28/24 20:52 divalproex sodium AdvReac Unknown other Verified 03/20/24 14:37 [From Depakote] Assessment & Plan Assessment & Plan (1) Intermittent explosive disorder: Status: Acute Code(s): F63.81 - Intermittent explosive disorder (2) Post-traumatic stress disorder, unspecified: Status: Acute Code(s): F43.10 - Post-traumatic stress disorder, unspecified (3) Mood disorder: Status: Acute Code(s): F39 - Unspecified mood [affective] disorder (4) Intellectual disability: Status: Acute Code(s): F79 - Unspecified intellectual disabilities (5) ADHD (attention deficit hyperactivity disorder): Status: Acute Code(s): F90.9 - Attention-deficit hyperactivity disorder, unspecified type (6) Psychogenic nonepileptic seizure: Status: Acute Code(s): F44.5 - Conversion disorder with seizures or convulsions Plan 29 yo female, under guardianship, resident of a [facility]DS assisted with history of intellectual disability, PTSD, nonepileptic seizures, GERD, chronic constipation, ADHD intermittent explosive disorder, and history of superficial self-harm including swallowing objects, recently discharged from (03/13/24) after patient swallowed several items requiring EGD, who returns the ED and now for admission the same day patient was discharged, citing emotional dysregulation during which time she swallowed a screw in a reported suicide attempt. Patient says that when she left she was overall feeling good enough. On the ride home, the regional truck driver spelled of cannabis which she said triggered her asthma and made her very uncomfortable. When she got back to the assisted, she found several of her personal items removed (having been deemed swallowing risks) which made her feel emotional and angry. Patient said her frustration mounted and she felt like being so found a screw which she swallowed and superficially scratched her arm; after that her anger flared and she kicked the door of a peer and punched holes in the leon. Patient was sent to the emergency room. Patient said at the moment she wanted to but says those feelings are fully resolved and denies any SI or desires to self-harm. Patient says she is not sure what needs to change in order for her to stay safe. She said however that there is [place] special outing to the beach scheduled [place] 04 and she wants to remain in good behavioral control so she does not miss it Regarding ingestion of screw, per GI, daily x-rays to monitor progress; allowed to have MiraLax (discussed with hospitalist WILLIAMS who reviewed with GI). Formulation/clinical reasoning: What ever was triggering, seems to have resolved at this time. Patient has long history of high expressed emotion, low tolerance for stress and poor coping skills; patient has a significant history of swallowing items when upset; some speculate behavior is done to get out of assisted at times. Will consider some medication management but but it is also a consideration that further medication management will not resolve this chronic issue; rather consistent therapy and an expanded behavioral plan might be more effective. Hospital course: 03/18 patient says her mood is okay; not willing to engage much other than superficially Had a BM; screen still visible in GI tract 03/19 patient seems somewhat sad, intermittently irritable with peers or staff but overall remaining in behavioral and impulse control. Wants to discuss medication changes to help her stop flipping out. Asked telegraphic typewriter operator to talk to outpatient provider -screw remains visible and GI tract 03/20 Patient tearful today, saying she misses her father and just wants to . She says I just want to be with him. Patient somewhat resistant to help coping with feelings but was willing to walk the bautista with telegraphic typewriter operator and talk about it a little bit. Mostly that she misses him and anniversary of his is coming up. She reflects on the fact that despite she wanting to be so she can be with him, that he would not want her to hurt herself. Patient asked if she could have a p.r.n. and was able to wait calmly, the 15 minutes it took for this to be brought from the pharmacy. Caster Operator reaching out to patient's outpatient provider -screw remains sigmoid colon 03/21/24: continue daily xrays until screw passes. Reports does not want to take Trileptal has had a bad reaction when they were younger. Unable to specify details. Reports they might consider taking anther medication, but unsure if this was the medication discussed with their primary provider during the week. 03/22/24: Right wrist splints and lidocaine patch. Ice as needed. Overall we discussed patient will work with primary team around new medication as they do not want Trileptal. Team had considered phenytoin. Otherwise will order wrist splint and lidocaine patch. As per progress note 03/20/24: STARTING TRILEPTAL Caster Operator has been debating whether or not to allow patient to get to a therapeutic duration of Zoloft verse starting her on another medication used for intermittent explosive disorder. Review of up-to-date recommends next treatment option phenytoin. Only downside is that phenytoin frequently lowers the availability of Lamictal, Vraylar and Zyprexa Because of the medication interactions a phenytoin, telegraphic typewriter operator thus considering Trileptal which is also a possible treatment, not with his much evidence as phenytoin but still statistically effective and without drug/drug interactions. Given the seriousness/severity of explosive episodes, resulting in swallowing items, risking increased danger to patient, will start Trileptal now rather than wait to achieve therapeutic duration of Zoloft (patient had adverse reaction to Depakote which was discontinued when she was a child; will monitor lab work and rash for patient) 03/23: Discussed Trileptal refusal with pt today. Will present other options for her consideration. 03/24: Increase Olanzapine to 10 mg bid. Meeting with team 03/25 to plan discharge. 03/25: Hold Olanzapine this evening. On 03/26 begin Olanzapine 15 mg HS Possible DC 03/26. Pt is resistant. Will review 03/26 a.m. Plan: CV Q 15 minute checks Daily x-rays to follow progression of swallow to screw MiraLax daily; GI okayed Otherwise continue home medication including increased Zoloft and newly started Adderall Will discuss with outpatient team Reason for continued inpatient stay Substantial Risk for: rapid decompensation Time Spent With Patient Time: Total time managing care of this patient today ____ minutes.
[2024-03-25] MEDS: Gabapentin 300 MG CAPSULE PO (15:33)
[2024-03-25 20:00] VITALS: BP 115/74; PULSE 92; RESP 16; TEMP 36.4; O2SAT 95
[2024-03-25] MEDS: Cariprazine HCl 1.5 MG CAPSULE 4.5 MG PO (22:12)
[2024-03-25 22:13] VITALS: BP 108/58
[2024-03-25] MEDS: cloNIDine HCL 0.2 MG TABLET PO (22:13)
[2024-03-25] MEDS: Melatonin 3 MG TABLET 6 MG PO (22:13)
[2024-03-25] MEDS: traZODone HCL 100 MG TABLET PO (22:16)
[2024-03-26 08:00] VITALS: BP 118/66; PULSE 98; RESP 16; TEMP 36.1; O2SAT 98
[2024-03-26] MEDS: lamoTRIgine 100 MG TABLET 200 MG PO ×2 (08:18→20:29)
[2024-03-26] MEDS: Famotidine 20 MG TABLET PO ×2 (08:18→20:29)
[2024-03-26] MEDS: Sucralfate 1 GM TABLET PO ×4 (08:19→20:29)
[2024-03-26] MEDS: NaPROXEN 250 MG TABLET PO ×2 (08:20→20:29)
[2024-03-26] MEDS: Sertraline HCL 50 MG TABLET 150 MG PO (08:20)
[2024-03-26] MEDS: LORazepam 1 MG TABLET PO ×3 (08:21→20:29)
[2024-03-26] MEDS: Dextroamphetamine/Amphetamine XR 10 MG CAP.ER.24H 40 MG PO (08:21)
[2024-03-26] MEDS: Loratadine 10 MG TABLET PO (08:21)
[2024-03-26] MEDS: polyethylene glycoL 3350 17 GM POWD.PACK PO (08:23)
[2024-03-26] MEDS: Lidocaine 4 % Patch ADH..PATCH 2 PATCH TRANSDERMA (08:23)
[2024-03-26 08:25] VITALS: BP 118/66
[2024-03-26] MEDS: cloNIDine HCL 0.1 MG TABLET PO (08:25)
[2024-03-26] MEDS: Azelastine HCl Nasal 137 MCG/Spray 30 ML 1 SPRAY NOSTRIL-B ×2 (08:29→20:28)
[2024-03-26] MEDS: Fluticasone Propionate 100 MCG BLST.W.DEV 1 PUFF INHALE ×2 (08:29→20:28)
[2024-03-26] MEDS: Acetaminophen 325 MG TABLET 650 MG PO (14:14)
[2024-03-26] MEDS: Lidocaine 4 % Patch ADH..PATCH 1 PATCH TRANSDERMA (15:33)
--- NOTE | 2024-03-26 17:02 | P.PNPSI_ITS ---
Subjective Subjective Date of Service: 03/26/24 Reason For Visit: PTSD, Mood D/O, Intellectual Disability Subjective Notes: Conditional Voluntary Interim History: Reports L eye irritation, edema, redness and drainage. Requested hospitalist consult. Attending some groups, per team no behavioral issues. Will begin Olanzapine 15 mg hs this evening. Medication Compliance: Yes Side effects from medications: No Attending Groups: Intermittent Review of Systems Acute medical concerns: No Medical Review of Systems: unchanged Mental Status Exam Mental Status Exam Patient Appearance: Appropriate Patient Orientation: Person, Place, Time and Situation Level of Consciousness: Alert Patient Behavior: Anxious and Good Eye Contact Mood Description: Apprehensive Affect Description: Apprehensive Patient Cognition Impaired: Yes Ability to Follow Directions: Fair Speech Pattern: Spontaneous Speech Memory Description: Episodic Impaired Thought Process: Rumination Thought Content: positive for Circumstantial and positive for Perseveration Depressive Symptoms: Increased Anxiety and Increased Irritability Judgement: Fair Diagnostics Vital Signs (24Hr): Vital Signs - 24 hr 03/25/24 20:00 03/25/24 22:13 03/26/24 08:00 Temperature 97.6 F 97.0 F Pulse Rate 92 98 Respiratory Rate 16 16 Blood Pressure 115/74 108/58 L 118/66 Pulse Oximetry 95 98 Oxygen Delivery Method Room Air Room Air 03/26/24 08:25 Temperature Pulse Rate Respiratory Rate Blood Pressure 118/66 Pulse Oximetry Oxygen Delivery Method Labs 03/22/24 09:14 03/22/24 09:14 Imaging Radiology Impressions: ITS Impressions Abdomen X-Ray 03/17/24 12:34 IMPRESSION: An ingested screw is seen in the vicinity of the cecum Abdomen X-Ray 03/18/24 08:31 IMPRESSION: An ingested screw is seen in the vicinity of the lower descending colon. Abdomen X-Ray 03/19/24 10:22 IMPRESSION: An ingested screw is seen in the vicinity of the proximal sigmoid colon. Abdomen X-Ray 03/20/24 08:17 IMPRESSION: An ingested screw is seen in the vicinity of the distal descending colon. Abdomen X-Ray 03/21/24 08:40 IMPRESSION: Metallic foreign body most consistent with a screw projects over the left abdomen similar to recent imaging. Abdomen X-Ray 03/22/24 00:58 IMPRESSION: Unremarkable examination. The previously noted ingested screw is not redemonstrated and appears to have passed. Hand/Wrist X-Ray 03/22/24 00:58 IMPRESSION: No acute findings identified in the right hand or wrist. Abdomen X-Ray 03/24/24 09:24 IMPRESSION: Previously identified radiopaque screw is not visualized on the current exam. This study was presented today March 25, 2024 for interpretation. Stat results provided at this time as requested by referring provider. Medications Medications Current Medications Acetaminophen (Acetaminophen 325 Mg Tablet) 650 mg PO Q6H PRN PRN Reason: Headache/Pain Mild Scale (1-3) Last Admin: 03/26/24 14:14 Dose: 650 mg Acetaminophen/Butalbital/Caffeine (Butalb/Acetamin/Caff 50/325/40 Tablet) 2 tab PO Q8H PRN PRN Reason: headache Last Admin: 03/23/24 13:23 Dose: 2 tab Al Hydroxide/Mg Hydroxide (Magnesium Hydrox/Alum Hydrox 30 Ml Oral.Susp) 30 ml PO Q6H PRN PRN Reason: Heartburn/Nausea Last Admin: 03/17/24 17:55 Dose: 30 ml Albuterol Sulfate (Albuterol Sulfate 90 Mcg 8 Gm Inhaler) 2 puff INHALE Q4H PRN PRN Reason: wheezing Amphetamine/Dextroamphetamine (Dextroamphetamine/Amphetamine Xr 10 Mg Cap.Er.24h) 40 mg PO DAILY [facility] Last Admin: 03/26/24 08:21 Dose: 40 mg Azelastine HCl (Azelastine Hcl Nasal 137 Mcg/Mohler 30 Ml) 1 spray NOSTRIL-B BID [facility] Last Admin: 03/26/24 08:29 Dose: 1 spray Cariprazine (Cariprazine Hcl 1.5 Mg Capsule) 4.5 mg PO BEDTIME [facility] Last Admin: 03/25/24 22:12 Dose: 4.5 mg Clonidine HCl (Clonidine Hcl 0.1 Mg Tablet) 0.1 mg PO DAILY [facility]; Protocol Last Admin: 03/26/24 08:25 Dose: 0.1 mg Clonidine HCl (Clonidine Hcl 0.2 Mg Tablet) 0.2 mg PO BEDTIME JUAN; Protocol Last Admin: 03/25/24 22:13 Dose: 0.2 mg Famotidine (Famotidine 20 Mg Tablet) 20 mg PO BID [facility] Last Admin: 03/26/24 08:18 Dose: 20 mg Fluticasone Propionate (Fluticasone Propionate 100 Mcg Blst.W.Dev) 1 puff INHALE BID [facility] Last Admin: 03/26/24 08:29 Dose: 1 puff Gabapentin (Gabapentin 300 Mg Capsule) 300 mg PO BID PRN PRN Reason: anxiety Last Admin: 03/25/24 15:33 Dose: 300 mg Guaifenesin/Dextromethorphan (Guaifenesin Dm 600/30 1 Tab Tab.Er.12h) 2 tab PO Q12H PRN PRN Reason: cough Hydroxyzine HCl (Hydroxyzine Hcl 50 Mg Tablet) 50 mg PO Q6H PRN PRN Reason: Anxiety Last Admin: 03/24/24 17:53 Dose: 50 mg Lamotrigine (Lamotrigine 100 Mg Tablet) 200 mg PO BID [facility] Last Admin: 03/26/24 08:18 Dose: 200 mg Lidocaine (Lidocaine 4 % Patch Adh..Patch) 1 patch TRANSDERMA DAILY PRN; Protocol PRN Reason: right shoulder and right wrist Last Admin: 03/26/24 15:33 Dose: 1 patch Lidocaine (Lidocaine 4 % Patch Adh..Patch) 2 patch TRANSDERMA DAILY [facility]; Protocol Last Admin: 03/26/24 08:23 Dose: 2 patch Loratadine (Loratadine 10 Mg Tablet) 10 mg PO DAILY [facility] Last Admin: 03/26/24 08:21 Dose: 10 mg Lorazepam (Lorazepam 1 Mg Tablet) 1 mg PO TID [facility] Last Admin: 03/26/24 14:15 Dose: 1 mg Melatonin (Melatonin 3 Mg Tablet) 6 mg PO BEDTIME [facility] Last Admin: 03/25/24 22:13 Dose: 6 mg Naproxen (Naproxen 250 Mg Tablet) 250 mg PO BID [facility] Last Admin: 03/26/24 08:20 Dose: 250 mg Nicotine Polacrilex (Nicotine Polacrilex 2 Mg Gum) 4 mg BUCCAL Q2H PRN PRN Reason: Nicotine Cravings Nystatin (Nystatin Cream 15 Gm Tube) 1 appl TOPICAL BID PRN; Protocol PRN Reason: rash Olanzapine (Olanzapine 5 Mg Tablet) 5 mg PO TID PRN PRN Reason: agitation Last Admin: 03/25/24 17:57 Dose: 5 mg Olanzapine (Olanzapine 10 Mg Tablet) 10 mg PO BID [facility] Last Admin: 03/25/24 08:55 Dose: 10 mg Ondansetron HCl (Ondansetron Odt 4 Mg Tab.Rapdis) 4 mg TRANSLINGU Q8H PRN PRN Reason: vomiting Last Admin: 03/23/24 13:43 Dose: 4 mg Polyethylene Glycol (Polyethylene Glycol 3350 17 Gm Powd.Pack) 17 gm PO DAILY [facility] Last Admin: 03/26/24 08:23 Dose: 17 gm Sertraline HCl (Sertraline Hcl 50 Mg Tablet) 150 mg PO DAILY [facility] Last Admin: 03/26/24 08:20 Dose: 150 mg Sucralfate (Sucralfate 1 Gm Tablet) 1 gm PO QIDACHS [facility] Last Admin: 03/26/24 11:20 Dose: 1 gm Trazodone HCl (Trazodone Hcl 100 Mg Tablet) 100 mg PO BEDTIME [facility] Last Admin: 03/25/24 22:16 Dose: 100 mg Allergies Allergies Allergy/AdvReac Type Severity Reaction Status Date / Time haloperidol [From Haldol] Allergy Unknown Verified 02/28/24 20:52 lithium Allergy Unknown Verified 02/28/24 20:52 morphine Allergy Unknown Verified 02/28/24 20:52 strawberry Allergy Unknown Verified 02/28/24 20:52 divalproex sodium AdvReac Unknown other Verified 03/20/24 14:37 [From Depakote] Assessment & Plan Assessment & Plan (1) Intermittent explosive disorder: Status: Acute Code(s): F63.81 - Intermittent explosive disorder (2) Post-traumatic stress disorder, unspecified: Status: Acute Code(s): F43.10 - Post-traumatic stress disorder, unspecified (3) Mood disorder: Status: Acute Code(s): F39 - Unspecified mood [affective] disorder (4) Intellectual disability: Status: Acute Code(s): F79 - Unspecified intellectual disabilities (5) ADHD (attention deficit hyperactivity disorder): Status: Acute Code(s): F90.9 - Attention-deficit hyperactivity disorder, unspecified type (6) Psychogenic nonepileptic seizure: Status: Acute Code(s): F44.5 - Conversion disorder with seizures or convulsions Plan 29 yo female, under guardianship, resident of a [facility] long term with history of intellectual disability, PTSD, nonepileptic seizures, GERD, chronic constipation, ADHD intermittent explosive disorder, and history of superficial self-harm including swallowing objects, recently discharged from (03/13/24) after patient swallowed several items requiring EGD, who returns the ED and now for admission the same day patient was discharged, citing emotional dysregulation during which time she swallowed a screw in a reported suicide attempt. Patient says that when she left [facility] she was overall feeling good enough. On the ride home, the interstate bus driver spelled of cannabis which she said triggered her asthma and made her very uncomfortable. When she got back to the long term, she found several of her personal items removed (having been deemed swallowing risks) which made her feel emotional and angry. Patient said her frustration mounted and she felt like being so found a screw which she swallowed and superficially scratched her arm; after that her anger flared and she kicked the door of a peer and punched holes in the leon. Patient was sent to the emergency room. Patient said at the moment she wanted to but says those feelings are fully resolved and denies any SI or desires to self-harm. Patient says she is not sure what needs to change in order for her to stay safe. She said however that there is a special outing to the beach scheduled for [place] 04 and she wants to remain in good behavioral control so she does not miss it Regarding ingestion of screw, per GI, daily x-rays to monitor progress; allowed to have MiraLax (discussed with hospitalist WILLIAMS who reviewed with GI). Formulation/clinical reasoning: What ever was triggering, seems to have resolved at this time. Patient has long history of high expressed emotion, low tolerance for stress and poor coping skills; patient has a significant history of swallowing items when upset; some speculate behavior is done to get out of long term at times. Will consider some medication management but but it is also a consideration that further medication management will not resolve this chronic issue; rather consistent therapy and an expanded behavioral plan might be more effective. Hospital course: 03/18 patient says her mood is okay; not willing to engage much other than superficially Had a BM; screen still visible in GI tract 03/19 patient seems somewhat sad, intermittently irritable with peers or staff but overall remaining in behavioral and impulse control. Wants to discuss medication changes to help her stop flipping out. Asked law writer to talk to outpatient provider -screw remains visible and GI tract 03/20 Patient tearful today, saying she misses her father and just wants to . She says I just want to be with him. Patient somewhat resistant to help coping with feelings but was willing to walk the bautista with law writer and talk about it a little bit. Mostly that she misses him and anniversary of his is coming up. She reflects on the fact that despite she wanting to be so she can be with him, that he would not want her to hurt herself. Patient asked if she could have a p.r.n. and was able to wait calmly, the 15 minutes it took for this to be brought from the pharmacy. Saturator reaching out to patient's outpatient provider -screw remains sigmoid colon 03/21/24: continue daily xrays until screw passes. Reports does not want to take Trileptal has had a bad reaction when they were younger. Unable to specify details. Reports they might consider taking anther medication, but unsure if this was the medication discussed with their primary provider during the week. 03/22/24: Right wrist splints and lidocaine patch. Ice as needed. Overall we discussed patient will work with primary team around new medication as they do not want Trileptal. Team had considered phenytoin. Otherwise will order wrist splint and lidocaine patch. As per progress note 03/20/24: STARTING TRILEPTAL Saturator has been debating whether or not to allow patient to get to a therapeutic duration of Zoloft verse starting her on another medication used for intermittent explosive disorder. Review of up-to-date recommends next treatment option phenytoin. Only downside is that phenytoin frequently lowers the availability of Lamictal, Vraylar and Zyprexa Because of the medication interactions a phenytoin, law writer thus considering Trileptal which is also a possible treatment, not with his much evidence as phenytoin but still statistically effective and without drug/drug interactions. Given the seriousness/severity of explosive episodes, resulting in swallowing items, risking increased danger to patient, will start Trileptal now rather than wait to achieve therapeutic duration of Zoloft (patient had adverse reaction to Depakote which was discontinued when she was a child; will monitor lab work and rash for patient) 03/23: Discussed Trileptal refusal with pt today. Will present other options for her consideration. 03/24: Increase Olanzapine to 10 mg bid. Meeting with team 03/25 to plan discharge. 03/25: Hold Olanzapine this evening. On 03/26 begin Olanzapine 15 mg HS Possible DC 03/26. Pt is resistant. Will review 03/26 a.m. 03/26: Discharge postponed until 03/30. Olanzapine 15 mg HS to begin this evening. Hospitalist consult, L eye with irritation, drainage, edema, pain Plan: CV Q 15 minute checks Daily x-rays to follow progression of swallow to screw MiraLax daily; GI okayed Otherwise continue home medication including increased Zoloft and newly started Adderall Will discuss with outpatient team Reason for continued inpatient stay Substantial Risk for: rapid decompensation Time Spent With Patient Time: Total time managing care of this patient today ____ minutes.
--- NOTE | 2024-03-26 19:27 | PC.NURSE ---
This morning during medication pass, pt reported that she tried to move the chair and ended up losing her sap pi architect falling on her butt and then leaned onto her right elbow. She continued to state, The chair and I do not get along today. This was thought to be behavioral in nature perhaps as pt stated she was not ready to be DC'd and and per another RN was overhead saying If I go back to my intermediate today I am just gonna swallow something else so I'd come back. This incident happened in the bautista in front of patient phones and was witnessed by director industrial nursing working with TW. Pt did not hit head and no reported additional injury reported/observed. Pt has already been complaining of pain to right shoulder and right wrist and wearing sling/splint for comfort. Provider Tenzin [place] and food service ambassador notified and no additional orders entered.
[2024-03-26 19:52] VITALS: BP 113/57; PULSE 108; RESP 18; TEMP 36.1; O2SAT 97
[2024-03-26] MEDS: OLANZapine 7.5 MG TABLET 15 MG PO (20:29)
[2024-03-26] MEDS: traZODone HCL 100 MG TABLET PO (20:29)
[2024-03-26] MEDS: cloNIDine HCL 0.2 MG TABLET PO (20:29)
[2024-03-26] MEDS: Melatonin 3 MG TABLET 6 MG PO (20:29)
[2024-03-26] MEDS: Cariprazine HCl 1.5 MG CAPSULE 4.5 MG PO (20:29)
[2024-03-27] MEDS: Sucralfate 1 GM TABLET PO ×4 (08:52→21:15)
[2024-03-27 09:15] VITALS: BP 104/61; PULSE 83; RESP 16; TEMP 36.3; O2SAT 96
[2024-03-27] MEDS: LORazepam 1 MG TABLET PO ×3 (09:20→21:15)
[2024-03-27] MEDS: Dextroamphetamine/Amphetamine XR 10 MG CAP.ER.24H 40 MG PO (09:30)
[2024-03-27] MEDS: Sertraline HCL 50 MG TABLET 150 MG PO (09:31)
[2024-03-27] MEDS: Fluticasone Propionate 100 MCG BLST.W.DEV 1 PUFF INHALE ×2 (09:32→21:14)
[2024-03-27] MEDS: NaPROXEN 250 MG TABLET PO ×2 (09:33→21:15)
[2024-03-27] MEDS: Azelastine HCl Nasal 137 MCG/Spray 30 ML 1 SPRAY NOSTRIL-B ×2 (09:33→21:14)
[2024-03-27 09:34] VITALS: BP 104/61
[2024-03-27] MEDS: cloNIDine HCL 0.1 MG TABLET PO (09:34)
[2024-03-27] MEDS: lamoTRIgine 100 MG TABLET 200 MG PO ×2 (09:35→21:15)
[2024-03-27] MEDS: Lidocaine 4 % Patch ADH..PATCH 2 PATCH TRANSDERMA (09:36)
[2024-03-27] MEDS: polyethylene glycoL 3350 17 GM POWD.PACK PO (09:36)
[2024-03-27] MEDS: Loratadine 10 MG TABLET PO (09:37)
[2024-03-27] MEDS: Famotidine 20 MG TABLET PO ×2 (09:37→21:15)
[2024-03-27] MEDS: OLANZapine 5 MG TABLET PO (11:09)
--- NOTE | 2024-03-27 11:33 | PM.EVENT ---
Event Note Date of Service: 03/27/24 Event Note: Stat consult placed for evaluation of 29-year-old female admitted to adult Psychiatry due to ?Worsening pain in Left Eye, edema, drainage . On exam, pt is in no acute distress, lying in bed. There is no scleral injection or active drainage. There is mild erythema over the lower lid with mild tenderness to palpation. No orbital tenderness or erythema. She denies any pain of the eye globe itself and denies any blurred vision or diplopia. She states she had some yellow crusting this morning without any recurrence. Exam consistent with hordeolum. No evidence of conjunctivitis however given slight drainage which can be assocaited with the hordeolum itself, will add neomycin/polymyxin drops. Recommend disposable warm compresses throughout the day. No indication for further urgent/emergent intervention at this time. Mild discomfort with the hordeolum is expected. Time Spent With Patient Time: Total time managing care of this patient today ____ minutes.
[2024-03-27] MEDS: Butalb/Acetamin/Caff 50/325/40 TABLET 2 TAB PO (15:23)
[2024-03-27] MEDS: Ondansetron ODT 4 MG TAB.RAPDIS TRANSLINGU (15:24)
[2024-03-27] MEDS: Sennosides 8.6 MG TABLET 17.2 MG PO (16:00)
[2024-03-27] MEDS: bisacodyL 5 MG TABLET.DR 10 MG PO (16:20)
--- NOTE | 2024-03-27 16:46 | HO.PSYCHPN ---
Subjective Subjective Date of Service: 03/27/24 Reason For Visit: PTSD, Mood D/O, Intellectual Disability Subjective Notes: Conditional Voluntary Healthcare Proxy: No Guardianship: No Medical Problems Affecting Mental Status: No Interim History: Seen by hospitalist team regarding L eye sx. Review of medications, changes per pt request in her laxatives to reflect her use at home. Irritable and challenging at times, responsive to limits. Episode of yelling, swearing earlier this a.m. responsive to redirection, processing and limit setting. Brief, frequent interactions initiated by pt with appropriate questions, comments and reports about her health. Showing some good boundaries in the milieu with peers who were struggling. Medication Compliance: Yes Side effects from medications: No Attending Groups: Yes Review of Systems Acute medical concerns: No Medical Review of Systems: unchanged Review of Systems Review of Systems L eye sx addressed Mental Status Exam Mental Status Exam Patient Appearance: Appropriate Patient Orientation: Person, Place, Time and Situation Level of Consciousness: Alert Patient Behavior: Anxious and Good Eye Contact Mood Description: Apprehensive Affect Description: Apprehensive Patient Cognition Impaired: Yes Ability to Follow Directions: Fair Speech Pattern: Spontaneous Speech Memory Description: Episodic Impaired Thought Process: Rumination Thought Content: positive for Circumstantial and positive for Perseveration Depressive Symptoms: Increased Anxiety and Increased Irritability Judgement: Fair Diagnostics Vital Signs (24Hr): Vital Signs - 24 hr 03/26/24 19:52 03/27/24 09:15 03/27/24 09:34 Temperature 96.9 F 97.3 F Pulse Rate 108 H 83 Respiratory Rate 18 16 Blood Pressure 113/57 L 104/61 104/61 Pulse Oximetry 97 96 Oxygen Delivery Method Room Air Room Air Labs 03/22/24 09:14 03/22/24 09:14 Imaging Radiology Impressions: ITS Impressions Abdomen X-Ray 03/17/24 12:34 IMPRESSION: An ingested screw is seen in the vicinity of the cecum Abdomen X-Ray 03/18/24 08:31 IMPRESSION: An ingested screw is seen in the vicinity of the lower descending colon. Abdomen X-Ray 03/19/24 10:22 IMPRESSION: An ingested screw is seen in the vicinity of the proximal sigmoid colon. Abdomen X-Ray 03/20/24 08:17 IMPRESSION: An ingested screw is seen in the vicinity of the distal descending colon. Abdomen X-Ray 08/03/24 08:40 IMPRESSION: Metallic foreign body most consistent with a screw projects over the left abdomen similar to recent imaging. Abdomen X-Ray 03/22/24 00:58 IMPRESSION: Unremarkable examination. The previously noted ingested screw is not redemonstrated and appears to have passed. Hand/Wrist X-Ray 03/22/24 00:58 IMPRESSION: No acute findings identified in the right hand or wrist. Abdomen X-Ray 03/24/24 09:24 IMPRESSION: Previously identified radiopaque screw is not visualized on the current exam. This study was presented today March 25, 2024 for interpretation. Stat results provided at this time as requested by referring provider. Medications Medications Current Medications Acetaminophen (Acetaminophen 325 Mg Tablet) 650 mg PO Q6H PRN PRN Reason: Headache/Pain Mild Scale (1-3) Last Admin: 03/26/24 14:14 Dose: 650 mg Acetaminophen/Butalbital/Caffeine (Butalb/Acetamin/Caff 50/325/40 Tablet) 2 tab PO Q8H PRN PRN Reason: headache Last Admin: 03/27/24 15:23 Dose: 2 tab Al Hydroxide/Mg Hydroxide (Magnesium Hydrox/Alum Hydrox 30 Ml Oral.Susp) 30 ml PO Q6H PRN PRN Reason: Heartburn/Nausea Last Admin: 03/17/24 17:55 Dose: 30 ml Albuterol Sulfate (Albuterol Sulfate 90 Mcg 8 Gm Inhaler) 2 puff INHALE Q4H PRN PRN Reason: wheezing Amphetamine/Dextroamphetamine (Dextroamphetamine/Amphetamine Xr 10 Mg Cap.Er.24h) 40 mg PO DAILY [facility] Last Admin: 03/27/24 09:30 Dose: 40 mg Azelastine HCl (Azelastine Hcl Nasal 137 Mcg/[place] 30 Ml) 1 spray NOSTRIL-B BID [facility] Last Admin: 03/27/24 09:33 Dose: 1 spray Bisacodyl (Bisacodyl 5 Mg Tablet.Dr) 10 mg PO DAILY@1600 [facility] Last Admin: 03/27/24 16:20 Dose: 10 mg Cariprazine (Cariprazine Hcl 1.5 Mg Capsule) 4.5 mg PO BEDTIME [facility] Last Admin: 03/26/24 20:29 Dose: 4.5 mg Clonidine HCl (Clonidine Hcl 0.1 Mg Tablet) 0.1 mg PO DAILY [facility]; Protocol Last Admin: 03/27/24 09:34 Dose: 0.1 mg Clonidine HCl (Clonidine Hcl 0.2 Mg Tablet) 0.2 mg PO BEDTIME [facility]; Protocol Last Admin: 03/26/24 20:29 Dose: 0.2 mg Famotidine (Famotidine 20 Mg Tablet) 20 mg PO BID [facility] Last Admin: 03/27/24 09:37 Dose: 20 mg Fluticasone Propionate (Fluticasone Propionate 100 Mcg Blst.W.Dev) 1 puff INHALE BID [facility] Last Admin: 03/27/24 09:32 Dose: 1 puff Gabapentin (Gabapentin 300 Mg Capsule) 300 mg PO BID PRN PRN Reason: anxiety Last Admin: 03/25/24 15:33 Dose: 300 mg Guaifenesin/Dextromethorphan (Guaifenesin Dm 600/30 1 Tab Tab.Er.12h) 2 tab PO Q12H PRN PRN Reason: cough Hydroxyzine HCl (Hydroxyzine Hcl 50 Mg Tablet) 50 mg PO Q6H PRN PRN Reason: Anxiety Last Admin: 03/24/24 17:53 Dose: 50 mg Lamotrigine (Lamotrigine 100 Mg Tablet) 200 mg PO BID [facility] Last Admin: 03/27/24 09:35 Dose: 200 mg Lidocaine (Lidocaine 4 % Patch Adh..Patch) 1 patch TRANSDERMA DAILY PRN; Protocol PRN Reason: right shoulder and right wrist Last Admin: 03/26/24 15:33 Dose: 1 patch Lidocaine (Lidocaine 4 % Patch Adh..Patch) 2 patch TRANSDERMA DAILY [facility]; Protocol Last Admin: 03/27/24 09:36 Dose: 2 patch Loratadine (Loratadine 10 Mg Tablet) 10 mg PO DAILY [facility] Last Admin: 03/27/24 09:37 Dose: 10 mg Lorazepam (Lorazepam 1 Mg Tablet) 1 mg PO TID [facility] Last Admin: 03/27/24 14:53 Dose: 1 mg Melatonin (Melatonin 3 Mg Tablet) 6 mg PO BEDTIME [facility] Last Admin: 03/26/24 20:29 Dose: 6 mg Naproxen (Naproxen 250 Mg Tablet) 250 mg PO BID [facility] Last Admin: 03/27/24 09:33 Dose: 250 mg Neomycin/Polymyxin/Hydrocortisone (Neomycin/Polymyxin/Hc Oph Susp 7.5 Ml Bottle) 1 drop EYE-LEFT Q4H [facility] Last Admin: 03/27/24 15:28 Dose: 1 drop Nicotine Polacrilex (Nicotine Polacrilex 2 Mg Gum) 4 mg BUCCAL Q2H PRN PRN Reason: Nicotine Cravings Nystatin (Nystatin Cream 15 Gm Tube) 1 appl TOPICAL BID PRN; Protocol PRN Reason: rash Olanzapine (Olanzapine 5 Mg Tablet) 5 mg PO TID PRN PRN Reason: agitation Last Admin: 03/27/24 11:09 Dose: 5 mg Olanzapine (Olanzapine 7.5 Mg Tablet) 15 mg PO BEDTIME [facility] Last Admin: 03/26/24 20:29 Dose: 15 mg Ondansetron HCl (Ondansetron Odt 4 Mg Tab.Rapdis) 4 mg TRANSLINGU Q8H PRN PRN Reason: vomiting Last Admin: 03/27/24 15:24 Dose: 4 mg Polyethylene Glycol (Polyethylene Glycol 3350 17 Gm Powd.Pack) 34 gm PO DAILY [facility] Senna (Sennosides 8.6 Mg Tablet) 17.2 mg PO DAILY@1600 [facility] Sertraline HCl (Sertraline Hcl 50 Mg Tablet) 150 mg PO DAILY [facility] Last Admin: 03/27/24 09:31 Dose: 150 mg Sucralfate (Sucralfate 1 Gm Tablet) 1 gm PO QIDACHS [facility] Last Admin: 03/27/24 16:20 Dose: 1 gm Trazodone HCl (Trazodone Hcl 100 Mg Tablet) 100 mg PO BEDTIME [facility] Last Admin: 03/26/24 20:29 Dose: 100 mg Allergies Allergies Allergy/AdvReac Type Severity Reaction Status Date / Time haloperidol [From Haldol] Allergy Unknown Verified 02/28/24 20:52 lithium Allergy Unknown Verified 02/28/24 20:52 morphine Allergy Unknown Verified 02/28/24 20:52 strawberry Allergy Unknown Verified 02/28/24 20:52 divalproex sodium AdvReac Unknown other Verified 03/20/24 14:37 [From Depakote] Assessment & Plan Assessment & Plan (1) Intermittent explosive disorder: Status: Acute Code(s): F63.81 - Intermittent explosive disorder (2) Post-traumatic stress disorder, unspecified: Status: Acute Code(s): F43.10 - Post-traumatic stress disorder, unspecified (3) Mood disorder: Status: Acute Code(s): F39 - Unspecified mood [affective] disorder (4) Intellectual disability: Status: Acute Code(s): F79 - Unspecified intellectual disabilities (5) ADHD (attention deficit hyperactivity disorder): Status: Acute Code(s): F90.9 - Attention-deficit hyperactivity disorder, unspecified type (6) Psychogenic nonepileptic seizure: Status: Acute Code(s): F44.5 - Conversion disorder with seizures or convulsions Plan 29 yo female, under guardianship, resident of a [facility]dc with history of intellectual disability, PTSD, nonepileptic seizures, GERD, chronic constipation, ADHD intermittent explosive disorder, and history of superficial self-harm including swallowing objects, recently discharged from (03/13/24) after patient swallowed several items requiring EGD, who returns the ED and now for admission the same day patient was discharged, citing emotional dysregulation during which time she swallowed a screw in a reported suicide attempt. Patient says that when she left she was overall feeling good enough. On the ride home, the horse and wagon driver spelled of cannabis which she said triggered her asthma and made her very uncomfortable. When she got back to the fdc, she found several of her personal items removed (having been deemed swallowing risks) which made her feel emotional and angry. Patient said her frustration mounted and she felt like being so found a screw which she swallowed and superficially scratched her arm; after that her anger flared and she kicked the door of a peer and punched holes in the leon. Patient was sent to the emergency room. Patient said at the moment she wanted to but says those feelings are fully resolved and denies any SI or desires to self-harm. Patient says she is not sure what needs to change in order for her to stay safe. She said however that there is a special outing to the beach scheduled for [place] 04 and she wants to remain in good behavioral control so she does not miss it Regarding ingestion of screw, per GI, daily x-rays to monitor progress; allowed to have MiraLax (discussed with hospitalist WILLIAMS who reviewed with GI). Formulation/clinical reasoning: What ever was triggering, seems to have resolved at this time. Patient has long history of high expressed emotion, low tolerance for stress and poor coping skills; patient has a significant history of swallowing items when upset; some speculate behavior is done to get out of fdc at times. Will consider some medication management but but it is also a consideration that further medication management will not resolve this chronic issue; rather consistent therapy and an expanded behavioral plan might be more effective. Hospital course: 03/18 patient says her mood is okay; not willing to engage much other than superficially Had a BM; screen still visible in GI tract 03/19 patient seems somewhat sad, intermittently irritable with peers or staff but overall remaining in behavioral and impulse control. Wants to discuss medication changes to help her stop flipping out. Asked keno writer to talk to outpatient provider -screw remains visible and GI tract 03/20 Patient tearful today, saying she misses her father and just wants to . She says I just want to be with him. Patient somewhat resistant to help coping with feelings but was willing to walk the bautista with keno writer and talk about it a little bit. Mostly that she misses him and anniversary of his is coming up. She reflects on the fact that despite she wanting to be so she can be with him, that he would not want her to hurt herself. Patient asked if she could have a p.r.n. and was able to wait calmly, the 15 minutes it took for this to be brought from the pharmacy. Dead Mail Checker reaching out to patient's outpatient provider -screw remains sigmoid colon 03/21/24: continue daily xrays until screw passes. Reports does not want to take Trileptal has had a bad reaction when they were younger. Unable to specify details. Reports they might consider taking anther medication, but unsure if this was the medication discussed with their primary provider during the week. 03/22/24: Right wrist splints and lidocaine patch. Ice as needed. Overall we discussed patient will work with primary team around new medication as they do not want Trileptal. Team had considered phenytoin. Otherwise will order wrist splint and lidocaine patch. As per progress note 03/20/24: STARTING TRILEPTAL Dead Mail Checker has been debating whether or not to allow patient to get to a therapeutic duration of Zoloft verse starting her on another medication used for intermittent explosive disorder. Review of up-to-date recommends next treatment option phenytoin. Only downside is that phenytoin frequently lowers the availability of Lamictal, Vraylar and Zyprexa Because of the medication interactions a phenytoin, keno writer thus considering Trileptal which is also a possible treatment, not with his much evidence as phenytoin but still statistically effective and without drug/drug interactions. Given the seriousness/severity of explosive episodes, resulting in swallowing items, risking increased danger to patient, will start Trileptal now rather than wait to achieve therapeutic duration of Zoloft (patient had adverse reaction to Depakote which was discontinued when she was a child; will monitor lab work and rash for patient) 03/23: Discussed Trileptal refusal with pt today. Will present other options for her consideration. 03/24: Increase Olanzapine to 10 mg bid. Meeting with team 03/25 to plan discharge. 03/25: Hold Olanzapine this evening. On 03/26 begin Olanzapine 15 mg HS Possible DC 03/26. Pt is resistant. Will review 03/26 a.m. 03/26: Discharge postponed until 03/30. Olanzapine 15 mg HS to begin this evening. Hospitalist consult, L eye with irritation, drainage, edema, pain 03/27: Discharge 03/30 Tolerating Olanzapine Hospitalist consult much appreciated. Laxative changes for pt to reflect what she is doing at home. Plan: CV Q 15 minute checks Daily x-rays to follow progression of swallow to screw MiraLax daily; GI okayed Otherwise continue home medication including increased Zoloft and newly started Adderall Will discuss with outpatient team Reason for continued inpatient stay Substantial Risk for: rapid decompensation Time Spent With Patient Time: Total time managing care of this patient today ____ minutes.
[2024-03-27 20:00] VITALS: BP 100/58; PULSE 88; RESP 16; TEMP 36.3; O2SAT 96
[2024-03-27] MEDS: OLANZapine 7.5 MG TABLET 15 MG PO (21:14)
[2024-03-27] MEDS: Melatonin 3 MG TABLET 6 MG PO (21:14)
[2024-03-27] MEDS: cloNIDine HCL 0.2 MG TABLET PO (21:15)
[2024-03-27] MEDS: traZODone HCL 100 MG TABLET PO (21:15)
[2024-03-27] MEDS: Cariprazine HCl 1.5 MG CAPSULE 4.5 MG PO (21:15)
[2024-03-28 08:09] VITALS: BP 101/52; PULSE 77; RESP 18; TEMP 36.2; O2SAT 96
[2024-03-28] MEDS: Sucralfate 1 GM TABLET PO ×4 (08:30→21:07)
[2024-03-28] MEDS: Azelastine HCl Nasal 137 MCG/Spray 30 ML 1 SPRAY NOSTRIL-B ×2 (08:56→21:08)
[2024-03-28] MEDS: Fluticasone Propionate 100 MCG BLST.W.DEV 1 PUFF INHALE ×2 (08:56→21:07)
[2024-03-28] MEDS: polyethylene glycoL 3350 17 GM POWD.PACK 34 GM PO (08:57)
[2024-03-28] MEDS: Lidocaine 4 % Patch ADH..PATCH 2 PATCH TRANSDERMA ×2 (08:57→21:08)
[2024-03-28 08:58] VITALS: BP 108/63
[2024-03-28] MEDS: cloNIDine HCL 0.1 MG TABLET PO (08:58)
[2024-03-28] MEDS: Dextroamphetamine/Amphetamine XR 10 MG CAP.ER.24H 40 MG PO (08:59)
[2024-03-28] MEDS: LORazepam 1 MG TABLET PO ×3 (08:59→21:07)
[2024-03-28] MEDS: Sertraline HCL 50 MG TABLET 150 MG PO (08:59)
[2024-03-28] MEDS: NaPROXEN 250 MG TABLET PO ×2 (09:00→21:07)
[2024-03-28] MEDS: lamoTRIgine 100 MG TABLET 200 MG PO ×2 (09:00→21:07)
[2024-03-28] MEDS: Loratadine 10 MG TABLET PO (09:00)
[2024-03-28] MEDS: Famotidine 20 MG TABLET PO ×2 (09:00→21:07)
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
[2024-03-28] MEDS: Sennosides 8.6 MG TABLET 17.2 MG PO (15:52)
[2024-03-28] MEDS: bisacodyL 5 MG TABLET.DR 10 MG PO (15:52)
[2024-03-28] MEDS: OLANZapine 5 MG TABLET PO (16:36)
[2024-03-28] MEDS: Ondansetron ODT 4 MG TAB.RAPDIS TRANSLINGU (18:58)
[2024-03-28 19:57] VITALS: BP 123/79; PULSE 101; RESP 16; TEMP 36.3; O2SAT 95
[2024-03-28] MEDS: Cariprazine HCl 1.5 MG CAPSULE 4.5 MG PO (21:07)
[2024-03-28] MEDS: Melatonin 3 MG TABLET 6 MG PO (21:07)
[2024-03-28] MEDS: OLANZapine 7.5 MG TABLET 15 MG PO (21:07)
[2024-03-28] MEDS: cloNIDine HCL 0.2 MG TABLET PO (21:07)
[2024-03-28] MEDS: traZODone HCL 100 MG TABLET PO (21:07)
[2024-03-29 08:30] VITALS: BP 110/64; PULSE 90; RESP 18; TEMP 36.2; O2SAT 96
[2024-03-29] MEDS: Sucralfate 1 GM TABLET PO ×4 (08:49→21:30)
[2024-03-29] MEDS: Azelastine HCl Nasal 137 MCG/Spray 30 ML 1 SPRAY NOSTRIL-B ×2 (08:49→21:32)
[2024-03-29] MEDS: Fluticasone Propionate 100 MCG BLST.W.DEV 1 PUFF INHALE ×2 (08:49→21:33)
[2024-03-29] MEDS: Lidocaine 4 % Patch ADH..PATCH 2 PATCH TRANSDERMA (08:50)
[2024-03-29] MEDS: polyethylene glycoL 3350 17 GM POWD.PACK 34 GM PO (08:50)
[2024-03-29] MEDS: Dextroamphetamine/Amphetamine XR 10 MG CAP.ER.24H 40 MG PO (08:51)
[2024-03-29] MEDS: NaPROXEN 250 MG TABLET PO ×2 (08:51→20:13)
[2024-03-29] MEDS: cloNIDine HCL 0.1 MG TABLET PO (08:52)
[2024-03-29] MEDS: LORazepam 1 MG TABLET PO ×3 (08:52→21:29)
[2024-03-29] MEDS: lamoTRIgine 100 MG TABLET 200 MG PO ×2 (08:52→21:28)
[2024-03-29] MEDS: Sertraline HCL 50 MG TABLET 150 MG PO (08:52)
[2024-03-29] MEDS: Loratadine 10 MG TABLET PO (08:52)
[2024-03-29] MEDS: Famotidine 20 MG TABLET PO ×2 (08:52→21:28)
--- NOTE | 2024-03-29 10:25 | P.PNPSI_ITS ---
Subjective Subjective Date of Service: 03/29/24 Reason For Visit: PTSD, Mood D/O, Intellectual Disability Interim History: Has been under good behavioral control over the last 48 hours. Patient requesting increase in HS Zyprexa to 20 mg as this was the dose she was originally taking. It was 10 mg BID and she was sedated due to AM dose. She feels it helps her. She was constipated but finally had a BM. Had vomiting yesterday. Denies any today. She is somatically preoccupied. No self harm. No agitated episodes. Tolerating medications well and is compliant with treatment. No SI. No AVH. Review of Systems Review of Systems L eye sx addressed Yes all other systems are reviewed and are negative Mental Status Exam Mental Status Exam Narrative: Pt is alert and oriented; behavior is cooperative, calm, dressed in casual attire with partially dyed hair, adequate hygiene/grooming; mood is described as down and affect down, constricted; eye contact appropriate; Speech is normal rate, volume, prosody; not pressured; no psychomotor retardation present; thought process organized and goal directed; Thought content is on medications, without any delusional content, paranoid ideations or grandiosity; intermittent SI and thoughts of self-harm, no plans or intent. No HI. There is no evidence of perceptual disturbance. Patients insight and judgment impaired but overall seems to be improving. Patient Appearance: Appropriate Patient Orientation: Person, Place, Time and Situation Level of Consciousness: Alert Patient Behavior: Anxious and Good Eye Contact Mood Description: Apprehensive Affect Description: Apprehensive Patient Cognition Impaired: Yes Ability to Follow Directions: Fair Speech Pattern: Spontaneous Speech Memory Description: Episodic Impaired Diagnostics Vital Signs (24Hr): Vital Signs - 24 hr 03/28/24 19:57 Temperature 97.3 F Pulse Rate 101 H Respiratory Rate 16 Blood Pressure 123/79 Pulse Oximetry 95 Oxygen Delivery Method Room Air Labs 03/22/24 09:14 03/22/24 09:14 Imaging Radiology Impressions: ITS Impressions Abdomen X-Ray 03/17/24 12:34 IMPRESSION: An ingested screw is seen in the vicinity of the cecum Abdomen X-Ray 03/18/24 08:31 IMPRESSION: An ingested screw is seen in the vicinity of the lower descending colon. Abdomen X-Ray 03/19/24 10:22 IMPRESSION: An ingested screw is seen in the vicinity of the proximal sigmoid colon. Abdomen X-Ray 03/20/24 08:17 IMPRESSION: An ingested screw is seen in the vicinity of the distal descending colon. Abdomen X-Ray 03/21/24 08:40 IMPRESSION: Metallic foreign body most consistent with a screw projects over the left abdomen similar to recent imaging. Abdomen X-Ray 03/22/24 00:58 IMPRESSION: Unremarkable examination. The previously noted ingested screw is not redemonstrated and appears to have passed. Hand/Wrist X-Ray 03/22/24 00:58 IMPRESSION: No acute findings identified in the right hand or wrist. Abdomen X-Ray 03/24/24 09:24 IMPRESSION: Previously identified radiopaque screw is not visualized on the current exam. This study was presented today March 25, 2024 for interpretation. Stat results provided at this time as requested by referring provider. Medications Medications Current Medications Acetaminophen (Acetaminophen 325 Mg Tablet) 650 mg PO Q6H PRN PRN Reason: Headache/Pain Mild Scale (1-3) Last Admin: 03/26/24 14:14 Dose: 650 mg Acetaminophen/Butalbital/Caffeine (Butalb/Acetamin/Caff 50/325/40 Tablet) 2 tab PO Q8H PRN PRN Reason: headache Last Admin: 03/27/24 15:23 Dose: 2 tab Al Hydroxide/Mg Hydroxide (Magnesium Hydrox/Alum Hydrox 30 Ml Oral.Susp) 30 ml PO Q6H PRN PRN Reason: Heartburn/Nausea Last Admin: 03/17/24 17:55 Dose: 30 ml Albuterol Sulfate (Albuterol Sulfate 90 Mcg 8 Gm Inhaler) 2 puff INHALE Q4H PRN PRN Reason: wheezing Amphetamine/Dextroamphetamine (Dextroamphetamine/Amphetamine Xr 10 Mg Cap.Er.24h) 40 mg PO DAILY [facility] Last Admin: 03/29/24 08:51 Dose: 40 mg Azelastine HCl (Azelastine Hcl Nasal 137 Mcg/Zenia 30 Ml) 1 spray NOSTRIL-B BID [facility] Last Admin: 03/29/24 08:49 Dose: 1 spray Bisacodyl (Bisacodyl 5 Mg Tablet.Dr) 10 mg PO DAILY@1600 [facility] Last Admin: 03/28/24 15:52 Dose: 10 mg Cariprazine (Cariprazine Hcl 1.5 Mg Capsule) 4.5 mg PO BEDTIME [facility] Last Admin: 03/28/24 21:07 Dose: 4.5 mg Clonidine HCl (Clonidine Hcl 0.1 Mg Tablet) 0.1 mg PO DAILY [facility]; Protocol Last Admin: 03/29/24 08:52 Dose: 0.1 mg Clonidine HCl (Clonidine Hcl 0.2 Mg Tablet) 0.2 mg PO BEDTIME [facility]; Protocol Last Admin: 03/28/24 21:07 Dose: 0.2 mg Famotidine (Famotidine 20 Mg Tablet) 20 mg PO BID [facility] Last Admin: 03/29/24 08:52 Dose: 20 mg Fluticasone Propionate (Fluticasone Propionate 100 Mcg Blst.W.Dev) 1 puff INHALE BID [facility] Last Admin: 03/29/24 08:49 Dose: 1 puff Gabapentin (Gabapentin 300 Mg Capsule) 300 mg PO BID PRN PRN Reason: anxiety Last Admin: 03/25/24 15:33 Dose: 300 mg Guaifenesin/Dextromethorphan (Guaifenesin Dm 600/30 1 Tab Tab.Er.12h) 2 tab PO Q12H PRN PRN Reason: cough Hydroxyzine HCl (Hydroxyzine Hcl 50 Mg Tablet) 50 mg PO Q6H PRN PRN Reason: Anxiety Last Admin: 03/24/24 17:53 Dose: 50 mg Lamotrigine (Lamotrigine 100 Mg Tablet) 200 mg PO BID [facility] Last Admin: 03/29/24 08:52 Dose: 200 mg Lidocaine (Lidocaine 4 % Patch Adh..Patch) 2 patch TRANSDERMA DAILY [facility]; Protocol Last Admin: 03/29/24 08:50 Dose: 2 patch Lidocaine (Lidocaine 4 % Patch Adh..Patch) 2 patch TRANSDERMA DAILY PRN; Protocol PRN Reason: Pain, Moderate(Pain Scale 4-6) Last Admin: 03/28/24 21:08 Dose: 2 patch Loratadine (Loratadine 10 Mg Tablet) 10 mg PO DAILY [facility] Last Admin: 03/29/24 08:52 Dose: 10 mg Lorazepam (Lorazepam 1 Mg Tablet) 1 mg PO TID [facility] Last Admin: 03/29/24 08:52 Dose: 1 mg Melatonin (Melatonin 3 Mg Tablet) 6 mg PO BEDTIME [facility] Last Admin: 03/28/24 21:07 Dose: 6 mg Naproxen (Naproxen 250 Mg Tablet) 250 mg PO BID [facility] Last Admin: 03/29/24 08:51 Dose: 250 mg Neomycin/Polymyxin/Hydrocortisone (Neomycin/Polymyxin/Hc Oph Susp 7.5 Ml Bottle) 1 drop EYE-LEFT Q4H [facility] Last Admin: 03/29/24 08:49 Dose: 1 drop Nicotine Polacrilex (Nicotine Polacrilex 2 Mg Gum) 4 mg BUCCAL Q2H PRN PRN Reason: Nicotine Cravings Nystatin (Nystatin Cream 15 Gm Tube) 1 appl TOPICAL BID PRN; Protocol PRN Reason: rash Olanzapine (Olanzapine 5 Mg Tablet) 5 mg PO TID PRN PRN Reason: agitation Last Admin: 03/28/24 16:36 Dose: 5 mg Olanzapine (Olanzapine 7.5 Mg Tablet) 15 mg PO BEDTIME [facility] Last Admin: 03/28/24 21:07 Dose: 15 mg Ondansetron HCl (Ondansetron Odt 4 Mg Tab.Rapdis) 4 mg TRANSLINGU Q8H PRN PRN Reason: vomiting Last Admin: 03/28/24 18:58 Dose: 4 mg Polyethylene Glycol (Polyethylene Glycol 3350 17 Gm Powd.Pack) 34 gm PO DAILY [facility] Last Admin: 03/29/24 08:50 Dose: 34 gm Senna (Sennosides 8.6 Mg Tablet) 17.2 mg PO DAILY@1600 [facility] Last Admin: 03/28/24 15:52 Dose: 17.2 mg Sertraline HCl (Sertraline Hcl 50 Mg Tablet) 150 mg PO DAILY [facility] Last Admin: 03/29/24 08:52 Dose: 150 mg Sucralfate (Sucralfate 1 Gm Tablet) 1 gm PO QIDACHS [facility] Last Admin: 03/29/24 08:49 Dose: 1 gm Trazodone HCl (Trazodone Hcl 100 Mg Tablet) 100 mg PO BEDTIME [facility] Last Admin: 03/28/24 21:07 Dose: 100 mg Allergies Allergies Allergy/AdvReac Type Severity Reaction Status Date / Time haloperidol [From Haldol] Allergy Unknown Verified 02/28/24 20:52 lithium Allergy Unknown Verified 02/28/24 20:52 morphine Allergy Unknown Verified 02/28/24 20:52 strawberry Allergy Unknown Verified 02/28/24 20:52 divalproex sodium AdvReac Unknown other Verified 03/20/24 14:37 [From Depakote] Assessment & Plan Assessment & Plan (1) Intermittent explosive disorder: Status: Acute Code(s): F63.81 - Intermittent explosive disorder (2) Post-traumatic stress disorder, unspecified: Status: Acute Code(s): F43.10 - Post-traumatic stress disorder, unspecified (3) Mood disorder: Status: Acute Code(s): F39 - Unspecified mood [affective] disorder (4) Intellectual disability: Status: Acute Code(s): F79 - Unspecified intellectual disabilities (5) ADHD (attention deficit hyperactivity disorder): Status: Acute Code(s): F90.9 - Attention-deficit hyperactivity disorder, unspecified type (6) Psychogenic nonepileptic seizure: Status: Acute Code(s): F44.5 - Conversion disorder with seizures or convulsions Plan 29 yo female, under guardianship, resident of a [facility] with history of intellectual disability, PTSD, nonepileptic seizures, GERD, chronic constipation, ADHD intermittent explosive disorder, and history of superficial self-harm including swallowing objects, recently discharged from (03/13/24) after patient swallowed several items requiring EGD, who returns the ED and now for admission the same day patient was discharged, citing emotional dysregulation during which time she swallowed a screw in a reported suicide attempt. Patient says that when she left she was overall feeling good enough. On the ride home, the rail car driver spelled of cannabis which she said triggered her asthma and made her very uncomfortable. When she got back to the prison, she found several of her personal items removed (having been deemed swallowing risks) which made her feel emotional and angry. Patient said her frustration mounted and she felt like being so found a screw which she swallowed and superficially scratched her arm; after that her anger flared and she kicked the door of a peer and punched holes in the leon. Patient was sent to the emergency room. Patient said at the moment she wanted to but says those feelings are fully resolved and denies any SI or desires to self-harm. Patient says she is not sure what needs to change in order for her to stay safe. She said however that there is a special outing to the beach scheduled for [place] 04 and she wants to remain in good behavioral control so she does not miss it Regarding ingestion of screw, per GI, daily x-rays to monitor progress; allowed to have MiraLax (discussed with hospitalist WILLIAMS who reviewed with GI). Formulation/clinical reasoning: What ever was triggering, seems to have resolved at this time. Patient has long history of high expressed emotion, low tolerance for stress and poor coping skills; patient has a significant history of swallowing items when upset; some speculate behavior is done to get out of prison at times. Will consider some medication management but but it is also a consideration that further medication management will not resolve this chronic issue; rather consistent therapy and an expanded behavioral plan might be more effective. Hospital course: 03/18 patient says her mood is okay; not willing to engage much other than superficially Had a BM; screen still visible in GI tract 03/19 patient seems somewhat sad, intermittently irritable with peers or staff but overall remaining in behavioral and impulse control. Wants to discuss medication changes to help her stop flipping out. Asked teletypewriter operator to talk to outpatient provider -screw remains visible and GI tract 03/20 Patient tearful today, saying she misses her father and just wants to . She says I just want to be with him. Patient somewhat resistant to help coping with feelings but was willing to walk the bautista with teletypewriter operator and talk about it a little bit. Mostly that she misses him and anniversary of his is coming up. She reflects on the fact that despite she wanting to be so she can be with him, that he would not want her to hurt herself. Patient asked if she could have a p.r.n. and was able to wait calmly, the 15 minutes it took for this to be brought from the pharmacy. Pharmaceutical Scientist reaching out to patient's outpatient provider -screw remains sigmoid colon 03/21/24: continue daily xrays until screw passes. Reports does not want to take Trileptal has had a bad reaction when they were younger. Unable to specify details. Reports they might consider taking anther medication, but unsure if this was the medication discussed with their primary provider during the week. 03/22/24: Right wrist splints and lidocaine patch. Ice as needed. Overall we discussed patient will work with primary team around new medication as they do not want Trileptal. Team had considered phenytoin. Otherwise will order wrist splint and lidocaine patch. As per progress note 03/20/24: STARTING TRILEPTAL Pharmaceutical Scientist has been debating whether or not to allow patient to get to a therapeutic duration of Zoloft verse starting her on another medication used for intermittent explosive disorder. Review of up-to-date recommends next treatment option phenytoin. Only downside is that phenytoin frequently lowers the availability of Lamictal, Vraylar and Zyprexa Because of the medication interactions a phenytoin, teletypewriter operator thus considering Trileptal which is also a possible treatment, not with his much evidence as phenytoin but still statistically effective and without drug/drug interactions. Given the seriousness/severity of explosive episodes, resulting in swallowing items, risking increased danger to patient, will start Trileptal now rather than wait to achieve therapeutic duration of Zoloft (patient had adverse reaction to Depakote which was discontinued when she was a child; will monitor lab work and rash for patient) 03/23: Discussed Trileptal refusal with pt today. Will present other options for her consideration. 03/24: Increase Olanzapine to 10 mg bid. Meeting with team 03/25 to plan discharge. 03/25: Hold Olanzapine this evening. On 03/26 begin Olanzapine 15 mg HS Possible DC 03/26. Pt is resistant. Will review 03/26 a.m. 03/26: Discharge postponed until 03/30. Olanzapine 15 mg HS to begin this evening. Hospitalist consult, L eye with irritation, drainage, edema, pain 03/27: Discharge 03/30 Tolerating Olanzapine Hospitalist consult much appreciated. Laxative changes for pt to reflect what she is doing at home. 03/28: continue current management and treatment plan. 03/29: Increase HS Zyprexa to 20 mg. continue current management and treatment plan. Plan: CV Q 15 minute checks Daily x-rays to follow progression of swallow to screw MiraLax daily; GI okayed Otherwise continue home medication including increased Zoloft and newly started Adderall Will discuss with outpatient team Reason for continued inpatient stay Substantial Risk for: harm to self, harm to others, inability to function and rapid decompensation Time Spent With Patient Time: Total time managing care of this patient today ____ minutes.
[2024-03-29] MEDS: Sennosides 8.6 MG TABLET 17.2 MG PO (15:06)
[2024-03-29] MEDS: bisacodyL 5 MG TABLET.DR 10 MG PO (15:07)
[2024-03-29 20:00] VITALS: BP 121/69; PULSE 82; RESP 16; TEMP 36.6; O2SAT 96
[2024-03-29] MEDS: Gabapentin 300 MG CAPSULE PO (20:44)
[2024-03-29] MEDS: OLANZapine 10 MG TABLET 20 MG PO (21:28)
[2024-03-29 21:29] VITALS: BP 112/74
[2024-03-29] MEDS: cloNIDine HCL 0.2 MG TABLET PO (21:29)
[2024-03-29] MEDS: traZODone HCL 100 MG TABLET PO (21:29)
[2024-03-29] MEDS: Cariprazine HCl 1.5 MG CAPSULE 4.5 MG PO (21:29)
[2024-03-29] MEDS: Melatonin 3 MG TABLET 6 MG PO (21:30)
[2024-03-30 08:00] VITALS: BP 107/61; PULSE 83; RESP 18; TEMP 36.6; O2SAT 97
[2024-03-30] MEDS: Lidocaine 4 % Patch ADH..PATCH 2 PATCH TRANSDERMA (08:29)
[2024-03-30] MEDS: NaPROXEN 250 MG TABLET PO (08:30)
[2024-03-30] MEDS: polyethylene glycoL 3350 17 GM POWD.PACK 34 GM PO (08:30)
[2024-03-30] MEDS: Sucralfate 1 GM TABLET PO ×2 (08:30→11:51)
[2024-03-30] MEDS: cloNIDine HCL 0.1 MG TABLET PO (08:31)
[2024-03-30] MEDS: Loratadine 10 MG TABLET PO (08:31)
[2024-03-30] MEDS: Sertraline HCL 50 MG TABLET 150 MG PO (08:31)
[2024-03-30] MEDS: Famotidine 20 MG TABLET PO (08:31)
[2024-03-30] MEDS: lamoTRIgine 100 MG TABLET 200 MG PO (08:31)
[2024-03-30] MEDS: LORazepam 1 MG TABLET PO (08:31)
[2024-03-30] MEDS: Dextroamphetamine/Amphetamine XR 10 MG CAP.ER.24H 40 MG PO (08:32)
[2024-03-30] MEDS: Azelastine HCl Nasal 137 MCG/Spray 30 ML 1 SPRAY NOSTRIL-B (08:32)
[2024-03-30] MEDS: Fluticasone Propionate 100 MCG BLST.W.DEV 1 PUFF INHALE (08:32)
--- NOTE | 2024-03-30 11:51 | P.DS_ITS ---
DS: Providers Provider Date of Service: 03/30/24 Date of admission: 03/16/24 21:50 Date of discharge: 03/30/24 Primary care physician: Unknown Physician Attending physician on admission: Robe Schumacher Consults: 03/16/24 22:49 Consult to Hospitalist Routine Comment: Consulting Provider: Hospitalist Reason For Exam: Pt transfer from [facility] 03/26/24 14:56 Consult to Hospitalist Routine Comment: Consulting Provider: Hospitalist Reason For Exam: Left eye irritation, watering, pain, redness 03/27/24 11:22 Consult to Hospitalist Stat Comment: Consulting Provider: Hospitalist Reason For Exam: Worsening pain in Left Eye, edema, drainage Attending physician on discharge: Robe Schumacher DS: Diagnosis Discharge Diagnosis (1) Intermittent explosive disorder: Status: Acute (2) Post-traumatic stress disorder, unspecified: Status: Acute (3) Mood disorder: Status: Acute (4) Intellectual disability: Status: Acute (5) ADHD (attention deficit hyperactivity disorder): Status: Acute (6) Psychogenic nonepileptic seizure: Status: Acute DS: Medications Discharge Medications Home Medications: Home Medications ?Medication ?Instructions ?Recorded ?Confirmed acetaminophen 325 mg tablet 650 mg PO Q6H PRN Pain 02/28/24 03/16/24 acetaminophen-caffeine 500 mg-65 2 tab PO Q8H PRN Headache 02/28/24 02/28/24 mg tablet albuterol sulfate 90 mcg/actuation 2 puff inhalation 6XD PRN Wheezing 02/28/24 03/16/24 aerosol inhaler azelastine 137 mcg (0.1 %) nasal 1 spray intranasal BID 02/28/24 03/16/24 spray bisacodyl 5 mg tablet,delayed 5 mg PO DAILY 02/28/24 03/16/24 release dynjuibnyt-pxakeflrwpwbw-fvzijrma 2 tab PO Q6H PRN Headache 02/28/24 03/16/24 50 mg-325 mg-40 mg tablet dextromethorphan-guaifenesin 30 2 tab PO Q12H PRN Cough 02/28/24 03/16/24 mg-600 mg tablet extended [id number] hr fluticasone furoate 100 1 inh inhalation BEDTIME 02/28/24 03/16/24 mcg/actuation blister powder for inhalation food supplemt, lactose-reduced 1 ea BID 02/28/24 02/28/24 nystatin 100,000 unit/gram topical 1 appl topical BID PRN Rash 02/28/24 03/16/24 powder ondansetron 4 mg disintegrating 4 mg PO Q8H PRN Vomiting 02/28/24 03/16/24 tablet riboflavin (vitamin B2) 100 mg 200 mg PO BID 02/28/24 02/28/24 capsule,extended release sucralfate 100 mg/mL oral PO QID 02/29/24 suspension fexofenadine 180 mg tablet 180 mg PO DAILY 03/16/24 03/16/24 lorazepam 1 mg tablet 1 mg PO TID 03/16/24 03/16/24 plecanatide 3 mg tablet (Trulance) mg 03/16/24 Previous Rx's ?Medication ?Instructions ?Recorded cariprazine 4.5 mg capsule 4.5 mg PO BEDTIME 30 days #30 caps 03/13/24 clonidine HCl 0.1 mg tablet 0.1 mg PO DAILY 30 days #30 tabs 03/13/24 clonidine HCl 0.2 mg tablet 0.2 mg PO BEDTIME 30 days #30 tabs 03/13/24 dextroamphetamine-amphetamine ER 40 mg (2 x 20 mg) PO DAILY 30 days 03/13/24 20 mg 24hr capsule,extend release #60 caps famotidine 20 mg tablet 20 mg PO BID 30 days #60 tabs 03/13/24 gabapentin 300 mg capsule 300 mg PO BID PRN anxiety 30 days 03/13/24 #60 caps hydroxyzine HCl 50 mg tablet 50 mg PO Q6H PRN Anxiety 30 days 03/13/24 #90 tabs lamotrigine 200 mg tablet 200 mg PO BID 30 days #60 tabs 03/13/24 melatonin 3 mg tablet 6 mg (2 x 3 mg) PO BEDTIME 30 days 03/13/24 #60 tabs metoclopramide HCl 5 mg/5 mL oral See Rx Instructions .Route 03/13/24 solution .COMPLEX #473 mL sertraline 100 mg tablet 150 mg (1.5 x 100 mg) PO DAILY 30 03/13/24 days #45 tabs trazodone 100 mg tablet 100 mg PO BEDTIME 30 days #30 tabs 03/13/24 lidocaine 4 % topical patch 2 patch transdermal DAILY PRN 03/30/24 (Lidocaine Pain Relief) Pain, Moderate(Pain Scale 4-6) 30 days #30 ea neomycin 3.5 mg-polymyxin 10,000 1 drp ophthalmic-Left QID 4 days 03/30/24 unit-hydrocort 10 mg/mL eye #7.5 mL drop,susp olanzapine 20 mg tablet 20 mg PO BEDTIME 30 days #30 tabs 03/30/24 olanzapine 5 mg tablet 5 mg PO DAILY PRN agitation 30 03/30/24 days #30 tabs polyethylene glycol 3350 17 gram 34 g PO DAILY #0 ea 03/30/24 oral powder packet sennosides 17.2 mg tablet 17.2 mg PO BID 30 days #60 tabs 03/30/24 Mental Status Exam Mental Status Exam Narrative: Pt is alert and oriented; behavior is cooperative, calm, dressed in casual attire with partially dyed hair, neatly braided, adequate hygiene/grooming; mo od is described as okay and affect calm, a little constricted; eye contact appropriate; Speech is normal rate, volume, prosody; not pressured; no psychomotor retardation present; thought process organized and goal directed; Thought content is on medications, discharge; no delusional content, paranoid ideations or grandiosity; no SI, no self-harming urges, no HI; There is no evidence of perceptual disturbance. Patients insight and judgment fair and adequate. Data Imaging Diagnostic Imaging Impressions Abdomen X-Ray 03/17/24 12:34 IMPRESSION: An ingested screw is seen in the vicinity of the cecum Abdomen X-Ray 03/18/24 08:31 IMPRESSION: An ingested screw is seen in the vicinity of the lower descending colon. Abdomen X-Ray 03/19/24 10:22 IMPRESSION: An ingested screw is seen in the vicinity of the proximal sigmoid colon. Abdomen X-Ray 03/20/24 08:17 IMPRESSION: An ingested screw is seen in the vicinity of the distal descending colon. Abdomen X-Ray 03/21/24 08:40 IMPRESSION: Metallic foreign body most consistent with a screw projects over the left abdomen similar to recent imaging. Abdomen X-Ray 03/22/24 00:58 IMPRESSION: Unremarkable examination. The previously noted ingested screw is not redemonstrated and appears to have passed. Hand/Wrist X-Ray 03/22/24 00:58 IMPRESSION: No acute findings identified in the right hand or wrist. Abdomen X-Ray 03/24/24 09:24 IMPRESSION: Previously identified radiopaque screw is not visualized on the current exam. This study was presented today March 25, 2024 for interpretation. Stat results provided at this time as requested by referring provider. DS: Summary Hospital Course Hospital Course: 29 yo female, under guardianship, resident of a [facility] with history of intellectual disability, PTSD, nonepileptic seizures, GERD, chronic const ipation, ADHD intermittent explosive disorder, and history of superficial self- harm including swallowing objects, recently discharged from (03/13/24) after patient swallowed several items requiring EGD, who returns the ED and now for admission the same day patient was discharged, citing emotional dysregulation during which time she swallowed a screw in a reported suicide attempt. Patient says that when she left she was overall feeling good enough. On the ride home, the driver manager spelled of cannabis which she said triggered her asthma and made her very uncomfortable. When she got back to the penitentiary, she found several of her personal items removed (having been deemed swallowing risks) which made her feel emotional and angry. Patient said her frustration mounted and she felt like being so found a screw which she swallowed and superficially scratched her arm; after that her anger flared and she kicked the door of a peer and punched holes in the leon. Patient was sent to the emergency room. Patient said at the moment she wanted to but says those feelings are fully resolved and denies any SI or desires to self-harm. Patient says she is not sure what needs to change in order for her to stay safe. She said however that there is a special outing to the beach scheduled for April 04 and she wants to remain in good behavioral control so she does not miss it Regarding ingestion of screw, per GI, daily x-rays to monitor progress; allowed to have MiraLax (discussed with hospitalist WILLIAMS who reviewed with GI). Formulation/clinical reasoning: What ever was triggering, seems to have resolved at this time. Patient has long history of high expressed emotion, low tolerance for stress and poor coping skills; patient has a significant history of swallowing items when upset; some speculate behavior is done to get out of penitentiary at times. Will consider some medication management but but it is also a consideration that further me dication management will not resolve this chronic issue; rather consistent therapy and an expanded behavioral plan might be more effective. Hospital course: 03/18 patient says her mood is okay; not willing to engage much other than superficially Had a BM; screen still visible in GI tract 03/19 patient seems somewhat sad, intermittently irritable with peers or staff but overall remaining in behavioral and impulse control. Wants to discuss medication changes to help her stop flipping out. Asked greeting card writer to talk to outpatient provider -screw remains visible and GI tract 03/20 Patient tearful today, saying she misses her father and just wants to . She says I just want to be with him. Patient somewhat resistant to help coping with feelings but was willing to walk the bautista with greeting card writer and talk about it a little bit. Mostly that she misses him and anniversary of his is coming up. She reflects on the fact that despite she wanting to be so she can be with him, that he would not want her to hurt herself. Patient asked if she could have a p.r.n. and was able to wait calmly, the 15 minutes it took for this to be brought from the pharmacy. Surgeon Assistant reaching out to patient's outpatient provider -screw remains sigmoid colon Later, Patient wanted to discuss her struggles with flipping out... And saying she has a hard time controlling herself and wants a medication adjustment to help with this. Decision to start Trileptal Medication were discussed; greeting card writer debating whether or not to wait for patient to get to a therapeutic duration of Zoloft verse starting her on another medication used for intermittent explosive disorder. However, Patient adamant that she does not want to risk waiting to see if Zoloft becomes adequate and anticipates having to come back to the hospital if some medication change is not effective sooner. Review of up-to-date for intermittent explosive disorder recommends next treatment (after ssri) option is phenytoin. Only downside is that phenytoin frequently lowers the availability of Lamictal, Vraylar and Zyprexa Because of the medication interactions with phenytoin, greeting card writer thus considering Trileptal which is also a possible treatment, not with as much evidence as phenytoin but still statistically effective and without drug/drug interactions. Given the seriousness/severity of explosive episodes, resulting in swallowing items, risking increased danger to patient, greeting card writer agreed to start Trileptal now rather than wait to achieve therapeutic duration of Zoloft (patient had adverse reaction to Depakote which was discontinued when she was a child; will monitor lab work and rash for patient) 03/21 - 03/29 Reports does not want to take Trileptal has had a bad reaction when they were younger (as mentioned pt earlier reported bad reaction to Depakote). Unable to specify details. Reports they might consider taking anther medication, but unsure if this was the medication discussed with their primary provider during the week. Eventually it was decided to maximize Zyprexa which patient is already on and eventually was titrated to 20 mg q.h.s.. Patient though demanding at times and sometimes irritable, overall remained in good behavioral and impulse control. Case Discussed with outpatient team who agreed patient was ready for discharge. However on day of discharge, patient said she felt not ready and it was postponed for few days. Patient remained stable and eventually felt ready for discharge. Inpatient and outpatient team confirmed that patient is at baseline and ready to return to the penitentiary. While patient will very likely continue to struggle with emotional reactivity, it does not something that will change with longer stay on inpatient unit but rather requires time to see if medication changes are effective and continued outpatient therapy. Patient is not in imminent risk for harm to self or others and appropriate to return to the community for treatment. Regarding ingested screw: Via abdominal x-ray, screw Appeared to have passed on 03/22; additional abdominal x-ray done on 03/24 and it remained concluded that screw it past Regarding right wrist: Right wrist splints and lidocaine patch. Ice as needed. Overall we discussed patient will work with primary team around new medication as they do not want Trileptal. Team had considered phenytoin. Otherwise will order wrist splint and lidocaine patch. Hand/Wrist X-Ray 03/22/24 00:58 IMPRESSION:No acute findings identified in the right hand or wrist. Regarding left eye: Patient developed stye; treated with antibiotic drops Time spent discussing smoking cessation with patient: 3 to 10 minutes Status at Discharge Overall status at discharge: patient is back to baseline Time Spent with Patient Time attestation: Total time managing care of this patient today ____ minutes. Time spent: Greater than 30 minutes Specific discharge activities: Discussed with team, met with patient, extensive review of discharge medications, prescriptions, charting Discharge Plan Discharge Anticipated Discharge Date/Time: 03/30/24 11:50 Patient Disposition: Home, Self-Care Discharge Diagnosis: PTSD; intermittent explosive disorder Referrals: Deidre Jett APRN [Other] - 04/02/24 12:30 pm Physician,Unknown J [Primary Care Provider] - 1 Week Discharge Medications: New olanzapine 20 mg tablet 20 mg PO BEDTIME 30 Days Qty: 30 0RF olanzapine 5 mg Tablet 5 mg PO DAILY PRN (Reason: agitation) 30 Days Qty: 30 0RF yiogyahj-bvgbgykti-DL 3.5-10,000-10 mg-unit-mg/mL Drops,Suspension 1 drp ophthalmic-Left QID 4 Days Qty: 7.5 0RF Rx Instructions: 1 drop in left eye four times a day for 4 days lidocaine [Lidocaine Pain Relief] 4 % Adhesive Patch,Medicated 2 patch transdermal DAILY PRN (Reason: Pain, Moderate(Pain Scale 4-6)) 30 Days Qty: 30 0RF Protocol: Apply to: Apply to: right shoulder and right wrist Rx Instructions: apply daily as needed to right wrist and/or right shoulder sennosides 17.2 mg tablet 17.2 mg PO BID 30 Days Qty: 60 0RF polyethylene glycol 3350 17 gram Powder In Packet 34 g PO DAILY Qty: 0 0RF Continued acetaminophen 325 mg Tablet 650 mg PO Q6H PRN (Reason: Pain) acetaminophen-caffeine 500-65 mg Tablet 2 tab PO Q8H PRN (Reason: Headache) gqedkuycjx-xdfvuspohlwuc-kilw 50-325-40 mg Tablet 2 tab PO Q6H PRN (Reason: Headache) Rx Instructions: do not exceed 6 tabs per 24 hrs bisacodyl 5 mg Tablet,Delayed Release (Dr/Ec) 5 mg PO DAILY nystatin 100,000 unit/gram Powder 1 appl TOPICAL BID PRN (Reason: Rash) azelastine 137 mcg (0.1 %) Timbo,Non-Aerosol 1 spray INTRANASAL BID Rx Instructions: administer into each nostril dextromethorphan-guaifenesin 30-600 mg Tablet Extended Release 12 Hr 2 tab PO Q12H PRN (Reason: Cough) albuterol sulfate 90 mcg/actuation Hfa Aerosol Inhaler 2 puff INHALATION 6XD PRN (Reason: Wheezing) ondansetron 4 mg Tablet,Disintegrating 4 mg PO Q8H PRN (Reason: Vomiting) riboflavin (vitamin B2) 100 mg Capsule, Extended Release 200 mg PO BID food supplemt, lactose-reduced Liquid 1 ea BID fluticasone furoate 100 mcg/actuation Blister With Device 1 inh INHALATION BEDTIME sucralfate 100 mg/mL suspension PO QID dextroamphetamine-amphetamine 20 mg capsule,extended release 24hr 40 mg PO DAILY 30 Days Qty: 60 0RF Rx Instructions: Partial Fill upon patient request. gabapentin 300 mg Capsule 300 mg PO BID PRN (Reason: anxiety) 30 Days Qty: 60 0RF hydroxyzine HCl 50 mg Tablet 50 mg PO Q6H PRN (Reason: Anxiety) 30 Days Qty: 90 0RF famotidine 20 mg Tablet 20 mg PO BID 30 Days Qty: 60 0RF trazodone 100 mg Tablet 100 mg PO BEDTIME 30 Days Qty: 30 0RF sertraline 100 mg tablet 150 mg PO DAILY 30 Days Qty: 45 0RF lamotrigine 200 mg tablet 200 mg PO BID 30 Days Qty: 60 0RF clonidine HCl 0.1 mg Tablet 0.1 mg PO DAILY 30 Days Qty: 30 0RF Protocol: Hold for SBP< HOLD for SBP < : 90 clonidine HCl 0.2 mg Tablet 0.2 mg PO BEDTIME 30 Days Qty: 30 0RF Protocol: Hold for SBP< HOLD for SBP < : 90 melatonin 3 mg Tablet 6 mg PO BEDTIME 30 Days Qty: 60 0RF cariprazine 4.5 mg Capsule 4.5 mg PO BEDTIME 30 Days Qty: 30 0RF metoclopramide HCl 5 mg/5 mL solution See Rx Instructions .ROUTE .COMPLEX Qty: 473 0RF Rx Instructions: take 10mg in morning and 10mg at bedtime; take 5mg at lunch and 5mg at dinner fexofenadine 180 mg Tablet 180 mg PO DAILY lorazepam 1 mg tablet 1 mg PO TID Trulance 3 mg Tablet Discontinued olanzapine 10 mg Tablet 10 mg PO BEDTIME 30 Days Qty: 30 0RF naproxen 250 mg Tablet 250 mg PO BID 7 Days Qty: 14 0RF lorazepam 1 mg tablet 1 mg PO TID Discharge Orders: Discharge Order (Routine); Ordered 03/30/24 Ordered By: Robe Schumacher Diet: Regular diet Activity on Discharge: As tolerated Stand Alone Forms: Patient Portal Discharge page, Community Support Print Language: Lao Activity Restrictions/Additional Instructions: Sling and splint are both for comfort only. Please keep off as much as possible and promote use of arm. Care Plan Goals: Maintain mood and safe behaviors Take medications as prescribed Practice coping skills Continue with outpatient providers and reach out to them as needed Health Concerns: Mood stability and behaviors GERD Constipation Right shoulder pain (s/p dislocation) Plan of Treatment: Follow up with your PCP, psychiatric provider and other outpatient providers regarding above concerns Take medications as prescribed Assessment: Risk assessment at time of discharge:? Patient was interviewed prior to discharge and found to be fully oriented and without any SI or HI. Patient has improved insight and judgment and wants to continue treatment. Patient is not in imminent risk of harm to self or others and has a safety plan that includes presenting to the closest ER or calling 911 if feeling unsafe.? Patient has been observed closely by nursing and unit staff throughout admission; patient has not engaged in any behaviors that suggest dangerousness to self or others and has demonstrated appropriate behaviors and impulse control Discharge Date/Time: 03/30/24 11:59
== END 2024-03-30 11:59 | disposition home or self-care (01) | DRG 883 ==
PROVIDERS: Admitting Provider Psychiatry & Neurology Psychiatry; Visit Provider Psychiatry & Neurology Psychiatry
DX: F63.81 Intermittent explosive disorder (principal); K59.09 Other constipation; F79 Unspecified intellectual disabilities; H00.015 Hordeolum externum left lower eyelid; F43.10 Post-traumatic stress disorder, unspecified; T18.8XXA Foreign body in other parts of alimentary tract, initial encounter; Z78.1 Physical restraint status; W44.8XXA Other foreign body entering into or through a natural orifice, initial encounter; F39 Unspecified mood [affective] disorder; F90.9 Attention-deficit hyperactivity disorder, unspecified type; F44.5 Conversion disorder with seizures or convulsions; Q86.0 Fetal alcohol syndrome (dysmorphic); Z91.52 Personal history of nonsuicidal self-harm; Z79.899 Other long term (current) drug therapy
CPT/HCPCS: 36415; 73110; 73130; 74018; 74019; 80053; 85025; J2060

== ENCOUNTER → 2024-03-16 21:50 | Outpatient (BNV) | payer MEDICARE, MEDICAID, SELFPAY | PROVIDERS: Admitting Provider Psychiatry & Neurology Psychiatry; Visit Provider Physician Assistant | DX: Z02.2 Encounter for examination for admission to residential institution (principal) | CPT/HCPCS: 99429; 99499 ==

== ENCOUNTER → 2024-03-16 21:50 | Outpatient (BNV) | payer MEDICARE, MEDICAID, SELFPAY | PROVIDERS: Admitting Provider Psychiatry & Neurology Psychiatry; Visit Provider Psychiatry & Neurology Psychiatry | DX: F39 Unspecified mood [affective] disorder (principal); F63.81 Intermittent explosive disorder; F43.11 Post-traumatic stress disorder, acute; F79 Unspecified intellectual disabilities; F90.9 Attention-deficit hyperactivity disorder, unspecified type; F44.5 Conversion disorder with seizures or convulsions | CPT/HCPCS: 90792; 99231; 99232; 99238; 99499 ==